=== PATIENT | male | born 1950 | race Caucasian/White ===

== ENCOUNTER 2020-02-24 23:30 | Emergency (ER) | payer SELFPAY ==
[2020-02-24 23:32] VITALS: BP 128/55; PULSE 88; RESP 20; TEMP 36.9; O2SAT 96; BMI 26.6
--- NOTE | 2020-02-25 01:31 | ED_ITS ---
HPI - Asthma General Chief Complaint: Asthma Stated Complaint: Asthma Time Seen by Provider: 02/25/20 01:18 Source: patient Mode of arrival: ambulatory Limitations: no limitations History of Present Illness HPI Narrative: Patient comes emergency room complaining of an asthma exacerbation. Patient states he has been using her inhaler more than usual. Patient states that he used his pump prior to arrival with some relief. Patient states he has not used any steroids for several months. Denies cough, no sputum production, no fever, no shortness of breath at this time MD complaint: asthma attack Related Data Previous Rx's Medication Instructions Recorded bicalutamide 50 mg tablet 50 mg PO DAILY 90 Days #90 tab 12/28/19 prednisone 50 mg PO DAILY #4 tab 02/25/20 Allergies Allergy/AdvReac Type Severity Reaction Status Date / Time ciprofloxacin [From CIPRO] Allergy Unknown RASH Verified 02/25/20 01:49 Sulfa (Sulfonamide Allergy Unknown rash Verified 02/25/20 01:49 Antibiotics) sulfamethoxazole Allergy Unknown RASH Verified 02/25/20 01:49 [From BACTRIM] trimethoprim [From BACTRIM] Allergy Unknown RASH Verified 02/25/20 01:49 Review of Systems Review of Systems: Constitutional : No Weight loss, No Fever, No Chills, No Night Sweats, No Fatigue, No Malaise ENT/Mouth : No Hearing loss, No Ear Pain, No Nasal Congestion, No Sinus Pain, No Hoarseness, No sore throat, No Rhinorrhea, No Swallowing Difficulty Eyes: No Eye Pain, No Swelling, No Redness, No Foreign Body, No Discharge, No Vision Changes Cardiovascular : No Chest Pain, No SOB, No Dyspnea on Exertion, No Orthopnea, No Edema, No Palpitations Respiratory : No Cough, No Sputum, mild to moderate Wheezing, No Smoke Exposure, No Dyspnea Gastrointestinal : No Nausea, No Vomiting, No Diarrhea, No Constipation, No a bdominal Pain, No Hematochezia, No Melena Genitourinary : no irregular bleeding, No Dysuria, No Urinary Frequency, No Hematuria, No Urinary Incontinence, No Urgency, No Flank Pain, No Urinary Flow Changes, No Hesitancy Musculoskeletal : No joint pain, No Myalgias, No Joint Swelling Skin : No Skin Lesions, No rash Neuro : No Weakness, No Numbness, No Paresthesias, No Loss of Consciousness, No Dizziness, No Headache Psych : No Anxiety/Panic, No Depression, No SI/HI/AH/VH, No Social Issues, Heme/Lymph: No Bruising, No Bleeding,No Lymphadenopathy Endocrine : No Polyuria, No Polydipsia, No Temperature Intolerance [facility] Past Medical History Medical History Asthma COPD (chronic obstructive pulmonary disease) Social History Social History Smoking Status: Former smoker Use of substances other than those prescribed or required for medical reasons: No Advance Directives: No Advance Directives Information Provided: No Physical Exam Vital Signs: Vital Signs: Last Vital Signs Temp 98.4 F 02/24/20 23:32 Pulse 91 02/25/20 01:57 Resp 20 02/24/20 23:32 BP 128/55 L 02/24/20 23:32 Pulse Ox 96 02/24/20 23:32 Body Mass Index 26.6 Appearance: Alert. Oriented X3. No acute distress. Eyes: Pupils equal, round and reactive to light. ENT: Pharynx normal. Neck: Normal inspection. Neck supple. No lymph nodes noted. No crepitus CVS: Normal heart rate and rhythm. Pulses normal. Normal S1 and S2 Respiratory: No respiratory distress. Good air movement bilaterally, very mild occasional wheezing bilaterally Abdomen: Soft and nontender. No rigidity. No distention. good BS x4 Skin: Skin warm and dry. Normal skin color. Normal skin turgor. Extremities: No lower extremity edema. No lower extremity edema. No Lacerations. No Rash Neuro: Oriented X 3. No motor deficit. No sensory deficit. Moving all extermities. No slurred speech. Course Course Course Narrative: Patient is not wheezing, speaking full sentences. Patient ready for discharge. Patient states he has enough albuterol pumps and for his nebulizer. Discharge Plan Discharge Clinical Impression: Asthma Qualifiers: Asthma severity: unspecified severity Asthma persistence: unspecified Asthma complication type: unspecified Qualified Code(s): J45.909 - Unspecified asthma, uncomplicated Patient Disposition: Home, Self-Care Instructions: Asthma (ED) Additional Instructions: Please follow-up with your primary care physician tomorrow. If you have any worsening or new symptoms, please return to the emergency room or call 911 Prescriptions: New prednisone 50 mg tablet 50 mg PO DAILY Qty: 4 RF: 0 No Action bicalutamide 50 mg tablet 50 mg PO DAILY 90 Days Qty: 90 RF: 2
[2020-02-25] MEDS: predniSONE 20 MG TABLET 60 MG PO (01:51)
[2020-02-25] MEDS: Albuterol Sulfate (0.083%) 2.5 MG/3 ML VIAL.NEB INHALE (01:56)
[2020-02-25 01:57] VITALS: PULSE 91; O2SAT 95
== END 2020-02-25 03:16 | disposition home or self-care (01) ==
PROVIDERS: Emergency Provider Emergency Medicine; PCP Internal Medicine
DX: J45.909 Unspecified asthma, uncomplicated (principal); Z87.891 Personal history of nicotine dependence; Z79.899 Other long term (current) drug therapy
CPT/HCPCS: 94640; 99284

== ENCOUNTER → 2020-03-13 10:34 | Outpatient (BNVA) | payer OTHER, SELFPAY | PROVIDERS: PCP Internal Medicine; Visit Provider Internal Medicine Pulmonary Disease | DX: Z76.89 Persons encountering health services in other specified circumstances (principal) ==

== ENCOUNTER 2020-03-21 10:08 | Outpatient (REF) | payer OTHER, SELFPAY ==
--- NOTE | 2020-03-21 | US_ITS ---
EXAMINATION: US RETROPERITONEAL LIMITED (RENAL ONLY) CLINICAL INFORMATION: CA of right renal pelvis. COMPARISON: CT abdomen and pelvis 10/20/2019. Renal ultrasound 09/25/2019. TECHNIQUE: Real-time imaging of the kidneys. FINDINGS: RIGHT KIDNEY: 11.1 x 5.6 x 4.9 cm (SAG x AP x TRV). 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 The kidney is normal in size, contour, and echogenicity. Renal cortical thickness is normal. No renal calculi or hydronephrosis. There are 3 cysts seen. Upper pole cyst measures 0.8 x 0.8 x 0.8 cm, mid pole cyst measures 0.8 x 0.6 x 0.8 cm and a lower pole cyst measures 1.1 x 0.4 x 1.4 cm. There is a hypoechoic heterogeneous lesion in the upper pole with no vascular flow measuring 2.0 x 2.1 x 2.3 cm. It is likely scar following cryoablation. Best visualized on axial image 28/03. LEFT KIDNEY: 3.9 x 5.0 cm (SAG x AP x TRV). The upper pole of the left kidney is not well-visualized due to crossed fused ectopia, hence not sure of the length of the left kidney. The kidney is normal in size, contour, and echogenicity. Renal cortical thickness is normal. No calculi or focal parenchymal lesions. No hydronephrosis. No focal lesion seen. 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 There are 3 anechoic cysts in right kidney and a scar in the upper pole right kidney likely from previous cryoablation.
== END 2020-03-21 10:09 | disposition home or self-care (01) ==
LOC: HO.US 10:08
PROVIDERS: Visit Provider Urology
DX: C65.1 Malignant neoplasm of right renal pelvis (principal)
CPT/HCPCS: 76775

== ENCOUNTER 2020-06-19 10:18 | Outpatient (REF) | payer OTHER, SELFPAY ==
[2020-06-19 11:44] LABS: Prostate Specific Antigen < 0.05 ng/mL (<0.05-4.0)
== END 2020-06-19 10:19 | disposition home or self-care (01) ==
LOC: HO.LAB 10:18
PROVIDERS: PCP Internal Medicine; Visit Provider Urology
DX: Z12.5 Encounter for screening for malignant neoplasm of prostate (principal); C61 Malignant neoplasm of prostate
CPT/HCPCS: 36415; 84153

== ENCOUNTER → 2020-06-25 09:32 | Outpatient (BNVA) | payer OTHER, SELFPAY | PROVIDERS: Visit Provider Urology ==

== ENCOUNTER 2020-09-23 08:36 | Outpatient (REF) | payer OTHER, SELFPAY ==
[2020-09-23 09:36] LABS: Anion Gap 19 (12-20); Blood Urea Nitrogen 20 mg/dL (9-16); Calcium 9.7 mg/dL (8.4-10.2); Carbon Dioxide 20 mmol/L (22-29); Chloride 110 mmol/L (96-108); Cholesterol 114 mg/dL; Estimated Glomerular Filt Rate 53; Glucose Random 148 mg/dL (60-115); HDL Cholesterol 51 mg/dL; LDL Cholesterol Calculated 38 mg/dl; Potassium 5.7 mmol/L (3.3-5.1); Sodium 143 mmol/L (135-145); Triglycerides 129 mg/dL
== END 2020-09-23 08:37 | disposition home or self-care (01) ==
LOC: HO.LAB 08:36
PROVIDERS: PCP Internal Medicine; Visit Provider Internal Medicine
DX: E11.9 Type 2 diabetes mellitus without complications (principal); I10 Essential (primary) hypertension; J44.9 Chronic obstructive pulmonary disease, unspecified
CPT/HCPCS: 36415; 80048; 80061

== ENCOUNTER 2020-09-30 08:39 | Outpatient (REF) | payer OTHER, SELFPAY ==
[2020-09-30 10:55] LABS: Anion Gap 17 (12-20); Blood Urea Nitrogen 20 mg/dL (9-16); Calcium 9.2 mg/dL (8.4-10.2); Carbon Dioxide 18 mmol/L (22-29); Chloride 110 mmol/L (96-108); Estimated Glomerular Filt Rate 54; Glucose Random 135 mg/dL (60-115); Potassium 5.7 mmol/L (3.3-5.1); Sodium 139 mmol/L (135-145)
[2020-09-30 16:27] LABS: Prostate Specific Antigen < 0.05 ng/mL (<0.05-4.0)
== END 2020-09-30 08:40 | disposition home or self-care (01) ==
LOC: HO.LAB 08:39
PROVIDERS: Urology; PCP Internal Medicine; Visit Provider Internal Medicine
DX: Z12.5 Encounter for screening for malignant neoplasm of prostate (principal); E87.5 Hyperkalemia; C61 Malignant neoplasm of prostate
CPT/HCPCS: 36415; 80048; 84153

== ENCOUNTER 2020-10-07 09:42 | Outpatient (REF) | payer OTHER, SELFPAY ==
[2020-10-07 10:32] LABS: Anion Gap 13 (12-20); Blood Urea Nitrogen 16 mg/dL (9-16); Calcium 9.2 mg/dL (8.4-10.2); Carbon Dioxide 25 mmol/L (22-29); Chloride 109 mmol/L (96-108); Estimated Glomerular Filt Rate 56; Glucose Random 115 mg/dL (60-115); Potassium 5.4 mmol/L (3.3-5.1); Sodium 142 mmol/L (135-145)
== END 2020-10-07 09:43 | disposition home or self-care (01) ==
LOC: HO.LAB 09:42
PROVIDERS: PCP Internal Medicine; Visit Provider Internal Medicine
DX: E11.9 Type 2 diabetes mellitus without complications (principal)
CPT/HCPCS: 36415; 80048

== ENCOUNTER 2020-10-14 09:21 | Outpatient (REF) | payer OTHER, SELFPAY ==
[2020-10-14 13:44] LABS: Anion Gap 18 (12-20); Blood Urea Nitrogen 20 mg/dL (9-16); Calcium 9.5 mg/dL (8.4-10.2); Carbon Dioxide 23 mmol/L (22-29); Chloride 107 mmol/L (96-108); Estimated Glomerular Filt Rate 51; Glucose Random 121 mg/dL (60-115); Potassium 5.5 mmol/L (3.3-5.1); Sodium 142 mmol/L (135-145)
== END 2020-10-14 09:22 | disposition home or self-care (01) ==
LOC: HO.LAB 09:21
PROVIDERS: Absent Provider Internal Medicine; PCP Internal Medicine; Visit Provider Family Medicine
DX: E87.5 Hyperkalemia (principal)
CPT/HCPCS: 36415; 80048

== ENCOUNTER 2020-11-05 09:03 | Outpatient (REF) | payer OTHER, SELFPAY ==
[2020-11-05 10:06] LABS: Anion Gap 14 (12-20); Blood Urea Nitrogen 20 mg/dL (9-16); Calcium 9.4 mg/dL (8.4-10.2); Carbon Dioxide 24 mmol/L (22-29); Chloride 109 mmol/L (96-108); Estimated Glomerular Filt Rate > 60; Glucose Random 122 mg/dL (60-115); Sodium 142 mmol/L (135-145)
[2020-11-05 10:25] LABS: Prostate Specific Antigen < 0.05 ng/mL (<0.05-4.0)
== END 2020-11-05 09:04 | disposition home or self-care (01) ==
LOC: HO.LAB 09:03
PROVIDERS: Urology; PCP Internal Medicine; Visit Provider Internal Medicine
DX: N40.1 Benign prostatic hyperplasia with lower urinary tract symptoms (principal); N13.8 Other obstructive and reflux uropathy; C61 Malignant neoplasm of prostate; E87.5 Hyperkalemia
CPT/HCPCS: 36415; 80048; 84153

== ENCOUNTER 2020-11-26 08:19 | Outpatient (REF) | payer OTHER, SELFPAY ==
--- NOTE | ~2020-11-26 | CT_ITS ---
EXAMINATION: CT CHEST WITHOUT CONTRAST CLINICAL INFORMATION: Abnormal lung findings. COMPARISON: CT abdomen 10/20/2019, chest x-ray 10/08/19 TECHNIQUE: Multidetector volumetric CT imaging of the chest was done. Axial MIP volume rendering provided. Sagittal and coronal reformatted images were obtained. This CT examination was performed using dose optimization techniques as appropriate, variously including the following: *Automated exposure control *Adjustment of mA and/or kV according to patient size (this includes techniques or standardized protocols for targeted exams where dose is matched to indication/reason for exam; i.e. extremities or head) *Use of iterative reconstruction technique DLP: 147 mGy-cm FINDINGS: GRADER TENDER: Unremarkable. LUNGS: There is a 3 mm groundglass attenuation nodule image 79/4. There is prominent intralobular peripheral interstitial thickening in both lower lobes especially right lung. There is centrilobular emphysematous changes. No consolidation seen. Compressive atelectasis right lateral basal segment lower lobe. MEDIASTINUM: The left thyroid lobe is enlarged with a retrosternal extension likely goiter. Central trachea and the bronchi widely patent. Atherosclerotic calcification of thoracic arch is noted. There is no abnormal size mediastinal or hilar lymph nodes seen. There is no pericardial effusion. PLEURA: There is no pleural effusion. No pleural mass or thickening. AXILLA: No lymphadenopathy. UPPER ABDOMEN: Visualized liver, spleen, pancreas and bilateral adrenal glands are unremarkable. OSSEOUS STRUCTURES: No lytic or sclerotic process seen. CT/CT chest wo con IMPRESSION: 1. Emphysema with no acute process seen. Minimal atelectasis scarring in both lung bases prominent in the right side. No lung nodules, mass or abnormal lymphadenopathy. 2. Goiter with left substernal extension.
== END 2020-11-26 08:20 | disposition home or self-care (01) ==
LOC: HO.CT 08:19
PROVIDERS: Visit Provider Internal Medicine Pulmonary Disease
DX: R91.8 Other nonspecific abnormal finding of lung field (principal)
CPT/HCPCS: 71250

== ENCOUNTER → 2020-12-13 08:32 | Outpatient (BNVA) | payer OTHER, SELFPAY | PROVIDERS: PCP Internal Medicine; Visit Provider Urology ==

== ENCOUNTER → 2020-12-14 09:07 | Outpatient (REF) | payer OTHER, SELFPAY ==
--- NOTE | 2020-12-14 09:36 | CA_ITS ---
Transthoracic Echocardiogram Patient (Last, First, Middle): Margarito Henderson A Gender: Male Date of : 1950 Age: 70 Procedure Date: 12/14/2020 Procedure Type: Transthoracic Echocardiogram Location: OP Height: 165.1 cm Weight: 70.31 kg BSA: 1.78 m2 Heart Rate: bpm BP: 134 / 60 mmHg Bung Dropper: Referring MD: José Servin MD Senior Analyst Market Intelligence: Oj Hardin MD Symptoms: R06.00 - Dyspnea, unspecified Study Quality: Good ECG Rhythm: Sinus Conclusions: - 1. Normal LV systolic function with mild LVH with pseudonormal filling pattern with elevated left ventricular end-diastolic pressure 2. Mildly dilated left atrium 3. Mild mitral regurgitation 4. Mildly elevated right ventricular systolic pressure 5. No pericardial effusion Findings Left Ventricle Normal left ventricular size and systolic function. There is mildly increased left ventricular wall thickness. The visually estimated ejection fraction is between 60-65%. Spectral Doppler is indicative of a pseudonormal filling pattern. Elevated left ventricular end diastolic pressure. E/E prime ratio is between 8 and 15 consistent with indeterminate filling pressures. Right Ventricle Normal right ventricular cavity size and systolic function. Atria The left atrium is mildly dilated. Interatrial shunt cannot be excluded. The right atrium is normal in size. Aortic Valve The aortic valve structure and function is likely normal. There is no aortic valve stenosis. There is no aortic valve regurgitation. Mitral Valve There is mild anterior and posterior mitral leaflet thickening. There is mild mitral valve regurgitation. There is no mitral valve stenosis. Pulmonic Valve The pulmonic valve was not well visualized. Tricuspid Valve There is mild tricuspid valve regurgitation. The right ventricular systolic pressure is 41 mmHg. Mild pulmonary hypertension is present. Great Vessels All visible segments of the aorta are normal in size. The pulmonary artery was not well visualized. Venous The inferior vena cava is normal in size and collapses greater than 50% with inspiration. Pericardium/Pleural There is no evidence of pericardial effusion. Prior Study Comparison No prior study available for comparison. Measurements 2D Linear Measurements IVSd: 1.23 0.6-0.9/0.6-1.0 cm LVIDd: 4.16 3.9-5.3/4.2-5.9 cm LVIDd Index: 2.34 2.4-3.2/2.2-3.1 cm/m2 LVIDs: 2.65 2.0-3.6 cm LVPWd: 1.23 0.7-1.1 cm Ao Root: 2.80 2.1-3.5 cm LA Diam: 3.70 2.7-3.8/3.0-4.0 cm LAIDs Index: 2.08 1.5-2.3 cm/m2 LV Mass: 226.85 67-162/88-224 g LV Mass Index: 127.44 43-95/49-115 g/m2 LVOT Diam: 2.00 3.0+(-)1.3 cm Mitral Valve MV Pk E: 1.27 MV PK A: 0.56 MV Decel Time: 128.00 E/A: 2.30 E'Lateral: 8.92 E'Medial: 7.94 E/E' Med: 16.00 E/E' Lat: 14.20 PHT: 37.00 MVA PHT: 5.95 Decel Cecil: 9.97 Aortic Valve AoV Pk Ramsey: 1.41 AoV Mn Ramsey: 0.86 AoV VTI: 0.33 AoV Pk Grad: 8.00 Aov Mn Grad: 4.00 RAMON Cont.VTI: 1.92 LVOT LVOT Pk Ramsey: 0.89 LVOT Mn Ramsey: 0.58 LVOT VTI: 0.20 LVOT Pk Grad: 3.00 LVOT Mn Grad: 2.00 LVOT Diam: 2.00 LVOT Area: 3.14 Diastolic Function MV Pk E: 1.27 MV Pk A: 0.56 E/A: 2.30 E'Medial: 7.94 E/E' Med: 16.00 E' Laterial: 8.92 E/E' Lat: 14.20 Tricuspid Valve TR Pk Ramsey: 3.10 TR Pk Grad: 38.00 RA Press: 3.00 RVSP: 41.00 Great Vessels Aorta Ao Root-2D: 2.80 2.0-3.7 cm Ao Asc: 2.90 2.1-3.4 cm Pulmonary Valve PV Pk Ramsey: 1.14 Peak PV Grad: 5.00 Updated in Other Vendor System with Status of Final Oj Hardin MD electronically signed on 12/15/2020 2:29:03 PM with status of Final
== END ==
LOC: HO.CARD 09:07
PROVIDERS: PCP Internal Medicine; Visit Provider Internal Medicine Pulmonary Disease
DX: R06.00 Dyspnea, unspecified (principal)
CPT/HCPCS: 93306

== ENCOUNTER → 2021-01-09 09:23 | Outpatient (BNVA) | payer OTHER, SELFPAY | PROVIDERS: PCP Internal Medicine; Visit Provider Internal Medicine Pulmonary Disease ==

== ENCOUNTER 2021-05-05 09:29 | Outpatient (REF) | payer OTHER, SELFPAY ==
[2021-05-05 10:22] LABS: Estimated Average Glucose 140 mg/dL; Hemoglobin A1c % 6.5 %
[2021-05-05 11:00] LABS: TSH reflex Free T4 0.41 uIU/mL (0.32-4.0)
[2021-05-05 12:05] LABS: Microalbum/Creatinine Ratio Ur 115.6 ug/mg cr
== END 2021-05-05 09:30 | disposition home or self-care (01) ==
LOC: HO.LAB 09:29
PROVIDERS: Absent Provider Internal Medicine; PCP Internal Medicine; Visit Provider Urology
DX: E04.9 Nontoxic goiter, unspecified (principal)
CPT/HCPCS: 36415; 82043; 83036; 84443

== ENCOUNTER 2021-06-04 07:53 | Outpatient (REF) | payer OTHER, SELFPAY ==
--- NOTE | ~2021-06-04 | US_ITS ---
EXAMINATION: US THYROID CLINICAL INFORMATION: Nontoxic goiter. COMPARISON: CT chest 11/26/2020. TECHNIQUE: Linear transducer grayscale and color Doppler examination with attention to the region of the thyroid. FINDINGS: SIZE: Measurements of the thyroid lobes and nodules are given in sagittal, anteroposterior and transverse dimensions respectively. Right Thyroid Lobe: 6.1 x 2.6 x 2.5 cm, volume 20.2 mL. Parenchyma: The gland echotexture is heterogeneous. Thyroid vascularity is normal. Left Thyroid Lobe: 7.2 x 3.7 x 3.3 cm, volume 45.1 mL. Parenchyma: The gland echotexture is heterogeneous. Thyroid vascularity is normal. Isthmus: 1.5 cm in maximum AP dimension. Estimated total number of nodules greater than or equal to 1 cm: 5. Pupil Personnel Services Director nodules are described as follows: 1. Location: Right upper pole. Size: 3.7 x 1.6 x 2.3 cm, volume 7.1 mL. Nodule characteristics: Composition: Solid/almost completely solid (2). Echogenicity: Isoechoic (1). Shape: Not taller than wide (0). Margins: Smooth (0). Echogenic Foci: Punctate echogenic foci (3). ACR TI-RADS total points: 6 ACR TI-RADS category: 4 2. Location: Right mid pole. Size: 0.9 x 0.9 x 1.1 cm, volume 0.50 mL. Nodule characteristics: Composition: Spongiform (0). ACR TI-RADS total points: 0 ACR TI-RADS category: 1 3. Location: Right lower pole. Size: 1.2 x 1.1 x 1.1 cm, volume 0.83 mL. Nodule characteristics: Composition: Mixed cystic and solid (1). Echogenicity: Isoechoic (1). Shape: Not taller than wide (0). Margins: Smooth (0). Echogenic Foci: None (0). ACR TI-RADS total points: 2 ACR TI-RADS category: 2 4. Location: Isthmus. Size: 3.5 x 1.3 x 3.1 cm, volume 7.2 mL. Nodule characteristics: Composition: Solid/almost completely solid (2). Echogenicity: Isoechoic (1). Shape: Not taller than wide (0). Margins: Smooth (0). Echogenic Foci: Punctate echogenic foci (3). ACR TI-RADS total points: 6 ACR TI-RADS category: 4 5. Location: Left lower pole. Size: 2.4 x 1.6 x 1.9 cm, volume 4.0 mL. Nodule characteristics: Composition: Mixed cystic and solid (1). Echogenicity: Isoechoic (1). Shape: Not taller than wide (0). Margins: Smooth (0). Echogenic Foci: None (0). ACR TI-RADS total points: 2 ACR TI-RADS category: 2 NODES: No lymphadenopathy is seen in the tissue surrounding the thyroid gland. US/US thyroid IMPRESSION: 1. Nodule in the superior portion the right thyroid lobe measures up to 3.7 cm with a TI-RADS Category 4. Nodules amenable to biopsy if not already performed. 2. Nodule in the midportion of the right thyroid lobe measures up to 1.1 cm with a TI-RADS category of 1. Nodule does not require follow-up. 3. Nodule in the lower pole of the right thyroid lobe measures up to 1.2 cm with a TI-RADS Category 2. Nodule does not require follow-up. 4. Nodule in the isthmus measures up to 3.5 cm with a TI-RADS Category 4. Nodule is amenable to biopsy if not already performed. 5. Nodule in the lower pole of the left thyroid lobe measures up to 2.4 cm with a TI-RADS Category 2. Nodule does not require follow-up. 6. Bilateral thyroid lobes are enlarged and demonstrate heterogeneous echotexture with normal vascularity. 7. No lymphadenopathy noted. ACR TI-RADS RECOMMENDATION REFERENCE: * TR1 (0 point) and TR 2 (2 points): No FNA or follow up * TR4 (4-6 points): FNA if more than or equal to 1.5 cm in maximum dimension, followup ultrasound in 1, 2, 3 and 5 years if 1 to 1.4 cm in maximum dimension. * TR4 nodules that are below the size threshold for follow up receive no follow up.
--- NOTE | ~2021-06-04 | US_ITS ---
EXAMINATION: US RETROPERITONEAL LIMITED (RENAL ONLY) CLINICAL INFORMATION: Calculus of kidney. COMPARISON: Renal ultrasound 03/21/2020 and 09/25/2019. CT abdomen and pelvis 10/20/2019. TECHNIQUE: Real-time imaging of the kidneys. FINDINGS: RIGHT KIDNEY: 11.2 x 5.0 x 5.2 cm (SAG x AP x TRV). The kidney is normal in size, contour, and echogenicity. Renal cortical thickness is normal. No renal calculi or hydronephrosis. Multiple cystic foci are noted in the right kidney the largest appearing in the interpolar region measuring up to 1.1 cm, simple appearing, not requiring follow-up. In the upper pole of the right kidney is a 2.4 x 1.6 x 1.8 cm masslike structure status post ablation in this region. 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 8.6 x 4.8 x 4.9 cm (SAG x AP x TRV). The kidney is normal in size, contour, and echogenicity. Renal cortical thickness is normal. No calculi or focal parenchymal lesions. No hydronephrosis. US/US renal BI IMPRESSION: 1. Multiple cystic foci are noted in the right kidney the largest appearing in the interpolar region measuring up to 1.1 cm, simple appearing, not requiring follow-up. 2. In the upper pole of the right kidney is a 2.4 x 1.6 x 1.8 cm masslike structure status post ablation in this region. 3. 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
== END 2021-06-04 07:54 | disposition home or self-care (01) ==
LOC: HO.US 07:53
PROVIDERS: Absent Provider Internal Medicine; PCP Internal Medicine; Visit Provider Urology
DX: C65.1 Malignant neoplasm of right renal pelvis (principal); N20.0 Calculus of kidney; E04.9 Nontoxic goiter, unspecified
CPT/HCPCS: 76536; 76775

== ENCOUNTER → 2021-06-17 08:13 | Outpatient (BNVA) | payer OTHER, SELFPAY | PROVIDERS: PCP Internal Medicine; Visit Provider Urology | DX: Z13.89 Encounter for screening for other disorder (principal) ==

== ENCOUNTER → 2021-06-27 08:04 | Outpatient (BNVA) | payer OTHER, SELFPAY | PROVIDERS: PCP Internal Medicine; Visit Provider Internal Medicine Endocrinology, Diabetes & Metabolism | DX: Z13.89 Encounter for screening for other disorder (principal) ==

== ENCOUNTER 2021-07-09 08:42 | Outpatient (REF) | payer OTHER, SELFPAY ==
--- NOTE | ~2021-07-09 | US_ITS ---
EXAMINATION: ULTRASOUND-GUIDED FINE NEEDLE THYROID BIOPSY CLINICAL INFORMATION: There are 2 abnormal thyroid nodules in the right lobe and the right isthmus. COMPARISON: Ultrasound thyroid gland 06/04/2021. TECHNIQUE: Following explaining ultrasound-guided fine-needle aspiration biopsy of right lobe and right isthmus nodule procedure, benefits and risks, a written consent was obtained. Patient was placed supine with head extended on ultrasound stretcher. Preliminary ultrasound imaging was performed and an optimal site was selected and marked along the right anterior neck and the right isthmus nodules. The entire right neck was cleaned and draped in usual sterile manner with 2% chlorhexidine solution. 1% lidocaine was injected at both the marked sites. Initially under ultrasound guidance fine-needle aspiration of the right nodule was performed followed by 3 pass fine-needle biopsy aspiration of right isthmus nodule. Postprocedure complete hemostasis was achieved. Simple Band-Aid applied at puncture site. FINDINGS: On preliminary ultrasound imaging there are 2 heterogeneous nodules in the right upper pole and right isthmus. 3 pass fine-needle biopsy aspiration of right upper lobe nodule was performed and a 4 pass biopsy aspiration of isthmus nodules was performed. Definite results are pending. US/US guided fine needle asp IMPRESSION: Successful ultrasound-guided fine-needle biopsy aspiration of right upper lobe nodule and right isthmus nodule.
--- NOTE | ~2021-07-09 | US_ITS ---
EXAMINATION: ULTRASOUND-GUIDED FINE-NEEDLE BIOPSY THYROID NODULE CLINICAL INFORMATION: 2 abnormal thyroid nodules in the right lobe and right isthmus. COMPARISON: Ultrasound thyroid 06/04/2021. US/US guided fine needle asp add FINDINGS/IMPRESSION: Ultrasound-guided fine-needle needle biopsy aspiration of both nodules was dictated on accession number [id number] [facility] [place].
[2021-07-09] MEDS: Lidocaine HCl 1 % MPF 5 ML VIAL 4 ML SUBCUT (10:07)
== END 2021-07-09 08:43 | disposition home or self-care (01) ==
LOC: HO.US 08:42
PROVIDERS: Visit Provider Internal Medicine Endocrinology, Diabetes & Metabolism
DX: E04.2 Nontoxic multinodular goiter (principal)
CPT/HCPCS: 10005; 10006; 88172; 88173; 88177

== ENCOUNTER → 2021-07-18 10:28 | Outpatient (BNVA) | payer OTHER, SELFPAY | PROVIDERS: PCP Internal Medicine; Visit Provider Internal Medicine Endocrinology, Diabetes & Metabolism | DX: E04.2 Nontoxic multinodular goiter (principal) ==

== ENCOUNTER 2021-11-28 15:31 | Outpatient (REF) | payer OTHER, SELFPAY ==
[2021-11-28 17:34] LABS: Blood Urea Nitrogen 25 mg/dL (9-16); Estimated Glomerular Filt Rate 52
[2021-11-28 18:04] LABS: Prostate Specific Antigen < 0.05 ng/mL (<0.05-4.0)
== END 2021-11-28 15:32 | disposition home or self-care (01) ==
LOC: HO.LAB 15:31
PROVIDERS: PCP Internal Medicine; Visit Provider Urology
DX: Z12.5 Encounter for screening for malignant neoplasm of prostate (principal); N13.8 Other obstructive and reflux uropathy; N40.1 Benign prostatic hyperplasia with lower urinary tract symptoms; R39.15 Urgency of urination
CPT/HCPCS: 36415; 82565; 84153; 84520

== ENCOUNTER 2021-12-01 10:33 | Outpatient (REF) | payer OTHER, SELFPAY ==
--- NOTE | ~2021-12-01 | CT_ITS ---
EXAMINATION: CT ABDOMEN WITHOUT AND WITH CONTRAST CLINICAL INFORMATION: Malignant neoplasm of kidney. COMPARISON: None TECHNIQUE: Contiguous axial thin section helical images of the abdomen were performed before and after the administration of oral contrast and 85 mL of Omnipaque 350 intravenous contrast. The data set was reformatted in the coronal and sagittal planes and reviewed on an independent workstation. This CT examination was performed using dose optimization techniques as appropriate, variously including the following: *Automated exposure control. *Adjustment of mA and/or kV according to patient size (this includes techniques or standardized protocols for targeted exams where dose is matched to indication/reason for exam; i.e. extremities or head). *Use of iterative reconstruction technique. DLP: 660 mGy-cm FINDINGS: LUNG BASES: Minimal atelectatic changes seen at the lung bases. Heart size is normal. LIVER, GALLBLADDER, AND BILIARY TREE: The liver is homogeneous in density, normal size and contour. No focal lesion or intrahepatic ductal dilatation seen. The gallbladder is unremarkable. PANCREAS: The pancreas is unremarkable. SPLEEN: The spleen is unremarkable. ADRENAL GLANDS AND KIDNEYS: Bilateral adrenal glands are symmetric and normal. The left kidney is not visualized. There is ectopic right kidney fused to lower pole of left kidney. The lower presumed left kidney measures 8.2 cm. The right kidney measures 10.7 cm. No radiopaque renal calculi seen in either kidney. There is a non-enhancing 6 mm and 1 cm cyst midpole left kidney and a 1.1 cm cyst midpole right kidney. Mild bilateral perinephric stranding is seen in both kidneys. There is diffuse perinephric stranding. BOWEL LOOPS: There is scattered diverticuli, stool and gas seen in the colon without distention. The small bowel loops are normal caliber. LYMPH NODES: Normal. VASCULAR: The abdominal aorta is of normal caliber. No aneurysmal dilatation seen. BONES: Degenerative disc changes with vacuum disc phenomena L5-S1 disc level. There is mild spondylosis. The rest of the visualized bones are grossly unremarkable. CT/CT abdomen wo/w IV con IMPRESSION: 1. 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 However, there are bilateral renal cysts and perinephric stranding. No radiopaque calculi. No hydroureteronephrosis seen. 2. Colonic diverticulosis without diverticulitis. Fleischner guidelines were followed.
[2021-12-01] MEDS: iohexoL 350 MG/ML 100 ML INFUS..BTL IV (11:16)
== END 2021-12-01 10:34 | disposition home or self-care (01) ==
LOC: HO.CT 10:33
PROVIDERS: Visit Provider Urology
DX: C64.9 Malignant neoplasm of unspecified kidney, except renal pelvis (principal)
CPT/HCPCS: 74170; Q9967

== ENCOUNTER 2021-12-18 10:04 | Outpatient (REF) | payer OTHER, SELFPAY ==
--- NOTE | 2021-12-18 10:47 | PM.OP ---
Brief Operative Note Date of Service: 12/18/21 Pre-op diagnosis: Multinodular Thyroid Procedure: This is doctor Estefania Puga. This is an ultrasound-guided fine-needle aspiration report. Date of Examination: 12/18/2021 Indication: Multinodular Thyroid Porcedure: Procedure was explained to the patient. Alternatives, the risk and benefits were discussed. Written consent was obtained. A time-out was also obtained. After sterile preparation, fine-needle aspiration of a 3.5 cm isthmus thyroid nodule was performed using direct ultrasound guidance to confirm accurate needle placement. Four aspirations were made using 25 gauge needles. Samples were submitted for cytology. 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 The patient tolerated the procedure well. Aftercare instructions were provided. Impression: Uncomplicated fine needle aspiration biopsy of a 3.5 cm isthmus thyroid nodule thyroid nodule under ultrasound guidance. Surgeon: Estefania Puga, DO Was an Flying Ii Instructor used for this Procedure?: No Estimated blood loss (mL): 0
[2021-12-18] MEDS: Lidocaine HCl 1 % MPF 5 ML VIAL SUBCUT (11:23)
== END 2021-12-18 10:05 | disposition home or self-care (01) ==
LOC: HO.US 10:04
PROVIDERS: Visit Provider Internal Medicine Endocrinology, Diabetes & Metabolism
DX: E04.2 Nontoxic multinodular goiter (principal)
CPT/HCPCS: 10005; 88172; 88173

== ENCOUNTER → 2021-12-23 11:22 | Outpatient (BNVA) | payer OTHER, SELFPAY | PROVIDERS: PCP Internal Medicine; Visit Provider Urology | DX: C61 Malignant neoplasm of prostate (principal); C65.1 Malignant neoplasm of right renal pelvis; E11.69 Type 2 diabetes mellitus with other specified complication; N52.1 Erectile dysfunction due to diseases classified elsewhere | CPT/HCPCS: 51798 ==

== ENCOUNTER 2022-04-13 15:40 | Inpatient (IN) | payer OTHER, SELFPAY ==
[2022-04-13] VITALS (8 sets, daily range): BP systolic 134–160; BP diastolic 57–64; PULSE 102–121; RESP 22–34; TEMP 36.8–37.1; O2SAT 88–94; BMI 23.6
--- NOTE | ~2022-04-13 | CT_ITS ---
EXAMINATION: CT ANGIOGRAM OF THE CHEST WITH AND WITHOUT CONTRAST (CT PULMONARY ANGIOGRAM FOR PE) CLINICAL INFORMATION: Reason for Exam Positive D-dimer, shortness of breath, hypoxia COMPARISON: None TECHNIQUE: Prior to contrast administration, noncontrast localization images were obtained. Subsequently, multidetector volumetric imaging was performed from the thoracic inlet to below the diaphragms following the administration of 65 mL Omnipaque 350 intravenous contrast. No contrast reaction reported Sagittal, coronal, and MIP oblique sagittal reformatted images were obtained on the CT workstation, uploaded to PACS, and reviewed. This CT examination was performed using dose optimization techniques as appropriate, variously including the following: *Automated exposure control *Adjustment of mA and/or kV according to patient size (this includes techniques or standardized protocols for targeted exams where dose is matched to indication/reason for exam; i.e. extremities or head) *Use of iterative reconstruction technique Total exam dose-length product 261 mGy-cm FINDINGS: QUALITY OF STUDY/CONTRAST BOLUS: Satisfactory. PULMONARY ARTERIES: No central or segmental pulmonary emboli. THORACIC AORTA: No aneurysm or dissection. LUNG: There is a new 1.0 x 1.3 cm right lower lobe groundglass nodule seen (5:40 and 9:77). No other areas of focal consolidation, nodules or masses. PLEURA: No pleural effusion or pneumothorax. MEDIASTINUM: The thyroid is enlarged with possible large 4.7 x 3.5 x 3.6 cm mass involving the left lobe of the thyroid extending into the isthmus and downwards. Normal heart size. Marked atherosclerotic changes seen in the aorta with extensive calcified plaque without aneurysm. Atherosclerotic changes are seen in the great vessels as well. No pericardial effusion. No hilar or mediastinal lymphadenopathy. No evidence of septal bowing or right heart strain. CORONARY ARTERY CALCIFICATION: Moderate coronary calcification is present. CHEST WALL/AXILLA: No axillary or internal mammary lymphadenopathy. OSSEOUS STRUCTURES: No acute or suspicious osseous abnormality. UPPER ABDOMEN: The left kidney appears to have been moved. The right kidney is abnormal but only partially visualized. No reflux of contrast into the hepatic veins to suggest elevated right heart pressures. CT/CT angio chest PE protocol IMPRESSION: 1. No evidence of pulmonary emboli. 2. 1.3 cm right lower lobe groundglass nodule. CT at 6-12 months to confirm persistence, then CT every 2 years until 5 years if it persists. 3. Enlarged thyroid with possible large left-sided mass. VTE: negative. 2017 Fleischner Society Recommendations for Lung Nodule(s): Follow-Up based on size (average of long- and short-axis diameters). Use most suspicious nodule for followup. Single GG lung nodule >= 6 mm: Recommend a non-contrast Chest CT at 6-12 months to confirm persistence, then additional non-contrast Chest CTs every 2 years until 5 years. These guidelines do not apply to patients younger than 35 years, immunocompromised patients, and patients with cancer. F/u in patients with significant comorbidities as clinically warranted. For lung cancer screening, adhere to Lung-RADS guidelines. Reference: Radiology. 2017 Jose; 284(1):228-243
--- NOTE | ~2022-04-13 | XR_ITS ---
EXAMINATION: XR CHEST CLINICAL INFORMATION: Shortness of breath COMPARISON: Previous chest x-ray most recent September 2019 TECHNIQUE: Frontal view of the chest was obtained. FINDINGS: The cardiac and mediastinal contours are stable. The lungs are clear. There is no pleural effusion or pneumothorax. No acute bone abnormality. XR/XR chest 1V IMPRESSION: No evidence for acute disease in the chest.
--- NOTE | ~2022-04-13 | US_ITS ---
EXAMINATION: US THYROID CLINICAL INFORMATION: Thyroid cancer. COMPARISON: 06/04/2021. 07/09/2021. TECHNIQUE: Linear transducer grayscale and color Doppler examination with attention to the region of the thyroid. FINDINGS: SIZE: Measurements of the thyroid lobes and nodules are given in sagittal, anteroposterior and transverse dimensions respectively. Right Thyroid Lobe: 5.6 x 2.6 x 2.6 cm, volume 19 mL. Previously 6.1 x 2.6 x 2.5 cm. Parenchyma: The gland echotexture is heterogeneous. Thyroid vascularity is normal. Left Thyroid Lobe: 6.1 x 3.6 x 3.4 cm, volume 39 mL. Previously 7.2 x 3.7 x 3.3 cm. Parenchyma: The gland echotexture is heterogeneous. Thyroid vascularity is normal. Isthmus: 1.5 cm in maximum AP dimension. Previously 1.5 cm. Estimated total number of nodules greater than or equal to 1 cm: 5. Unfortunately comparison to prior is significantly limited due to the heterogeneity of the thyroid gland. [employer] Supervisor nodules are described as follows: 1. Location: Isthmus. Size: 2.3 x 1.7 x 2.3 cm, volume 4.7 mL. Previously 3.5 x 1.3 x 3.1 cm. Nodule characteristics: Composition: Mixed cystic and solid (1). Echogenicity: Hypoechoic (2). Shape: Not taller than wide (0). Margins: Smooth (0). Echogenic Foci: None (0). ACR TI-RADS total points: 3 ACR TI-RADS category: 3 2. Location: Right midpole. Size: 1.7 x 1.5 x 1.7 cm, volume 2.3 mL. Nodule characteristics: Composition: Solid/almost completely solid (2). Echogenicity: Isoechoic (1). Shape: Not taller than wide (0). Margins: Ill-defined (0). Echogenic Foci: None (0). ACR TI-RADS total points: 3 ACR TI-RADS category: 3 3. Location: Right mid. Size: 1.4 x 1 x 1 cm, volume 0.7 mL. Nodule characteristics: Composition: Solid/almost completely solid (2). Echogenicity: Isoechoic (1). Shape: Not taller than wide (0). Margins: Smooth (0). Echogenic Foci: None (0). ACR TI-RADS total points: 3 ACR TI-RADS category: 3 4. Location: Right lower. Size: 1.7 x 1.4 x 1.3 cm, volume 1.6 mL. Nodule characteristics: Composition: Spongiform (0). Echogenicity: Hypoechoic (2). Shape: Not taller than wide (0). Margins: Ill-defined (0). Echogenic Foci: None (0). ACR TI-RADS total points: 2 ACR TI-RADS category: 1 5. Location: Left lower. Size: 1.4 x 1.6 x 1.8 cm, volume 2.1 mL. Nodule characteristics: Composition: Solid/almost completely solid (2). Echogenicity: Isoechoic (1). Shape: Not taller than wide (0). Margins: Ill-defined (0). Echogenic Foci: None (0). ACR TI-RADS total points: 3 ACR TI-RADS category: 3 NODES: No lymphadenopathy is seen in the tissue surrounding the thyroid gland. US/US thyroid IMPRESSION: Enlarged thyroid gland with multinodular heterogeneous appearance. This heterogeneity limits comparison to previous imaging. The previous isthmus nodule has been sampled. This is decreased in prominence from prior. A right lobe nodule has also been sampled, though it is difficult to determine which on this study. Regardless, none of the current nodules meet criteria for fine-needle aspiration. Most of the described nodules are appropriate for additional follow-up in 2 years. ACR TI-RADS RECOMMENDATION REFERENCE: Ultrasound-guided fine-needle aspiration, followup ultrasound, no further follow up. * TR1 (0 point) and TR2 (2 points): No FNA or follow up. * TR3 (3 points): FNA if more than or equal to 2.5 cm in maximum dimension, followup ultrasound in 1, 3 and 5 years if 1.5 to 2.4 cm in maximum dimension. * TR4 (4-6 points): FNA if more than or equal to 1.5 cm in maximum dimension, followup ultrasound in 1, 2, 3 and 5 years if 1 to 1.4 cm in maximum dimension. * TR5 (more than or equal to 7 points): FNA if more than or equal to 1 cm in maximum dimension, followup ultrasound every year for 5 years if 0.5 to 0.9 cm in maximum dimension. * TR3, TR4 or TR5 nodules that are below the size threshold for followup receive no follow up.
--- NOTE | 2022-04-13 15:53 | ECG_ITS ---
Test Reason : SOB Blood Pressure : / mmHG Vent. Rate : 123 BPM Atrial Rate : 123 BPM P-R Int : 112 ms QRS Dur : 082 ms QT Int : 316 ms P-R-T Axes : 083 -13 120 degrees QTc Int : 452 ms Sinus tachycardia Nonspecific T wave abnormality Abnormal ECG When compared with ECG of 08-OCT-2019 16:06, Non-specific change in ST segment in Lateral leads T wave inversion now evident in Lateral leads Referred By: Ricardo Butterfield Electronically Signed By:Frank Crane
--- NOTE | 2022-04-13 16:07 | ED_ITS ---
HPI - SOB/Dyspnea General Chief Complaint: Dyspnea Stated Complaint: INCR SOB 88% 4LPM,PROD COUGH PER EMS Time Seen by Provider: 04/13/22 15:53 Source: patient and EMS Mode of arrival: ambulatory Limitations: no limitations History of Present Illness HPI Narrative: 72-year-old male with history of prostate cancer, COPD, WILLIAMSON, and pulmonary nodules presents with shortness of breath and feeling sick for 1 week. Patient has a history of asthma, has never been intubated. Pt was brought in via EMS saturating in the 80's was placed on 4 L nasal canula. Patient does not wear oxygen at home. He is afraid he had a cold for about a week however was not getting better. No history of PE or DVT, not on blood thinners. Denies chest pain, fevers, chills, nausea, vomiting, abdominal pain, headache, vision changes, dizziness. Related Data Home Medications Medication Instructions Recorded Confirmed albuterol sulfate 90 mcg/actuation 2 puff PO Q4-6H PRN 03/13/20 12/23/21 aerosol inhaler enalapril maleate 20 mg tablet 20 mg PO BID 03/13/20 12/23/21 glyburide 1.25 mg tablet 1.25 mg PO QAM 03/13/20 12/23/21 ipratropium 0.5 mg-albuterol 3 mg ml inhalation TID PRN 03/13/20 12/23/21 (2.5 mg base)/3 mL nebulization soln metformin 500 mg tablet 1,000 mg PO 03/13/20 12/23/21 simvastatin 80 mg tablet 80 mg PO DAILY 03/13/20 12/23/21 metoprolol succinate 100 mg 100 mg PO DAILY 06/25/20 12/23/21 tablet,extended release 24 hr metoprolol succinate 50 mg 50 mg PO DAILY 06/25/20 12/23/21 tablet,extended release 24 hr nifedipine 90 mg tablet,extended 90 mg PO DAILY 06/25/20 12/23/21 release oxycodone-acetaminophen 5 mg-325 1 tab PO TID PRN 12/13/20 12/23/21 mg tablet diphenhydramine HCl 25 mg capsule 25 mg PO ONCE PRN insomnia 06/17/21 12/23/21 (Banophen) aspirin 81 mg tablet,delayed 81 mg PO DAILY 12/18/21 12/23/21 release Previous Rx's Medication Instructions Recorded fluticasone fur. 200 mcg-umeclid 1 inh inhalation DAILY 30 days #1 01/09/21 62.5 mcg-vilant 25 mcg ea inhalat.powder (Trelegy Ellipta) tamsulosin 0.4 mg capsule 0.4 mg PO BEDTIME 30 days #30 caps 08/25/21 tadalafil 5 mg tablet 5 mg PO DAILY sexual activity 90 12/23/21 days #90 tabs Allergies Allergy/AdvReac Type Severity Reaction Status Date / Time ciprofloxacin [From CIPRO] Allergy Unknown RASH Verified 01/01/22 11:10 Sulfa (Sulfonamide Allergy Unknown rash Verified 01/01/22 11:10 Antibiotics) sulfamethoxazole Allergy Unknown RASH Verified 01/01/22 11:10 [From BACTRIM] trimethoprim [From BACTRIM] Allergy Unknown RASH Verified 01/01/22 11:10 Review of Systems Review of Systems: Constitutional : No Weight loss, No Fever, No Chills, No Fatigue, No Malaise ENT/Mouth : No sore throat, No Rhinorrhea Eyes: No Eye Pain, No Swelling, No Redness Cardiovascular : No Chest Pain, + SOB, + Dyspnea on Exertion, No Orthopnea, No Edema, No Palpitations Respiratory : No Cough, No Sputum, + Wheezing Gastrointestinal : No Nausea, No Vomiting, No Diarrhea, No Constipation, No abdominal Pain, No Hematochezia, No Melena Genitourinary : No Dysuria, No Urinary Frequency, No Hematuria, Musculoskeletal : No joint pain, No Myalgias, No Joint Swelling Skin : No Skin Lesions, No rash Neuro : No Weakness, No Numbness, No Dizziness, No Headache Psych : No Anxiety/Panic, No Depression All other systems reviewed and are negative Yes all other systems are reviewed and are negative [facility] Past Medical History Attestation statement: The following information was validated with the patient. Source: old records reviewed and nursing notes reviewed Medical History Asthma Cancer of right renal pelvis COPD (chronic obstructive pulmonary disease) Crossed renal ectopia Diabetes mellitus Elevated PSA Erectile dysfunction High cholesterol HTN (hypertension) Multinodular goiter (nontoxic) Prostate cancer Right renal mass Surgical History History of prostate biopsy Hx of biopsy Family History Family History Father No problems noted. Mother No problems noted. Social History Social History Household Members: None Alcohol intake: never Patient Tobacco Use Status: Former Tobacco user Quit Date: 3-4 years ago Smoked in Last 30 Days: No Advance Directives: No Advance Directives Information Provided: No Physical Exam Vital Signs: Vital Signs: Last Vital Signs Temp 98.3 F 04/13/22 19:04 Pulse 108 H 04/13/22 19:11 Resp 24 H 04/13/22 19:11 BP 141/57 H 04/13/22 19:04 Pulse Ox 92 04/13/22 19:04 O2 Del Method 04/13/22 19:04 O2 Flow Rate 1 04/13/22 19:04 Oxygen Flow Rate 4 04/13/22 15:54 BMI result Body Mass Index 23.6 Patient is noted to be hypoxic without oxygen. And noted to be tachycardic Ap pearance: Alert.? Oriented X3.? Moderate acute distress.? Head: Normocephalic, atraumatic, no step-offs or deformities Eyes: Pupils equal, round and reactive to light.? Neck: Normal inspection.? Neck supple.? CVS: Normal heart rate and rhythm.? Pulses normal.? Respiratory: Moderate respiratory distress.? Breath sounds diminished bilaterally with inspiratory and expiratory wheezing.? Intercostal muscles for breathing and tracheal tugging. Abdomen: Soft and nontender.? Skin: Skin warm and dry.? Normal skin color.? Normal skin turgor.? Extremities: No lower extremity edema.? No calf ttp. 5/5 strength to bilateral upper and lower extremities Neuro: Oriented X 3.? No motor deficit.? No sensory deficit. CN 2-12 intact Course Reevaluation(s) Reevaluation #1: Patient's CBC revealing leukocytosis strikingly elevated 22.4 however I suspect this is from acute phase reactant/asthma I do not suspect this is from infection. Patient with a normocytic Anemia around his baseline. Patient's chemistry with slight SOY likely secondary to poor p.o. intake/dehydration will hydrate with IV fluids. Lactic is elevated at 2.3 however patient has received multiple nebulizing treatments, again unlikely that this is sepsis. Will hydrate. D-dimer positive CTA ordered and pending. Patient is significantly improving after DuoNeb and albuterol treatment, still intercostal muscles for breathing however much improved than initially. Time: 16:49 Reevaluation #2: X-ray of chest with no evidence of acute disease in the chest. CTA pending. Patient remains doing well, saturating 92% however still having labored breathing. Time: 18:43 Reevaluation #3: CTA without evidence of PE. 1.3 cm lower lobe ground-glass nodule. Enlarged thyroid with left-sided mass possibly. VTE without PE. Educated patient on thyroid findings. Will have him follow-up with his PCP for outpatient ultrasound. Patient to be admitted to the hospitalist team. Saturating well on 2 L. Time: 20:40 Medications Administered Discontinued Medications Generic Name Dose Route Start Last Admin Trade Name Freq PRN Reason Stop Dose Admin Albuterol Sulfate 5 mg 04/13/22 16:16 04/13/22 16:25 Albuterol Sulfate 2.5 Mg/0.5 Ml Vial.Neb INHALE 04/13/22 16:17 5 mg ONCE ONE Administration Albuterol Sulfate 10 mg 04/13/22 18:43 04/13/22 19:10 Albuterol Sulfate (0.083%) 2.5 Mg/3 Ml Vial.Neb INHALE 04/13/22 18:44 10 mg ONCE ONE Administration Albuterol/Ipratropium 3 ml 04/13/22 16:03 04/13/22 16:12 Albuterol/Iprat 2.5/0.5mg 3 Ml Ampul.Neb INHALE 04/13/22 16:04 3 ml ONCE ONE Administration Magnesium Sulfate 2 gm in 50 mls @ 25 mls/hr 04/13/22 16:06 04/13/22 18:36 Magnesium Sulfate/H2o IV 04/13/22 18:05 Infused ONCE ONE Infusion Sodium Chloride 1,000 mls @ 999 mls/hr 04/13/22 17:00 04/13/22 18:46 Ns IV 04/13/22 18:00 999 mls/hr .Q1H1M CHARITO Administration Iohexol 100 ml 04/13/22 17:57 04/13/22 18:03 Iohexol 350 Mg/Ml 100 Ml Infus..Btl IV 04/13/22 17:58 65 ml ONCE ONE Administration Methylprednisolone Sodium Succinate 125 mg 04/13/22 16:06 04/13/22 16:36 Methylprednisolone Sod Succ 125 Mg/2 Ml Vial IVPUSH 04/13/22 16:07 125 mg ONCE ONE Administration Medical Decision Making Medical Decision Making [facility] Narrative: 1600 72-year-old male presents with difficulty breathing for the past week reports recent URI. No history of DVT or PE. Hypoxic for EMS placed on 4 L arrived sa turating 93%, was found to be 80% by EMS. Physical exam moderate respiratory distress with inspiratory and expiratory wheezing, tracheal tugging, intercostal muscles used for breathing. Patient appears uncomfortable. Placed on telemetry monitor and tachycardic with normal rhythm. History and physical exam concerning for acute asthma exacerbation however cannot be ruled out by PERC criteria will obtain D-dimer to rule out PE. Will also rule out viral etiologies that could have precipitated event. Unlikely ACS. History and physical exam not consistent with pneumothorax. Or traumatic injury of the chest. Plan at this time lab, imaging will order magnesium, Solu-Medrol, DuoNeb and then albuterol treatment. Respiratory called to the bedside Lab Data 04/13/22 16:14 04/13/22 16:14 Labs: Lab Results 04/13/22 04/13/22 04/13/22 Range/Units 16:14 16:14 16:14 WBC 22.4 H (4.8-10.8) X10*3/uL RBC 4.06 L (4.60-5.80) X10*6/uL Hgb 11.8 L (14.0-18.0) g/dl Hct 35.4 L (42.0-52.0) % MCV 87.2 (80.0-98.0) fL MCH 29.1 (27.0-33.0) pg MCHC 33.3 (31.0-36.0) g/dl RDW 15.1 (11.0-16.0) % Plt Count 532 H (160-400) X10*3/uL MPV 10.1 (9.4-12.4) fL Immature Gran % (Auto) 1.3 H (0.0-0.4) % Neut % (Auto) 91.4 H (45-73) % Lymph % (Auto) 4.8 L (20-40) % [place] % (Auto) 2.3 (2-11) % Eos % (Auto) 0.0 (0-4) % Baso % (Auto) 0.2 (0-2) % Lymph # (Auto) 1.1 L (1.2-4.9) X10*3/uL [place] # (Auto) 0.5 (0.1-1.2) X10*3/uL Eos # (Auto) 0.0 (0.0-0.4) X10*3/uL Baso # (Auto) 0.1 (0.0-0.2) X10*3/uL Abs Immat Gran (auto) 0.30 H (0.00-0.03) X10*3/uL Absolute Neuts (auto) 20.4 H (2.0-8.3) x10*3/uL Absolute Nucleated RBC 0.000 (0.0-0.012) X10*3/uL Nucleated RBC % (auto) 0.0 (0.0-0.2) /100WBC Smear Tech's Comments VERIFIED D-Dimer High Sensitivty NG/ML VBG pH (7.32-7.43) VBG pCO2 mmHg VBG pO2 mmHg VBG HCO3 (22-26) mmol/L VBG O2 Saturation % VBG Base Excess mmol/L Sodium 139 (135-145) mmol/L Potassium 4.4 (3.3-5.1) mmol/L Chloride 105 (96-108) mmol/L Carbon Dioxide 19 L (22-29) mmol/L Anion Gap 19 (12-20) BUN 33 H (9-16) mg/dL Creatinine 1.44 H (0.5-1.4) mg/dL Estim Creat Clear Calc 42.7 Estimated GFR 48 POC Glucose (60-115) mg/dL Random Glucose 236 H (60-115) mg/dL Lactic Acid 2.3 H* (0.5-2.0) mmol/L Lactic Acid F/U @ 2Hr (0.5-2.0) mmol/L Calcium 9.5 (8.4-10.2) mg/dL Magnesium 1.6 (1.6-2.6) mg/dL Total Bilirubin 0.6 (0.0-1.0) mg/dL AST 22 (5-37) U/L ALT 46 H (0-40) U/L Alkaline Phosphatase 84 (39-117) U/L Troponin I High Sens (<3.5-35.0) ng/L B-Natriuretic Peptide (<100) pg/mL Total Protein 7.4 (6.5-8.0) g/dL Albumin 4.5 (3.5-5.0) g/dL COVID-19 (MAGDALENO) (Negative) COVID-19 Clin Com Influenza Type A (KOLTON) (Negative) Influenza Type B (KOLTON) (Negative) Influenza A & B Note 04/13/22 04/13/22 04/13/22 Range/Units 16:14 16:14 16:14 WBC (4.8-10.8) X10*3/uL RBC (4.60-5.80) X10*6/uL Hgb (14.0-18.0) g/dl Hct (42.0-52.0) % MCV (80.0-98.0) fL MCH (27.0-33.0) pg MCHC (31.0-36.0) g/dl RDW (11.0-16.0) % Plt Count (160-400) X10*3/uL MPV (9.4-12.4) fL Immature Gran % (Auto) (0.0-0.4) % Neut % (Auto) (45-73) % Lymph % (Auto) (20-40) % [place] % (Auto) (2-11) % Eos % (Auto) (0-4) % Baso % (Auto) (0-2) % Lymph # (Auto) (1.2-4.9) X10*3/uL [place] # (Auto) (0.1-1.2) X10*3/uL Eos # (Auto) (0.0-0.4) X10*3/uL Baso # (Auto) (0.0-0.2) X10*3/uL Abs Immat Gran (auto) (0.00-0.03) X10*3/uL Absolute Neuts (auto) (2.0-8.3) x10*3/uL Absolute Nucleated RBC (0.0-0.012) X10*3/uL Nucleated RBC % (auto) (0.0-0.2) /100WBC Smear Tech's Comments D-Dimer High Sensitivty 288 NG/ML VBG pH (7.32-7.43) VBG pCO2 mmHg VBG pO2 mmHg VBG HCO3 (22-26) mmol/L VBG O2 Saturation % VBG Base Excess mmol/L Sodium (135-145) mmol/L Potassium (3.3-5.1) mmol/L Chloride (96-108) mmol/L Carbon Dioxide (22-29) mmol/L Anion Gap (12-20) BUN (9-16) mg/dL Creatinine (0.5-1.4) mg/dL Estim Creat Clear Calc Estimated GFR POC Glucose (60-115) mg/dL Random Glucose (60-115) mg/dL Lactic Acid (0.5-2.0) mmol/L Lactic Acid F/U @ 2Hr (0.5-2.0) mmol/L Calcium (8.4-10.2) mg/dL Magnesium (1.6-2.6) mg/dL Total Bilirubin (0.0-1.0) mg/dL AST (5-37) U/L ALT (0-40) U/L Alkaline Phosphatase (39-117) U/L Troponin I High Sens (<3.5-35.0) ng/L B-Natriuretic Peptide 111 H (<100) pg/mL Total Protein (6.5-8.0) g/dL Albumin (3.5-5.0) g/dL COVID-19 (MAGDALENO) (Negative) COVID-19 Clin Com Influenza Type A (KOLTON) Negative (Negative) Influenza Type B (KOLTON) Negative (Negative) Influenza A & B Note See Note 04/13/22 04/13/22 04/13/22 Range/Units 16:21 16:34 16:42 WBC (4.8-10.8) X10*3/uL RBC (4.60-5.80) X10*6/uL Hgb (14.0-18.0) g/dl Hct (42.0-52.0) % MCV (80.0-98.0) fL MCH (27.0-33.0) pg MCHC (31.0-36.0) g/dl RDW (11.0-16.0) % Plt Count (160-400) X10*3/uL MPV (9.4-12.4) fL Immature Gran % (Auto) (0.0-0.4) % Neut % (Auto) (45-73) % Lymph % (Auto) (20-40) % [place] % (Auto) (2-11) % Eos % (Auto) (0-4) % Baso % (Auto) (0-2) % Lymph # (Auto) (1.2-4.9) X10*3/uL [place] # (Auto) (0.1-1.2) X10*3/uL Eos # (Auto) (0.0-0.4) X10*3/uL Baso # (Auto) (0.0-0.2) X10*3/uL Abs Immat Gran (auto) (0.00-0.03) X10*3/uL Absolute Neuts (auto) (2.0-8.3) x10*3/uL Absolute Nucleated RBC (0.0-0.012) X10*3/uL Nucleated RBC % (auto) (0.0-0.2) /100WBC Smear Tech's Comments D-Dimer High Sensitivty NG/ML VBG pH 7.36 (7.32-7.43) VBG pCO2 36 mmHg VBG pO2 69 mmHg VBG HCO3 21 L (22-26) mmol/L VBG O2 Saturation 91.0 % VBG Base Excess -3.3 mmol/L Sodium (135-145) mmol/L Potassium (3.3-5.1) mmol/L Chloride (96-108) mmol/L Carbon Dioxide (22-29) mmol/L Anion Gap (12-20) BUN (9-16) mg/dL Creatinine (0.5-1.4) mg/dL Estim Creat Clear Calc Estimated GFR POC Glucose (60-115) mg/dL Random Glucose (60-115) mg/dL Lactic Acid (0.5-2.0) mmol/L Lactic Acid F/U @ 2Hr (0.5-2.0) mmol/L Calcium (8.4-10.2) mg/dL Magnesium (1.6-2.6) mg/dL Total Bilirubin (0.0-1.0) mg/dL AST (5-37) U/L ALT (0-40) U/L Alkaline Phosphatase (39-117) U/L Troponin I High Sens 8.7 (<3.5-35.0) ng/L B-Natriuretic Peptide (<100) pg/mL Total Protein (6.5-8.0) g/dL Albumin (3.5-5.0) g/dL COVID-19 (MAGDALENO) Negative (Negative) COVID-19 Clin Com See Note Influenza Type A (KOLTON) (Negative) Influenza Type B (KOLTON) (Negative) Influenza A & B Note 04/13/22 04/13/22 Range/Units 19:09 20:23 WBC (4.8-10.8) X10*3/uL RBC (4.60-5.80) X10*6/uL Hgb (14.0-18.0) g/dl Hct (42.0-52.0) % MCV (80.0-98.0) fL MCH (27.0-33.0) pg MCHC (31.0-36.0) g/dl RDW (11.0-16.0) % Plt Count (160-400) X10*3/uL MPV (9.4-12.4) fL Immature Gran % (Auto) (0.0-0.4) % Neut % (Auto) (45-73) % Lymph % (Auto) (20-40) % [place] % (Auto) (2-11) % Eos % (Auto) (0-4) % Baso % (Auto) (0-2) % Lymph # (Auto) (1.2-4.9) X10*3/uL [place] # (Auto) (0.1-1.2) X10*3/uL Eos # (Auto) (0.0-0.4) X10*3/uL Baso # (Auto) (0.0-0.2) X10*3/uL Abs Immat Gran (auto) (0.00-0.03) X10*3/uL Absolute Neuts (auto) (2.0-8.3) x10*3/uL Absolute Nucleated RBC (0.0-0.012) X10*3/uL Nucleated RBC % (auto) (0.0-0.2) /100WBC Smear Tech's Comments D-Dimer High Sensitivty NG/ML VBG pH (7.32-7.43) VBG pCO2 mmHg VBG pO2 mmHg VBG HCO3 (22-26) mmol/L VBG O2 Saturation % VBG Base Excess mmol/L Sodium (135-145) mmol/L Potassium (3.3-5.1) mmol/L Chloride (96-108) mmol/L Carbon Dioxide (22-29) mmol/L Anion Gap (12-20) BUN (9-16) mg/dL Creatinine (0.5-1.4) mg/dL Estim Creat Clear Calc Estimated GFR POC Glucose 317 H (60-115) mg/dL Random Glucose (60-115) mg/dL Lactic Acid (0.5-2.0) mmol/L Lactic Acid F/U @ 2Hr 3.0 H* (0.5-2.0) mmol/L Calcium (8.4-10.2) mg/dL Magnesium (1.6-2.6) mg/dL Total Bilirubin (0.0-1.0) mg/dL AST (5-37) U/L ALT (0-40) U/L Alkaline Phosphatase (39-117) U/L Troponin I High Sens (<3.5-35.0) ng/L B-Natriuretic Peptide (<100) pg/mL Total Protein (6.5-8.0) g/dL Albumin (3.5-5.0) g/dL COVID-19 (MAGDALENO) (Negative) COVID-19 Clin Com Influenza Type A (KOLTON) (Negative) Influenza Type B (KOLTON) (Negative) Influenza A & B Note Critical Care Time Critical Care Time Critical Care Time: No Discharge Plan Discharge Clinical Impression: Thyroid mass, Asthma Patient Disposition: Admitted As Inpatient Prescriptions: No Action tamsulosin 0.4 mg capsule 0.4 mg PO BEDTIME 30 Days Qty: 30 12RF glyburide 1.25 mg tablet 1.25 mg PO QAM simvastatin 80 mg tablet 80 mg PO DAILY albuterol sulfate 90 mcg/actuation HFA aerosol inhaler 2 puff PO Q4-6H PRN enalapril maleate 20 mg tablet 20 mg PO BID ipratropium-albuterol 0.5 mg-3 mg(2.5 mg base)/3 mL solution for nebulization inhalation TID PRN metformin 500 mg tablet 1,000 mg PO nifedipine 90 mg tablet extended release 90 mg PO DAILY metoprolol succinate 100 mg tablet extended release 24 hr 100 mg PO DAILY metoprolol succinate 50 mg tablet extended release 24 hr 50 mg PO DAILY oxycodone-acetaminophen 5-325 mg tablet 1 tab PO TID PRN diphenhydramine HCl [Banophen] 25 mg capsule 25 mg PO ONCE PRN (Reason: insomnia) Trelegy Ellipta 200-62.5-25 mcg blister with device 1 inh inhalation DAILY 30 Days Qty: 1 6RF aspirin 81 mg tablet,delayed release (DR/EC) 81 mg PO DAILY tadalafil 5 mg tablet 5 mg PO DAILY 90 Days Qty: 90 1RF
[2022-04-13] MEDS: Albuterol/Iprat 2.5/0.5MG 3 ML AMPUL.NEB INHALE (16:12)
[2022-04-13 16:22] LABS: Basophils Absolute Auto 0.1 X10*3/uL (0.0-0.2); Basophils Percent Auto 0.2 % (0-2); Hematocrit 35.4 % (42.0-52.0); Hemoglobin 11.8 g/dl (14.0-18.0); Imm Gran Pct Auto 1.3 % (0.0-0.4); Lymphocytes Absolute Auto 1.1 X10*3/uL (1.2-4.9); Lymphocytes Percent Auto 4.8 % (20-40); MANUAL DIFF FLAG SCAN; Mean Corpuscular HGB Conc 33.3 g/dl (31.0-36.0); Mean Corpuscular Hemoglobin 29.1 pg (27.0-33.0); Mean Corpuscular Volume 87.2 fL (80.0-98.0); Mean Platelet Volume 10.1 fL (9.4-12.4); Monocytes Absolute Auto 0.5 X10*3/uL (0.1-1.2); Monocytes Percent Auto 2.3 % (2-11); Neutrophils Absolute Auto 20.4 x10*3/uL (2.0-8.3); Neutrophils Percent Auto 91.4 % (45-73); Platelet Count 532 X10*3/uL (160-400); Red Blood Count 4.06 X10*6/uL (4.60-5.80); Red Cell Distribution Width 15.1 % (11.0-16.0); SCAN SMEAR FLAG 1; White Blood Count 22.4 X10*3/uL (4.8-10.8)
[2022-04-13] MEDS: Albuterol Sulfate 2.5 MG/0.5 ML VIAL.NEB 5 MG INHALE (16:25)
[2022-04-13 16:30] LABS: D Dimer High Sensitivity 288 NG/ML
[2022-04-13] MEDS: methylPREDNISolone Sod Succ 125 MG/2 ML VIAL IVPUSH (16:36)
[2022-04-13] MEDS: Magnesium Sulfate/H2O 2 GM/50 ML PIGGYBACK IV (16:36)
[2022-04-13 16:39] LABS: IDNOW Serial# 16C4AD1C; Influenza A Negative (Negative); Influenza B2 Negative (Negative)
[2022-04-13 16:39] LABS: COVID-19 Test Negative (Negative); IDNOW Serial# 55D5AD1C
[2022-04-13 16:41] LABS: SLIDE REVIEW VERIFIED
[2022-04-13 16:42] LABS: Alanine Aminotransferase 46 U/L (0-40); Albumin Level 4.5 g/dL (3.5-5.0); Alkaline Phosphatase 84 U/L (39-117); Anion Gap 19 (12-20); Aspartate Amino Transferase 22 U/L (5-37); B Type Natriuretic Peptide 111 pg/mL (<100); Bilirubin Total 0.6 mg/dL (0.0-1.0); Blood Urea Nitrogen 33 mg/dL (9-16); Calcium 9.5 mg/dL (8.4-10.2); Carbon Dioxide 19 mmol/L (22-29); Chloride 105 mmol/L (96-108); Creatinine Clr Calc Pharmacy 42.7; Estimated Glomerular Filt Rate 48; Glucose Random 236 mg/dL (60-115); Magnesium 1.6 mg/dL (1.6-2.6); Potassium 4.4 mmol/L (3.3-5.1); Sodium 139 mmol/L (135-145); Total Protein 7.4 g/dL (6.5-8.0)
[2022-04-13 16:48] LABS: VBG Base Excess -3.3 mmol/L; VBG HCO3 21 mmol/L (22-26); VBG pCO2 36 mmHg; VBG pH 7.36 (7.32-7.43); VBG pO2 69 mmHg
[2022-04-13 16:50] LABS: Lactic Acid 2.3 mmol/L (0.5-2.0)
[2022-04-13 17:08] LABS: Venous Blood Gas Refer to POC result
[2022-04-13] MEDS: iohexoL 350 MG/ML 100 ML INFUS..BTL IV (18:03)
[2022-04-13 18:19] LABS: Reflex Lactate? Lactic Acid Added
[2022-04-13] MEDS: 0.9 % Sodium Chloride 1,000 ML 999 ML IV (18:46)
[2022-04-13] MEDS: Albuterol Sulfate (0.083%) 2.5 MG/3 ML VIAL.NEB 10 MG INHALE (19:10)
[2022-04-13 19:37] LABS: Troponin-I High Sensitivity 8.7 ng/L (<3.5-35.0)
--- NOTE | 2022-04-13 20:04 | PM.IMHP ---
History of Present Illness Date of Service: 04/13/22 Chief Complaint: Dyspnea This is a 72-year-old male with pertinent history asthma, hlr-vrirthx-oceqhbwap diabetes mellitus, essential hypertension, mixed hyperlipidemia, urinary incontinence, prostate cancer who presents to the emergency department for evaluation of dyspnea. Patient states he has been feeling sick over the last 1 week. Has been having symptoms of runny nose, watering of eyes and productive cough. Patient soon started having dyspnea, worse with exertion and associated wheezing. He does not use oxygen at home. Patient denies fever, chills, chest discomfort, palpitations, abdominal pain, changes in urinary or bowel habits. No history of intubation due to asthma. In the emergency department, patient was found to be hypoxemic and put on supplemental oxygen. Review of Systems Constitutional: Constitutional: Reports lethargy and Reports malaise Cardiovascular: Cardiovascular: Reports dyspnea on exertion Respiratory: Respiratory: Reports cough, Reports dyspnea on exertion and Reports wheezing Gastrointestinal: Gastrointestinal: Reports no additional gastrointestinal complaints Genitourinary: Genitourinary: Reports no additional male genitourinary complaints Allergic/Immunologic: Allergic/Immunologic: Reports wheezing [facility] Medical History Asthma Cancer of right renal pelvis COPD (chronic obstructive pulmonary disease) Crossed renal ectopia Diabetes mellitus Elevated PSA Erectile dysfunction High cholesterol HTN (hypertension) Multinodular goiter (nontoxic) Prostate cancer Right renal mass Family History Father No problems noted. Mother No problems noted. Surgical History History of prostate biopsy Hx of biopsy Social History Household Members: None Alcohol intake: never Patient Tobacco Use Status: Former Tobacco user Quit Date: 3-4 years ago Smoked in Last 30 Days: No Advance Directives: No Advance Directives Information Provided: No Meds Allergies Allergy/AdvReac Type Severity Reaction Status Date / Time ciprofloxacin [From CIPRO] Allergy Unknown RASH Verified 01/01/22 11:10 Sulfa (Sulfonamide Allergy Unknown rash Verified 01/01/22 11:10 Antibiotics) sulfamethoxazole Allergy Unknown RASH Verified 01/01/22 11:10 [From BACTRIM] trimethoprim [From BACTRIM] Allergy Unknown RASH Verified 01/01/22 11:10 Active Medications: Current Medications Pharmacy Consult (Consult Rx Perform Med Rec) 1 each MISCELLANE ONCE PRN PRN Reason: Consult order Pharmacy Consult (Consult Rx Perform Med Rec) 1 each MISCELLANE ONCE PRN PRN Reason: Consult order Home Medications Medication Instructions Recorded Confirmed Last Taken Type albuterol sulfate 90 mcg/actuation 2 puff PO Q4-6H PRN 03/13/20 12/23/21 Unknown History aerosol inhaler enalapril maleate 20 mg tablet 20 mg PO BID 03/13/20 12/23/21 Unknown History glyburide 1.25 mg tablet 1.25 mg PO QAM 03/13/20 12/23/21 Unknown History ipratropium 0.5 mg-albuterol 3 mg ml inhalation TID PRN 03/13/20 12/23/21 Unknown History (2.5 mg base)/3 mL nebulization soln metformin 500 mg tablet 1,000 mg PO 03/13/20 12/23/21 Unknown History simvastatin 80 mg tablet 80 mg PO DAILY 03/13/20 12/23/21 Unknown History metoprolol succinate 100 mg 100 mg PO DAILY 06/25/20 12/23/21 Unknown History tablet,extended release 24 hr metoprolol succinate 50 mg 50 mg PO DAILY 06/25/20 12/23/21 Unknown History tablet,extended release 24 hr nifedipine 90 mg tablet,extended 90 mg PO DAILY 06/25/20 12/23/21 Unknown History release oxycodone-acetaminophen 5 mg-325 1 tab PO TID PRN 12/13/20 12/23/21 Unknown History mg tablet diphenhydramine HCl 25 mg capsule 25 mg PO ONCE PRN insomnia 06/17/21 12/23/21 Unknown History (Banophen) aspirin 81 mg tablet,delayed 81 mg PO DAILY 12/18/21 12/23/21 Unknown History release Physical Exam Vital Signs and Narrative: Vital Signs: Last Vital Signs Temp 98.3 F 04/13/22 19:04 Pulse 108 H 04/13/22 19:11 Resp 24 H 04/13/22 19:11 BP 141/57 H 04/13/22 19:04 Pulse Ox 92 04/13/22 19:04 O2 Del Method 04/13/22 19:04 O2 Flow Rate 1 04/13/22 19:04 Oxygen Flow Rate 4 04/13/22 15:54 BMI result Body Mass Index 23.6 Middle-aged male lying in bed in mild distress on supplemental oxygen Neck supple, no JVD Tachycardic with regular rhythm, S1-S2 heard bilateral wheezing appreciated Abdomen soft nontender, no guarding, no rigidity Patient is awake, alert and oriented to self, place, time and person ; no focal motor deficit Psych: Normal mood No pedal edema Results Labs 04/13/22 16:14 04/13/22 16:14 Labs: Laboratory Results - last 24 hr 04/13/22 04/13/22 04/13/22 16:14 16:14 16:14 MCV 87.2 MCH 29.1 MCHC 33.3 RDW 15.1 Plt Count 532 H MPV 10.1 Immature Gran % (Auto) 1.3 H Neut % (Auto) 91.4 H Lymph % (Auto) 4.8 L [place] % (Auto) 2.3 Eos % (Auto) 0.0 Baso % (Auto) 0.2 Lymph # (Auto) 1.1 L [place] # (Auto) 0.5 Eos # (Auto) 0.0 Baso # (Auto) 0.1 Abs Immat Gran (auto) 0.30 H Absolute Neuts (auto) 20.4 H Absolute Nucleated RBC 0.000 Nucleated RBC % (auto) 0.0 Smear Tech's Comments VERIFIED D-Dimer High Sensitivty VBG pH VBG pCO2 VBG pO2 VBG HCO3 VBG O2 Saturation VBG Base Excess Anion Gap 19 Estim Creat Clear Calc 42.7 Estimated GFR 48 Random Glucose 236 H Lactic Acid 2.3 H* Lactic Acid F/U @ 2Hr Calcium 9.5 Magnesium 1.6 Total Bilirubin 0.6 AST 22 ALT 46 H Alkaline Phosphatase 84 Troponin I High Sens B-Natriuretic Peptide Total Protein 7.4 Albumin 4.5 COVID-19 (MAGDALENO) COVID-19 Clin Com Influenza Type A ([facility]) Influenza Type B ([facility]TON) Influenza A & B Note 04/13/22 04/13/22 04/13/22 16:14 16:14 16:14 MCV MCH MCHC RDW Plt Count MPV Immature Gran % (Auto) Neut % (Auto) Lymph % (Auto) [place] % (Auto) Eos % (Auto) Baso % (Auto) Lymph # (Auto) [place] # (Auto) Eos # (Auto) Baso # (Auto) Abs Immat Gran (auto) Absolute Neuts (auto) Absolute Nucleated RBC Nucleated RBC % (auto) Smear Tech's Comments D-Dimer High Sensitivty 288 VBG pH VBG pCO2 VBG pO2 VBG HCO3 VBG O2 Saturation VBG Base Excess Anion Gap Estim Creat Clear Calc Estimated GFR Random Glucose Lactic Acid Lactic Acid F/U @ 2Hr Calcium Magnesium Total Bilirubin AST ALT Alkaline Phosphatase Troponin I High Sens B-Natriuretic Peptide 111 H Total Protein Albumin COVID-19 (MAGDALENO) [employer] Com Influenza Type A ([facility]) Negative Influenza Type B ([facility]) Negative Influenza A & B Note See Note 04/13/22 04/13/22 04/13/22 16:21 16:34 16:42 MCV MCH MCHC RDW Plt Count MPV Immature Gran % (Auto) Neut % (Auto) Lymph % (Auto) [place] % (Auto) Eos % (Auto) Baso % (Auto) Lymph # (Auto) [place] # (Auto) Eos # (Auto) Baso # (Auto) Abs Immat Gran (auto) Absolute Neuts (auto) Absolute Nucleated RBC Nucleated RBC % (auto) Smear Tech's Comments D-Dimer High Sensitivty VBG pH 7.36 VBG pCO2 36 VBG pO2 69 VBG HCO3 21 L VBG O2 Saturation 91.0 VBG Base Excess -3.3 Anion Gap Estim Creat Clear Calc Estimated GFR Random Glucose Lactic Acid Lactic Acid F/U @ 2Hr Calcium Magnesium Total Bilirubin AST ALT Alkaline Phosphatase Troponin I High Sens 8.7 B-Natriuretic Peptide Total Protein Albumin COVID-19 (MAGDALENO) Negative COVID-[employer] Com See Note Influenza Type A ([facility]) Influenza Type B ([facility]) Influenza A & B Note 04/13/22 19:09 MCV MCH MCHC RDW Plt Count MPV Immature Gran % (Auto) Neut % (Auto) Lymph % (Auto) [place] % (Auto) Eos % (Auto) Baso % (Auto) Lymph # (Auto) [place] # (Auto) Eos # (Auto) Baso # (Auto) Abs Immat Gran (auto) Absolute Neuts (auto) Absolute Nucleated RBC Nucleated RBC % (auto) Smear Tech's Comments D-Dimer High Sensitivty VBG pH VBG pCO2 VBG pO2 VBG HCO3 VBG O2 Saturation VBG Base Excess Anion Gap Estim Creat Clear Calc Estimated GFR Random Glucose Lactic Acid Lactic Acid F/U @ 2Hr 3.0 H* Calcium Magnesium Total Bilirubin AST ALT Alkaline Phosphatase Troponin I High Sens B-Natriuretic Peptide Total Protein Albumin COVID-19 (MAGDALENO) COVID-19 Clin Com Influenza Type A ([facility]) Influenza Type B ([facility]) Influenza A & B Note Imaging Radiologist's Impressions: Impressions Chest X-Ray 04/13/22 16:24 IMPRESSION: No evidence for acute disease in the chest. Assessment and Plan (1) Hypoxia: Status: Acute Plan This is a 72-year-old male with pertinent history asthma, zun-hftfadh-riezogirx diabetes mellitus, essential hypertension, mixed hyperlipidemia, urinary incontinence who presents to the emergency department for evaluation of dyspnea. #. Acute hypoxemic respiratory failure secondary to: #. Acute exacerbation of asthma in the setting of viral URI: -Continue home inhaler and initiating scheduled and p.r.n. DuoNebs. Continue systemic steroids. -Monitor oxygen saturation and wean as tolerated. Maintain oxygen saturation greater than 88-90%. #. Byy-ofqcjci-ggnknvkmh diabetes mellitus with hyperglycemia: Initiating Accu-Cheks with sliding scale insulin before meals and at bedtime. #. Acute lactic acidosis: due to albuterol and metformin use. Not severe sepsis #. Elevated creatinine: likely progression of CKD and at baseline. Monitor and avoid nephrotoxins #. Reactive leukocytosis: likely due to viral infection. No focal consolidation or concern for bacterial superinfection. UA pending #. Imaging with possible thyroid mass: Obtaining thyroid ultrasound and TSH #. Essential hypertension: Continue home antihypertensives #. Mixed HLD: on statin #. Urinary incontinence: On flomax Med rec pending DVT prophylaxis: Lovenox 40 mg daily Full code Cardiac diet Admit as inpatient and will require two night minimum hospital stay for supplemental oxygen. Time Spent With Patient Time: Total time managing care of this patient today ____ minutes. Quality Stroke Does the patient have a stroke diagnosis?: No VTE Prior VTE?: No VTE Risk Level:: Medical - moderate - high VTE Device Contraindication: Treatment Not Indicated VTE Drug Contraindication: N/A - Med Ordered
--- NOTE | 2022-04-13 20:21 | PC.NURSE ---
Provider aware lactic acid is 3.
--- NOTE | 2022-04-13 20:22 | PC.NURSE ---
Pt BALJIT x4 denies pain
[2022-04-13 20:31] LABS: Glucose, Whole Blood 317 mg/dL (60-115)
[2022-04-13] MEDS: Insulin Lispro 100 UNIT/ML 3 ML VIAL SUBCUT (20:56)
[2022-04-13] MEDS: Enoxaparin Sodium 40 MG/0.4 ML SYRINGE SUBCUT (20:57)
--- NOTE | 2022-04-13 21:10 | PC.NURSE ---
Called pharmacy regarding order humalin R bottle empty.
[2022-04-13 21:13] LABS: Reflex Lactate? 2 Y
[2022-04-13] MEDS: Insulin Regular, Human 100 UNIT/ML 3 ML VIAL IVPUSH (21:36)
[2022-04-13 21:48] LABS: ~Lactic Acid-LAB USE ONLY 3.4 mmol/L (0.5-2.0)
--- NOTE | 2022-04-13 22:10 | PHA.MEDREC ---
Pharmacy Consult ? Medication Reconciliation Pharmacy has completed the medication reconciliation.
[2022-04-13 22:16] LABS: Thyroid Stimulating Hormone 0.03 uIU/mL (0.32-4.0)
[2022-04-14] VITALS (15 sets, daily range): BP systolic 107–151; BP diastolic 50–67; PULSE 87–98; RESP 14–24; TEMP 36.4–36.8; O2SAT 90–98
[2022-04-14 01:21] LABS: Appearance Urine Clear; Color Urine Yellow; Glucose Urine UA 500 mg/dL (Negative); Leukocyte Esterase Urine Negative (Negative); Nitrite Urine Negative (Negative); PH 5.5 (5.0-9.0); Specific Gravity - Urine >= 1.030 (1.005-1.025); UMIC TRIGGER UACC YES; Urine Blood Negative (Negative); Urine Ketones Trace mg/dL (Negative); Urine Protein 30 (1+) mg/dL (Neg-Trace)
[2022-04-14 01:25] LABS: Bacteria Urine None Seen (None Seen); RBC Urine 0-2 /HPF (0-2); Squamous Epithelial Cell Urine 0-2 /HPF (0-2); WBC Urine 0-5 /HPF (0-5)
[2022-04-14] MEDS: Albuterol/Iprat 2.5/0.5MG 3 ML AMPUL.NEB INHALE ×5 (04:07→20:00)
--- NOTE | 2022-04-14 05:47 | PC.NURSE ---
PT SMILEY x 4 . Pt weaned off supplemental oxygen to room air. Pt oxygen ranging 91-94% room air.
--- NOTE | 2022-04-14 06:18 | PC.NURSE ---
Dr. Howe aware tsh level 0.03.
--- NOTE | 2022-04-14 06:32 | PC.NURSE ---
pt ambulated to bathroom steady gait under supervision of nurse. Pt noted to be sob when he return to bed. bilateral upper lobes noted wheezing. Pt requested a breathing treatment. respiratory therapy made aware.
[2022-04-14 06:49] LABS: MANUAL DIFF FLAG NO
[2022-04-14 06:55] LABS: Basophils Percent Auto 0.2 % (0-2); Hematocrit 35.4 % (42.0-52.0); Hemoglobin 11.3 g/dl (14.0-18.0); Imm Gran Abs Auto 0.26 X10*3/uL (0.00-0.03); Imm Gran Pct Auto 1.4 % (0.0-0.4); Lymphocytes Absolute Auto 0.9 X10*3/uL (1.2-4.9); Mean Corpuscular HGB Conc 31.9 g/dl (31.0-36.0); Mean Corpuscular Hemoglobin 28.8 pg (27.0-33.0); Mean Corpuscular Volume 90.1 fL (80.0-98.0); Mean Platelet Volume 11.2 fL (9.4-12.4); Monocytes Absolute Auto 0.7 X10*3/uL (0.1-1.2); Monocytes Percent Auto 3.6 % (2-11); Neutrophils Absolute Auto 16.9 x10*3/uL (2.0-8.3); Neutrophils Percent Auto 89.8 % (45-73); Platelet Count 388 X10*3/uL (160-400); Red Blood Count 3.93 X10*6/uL (4.60-5.80); Red Cell Distribution Width 15.3 % (11.0-16.0); White Blood Count 18.8 X10*3/uL (4.8-10.8)
[2022-04-14 07:10] LABS: Anion Gap 19 (12-20); Blood Urea Nitrogen 33 mg/dL (9-16); Calcium 9.3 mg/dL (8.4-10.2); Carbon Dioxide 18 mmol/L (22-29); Chloride 109 mmol/L (96-108); Creatinine Clr Calc Pharmacy 46.9; Estimated Glomerular Filt Rate 54; Glucose Random 232 mg/dL (60-115); Potassium 5.3 mmol/L (3.3-5.1); Sodium 141 mmol/L (135-145)
[2022-04-14 07:31] LABS: Glucose, Whole Blood 195 mg/dL (60-115)
[2022-04-14] MEDS: methylPREDNISolone Sod Succ 40 MG/ML VIAL IVPUSH ×2 (08:14→22:49)
[2022-04-14] MEDS: 0.9 % Sodium Chloride Flush 3 ML SYRINGE IVFLUSH ×2 (08:14→18:49)
[2022-04-14] MEDS: Insulin Lispro 100 UNIT/ML 3 ML VIAL SUBCUT ×2 (08:15→18:48)
--- NOTE | 2022-04-14 09:21 | MHC.CM.PN ---
PT REPORTS HE LIVES ALONE AND IS INDEPENDENT WITH CARE PT DENIES USE OF DME OR HOME SERVICES HE REPORTS HE IS COVID [place] HE WILL COMPLETE A HCP TODAY NAMING HIS DAUGHTERS HIS AGENT PCP: OBDULIA DE LA PA[facility] PT REPORTS HE DOES NOT HAVE MEDICARE DCP: HOME NO SERVICES PT SAYS ONE OF HIS FRIENDS MAY PROVIDE TRANSPORT, HE IS AWARE HE CAN UTILIZE [facility] WELL
[2022-04-14] MEDS: Aspirin Enteric Coated 81 MG TABLET.DR PO (10:40)
[2022-04-14] MEDS: Metoprolol Succinate ER 50 MG TAB.ER.24H PO (10:41)
[2022-04-14] MEDS: Metoprolol Succinate ER 100 MG TAB.ER.24H PO (10:41)
[2022-04-14] MEDS: Enalapril Maleate 10 MG TABLET 20 MG PO ×2 (11:09→22:51)
[2022-04-14] MEDS: Acetaminophen 325 MG TABLET 650 MG PO ×2 (11:09→17:14)
[2022-04-14] MEDS: NIFEdipine ER 90 MG TAB.ER.24 PO ×3 (11:09→11:11)
--- NOTE | 2022-04-14 13:25 | HO.PM.IMPN ---
Subjective Subjective Date of Service: 04/14/22 Interval History: f/u copd exacerbation interval history: feels better, but not quite there Physical Exam Vital Signs: Vital Signs: Last Vital Signs Temp 97.5 F 04/14/22 07:33 Pulse 89 04/14/22 11:22 Resp 14 04/14/22 11:22 BP 142/67 H 04/14/22 10:39 Pulse Ox 90 L 04/14/22 10:39 O2 Del Method 04/14/22 10:39 O2 Flow Rate 1 04/13/22 19:04 Oxygen Flow Rate 4 04/13/22 15:54 BMI result Body Mass Index 23.6 Const: Other: General: AO X 3, no acute distress Resp: some wheeze, no accessory muscle use CVS: S1,S2,RRR GI: +BS, NT, no distention Skin: No rash Neuro: motor grossly intact Psych: appropriate affect Objective Data Active Medications Acetaminophen (Acetaminophen 325 Mg Tablet) 650 mg PO Q6H PRN PRN Reason: Pain, Mild (Pain Scale 1-3) Last Admin: 04/14/22 11:09 Dose: 650 mg Documented By: DARELL Acetaminophen (Acetaminophen 325 Mg Tablet) 325 mg PO Q8H PRN PRN Reason: pain Albuterol/Ipratropium (Albuterol/Iprat 2.5/0.5mg 3 Ml Ampul.Neb) 3 ml INHALE RQ4H WHILE AWAKE [facility] Last Admin: 04/14/22 11:22 Dose: 3 ml Documented By: MACARIO Albuterol/Ipratropium (Albuterol/Iprat 2.5/0.5mg 3 Ml Ampul.Neb) 3 ml INHALE Q4H PRN PRN Reason: Wheezing Last Admin: 04/14/22 04:07 Dose: 3 ml Documented By: STEVO Aspirin (Aspirin Enteric Coated 81 Mg Tablet.Dr) 81 mg PO DAILY [facility] Last Admin: 04/14/22 10:40 Dose: 81 mg Documented By: DARELL Atorvastatin Calcium (Atorvastatin Calcium 40 Mg Tablet) 40 mg PO DAILY [facility] Dextrose (Dextrose 50 % 25 Gm/50 Ml Syringe) 25 gm IVPUSH Q15M PRN; Protocol PRN Reason: per Hypoglycemia Standing Ord. Diphenhydramine HCl (Diphenhydramine Hcl 25 Mg Capsule) 25 mg PO BEDTIME PRN PRN Reason: insomnia Enalapril Maleate (Enalapril Maleate 10 Mg Tablet) 20 mg PO BID [facility]; Protocol Last Admin: 04/14/22 11:09 Dose: 20 mg Documented By: DARELL Enoxaparin Sodium (Enoxaparin Sodium 40 Mg/0.4 Ml Syringe) 40 mg SUBCUT Q24H [facility] Last Admin: 04/13/22 20:57 Dose: 40 mg Documented By: RALEIGH Glucose (Glucose Gel 15 Gm Gel..Gram.) 15 gm PO Q15M PRN; Protocol PRN Reason: per Hypoglycemia Standing Ord. Glyburide (Glyburide 1.25 Mg Tablet) 1.25 mg PO DAILY@0730 [facility] Insulin Human Lispro (Insulin Lispro 100 Unit/Ml 3 Ml Vial) 0 unit SUBCUT QIDACHS [facility]; Protocol Last Admin: 04/14/22 08:15 Dose: 2 unit Documented By: DARELL Melatonin (Melatonin 3 Mg Tablet) 6 mg PO BEDTIME PRN PRN Reason: Insomnia Metformin HCl (Metformin Hcl 1,000 Mg Tablet) 1,000 mg PO BIDWM [facility] Methylprednisolone Sodium Succinate (Methylprednisolone Sod Succ 40 Mg/Ml Vial) 40 mg IVPUSH Q12H [facility] Last Admin: 04/14/22 08:14 Dose: 40 mg Documented By: DARELL Metoprolol Succinate (Metoprolol Succinate Er 50 Mg Tab.Er.24h) 50 mg PO DAILY [facility]; Protocol Last Admin: 04/14/22 10:41 Dose: 50 mg Documented By: DARELL Metoprolol Succinate (Metoprolol Succinate Er 100 Mg Tab.Er.24h) 100 mg PO DAILY [facility]; Protocol Last Admin: 04/14/22 10:41 Dose: 100 mg Documented By: DARELL Nifedipine (Nifedipine Er 90 Mg Tab.Er.24) 90 mg PO DAILY [facility] Ondansetron HCl (Ondansetron Hcl 4 Mg/2 Ml Vial) 4 mg IVPUSH Q8H PRN PRN Reason: Nausea and Vomiting Oxycodone HCl (Oxycodone Hcl Immed Release 5 Mg Tablet) 5 mg PO Q8H PRN PRN Reason: pain Pharmacy Consult (Consult Rx Perform Med Rec) 1 each MISCELLANE ONCE PRN PRN Reason: Consult order Sodium Chloride (0.9 % Sodium Chloride Flush 3 Ml Syringe) 3 ml IVFLUSH QSHIFT [facility] Last Admin: 04/14/22 08:14 Dose: 3 ml Documented By: DARELL Tamsulosin HCl (Tamsulosin Hcl 0.4 Mg Capsule) 0.4 mg PO BEDTIME [facility] Labs 04/14/22 06:35 04/14/22 06:35 Labs: Laboratory Results - last 24 hr 04/13/22 04/13/22 04/13/22 16:14 16:14 16:14 MCV 87.2 MCH 29.1 MCHC 33.3 RDW 15.1 Plt Count 532 H MPV 10.1 Immature Gran % (Auto) 1.3 H Neut % (Auto) 91.4 H Lymph % (Auto) 4.8 L Graham % (Auto) 2.3 Eos % (Auto) 0.0 Baso % (Auto) 0.2 Lymph # (Auto) 1.1 L Graham # (Auto) 0.5 Eos # (Auto) 0.0 Baso # (Auto) 0.1 Abs Immat Gran (auto) 0.30 H Absolute Neuts (auto) 20.4 H Absolute Nucleated RBC 0.000 Nucleated RBC % (auto) 0.0 Smear Tech's Comments VERIFIED D-Dimer High Sensitivty VBG pH VBG pCO2 VBG pO2 VBG HCO3 VBG O2 Saturation VBG Base Excess Anion Gap 19 Estim Creat Clear Calc 42.7 Estimated GFR 48 POC Glucose Random Glucose 236 H Lactic Acid 2.3 H* Lactic Acid F/U @ 2Hr Lactic Acid F/U @ 4Hr Calcium 9.5 Magnesium 1.6 Total Bilirubin 0.6 AST 22 ALT 46 H Alkaline Phosphatase 84 Troponin I High Sens B-Natriuretic Peptide Total Protein 7.4 Albumin 4.5 TSH Urine Color Urine Appearance Urine pH Ur Specific [place] Urine Protein Urine Glucose (UA) Urine Ketones Urine Blood Urine Nitrite Ur Leukocyte Esterase Urine RBC Urine WBC Ur Squamous Epith Cells Urine Bacteria Hyaline Casts COVID-19 ([facility]) COVID-19 Clin Com Influenza Type A ([facility]) Influenza Type B ([facility]) Influenza A & B Note 04/13/22 04/13/22 04/13/22 16:14 16:14 16:14 MCV MCH MCHC RDW Plt Count MPV Immature Gran % (Auto) Neut % (Auto) Lymph % (Auto) Graham % (Auto) Eos % (Auto) Baso % (Auto) Lymph # (Auto) Graham # (Auto) Eos # (Auto) Baso # (Auto) Abs Immat Gran (auto) Absolute Neuts (auto) Absolute Nucleated RBC Nucleated RBC % (auto) Smear Tech's Comments D-Dimer High Sensitivty 288 VBG pH VBG pCO2 VBG pO2 VBG HCO3 VBG O2 Saturation VBG Base Excess Anion Gap Estim Creat Clear Calc Estimated GFR POC Glucose Random Glucose Lactic Acid Lactic Acid F/U @ 2Hr Lactic Acid F/U @ 4Hr Calcium Magnesium Total Bilirubin AST ALT Alkaline Phosphatase Troponin I High Sens B-Natriuretic Peptide 111 H Total Protein Albumin TSH Urine Color Urine Appearance Urine pH Ur Specific [place] Urine Protein Urine Glucose (UA) Urine Ketones Urine Blood Urine Nitrite Ur Leukocyte Esterase Urine RBC Urine WBC Ur Squamous Epith Cells Urine Bacteria Hyaline Casts COVID-19 ([facility]) COVID-relocality Influenza Type A ([facility]) Negative Influenza Type B ([facility]) Negative Influenza A & B Note See Note 04/13/22 04/13/22 04/13/22 16:21 16:34 16:42 MCV MCH MCHC RDW Plt Count MPV Immature Gran % (Auto) Neut % (Auto) Lymph % (Auto) [place] % (Auto) Eos % (Auto) Baso % (Auto) Lymph # (Auto) [place] # (Auto) Eos # (Auto) Baso # (Auto) Abs Immat Gran (auto) Absolute Neuts (auto) Absolute Nucleated RBC Nucleated RBC % (auto) Smear Tech's Comments D-Dimer High Sensitivty VBG pH 7.36 VBG pCO2 36 VBG pO2 69 VBG HCO3 21 L VBG O2 Saturation 91.0 VBG Base Excess -3.3 Anion Gap Estim Creat Clear Calc Estimated GFR POC Glucose Random Glucose Lactic Acid Lactic Acid F/U @ 2Hr Lactic Acid F/U @ 4Hr Calcium Magnesium Total Bilirubin AST ALT Alkaline Phosphatase Troponin I High Sens 8.7 B-Natriuretic Peptide Total Protein Albumin TSH Urine Color Urine Appearance Urine pH Ur Specific [place] Urine Protein Urine Glucose (UA) Urine Ketones Urine Blood Urine Nitrite Ur Leukocyte Esterase Urine RBC Urine WBC Ur Squamous Epith Cells Urine Bacteria Hyaline Casts COVID-19 ([facility]) Negative COVID-19 [employer] Com See Note Influenza Type A ([facility]) Influenza Type B ([facility]) Influenza A & B Note 0204/13/22 04/13/22 19:09 20:23 21:27 MCV MCH MCHC RDW Plt Count MPV Immature Gran % (Auto) Neut % (Auto) Lymph % (Auto) [place] % (Auto) Eos % (Auto) Baso % (Auto) Lymph # (Auto) [place] # (Auto) Eos # (Auto) Baso # (Auto) Abs Immat Gran (auto) Absolute Neuts (auto) Absolute Nucleated RBC Nucleated RBC % (auto) Smear Tech's Comments D-Dimer High Sensitivty VBG pH VBG pCO2 VBG pO2 VBG HCO3 VBG O2 Saturation VBG Base Excess Anion Gap Estim Creat Clear Calc Estimated GFR POC Glucose 317 H Random Glucose Lactic Acid Lactic Acid F/U @ 2Hr 3.0 H* Lactic Acid F/U @ 4Hr Calcium Magnesium Total Bilirubin AST ALT Alkaline Phosphatase Troponin I High Sens B-Natriuretic Peptide Total Protein Albumin TSH 0.03 L Urine Color Urine Appearance Urine pH Ur Specific [place] Urine Protein Urine Glucose (UA) Urine Ketones Urine Blood Urine Nitrite Ur Leukocyte Esterase Urine RBC Urine WBC Ur Squamous Epith Cells Urine Bacteria Hyaline Casts COVID-19 ([facility]) COVID-19 Clin Com Influenza Type A ([facility]) Influenza Type B ([facility]) Influenza A & B Note 04/13/22 04/14/22 04/14/22 21:27 01:14 06:35 MCV 90.1 MCH 28.8 MCHC 31.9 RDW 15.3 Plt Count 388 D MPV 11.2 Immature Gran % (Auto) 1.4 H Neut % (Auto) 89.8 H Lymph % (Auto) 5.0 L [place] % (Auto) 3.6 Eos % (Auto) 0.0 Baso % (Auto) 0.2 Lymph # (Auto) 0.9 L [place] # (Auto) 0.7 Eos # (Auto) 0.0 Baso # (Auto) 0.0 Abs Immat Gran (auto) 0.26 H Absolute Neuts (auto) 16.9 H Absolute Nucleated RBC 0.000 Nucleated RBC % (auto) 0.0 Smear Tech's Comments D-Dimer High Sensitivty VBG pH VBG pCO2 VBG pO2 VBG HCO3 VBG O2 Saturation VBG Base Excess Anion Gap Estim Creat Clear Calc Estimated GFR POC Glucose Random Glucose Lactic Acid Lactic Acid F/U @ 2Hr Lactic Acid F/U @ 4Hr 3.4 H* Calcium Magnesium Total Bilirubin AST ALT Alkaline Phosphatase Troponin I High Sens B-Natriuretic Peptide Total Protein Albumin TSH Urine Color Yellow Urine Appearance Clear Urine pH 5.5 Ur Specific [place] >= 1.030 H Urine Protein 30 (1+) H Urine Glucose (UA) 500 H Urine Ketones Trace Urine Blood Negative Urine Nitrite Negative Ur Leukocyte Esterase Negative Urine RBC 0-2 Urine WBC 0-5 Ur Squamous Epith Cells 0-2 Urine Bacteria None Seen Hyaline Casts 3-5 COVID-19 ([facility]) COVID-19 Clin Com Influenza Type A ([facility]) Influenza Type B ([facility]) Influenza A & B Note 04/14/22 04/14/22 06:35 07:21 MCV MCH MCHC RDW Plt Count MPV Immature Gran % (Auto) Neut % (Auto) Lymph % (Auto) [place] % (Auto) Eos % (Auto) Baso % (Auto) Lymph # (Auto) [place] # (Auto) Eos # (Auto) Baso # (Auto) Abs Immat Gran (auto) Absolute Neuts (auto) Absolute Nucleated RBC Nucleated RBC % (auto) Smear Tech's Comments D-Dimer High Sensitivty VBG pH VBG pCO2 VBG pO2 VBG HCO3 VBG O2 Saturation VBG Base Excess Anion Gap 19 Estim Creat Clear Calc 46.9 Estimated GFR 54 POC Glucose 195 H Random Glucose 232 H Lactic Acid Lactic Acid F/U @ 2Hr Lactic Acid F/U @ 4Hr Calcium 9.3 Magnesium Total Bilirubin AST ALT Alkaline Phosphatase Troponin I High Sens B-Natriuretic Peptide Total Protein Albumin TSH Urine Color Urine Appearance Urine pH Ur Specific [place] Urine Protein Urine Glucose (UA) Urine Ketones Urine Blood Urine Nitrite Ur Leukocyte Esterase Urine RBC Urine WBC Ur Squamous Epith Cells Urine Bacteria Hyaline Casts COVID-19 ([facility]) COVID-19 Clin Com Influenza Type A ([facility]) Influenza Type B ([facility]) Influenza A & B Note Assessment and Plan (1) Hypoxia: Status: Acute (2) Multinodular goiter (nontoxic): Status: Acute Plan 72-year-old male with pertinent history asthma, vev-zpigtno-akzhxhgyz diabetes mellitus, essential hypertension, mixed hyperlipidemia, urinary incontinence who presents to the emergency department for evaluation of dyspnea. #. Acute hypoxemic respiratory failure secondary to: #. Acute exacerbation of asthma in the setting of viral URI: -Continue home inhaler and initiating scheduled and p.r.n. DuoNebs. Continue systemic steroids. -Monitor oxygen saturation and wean as tolerated. Maintain oxygen saturation greater than 88-90%. -dd Doxycyline for possible bronchitis #. Drs-uswelot-gvbctytqn diabetes mellitus with hyperglycemia: Initiating Accu-Cheks with sliding scale insulin before meals and at bedtime. #. Acute lactic acidosis: due to albuterol and metformin use. Not severe sepsis #. Elevated creatinine: likely progression of CKD and at baseline. Monitor and avoid nephrotoxins #. Reactive leukocytosis: likely due to viral infection. No focal consolidation or concern for bacterial superinfection. UA pending #. Imaging with possible thyroid mass: Obtaining thyroid ultrasound and TSH #. Essential hypertension: Continue home antihypertensives #. Mixed HLD: on statin #. Urinary incontinence: On flomax Med rec pending DVT prophylaxis: Lovenox 40 mg daily Full code Cardiac diet Admit as inpatient and will require two night minimum hospital stay for supplemental oxygen. Time Spent With Patient Time: Total time managing care of this patient today ____ minutes. Quality Stroke Does the patient have a stroke diagnosis?: No VTE Prior VTE?: No VTE Risk Level:: Medical - moderate - high VTE Device Contraindication: Treatment Not Indicated VTE Drug Contraindication: N/A - Med Ordered
[2022-04-14 13:48] LABS: Glucose, Whole Blood 150 mg/dL (60-115)
[2022-04-14 15:10] LABS: Glucose, Whole Blood 267 mg/dL (60-115)
[2022-04-14] MEDS: metFORMIN HCl 1,000 MG TABLET 1000 MG PO (17:14)
[2022-04-14 18:31] LABS: Glucose, Whole Blood 214 mg/dL (60-115)
[2022-04-14 20:24] LABS: Glucose, Whole Blood 164 mg/dL (60-115)
[2022-04-14] MEDS: Enoxaparin Sodium 40 MG/0.4 ML SYRINGE SUBCUT (22:47)
[2022-04-14] MEDS: Tamsulosin HCL 0.4 MG CAPSULE PO (22:51)
[2022-04-15] MEDS: 0.9 % Sodium Chloride Flush 3 ML SYRINGE IVFLUSH ×2 (00:26→09:01)
[2022-04-15 01:33] VITALS: BMI 22.5
[2022-04-15] MEDS: Albuterol/Iprat 2.5/0.5MG 3 ML AMPUL.NEB INHALE ×3 (02:49→11:40)
[2022-04-15 02:51] VITALS: PULSE 95; RESP 24; O2SAT 91
[2022-04-15 03:42] VITALS: BP 146/64; PULSE 94; RESP 20; TEMP 36.6; O2SAT 93
[2022-04-15 07:28] VITALS: BP 144/66; PULSE 90; RESP 18; TEMP 36.9; O2SAT 94
[2022-04-15 07:34] LABS: Glucose, Whole Blood 192 mg/dL (60-115)
[2022-04-15 07:44] VITALS: PULSE 86; RESP 18; O2SAT 91
[2022-04-15 08:35] LABS: Hemoglobin 11.4 g/dl (14.0-18.0); Mean Corpuscular HGB Conc 32.6 g/dl (31.0-36.0); Mean Corpuscular Hemoglobin 28.7 pg (27.0-33.0); Mean Corpuscular Volume 88.2 fL (80.0-98.0); Mean Platelet Volume 10.8 fL (9.4-12.4); Platelet Count 479 X10*3/uL (160-400); Red Blood Count 3.97 X10*6/uL (4.60-5.80); Red Cell Distribution Width 15.2 % (11.0-16.0); White Blood Count 18.4 X10*3/uL (4.8-10.8)
[2022-04-15] MEDS: Insulin Lispro 100 UNIT/ML 3 ML VIAL SUBCUT (08:59)
[2022-04-15] MEDS: predniSONE 20 MG TABLET 40 MG PO (08:59)
[2022-04-15] MEDS: Aspirin Enteric Coated 81 MG TABLET.DR PO (08:59)
[2022-04-15] MEDS: Metoprolol Succinate ER 50 MG TAB.ER.24H PO (09:00)
[2022-04-15] MEDS: NIFEdipine ER 90 MG TAB.ER.24 PO (09:00)
[2022-04-15] MEDS: Enalapril Maleate 10 MG TABLET 20 MG PO (09:00)
[2022-04-15] MEDS: Atorvastatin Calcium 40 MG TABLET PO (09:00)
[2022-04-15] MEDS: Metoprolol Succinate ER 100 MG TAB.ER.24H PO (09:00)
[2022-04-15] MEDS: oxyCODONE HCl Immed Release 5 MG TABLET PO (09:17)
--- NOTE | 2022-04-15 10:32 | MHC.CM.PN ---
HOME - SELF CARE RN AWARE OF PLAN
[2022-04-15 11:47] LABS: Glucose, Whole Blood 224 mg/dL (60-115)
--- NOTE | 2022-04-23 08:19 | PM.DS ---
DS: Providers Provider Date of Service: 04/15/22 Date of admission: 04/13/22 20:38 Primary care physician: Ayaz Stinson MD DS: Diagnosis Discharge Diagnosis (1) Hypoxia: Status: Resolved (2) Multinodular goiter (nontoxic): Status: Inactive DS: Summary Hospital Course Hospital Course: Admission HPI Chief Complaint: Dyspnea This is a 72-year-old male with pertinent history asthma, idq-rsbdlqo-ydwqxjrfl diabetes mellitus, essential hypertension, mixed hyperlipidemia, urinary incontinence, prostate cancer who presents to the emergency department for evaluation of dyspnea. Patient states he has been feeling sick over the last 1 week.? Has been having symptoms of runny nose, watering of eyes and productive cough.? Patient soon started having dyspnea, worse with exertion and associated wheezing.? He does not use oxygen at home. Patient denies fever, chills, chest discomfort, palpitations, abdominal pain, changes in urinary or bowel habits.? No history of intubation due to asthma. In the emergency department, patient was found to be hypoxemic and put on supplemental oxygen. Hospital course: Patient was admitted and treated for acute hypoxic respiratory failure related to likely viral bronchitis, covid negative, influenza negative. This was compounded by acute exacerbation of asthma (moderate persistent). He was treated with bronchodialators, IV steroid and initially was oxygen but was rapidly taken off. He was given Doxycline for possible superimposed bacterial bronchitis. By the second day of hospitalization he felt better and comofrtable to tgo home. He discharged with Oral Prednisone for total of 5 days, and to complete course of doxycyline. #.? Afo-sbjwhbe-afdfgogom diabetes mellitus with hyperglycemia, resume home meds #.? Acute lactic acidosis: due to albuterol and metformin use. #.? Elevated creatinine: likely progression of CKD and at baseline. #.? Reactive leukocytosis: likely due to viral infection. No focal consolidation or concern for bacterial superinfection. #.? Imaging with possible thyroid mass: Obtaining thyroid ultrasound and TSH was o.03 will need FT4 Ultrasound is reported as follow: Enlarged thyroid gland with multinodular heterogeneous appearance. This heterogeneity limits comparison to previous imaging. The previous isthmus nodule has been sampled. This is decreased in prominence from prior. A right lobe nodule has also been sampled, though it is difficult to determine which on this study. Regardless, none of the current nodules meet criteria for fine-needle aspiration. Most of the described nodules are appropriate for additional follow-up in 2 years. ? This should be followed up on outpatient basis. #.? Essential hypertension: Continue home antihypertensives #.? Mixed HLD: on statin #.? Urinary incontinence: On flomax Time Spent with Patient Time attestation: Total time managing care of this patient today ____ minutes. Discharge coordination time: Greater than 30 minutes Quality: Safe Use of Opioids Does Pt have an Active Cancer Diagnosis on the Problem List?: No Quality: Stroke Does the patient have a stroke diagnosis?: No Physical Exam Vital Signs: Vital Signs: Last Vital Signs Temp 98.4 F 04/15/22 07:28 Pulse 86 04/15/22 07:44 Resp 18 04/15/22 07:44 BP 144/66 H 04/15/22 07:28 Pulse Ox 94 04/15/22 07:28 O2 Del Method 04/15/22 07:28 O2 Flow Rate 1 04/13/22 19:04 Oxygen Flow Rate 4 04/13/22 15:54 BMI result Body Mass Index 22.5 Discharge Plan Discharge Anticipated Discharge Date/Time: 04/15/22 10:10 Patient Disposition: Home, Self-Care Discharge Diagnosis: Acute hypoxic respiratory failure, COPD exacerbation pneumonia. Referrals: Ayaz Stinson MD [Primary Care Provider] - 1 Week Discharge Medications: New prednisone 20 mg tablet 40 mg PO DAILY Qty: 8 0RF doxycycline monohydrate 100 mg capsule 100 mg PO BID Qty: 10 0RF Continued tamsulosin 0.4 mg capsule 0.4 mg PO BEDTIME 30 Days Qty: 30 12RF oxycodone-acetaminophen 5-325 mg tablet 1 tab PO Q8H PRN (Reason: Pain, Severe) tadalafil 5 mg tablet 5 mg PO DAILY PRN (Reason: Sexual Activity) glyburide 1.25 mg tablet 1.25 mg PO DAILY@0730 simvastatin 80 mg tablet 80 mg PO DAILY albuterol sulfate 90 mcg/actuation HFA aerosol inhaler 2 puff PO Q4-6H PRN (Reason: Shortness Of Breath Or Wheezing) enalapril maleate 20 mg tablet 20 mg PO BID ipratropium-albuterol 0.5 mg-3 mg(2.5 mg base)/3 mL solution for nebulization 3 ml inhalation TID PRN (Reason: Shortness Of Breath) metformin 500 mg tablet 1,000 mg PO BIDWM nifedipine 90 mg tablet extended release 90 mg PO DAILY metoprolol succinate 100 mg tablet extended release 24 hr 100 mg PO DAILY metoprolol succinate 50 mg tablet extended release 24 hr 50 mg PO DAILY diphenhydramine HCl [Banophen] 25 mg capsule 25 mg PO BEDTIME PRN (Reason: insomnia) Trelegy Ellipta 200-62.5-25 mcg blister with device 1 inh inhalation DAILY 30 Days Qty: 1 6RF aspirin 81 mg tablet,delayed release (DR/EC) 81 mg PO DAILY Discharge Orders: Discharge Order (Routine); Ordered 04/15/22 Ordered By: Bharat Gonsalez Diet: Advance to usual diet Activity on Discharge: As tolerated Stand Alone Forms: Patient Portal Discharge page Care Plan Goals: Full recovery from COPD Health Concerns: COPD Plan of Treatment: Take Prednisone and Doxycyline for bronchitis, continue using inhalers Follow-up with your doctor in a week Assessment: as above Discharge Date/Time: 04/15/22 12:07
== END 2022-04-15 12:07 | disposition home or self-care (01) | DRG 113 ==
LOC: HO.ED 20:41 → HO.EDOVER 20:54 → HO.S3 04-14 20:26
PROVIDERS: Physician Assistant; Admitting Provider Student in an Organized Health Care Education/Training Program; Emergency Provider Internal Medicine; PCP Internal Medicine; Visit Provider Internal Medicine
DX: J06.9 Acute upper respiratory infection, unspecified (principal); J96.01 Acute respiratory failure with hypoxia; E87.21 Acute metabolic acidosis; J45.901 Unspecified asthma with (acute) exacerbation; E11.22 Type 2 diabetes mellitus with diabetic chronic kidney disease; E11.65 Type 2 diabetes mellitus with hyperglycemia; E78.2 Mixed hyperlipidemia; I12.9 Hypertensive chronic kidney disease with stage 1 through stage 4 chronic kidney disease, or unspecified chronic kidney disease; J44.9 Chronic obstructive pulmonary disease, unspecified; N18.9 Chronic kidney disease, unspecified; E04.9 Nontoxic goiter, unspecified; R32 Unspecified urinary incontinence; Z20.822 Contact with and (suspected) exposure to COVID-19; Z79.82 Long term (current) use of aspirin; Z87.891 Personal history of nicotine dependence; Z88.1 Allergy status to other antibiotic agents; Z88.2 Allergy status to sulfonamides; Z79.84 Long term (current) use of oral hypoglycemic drugs; Z79.899 Other long term (current) drug therapy
CPT/HCPCS: 36415; 71045; 71275; 76536; 80048; 80053; 81001; 82803; 82947; 83605; 83735; 83880; 84443; 84484; 85025; 85027; 85379; 87040; 87502; 87635; 93005; 94640; 99221; 99285; J1650; J2920; J2930; J3475; Q9967

== ENCOUNTER 2022-06-18 08:09 | Outpatient (REF) | payer OTHER, SELFPAY ==
[2022-06-18 08:46] LABS: Estimated Average Glucose 123 mg/dL; Hemoglobin A1c % 5.9 %
[2022-06-18 09:09] LABS: Prostate Specific Antigen < 0.10 ng/mL (<0.05-4.0)
== END 2022-06-18 08:10 | disposition home or self-care (01) ==
LOC: HO.LAB 08:09
PROVIDERS: PCP Internal Medicine; Visit Provider Urology
DX: C61 Malignant neoplasm of prostate (principal); E11.69 Type 2 diabetes mellitus with other specified complication; N52.1 Erectile dysfunction due to diseases classified elsewhere; Z12.5 Encounter for screening for malignant neoplasm of prostate
CPT/HCPCS: 36415; 83036; 84153

== ENCOUNTER → 2022-06-24 08:59 | Outpatient (BNVA) | payer OTHER, SELFPAY | PROVIDERS: PCP Internal Medicine; Visit Provider Urology | DX: Z13.89 Encounter for screening for other disorder (principal) ==

== ENCOUNTER 2022-08-06 17:32 | Inpatient (IN) | payer OTHER, SELFPAY ==
--- NOTE | ~2022-08-06 | MR_ITS ---
EXAMINATION: MR BRAIN WITHOUT CONTRAST CLINICAL INFORMATION: Persistent encephalopathy following cardiac arrest. COMPARISON: CT head from 09/20/2018. TECHNIQUE: MRI of the brain was obtained using routine sequences without contrast. FINDINGS: There are regions of restricted diffusion involving the perirolandic cortices, left greater than right occipitoparietal cortices, and caudate/lentiform nuclei. Associated T2 FLAIR hyperintensity in a similar distribution. No evidence of hemorrhagic transformation. No additional restricted diffusion. No evidence of acute or chronic hemorrhagic products on heme-sensitive imaging. Scattered periventricular and deep white matter T2 FLAIR hyperintensities consistent with mild underlying microangiopathy. Proportional prominence of the ventricles and sulcal spaces without evidence of obstructive hydrocephalus. No abnormal mass effect. No midline shift. Normal appearance of the pituitary gland. Normal positioning of the cerebellar tonsils. Normal arterial and venous vascular flow voids are present. The patient is intubated with orogastric tube in place. Normal, homogeneous marrow signal. Moderate mucosal thickening of the paranasal sinuses. Prominent bilateral mastoid effusions. Bilateral lens extractions. MR/MR head/brain wo con IMPRESSION: 1. Bihemispheric cortical and bilateral deep nuclei restricted diffusion suggestive of sequela of anoxic brain injury in the appropriate clinical setting. No evidence of hemorrhagic transformation. 2. Mild underlying microangiopathy and generalized cerebral volume loss.
--- NOTE | ~2022-08-06 | XR_ITS ---
EXAMINATION: XR CHEST CLINICAL INFORMATION: Hypoxia COMPARISON: Chest 08/08/2022 TECHNIQUE: Frontal view of the chest was obtained. FINDINGS: The lungs are somewhat expanded with patchy opacity in right lower lobe. The upper lungs are clear. Suspect minimal bibasilar effusions and underlying atelectasis. Position of endotracheal tube, right jugular central venous catheter and enteric tube tip in the stomach are stable and unchanged. The heart size and pulmonary vascularity is normal. No gross bony abnormality. XR/XR chest 1V IMPRESSION: 1. Patchy opacity right lower lobe question infiltrate. 2. Suspect minimal bibasilar effusions with atelectasis. 3. Support lines and catheters are stable.
--- NOTE | ~2022-08-06 | XR_ITS ---
EXAMINATION: XR CHEST CLINICAL INFORMATION: Pain COMPARISON: Chest CT on 04/13/2022 TECHNIQUE: 2 views of the chest were obtained. FINDINGS: The cardiac mediastinal silhouette is normal. There is right lower lobe consolidation consistent with pneumonia. No additional areas of consolidation. No pleural effusions. Degenerative disease of the bilateral shoulders. XR/XR chest 2V IMPRESSION: Right lower lobe pneumonia. Recommend short interval follow-up.
--- NOTE | ~2022-08-06 | XR_ITS ---
EXAMINATION: XR CHEST CLINICAL INFORMATION: Tachypnea COMPARISON: 08/07/2022 TECHNIQUE: Frontal view of the chest was obtained. FINDINGS: Cardiac leads overlie the chest. The lungs are well expanded. Persistent hazy opacity of the right mid to lower lung with associated pleural effusion. The left lung is clear. No pneumothorax. The cardiomediastinal silhouette is unchanged, with a calcified aorta. XR/XR chest 1V IMPRESSION: Persistent right mid to lower lung opacity with associated pleural effusion. This is similar to prior.
--- NOTE | ~2022-08-06 | XR_ITS ---
EXAMINATION: XR CHEST CLINICAL INFORMATION: Reason for Exam hypoxia COMPARISON: Chest radiograph 08/14/2022 TECHNIQUE: One view of the chest FINDINGS: Lines and tubes: Enteric tube courses below the level of the diaphragm, tip not imaged. EKG leads overlie the patient. Endotracheal tube tip terminates approximately 2.5 cm above the beverley. Low lung volumes. Similar right basilar consolidation and probable small layering pleural effusion suspicious for aspiration or infection. Few new streaky left basilar airspace opacities possibly atelectasis in the setting of low lung volumes with superimposed infection or aspiration difficult to exclude. No pneumothorax. Unchanged cardiomediastinal silhouette. XR/XR chest 1V IMPRESSION: 1. Endotracheal tube tip terminates approximately 2.5 cm above the beverley. 2. Similar right basilar consolidation and probable small layering pleural effusion suspicious for aspiration or infection. 3. Few new streaky left basilar airspace opacities possibly atelectasis in the setting of low lung volumes with superimposed infection or aspiration difficult to exclude.
--- NOTE | ~2022-08-06 | XR_ITS ---
EXAMINATION: XR CHEST CLINICAL INFORMATION: Shortness of breath COMPARISON: Previous chest x-ray 08/06/2022 TECHNIQUE: Frontal view of the chest was obtained. FINDINGS: The cardiac and mediastinal contours are stable. Large right lower lobe pneumonia slightly increased from yesterday's exam. New small right pleural effusion. The left lung is clear. No left pleural effusion. No pneumothorax. Bony structures are unremarkable. XR/XR chest 1V IMPRESSION: Large right base pneumonia. New small right pleural effusion.
--- NOTE | ~2022-08-06 | XR_ITS ---
EXAMINATION: XR CHEST CLINICAL INFORMATION: Hypoxia COMPARISON: 08/08/2022 TECHNIQUE: Frontal view of the chest was obtained. FINDINGS: Endotracheal tube terminates 1 cm above the beverley. Right internal jugular central venous catheter terminates at the superior cavoatrial junction. Enteric tube terminates in the stomach. Slightly improved aeration of the right lower lung with persistent patchy opacity. Small bilateral pleural effusions and accompanying atelectasis. No pneumothorax. Normal cardiac mediastinal silhouette. Aorta is atherosclerotic. No acute osseous abnormalities. XR/XR chest 1V IMPRESSION: * Endotracheal tube terminates 1 cm above the beverley. * Slightly improved aeration of the right lower lung. * Small bilateral pleural effusions and accompanying atelectasis.
--- NOTE | ~2022-08-06 | CT_ITS ---
EXAMINATION: CT CHEST WITHOUT CONTRAST CT ABDOMEN AND PELVIS WITH CONTRAST CLINICAL INFORMATION: Status post cardiac arrest. COMPARISON: None. TECHNIQUE: Multidetector volumetric imaging was performed through the chest without IV contrast. This was followed by multidetector volumetric imaging of the abdomen and pelvis following the administration of 85 mL of Omnipaque 350 intravenous contrast. Sagittal and coronal reformatted images were obtained on the technologist's workstation. Axial MIP volume rendering provided. This CT examination was performed using dose optimization techniques as appropriate, variously including the following: *Automated exposure control *Adjustment of mA and/or kV according to patient size (this includes techniques or standardized protocols for targeted exams where dose is matched to indication/reason for exam; i.e. extremities or head) *Use of iterative reconstruction technique DLP: 1119 mGy-cm. FINDINGS: CHEST: Lungs: The endotracheal tube terminates 2 cm above the beverley. There is a dense right lower lobe consolidation with air bronchograms. Minimal groundglass opacity in the left upper lobe. No pneumothorax. No pleural effusion. Mediastinum: The heart is of normal size. There is no pericardial effusion. Central vascular structures are unremarkable. No hilar or mediastinal lymphadenopathy. Enlarged and heterogeneous thyroid gland. Coronary Artery Calcification: Present. Chest Wall/Axilla: No lymphadenopathy. No chest wall mass. ABDOMEN/PELVIS: Liver, Gallbladder, Biliary Tree: The liver is normal in size, shape, and attenuation. Trace perihepatic ascites. No focal hepatic lesion or biliary ductal dilatation is present. The gallbladder is unremarkable with no evidence of radiopaque gallstones, gallbladder wall thickening, or pericholecystic inflammatory changes. Pancreas: Mild atrophy with no focal abnormality. Spleen: Unremarkable. Adrenal Glands: Unremarkable. 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 Multiple simple cysts for which no specific follow-up is recommended. No hydronephrosis or nephrolithiasis. Bladder: Decompressed with a Diggs catheter in place. Gastrointestinal Tract: The stomach is unremarkable. Normal caliber of the small bowel. There is no obstruction. Small bowel extends into a prominent right inguinal hernia. No inflammation. Colonic diverticulosis without diverticulitis. The appendix is not seen. There is no pericecal inflammation to suggest acute appendicitis. Abdominal Wall: Fat-containing umbilical hernia. Right inguinal hernia containing small bowel. Lymphovascular Structures: Lymph nodes: Normal. Vascular: Normal caliber aorta with moderate to severe atherosclerotic calcification. Pelvic Viscera: Radiopaque seeds in the prostate. OSSEOUS STRUCTURES: No suspicious sclerotic or lytic bone lesions are identified. Degenerative changes of the spine. Disc space narrowing at L5-S1 with endplate osteophytes. CT/CT abdomen pelvis w IV con IMPRESSION: 1. Dense right lower lobe consolidation with air bronchograms. This could be associated with aspiration. 2. Endotracheal tube terminates 2 cm above the beverley. 3. No acute finding in the abdomen or pelvis. Trace ascites. 4. Right-sided renal cross fused ectopia.
--- NOTE | ~2022-08-06 | XR_ITS ---
EXAMINATION: XR CHEST CLINICAL INFORMATION: Follow-up pneumonia COMPARISON: 08/11/2021 TECHNIQUE: Frontal view of the chest was obtained. FINDINGS: The position of supporting tubes and lines is stable. There is a right lower lobe airspace disease consistent with pneumonia. Increased interstitial markings the left XR/XR chest 1V IMPRESSION: Persistent right lower lobe pneumonia
--- NOTE | ~2022-08-06 | XR_ITS ---
EXAMINATION: XR CHEST CLINICAL INFORMATION: Triple-lumen catheter placement COMPARISON: 08/07/2022 TECHNIQUE: Frontal view of the chest was obtained. FINDINGS: Endotracheal tube terminates approximately 2 cm above the beverley. Enteric tube extends into the stomach. Right internal jugular central venous catheter terminates near the cavoatrial junction. Cardiac leads overlie the chest. The lungs are well expanded. There is a right lower lung consolidation. No significant pleural effusion seen at this time. No pneumothorax. The cardiomediastinal silhouette is unchanged, with a calcified aorta. XR/XR chest 1V IMPRESSION: 1. Endotracheal tube terminating 2 cm above the beverley. Right internal jugular central venous catheter terminates near the cavoatrial junction. No pneumothorax. 2. Right lower lung consolidation.
[2022-08-06 17:50] VITALS: BP 107/54; PULSE 112; RESP 18; TEMP 36.6; O2SAT 89; BMI 25.0
--- NOTE | 2022-08-06 17:53 | ECG_ITS ---
Test Reason : pain Blood Pressure : / mmHG Vent. Rate : 111 BPM Atrial Rate : 111 BPM P-R Int : 126 ms QRS Dur : 090 ms QT Int : 312 ms P-R-T Axes : 000 -28 109 degrees QTc Int : 424 ms Sinus tachycardia Abnormal QRS-T angle, consider primary T wave abnormality Abnormal ECG When compared with ECG of 13-APR-2022 16:39, No significant change was found Referred By: Ciro Reis Electronically Signed By:Frank Crane
--- NOTE | 2022-08-06 17:54 | ED_ITS ---
HPI - General Adult General Chief complaint: Dyspnea Stated complaint: Asthma/diff breathing Time Seen by Provider: 08/06/22 18:20 Source: patient Mode of arrival: ambulatory Limitations: no limitations History of Present Illness HPI narrative: 72 year old with asthma presents to the ED with worsening shortness of breath and cough No fever chills nausea vomiting or diarrhea. Worse with exertion. found to be hypoxic in triage. Not on oxygen at home. Patient was seen here back in April and placed on prednisone he is unsure the last time he was on prednisone other than that time. Patient has never been intubated he has been admitted in the past. Onset (ago): day(s) Related Data Home Medications Medication Instructions Recorded Confirmed albuterol sulfate 90 mcg/actuation 2 puff PO Q4-6H PRN Shortness Of 03/13/20 06/24/22 aerosol inhaler Breath Or Wheezing enalapril maleate 20 mg tablet 20 mg PO BID 03/13/20 06/24/22 glyburide 1.25 mg tablet 1.25 mg PO DAILY@0730 03/13/20 06/24/22 ipratropium 0.5 mg-albuterol 3 mg 3 ml inhalation TID PRN Shortness 03/13/20 06/24/22 (2.5 mg base)/3 mL nebulization Of Breath soln metformin 500 mg tablet 1,000 mg PO BIDWM 03/13/20 06/24/22 simvastatin 80 mg tablet 80 mg PO DAILY 03/13/20 06/24/22 metoprolol succinate 100 mg 100 mg PO DAILY 06/25/20 06/24/22 tablet,extended release 24 hr metoprolol succinate 50 mg 50 mg PO DAILY 06/25/20 06/24/22 tablet,extended release 24 hr nifedipine 90 mg tablet,extended 90 mg PO DAILY 06/25/20 06/24/22 release diphenhydramine HCl 25 mg capsule 25 mg PO BEDTIME PRN insomnia 06/17/21 (Banophen) aspirin 81 mg tablet,delayed 81 mg PO DAILY 12/18/21 06/24/22 release oxycodone-acetaminophen 5 mg-325 1 tab PO Q8H PRN Pain, Severe 04/13/22 06/24/22 mg tablet tadalafil 5 mg tablet 5 mg PO DAILY PRN Sexual Activity 04/13/22 06/24/22 Previous Rx's Medication Instructions Recorded fluticasone fur. 200 mcg-umeclid 1 inh inhalation DAILY 30 days #1 01/09/21 62.5 mcg-vilant 25 mcg ea inhalat.powder (Trelegy Ellipta) tamsulosin 0.4 mg capsule 0.4 mg PO BEDTIME 30 days #30 caps 08/25/21 doxycycline monohydrate 100 mg 100 mg PO BID #10 caps 04/15/22 capsule prednisone 20 mg tablet 40 mg PO DAILY #8 tabs 04/15/22 Allergies Allergy/AdvReac Type Severity Reaction Status Date / Time ciprofloxacin [From CIPRO] Allergy Unknown RASH Verified 08/06/22 17:50 Sulfa (Sulfonamide Allergy Unknown rash Verified 08/06/22 17:50 Antibiotics) sulfamethoxazole Allergy Unknown RASH Verified 08/06/22 17:50 [From BACTRIM] trimethoprim [From BACTRIM] Allergy Unknown RASH Verified 08/06/22 17:50 Review of Systems Review of Systems: Review of systems: General: Patient denies any fever chills recent illness or falls Musculoskeletal: Denies back pain or body aches or other injuries HEENT: denies headache, runny nose, ear pain Respiratory: shortness of breath, cough Cardiovascular: no chest pain or palpitations : denies dysuria, frequency Abdomen: no nausea vomiting denies abdominal pain Extremities: no swelling, no pain Skin: no diaphoresis Yes all other systems are reviewed and are negative PMFSH Past Medical History Medical History Asthma Cancer of right renal pelvis COPD (chronic obstructive pulmonary disease) Crossed renal ectopia Diabetes mellitus Elevated PSA Erectile dysfunction High cholesterol HTN (hypertension) Multinodular goiter (nontoxic) Prostate cancer Right renal mass Surgical History History of prostate biopsy Hx of biopsy Family History Family History Father No problems noted. Mother No problems noted. Social History Social History Household Members: None Housing: Apartment Do you presently have visiting nurse or other home services: No Alcohol intake: former Patient Tobacco Use Status: Former Tobacco user Quit Date: 3-4 years ago Smoked in Last 30 Days: No e-Cigarette/Vaping Use: Never Used Second Hand Smoke Exposure: No Use of substances other than those prescribed or required for medical reasons: No Advance Directives: Yes Advance Directives on File: Yes Advance Directives Date on File: 04/14/22 service: No Current occupational status: retired Physical Exam ED Vital Signs: Vital Signs - 24 hr 08/06/22 17:50 08/06/22 18:36 08/06/22 18:51 Temperature 97.9 F 98.8 F Pulse Rate 112 H 71 111 H Respiratory Rate 18 18 16 Blood Pressure 107/54 L 120/55 L Pulse Oximetry 89 L 95 Oxygen Delivery Method Room Air Nasal Cannula Oxygen Flow Rate 3 BMI result Body Mass Index 25.0 General: Well-appearing well-nourished in no signs of distress HEENT: Normocephalic atraumatic Neck: No signs of JVD, no masses no tenderness or lymphadenopathy Cardiovascular: Regular rate and rhythm Respiratory: Rhonchi with wheezing bilaterally Abdomen: Soft nontender no masses Extremities: Normal pedal pulses no signs of edema Skin: Dry warm no rashes Back: No tenderness full ROM Course Course Course Narrative: 72-year-old male past medical history significant for COPD not on oxygen presents for evaluation of shortness of breath for the last 2 days. Symptoms are worse with exertion and walking. On exam he has wheezing throughout and crackles in the bases. Will get chest x-ray, labs. He is hypoxic to 89% room air, tachycardic to about 110 I would blood cultures and lactic acid as well. The patient is afebrile Reevaluation(s) Reevaluation #1: 1900 x-ray shows significant right-sided infiltrate I will start the patient on vancomycin and Zosyn I explained this to the patient as was the nurse patient is ready any septic workup. Medications Administered Generic Name Dose Route Start Last Admin Trade Name Freq PRN Reason Stop Dose Admin Magnesium Sulfate 2 gm in 50 mls @ 25 mls/hr 08/06/22 18:27 08/06/22 19:46 Magnesium Sulfate/H2o IV 08/06/22 20:26 25 mls/hr ONCE ONE Administration Vancomycin HCl 1,500 mg/ 500 mls @ 333.333 mls/hr 08/06/22 19:01 08/06/22 19:46 Sodium Chloride IV 08/06/22 20:30 333.33 mls/hr ONCE ONE Administration Discontinued Medications Generic Name Dose Route Start Last Admin Trade Name López PRN Reason Stop Dose Admin Albuterol Sulfate 7.5 mg 08/06/22 18:27 08/06/22 18:50 Albuterol Sulfate (0.083%) 2.5 Mg/3 Ml Vial.Neb INHALE 08/06/22 18:28 7.5 mg ONCE ONE Administration Sodium Chloride 1,000 mls @ 999 mls/hr 08/06/22 18:30 08/06/22 19:14 Ns IV 08/06/22 19:30 999 mls/hr .Q1H1M CHARITO Administration Piperacillin Sod/Tazobactam 100 mls @ 200 mls/hr 08/06/22 19:01 08/06/22 19:46 Sod 4.5 gm/ Sodium Chloride IV 08/06/22 19:30 Infused ONCE ONE Infusion Ipratropium [place] 0.5 mg 08/06/22 18:27 08/06/22 18:50 Ipratropium [place] 0.5 Mg/2.5 Ml Solution INHALE 08/06/22 18:28 0.5 mg ONCE ONE Administration Methylprednisolone Sodium Succinate 125 mg 08/06/22 18:27 08/06/22 19:15 Methylprednisolone Sod Succ 125 Mg/2 Ml Vial IVPUSH 08/06/22 18:28 125 mg ONCE ONE Administration Medical Decision Making Medical Decision Making [facility] Narrative: Patient given oxygen for COPD I will give the patient's breathing treatments start the patient on Solu-Medrol a give fluids and check labs. Differential Diagnosis Differential Diagnoses: The differential diagnosis associated with the presentation includes COPD asthma pneumonia respiratory failure Admission/Observation Consideration of admission/observation: Escalation of care including ad mission/observation considered I will admit for IV antibiotic oxygen and lactic acidosis clearance Consult Healthcare Provider Management of the patient was discussed with: Hospitalist Dr. Howe reviewed the case and will admit the patient. Lab Data [facility] Lab Attestation statement: I reviewed the patient's lab results. Lactic acidosis is very elevated I will give a few liters of fluid. He has no other signs of sepsis I do think the lactic is a combination of COPD and pneumonia with the hypoxia causing such a high elevation. 08/06/22 19:00 08/06/22 19:00 Labs: Lab Results 08/06/22 08/06/22 08/06/22 Range/Units 18:30 19:00 19:00 Lactic Acid 4.8 H* (0.5-2.0) mmol/L B-Natriuretic Peptide 266 H (<100) pg/mL COVID-19 (MAGDALENO) Negative (Negative) COVID-19 Clin Com See Note Independent Interpretation I performed an independent interpretation of an: EKG and Plain X-Ray Independent Historian Clinical information obtained from an independent historian. History obtained from or confirmed by: Other External Record Review External record reviewed: Inpatient record Critical Care Time Critical Care Time Critical Care Time: Yes Total Critical Care Time: 50 Attestation: Patient found to be hypoxic requiring oxygen in triage was brought back to room did see the patient immediately patient was initially thought to have a COPD exacerbation found to have right lower lobe infiltrate was started on an tibiotics immediately patient was reassessed and educated patient did have a lactic acidosis of 4.8 and given several L of fluid. Vitals otherwise stable no signs of sepsis Discharge Plan Discharge Clinical Impression: Acute exacerbation of chronic obstructive airways disease, Pneumonia Patient Disposition: Admitted As Inpatient Prescriptions: No Action tamsulosin 0.4 mg capsule 0.4 mg PO BEDTIME 30 Days Qty: 30 12RF oxycodone-acetaminophen 5-325 mg tablet 1 tab PO Q8H PRN (Reason: Pain, Severe) tadalafil 5 mg tablet 5 mg PO DAILY PRN (Reason: Sexual Activity) prednisone 20 mg tablet 40 mg PO DAILY Qty: 8 0RF doxycycline monohydrate 100 mg capsule 100 mg PO BID Qty: 10 0RF glyburide 1.25 mg tablet 1.25 mg PO DAILY@0730 simvastatin 80 mg tablet 80 mg PO DAILY albuterol sulfate 90 mcg/actuation HFA aerosol inhaler 2 puff PO Q4-6H PRN (Reason: Shortness Of Breath Or Wheezing) enalapril maleate 20 mg tablet 20 mg PO BID ipratropium-albuterol 0.5 mg-3 mg(2.5 mg base)/3 mL solution for nebulization 3 ml inhalation TID PRN (Reason: Shortness Of Breath) metformin 500 mg tablet 1,000 mg PO BIDWM nifedipine 90 mg tablet extended release 90 mg PO DAILY metoprolol succinate 100 mg tablet extended release 24 hr 100 mg PO DAILY metoprolol succinate 50 mg tablet extended release 24 hr 50 mg PO DAILY diphenhydramine HCl [Banophen] 25 mg capsule 25 mg PO BEDTIME PRN (Reason: insomnia) Trelegy Ellipta 200-62.5-25 mcg blister with device 1 inh inhalation DAILY 30 Days Qty: 1 6RF aspirin 81 mg tablet,delayed release (DR/EC) 81 mg PO DAILY
[2022-08-06 18:36] VITALS: BP 120/55; PULSE 71; RESP 18; TEMP 37.1; O2SAT 95
--- NOTE | 2022-08-06 18:38 | PC.NURSE ---
Alert and oriented. States a few days ago he started to have difficulty breathing. has been using inhalers and updrafts and it has not been helping. lungs clear but diminished at bases. denies chest pain, sob. No edema noted. NSR on monitor. VSS. Off to x-ray at this time.
[2022-08-06] MEDS: Ipratropium Bromide 0.5 MG/2.5 ML SOLUTION INHALE (18:50)
[2022-08-06] MEDS: Albuterol Sulfate (0.083%) 2.5 MG/3 ML VIAL.NEB 7.5 MG INHALE (18:50)
[2022-08-06 18:51] VITALS: PULSE 111; RESP 16; O2SAT 94
[2022-08-06] MEDS: 0.9 % Sodium Chloride 1,000 ML 999 ML IV ×2 (19:14→20:00)
[2022-08-06] MEDS: Piperacillin Sodium/Tazobactam 4.5 GM in 0.9 % Sodium Chloride 100 ML IV (19:15)
[2022-08-06] MEDS: methylPREDNISolone Sod Succ 125 MG/2 ML VIAL IVPUSH (19:15)
[2022-08-06 19:16] LABS: COVID-19 Test Negative (Negative); IDNOW Serial# 08D9AD1C
[2022-08-06 19:28] LABS: B Type Natriuretic Peptide 266 pg/mL (<100)
[2022-08-06 19:30] LABS: Lactic Acid 4.8 mmol/L (0.5-2.0)
[2022-08-06] MEDS: Magnesium Sulfate/H2O 2 GM/50 ML PIGGYBACK IV (19:46)
[2022-08-06] MEDS: vancomycin HCL 1,500 MG in 0.9 % Sodium Chloride 500 ML 333.33 MG IV (19:46)
[2022-08-06 19:58] LABS: Hematocrit 34.5 % (42.0-52.0); Mean Corpuscular HGB Conc 31.9 g/dl (31.0-36.0); Mean Corpuscular Hemoglobin 27.4 pg (27.0-33.0); Mean Platelet Volume 12.5 fL (9.4-12.4); Platelet Count 251 X10*3/uL (160-400); Red Blood Count 4.01 X10*6/uL (4.60-5.80); Red Cell Distribution Width 15.6 % (11.0-16.0); White Blood Count 17.2 X10*3/uL (4.8-10.8)
[2022-08-06 20:03] LABS: Neutrophils Percent Manual 74 % (45-73)
[2022-08-06 20:05] LABS: Band Neutrophils Percent 16 % (3-5); Lymphocytes Percent Manual 6 % (20-40); Metamyelocytes Absolute 0.3 X10*3/uL; Metamyelocytes Percent 2 %; Microcytosis 1+ (5-14) /OIF; Monocytes Absolute Manual 0.3 X10*3/uL (0.1-1.2); Monocytes Percent Manual 2 % (2-11); Neutrophils Absolute Manual 15.5 X10*3/uL (2.0-8.3); Platelet Estimate NORMAL (NORMAL); Platelet Morphology Comment NOTED; RBC Morphology NOTED
[2022-08-06 20:06] LABS: Acanthocytes 1+ (0-2) /OIF; Burr Cells 3+ (>5) /OIF; Dohle Bodies PRESENT; Large Platelet PRESENT; Toxic Vacuolation PRESENT; WBC Morphology Comment DYSMORPHIC
[2022-08-06 20:07] LABS: INTERNATIONAL NORM RATIO 1.4 (0.9-1.1); Prothrombin Time 16.5 SEC (10.0-13.1)
--- NOTE | 2022-08-06 20:08 | PM.IMHP ---
History of Present Illness Date of Service: 08/06/22 Chief Complaint: Dyspnea This is a 72-year-old male with pertinent history of asthma not on home oxygen, ruf-uxcazed-kblprcstu diabetes mellitus, essential hypertension, mixed hyperlipidemia, urinary incontinence, prostate cancer who presents to the emergency department for evaluation of dyspnea. Patient states it started on the day of presentation, worse with exertion. Also has been having cough with yellowish sputum production.?Endorses associated wheezing. He does not use oxygen at home. Patient denies fever, chills, chest discomfort, palpitations, abdominal pain, changes in urinary or bowel habits.? No history of intubation due to asthma. In the emergency department, patient was found to be hypoxemic and put on supplemental oxygen. Review of Systems Constitutional: Constitutional: Reports fatigue and Reports lethargy Cardiovascular: Cardiovascular: Reports dyspnea on exertion Respiratory: Respiratory: Reports cough, Reports dyspnea on exertion and Reports wheezing Gastrointestinal: Gastrointestinal: Reports no additional gastrointestinal complaints Genitourinary: Genitourinary: Reports no additional male genitourinary complaints Endocrine: Endocrine: Reports fatigue Allergic/Immunologic: Allergic/Immunologic: Reports wheezing [facility] Medical History Asthma Cancer of right renal pelvis COPD (chronic obstructive pulmonary disease) Crossed renal ectopia Diabetes mellitus Elevated PSA Erectile dysfunction High cholesterol HTN (hypertension) Multinodular goiter (nontoxic) Prostate cancer Right renal mass Family History Father No problems noted. Mother No problems noted. Surgical History History of prostate biopsy Hx of biopsy Social History Household Members: None Housing: Apartment Do you presently have visiting nurse or other home services: No Alcohol intake: former Patient Tobacco Use Status: Former Tobacco user Quit Date: 3-4 years ago Smoked in Last 30 Days: No e-Cigarette/Vaping Use: Never Used Second Hand Smoke Exposure: No Use of substances other than those prescribed or required for medical reasons: No Advance Directives: Yes Advance Directives on File: Yes Advance Directives Date on File: 04/14/22 service: No Current occupational status: retired Meds Allergies Allergy/AdvReac Type Severity Reaction Status Date / Time ciprofloxacin [From CIPRO] Allergy Unknown RASH Verified 08/06/22 17:50 Sulfa (Sulfonamide Allergy Unknown rash Verified 08/06/22 17:50 Antibiotics) sulfamethoxazole Allergy Unknown RASH Verified 08/06/22 17:50 [From BACTRIM] trimethoprim [From BACTRIM] Allergy Unknown RASH Verified 08/06/22 17:50 Active Medications: Current Medications Acetaminophen (Acetaminophen 325 Mg Tablet) 650 mg PO Q6H PRN PRN Reason: Pain, Mild (Pain Scale 1-3) Enoxaparin Sodium (Enoxaparin Sodium 40 Mg/0.4 Ml Syringe) 40 mg SUBCUT Q24H CHARITO Magnesium Sulfate (Magnesium Sulfate/H2o) 2 gm in 50 mls @ 25 mls/hr IV ONCE ONE Stop: 08/06/22 20:26 Last Admin: 08/06/22 19:46 Dose: 25 mls/hr Vancomycin HCl 1,500 mg/ (Sodium Chloride) 500 mls @ 333.333 mls/hr IV ONCE ONE Stop: 08/06/22 20:30 Last Admin: 08/06/22 19:46 Dose: 333.33 mls/hr Sodium Chloride (Ns) 1,000 mls @ 999 mls/hr IV .Q1H1M COUNT INCLUDES THE [facility] Stop: 08/06/22 21:00 Last Admin: 08/06/22 20:00 Dose: 999 mls/hr Melatonin (Melatonin 3 Mg Tablet) 6 mg PO BEDTIME PRN PRN Reason: Insomnia Ondansetron HCl (Ondansetron Hcl 4 Mg/2 Ml Vial) 4 mg IVPUSH Q8H PRN PRN Reason: Nausea and Vomiting Pharmacy Consult (Consult Rx Vancomycin Dosing) 1 each MISCELLANE DAILY PRN PRN Reason: Consult order Pharmacy Consult (Consult Rx Perform Med Rec) 1 each MISCELLANE ONCE PRN PRN Reason: Consult order Sodium Chloride (0.9 % Sodium Chloride Flush 3 Ml Syringe) 3 ml IVFLUSH QSHIFT COUNT INCLUDES THE [facility] Home Medications Medication Instructions Recorded Confirmed Last Taken Type albuterol sulfate 90 mcg/actuation 2 puff PO Q4-6H PRN Shortness Of 03/13/20 08/06/22 Unknown History aerosol inhaler Breath Or Wheezing enalapril maleate 20 mg tablet 20 mg PO BID 03/13/20 08/06/22 Unknown History glyburide 1.25 mg tablet 1.25 mg PO DAILY@0730 03/13/20 08/06/22 08/06/22 History ipratropium 0.5 mg-albuterol 3 mg 3 ml inhalation TID PRN Shortness 03/13/20 08/06/22 Unknown History (2.5 mg base)/3 mL nebulization Of Breath soln metformin 500 mg tablet 1,000 mg PO BIDWM 03/13/20 08/06/22 08/06/22 History simvastatin 80 mg tablet 80 mg PO DAILY 03/13/20 08/06/22 08/06/22 History metoprolol succinate 100 mg 100 mg PO DAILY 06/25/20 08/06/22 08/06/22 History tablet,extended release 24 hr metoprolol succinate 50 mg 50 mg PO BEDTIME 06/25/20 08/06/22 Unknown History tablet,extended release 24 hr nifedipine 90 mg tablet,extended 90 mg PO DAILY 06/25/20 08/06/22 08/06/22 History release diphenhydramine HCl 25 mg capsule 25 mg PO BEDTIME PRN insomnia 06/17/21 08/06/22 Unknown History (Banophen) aspirin 81 mg tablet,delayed 81 mg PO DAILY 12/18/21 08/06/22 08/06/22 History release oxycodone-acetaminophen 5 mg-325 1 tab PO Q8H PRN Pain, Severe 04/13/22 08/06/22 Unknown History mg tablet tadalafil 5 mg tablet 5 mg PO DAILY PRN Sexual Activity 04/13/22 08/06/22 Unknown History fluticasone fur. 200 mcg-umeclid 1 inh inhalation BID 08/06/22 08/06/22 Unknown History 62.5 mcg-vilant 25 mcg inhalat.powder (Trelegy Ellipta) Physical Exam Vital Signs and Narrative: Vital Signs: Last Vital Signs Temp 98.8 F 08/06/22 18:36 Pulse 111 H 08/06/22 18:51 Resp 16 08/06/22 18:51 BP 120/55 L 08/06/22 18:36 Pulse Ox 95 08/06/22 18:36 O2 Del Method Nasal Cannula 08/06/22 18:36 O2 Flow Rate 3 08/06/22 18:36 BMI result Body Mass Index 25.0 Elderly male lying in bed in mild distress on supplemental oxygen Neck supple, no JVD Tachycardic with regular rhythm, S1-S2 heard Bilateral wheezing + Abdomen soft nontender, no guarding, no rigidity Patient is awake, alert and oriented to self, place, time and person ; no focal motor deficit Psych: Normal mood No pedal edema Results Labs 08/06/22 19:00 08/06/22 19:00 Labs: Laboratory Results - last 24 hr 08/06/22 08/06/22 08/06/22 18:30 19:00 19:00 MCV 86.0 MCH 27.4 MCHC 31.9 RDW 15.6 Plt Count 251 D MPV 12.5 H Immature Gran % (Auto) Cancelled Neut % (Auto) Cancelled Lymph % (Auto) Cancelled [place] % (Auto) Cancelled Eos % (Auto) Cancelled Baso % (Auto) Cancelled Lymph # (Auto) Cancelled [place] # (Auto) Cancelled Eos # (Auto) Cancelled Baso # (Auto) Cancelled Abs Immat Gran (auto) Cancelled Absolute Neuts (auto) Cancelled Absolute Nucleated RBC 0.000 Nucleated RBC % (auto) 0.0 Neutrophils % (Manual) 74 H Band Neutrophils % 16 H Lymphocytes % (Manual) 6 L Monocytes % (Manual) 2 Metamyelocytes % 2 Abs Neuts (Manual) 15.5 H Lymphocytes # (Manual) 1.0 L Monocytes # (Manual) 0.3 Metamyelocytes # 0.3 Toxic Vacuolation PRESENT Dohle Bodies PRESENT WBC Morphology Comment DYSMORPHIC Platelet Estimate NORMAL Large Platelets PRESENT Plt Morphology Comment NOTED RBC Morphology NOTED Microcytosis 1+ (5-14) [place] Cells 3+ (>5) Acanthocytes (Spur) 1+ (0-2) Lactic Acid 4.8 H* B-Natriuretic Peptide COVID-19 (MAGDALENO) Negative COVID-19 Clin Com See Note 08/06/22 19:00 MCV MCH MCHC RDW Plt Count MPV Immature Gran % (Auto) Neut % (Auto) Lymph % (Auto) [place] % (Auto) Eos % (Auto) Baso % (Auto) Lymph # (Auto) [place] # (Auto) Eos # (Auto) Baso # (Auto) Abs Immat Gran (auto) Absolute Neuts (auto) Absolute Nucleated RBC Nucleated RBC % (auto) Neutrophils % (Manual) Band Neutrophils % Lymphocytes % (Manual) Monocytes % (Manual) Metamyelocytes % Abs Neuts (Manual) Lymphocytes # (Manual) Monocytes # (Manual) Metamyelocytes # Toxic Vacuolation Dohle Bodies WBC Morphology Comment Platelet Estimate Large Platelets Plt Morphology Comment RBC Morphology Microcytosis Jadon Cells Acanthocytes (Spur) Lactic Acid B-Natriuretic Peptide 266 H COVID-19 (MAGDALENO) COVID-19 Clin Com Imaging Radiologist's Impressions: Impressions Chest X-Ray 08/06/22 18:45 IMPRESSION: Right lower lobe pneumonia. Recommend short interval follow-up. Assessment and Plan (1) Pneumonia: Status: Acute Plan This is a 72-year-old male with pertinent history of asthma not on home oxygen, wjt-ydpkeio-hjzbtrthe diabetes mellitus, essential hypertension, mixed hyperlipidemia, urinary incontinence who presents to the emergency department for evaluation of dyspnea. #.? Acute hypoxemic respiratory failure and Sepsis secondary to: #.? Right lower lobe pneumonia leading to acute exacerbation of asthma -Continue home inhaler and initiating scheduled and p.r.n. DuoNebs.? Continue systemic steroids. -Monitor oxygen saturation and wean as tolerated.? Maintain oxygen saturation greater than 88-90%. -Patient resuscitated with IV crystalloids. Initiating empiric IV antibiotics. Sputum culture, strep antigen, MRSA nasal screen pending. Blood culture and lactic acid obtained #. Acute lactic acidosis due to sepsis. Trending down with fluid resuscitation #. Acute kideny injury, nonoliguric. Monitor creatinine and urine output with fluid resuscitation. Avoid nephrotoxins. #. Hyperkalemia due to SOY: Lokelma x1. Repeat #.? Nhg-wdesuvb-yqjhfiixs diabetes mellitus:? Initiating Accu-Cheks with sliding scale insulin before meals and at bedtime. #.? Essential hypertension: hold home antihypertensives in the setting of sepsis ; resume as apt #.? Mixed HLD: on statin #.? Urinary incontinence: On flomax DVT prophylaxis: Lovenox 30 mg daily Full code Cardiac diet Admit as inpatient and will require two night minimum hospital stay for supplemental oxygen and IV abx. Time Spent With Patient Time: Total time managing care of this patient today ____ minutes. Quality Stroke Does the patient have a stroke diagnosis?: No VTE Prior VTE?: No VTE Risk Level:: Medical - moderate - high VTE Device Contraindication: Treatment Not Indicated VTE Drug Contraindication: N/A - Med Ordered
[2022-08-06 20:10] LABS: Partial Thromboplastin Time 30.8 SEC (26.0-36.4)
[2022-08-06 21:00] LABS: Alanine Aminotransferase 28 U/L (0-40); Albumin Level 3.7 g/dL (3.5-5.0); Alkaline Phosphatase 55 U/L (39-117); Anion Gap 21 (12-20); Aspartate Amino Transferase 35 U/L (5-37); Bilirubin Total 0.9 mg/dL (0.0-1.0); Blood Urea Nitrogen 57 mg/dL (9-16); Carbon Dioxide 18 mmol/L (22-29); Chloride 105 mmol/L (96-108); Estimated Glomerular Filt Rate 31; Glucose Random 69 mg/dL (60-115); Lipase 5 U/L (8-78); Potassium 5.6 mmol/L (3.3-5.1); Sodium 138 mmol/L (135-145); Total Protein 6.2 g/dL (6.5-8.0)
[2022-08-06 21:03] LABS: Reflex Lactate? Lactic Acid Added
--- NOTE | 2022-08-06 21:04 | PHA.MEDREC ---
med rec complete, spoke to patient and compared with pharmacy history Pharmacy Consult ? Medication Reconciliation Pharmacy has completed the medication reconciliation.
[2022-08-06 21:42] VITALS: BMI 25.0
[2022-08-06 22:05] LABS: ~Lactic Acid-LAB USE ONLY 3.4 mmol/L (0.5-2.0)
[2022-08-06] MEDS: cefTRIAXone sodium 1 GM in 0.9 % Sodium Chloride 50 ML IV (22:07)
[2022-08-06] MEDS: Enoxaparin Sodium 30 MG/0.3 ML SYRINGE SUBCUT (22:07)
[2022-08-06] MEDS: 0.9 % Sodium Chloride Flush 3 ML SYRINGE IVFLUSH (22:07)
[2022-08-06] MEDS: Sodium Zirconium Cyclosilicate 10 GM POWD.PACK PO (22:12)
[2022-08-06] MEDS: Azithromycin 500 MG in 0.9 % Sodium Chloride 250 ML 125 MG IV (22:20)
[2022-08-06] MEDS: Acetaminophen 325 MG TABLET 650 MG PO (23:04)
[2022-08-06] MEDS: Benzonatate 100 MG CAPSULE 200 MG PO (23:05)
[2022-08-06] MEDS: oxyCODONE HCl Immed Release 5 MG TABLET 1 MG PO (23:05)
[2022-08-06 23:22] LABS: Reflex Lactate? 2 Y
[2022-08-06 23:47] VITALS: PULSE 112; RESP 20; O2SAT 90
[2022-08-06] MEDS: Albuterol/Iprat 2.5/0.5MG 3 ML AMPUL.NEB INHALE (23:47)
[2022-08-07] VITALS (14 sets, daily range): BP systolic 106–142; BP diastolic 59–86; PULSE 72–160; RESP 18–24; TEMP 36–36.3; O2SAT 82–98
--- NOTE | 2022-08-07 | ECG_ITS ---
Test Reason : CARDIAC ARREST Blood Pressure : / mmHG Vent. Rate : 134 BPM Atrial Rate : 000 BPM P-R Int : 000 ms QRS Dur : 102 ms QT Int : 308 ms P-R-T Axes : 000 -45 096 degrees QTc Int : 459 ms Atrial fibrillation with rapid ventricular response Low voltage QRS Left anterior fascicular block Septal infarct (cited on or before 07-AUG-2022) Abnormal ECG When compared with ECG of 07-AUG-2022 21:35, No significant change was found Referred By: Francisco Howe Electronically Signed By:Frank Crane
--- NOTE | 2022-08-07 | ECG_ITS ---
Test Reason : CP Blood Pressure : / mmHG Vent. Rate : 157 BPM Atrial Rate : 000 BPM P-R Int : 000 ms QRS Dur : 088 ms QT Int : 286 ms P-R-T Axes : 000 -29 091 degrees QTc Int : 462 ms Atrial fibrillation with rapid ventricular response Low voltage QRS Septal infarct , age undetermined Abnormal ECG When compared with ECG of 06-AUG-2022 18:04, Atrial fibrillation has replaced Sinus rhythm Septal infarct is now Present Referred By: José Servin Electronically Signed By:MARIA EUGENIA LIU MD
[2022-08-07 00:27] LABS: ~Lactic Acid-LAB USE ONLY 2.4 mmol/L (0.5-2.0)
[2022-08-07] MEDS: Albuterol/Iprat 2.5/0.5MG 3 ML AMPUL.NEB INHALE ×6 (02:09→19:43)
[2022-08-07] MEDS: oxyCODONE HCl Immed Release 5 MG TABLET PO (04:19)
[2022-08-07] MEDS: methylPREDNISolone Sod Succ 40 MG/ML VIAL IVPUSH ×3 (04:19→20:30)
[2022-08-07 06:03] LABS: Hematocrit 32.7 % (42.0-52.0); Hemoglobin 10.2 g/dl (14.0-18.0); Mean Corpuscular HGB Conc 31.2 g/dl (31.0-36.0); Mean Corpuscular Hemoglobin 27.3 pg (27.0-33.0); Mean Corpuscular Volume 87.7 fL (80.0-98.0); Mean Platelet Volume 12.4 fL (9.4-12.4); Platelet Count 261 X10*3/uL (160-400); Red Blood Count 3.73 X10*6/uL (4.60-5.80); Red Cell Distribution Width 15.6 % (11.0-16.0)
[2022-08-07 06:04] LABS: WBC ABN SCTR FOR CBC 1; White Blood Count 19.8 X10*3/uL (4.8-10.8)
[2022-08-07 06:16] LABS: Anion Gap 22 (12-20); Blood Urea Nitrogen 55 mg/dL (9-16); Calcium 7.7 mg/dL (8.4-10.2); Carbon Dioxide 12 mmol/L (22-29); Chloride 106 mmol/L (96-108); Estimated Glomerular Filt Rate 36; Glucose Random 108 mg/dL (60-115); Potassium 5.3 mmol/L (3.3-5.1); Sodium 135 mmol/L (135-145)
[2022-08-07] MEDS: 0.9 % Sodium Chloride Flush 3 ML SYRINGE IVFLUSH ×3 (07:35→20:28)
[2022-08-07] MEDS: 0.9 % Sodium Chloride 1,000 ML 80 ML IVCONT (07:35)
[2022-08-07 07:36] LABS: Band Neutrophils Percent 15 % (3-5); Lymphocytes Absolute Manual 0.8 X10*3/uL (1.2-4.9); Lymphocytes Percent Manual 4 % (20-40); Metamyelocytes Absolute 0.2 X10*3/uL; Metamyelocytes Percent 1 %; Monocytes Absolute Manual 0.8 X10*3/uL (0.1-1.2); Monocytes Percent Manual 4 % (2-11); Neutrophils Percent Manual 76 % (45-73)
[2022-08-07 07:38] LABS: Dohle Bodies PRESENT; Ovalocytes 1+ (5-14) /OIF; Toxic Vacuolation PRESENT
[2022-08-07 07:40] LABS: Burr Cells 3+ (>5) /OIF; Large Platelet PRESENT; Platelet Estimate NORMAL (NORMAL); Platelet Morphology Comment NOTED; RBC Morphology NOTED
[2022-08-07] MEDS: Sodium Bicarbonate 650 MG TABLET PO ×2 (07:56→20:33)
[2022-08-07] MEDS: Aspirin Enteric Coated 81 MG TABLET.DR PO (07:57)
[2022-08-07] MEDS: Atorvastatin Calcium 40 MG TABLET PO (07:57)
[2022-08-07 08:04] LABS: Glucose, Whole Blood 138 mg/dL (60-115)
--- NOTE | 2022-08-07 10:30 | MHC.CM.PN ---
P REPORTS HE LIVES ALONE AND IS INDEPENDENT WITH CARE HE HAS NO DME AND NO SERVICES HCP ON FILE PCP: OBDULIA DE LA PAZ DCP: HOME NO SERVICES VIA [facility]
[2022-08-07 11:09] LABS: Adenovirus PCR Not Detected (Not Detect.); Bordetella parapertussis PCR Not Detected (Not Detect.); Bordetella pertussis PCR Not Detected (Not Detect.); Chlamydia pneumoniae PCR Not Detected (Not Detect.); Coronavirus 229E PCR Not Detected (Not Detect.); Coronavirus HKU1 PCR Not Detected (Not Detect.); Coronavirus NL63 PCR Not Detected (Not Detect.); Coronavirus OC43 PCR Not Detected (Not Detect.); Human metapneumovirus PCR Not Detected (Not Detect.); Influenza A PCR Not Detected (Not Detect.); Influenza B PCR Not Detected (Not Detect.); Mycoplasma pneumoniae PCR Not Detected (Not Detect.); Parainfluenza 1 PCR Not Detected (Not Detect.); Parainfluenza 2 PCR Not Detected (Not Detect.); Parainfluenza 3 PCR Not Detected (Not Detect.); Parainfluenza 4 PCR Not Detected (Not Detect.); RSV PCR Not Detected (Not Detect.); Rhino/Enterovirus PCR Not Detected (Not Detect.); SARS-CoV-2 PCR Not Detected (Not Detect.)
[2022-08-07 11:30] LABS: Glucose, Whole Blood 182 mg/dL (60-115)
[2022-08-07] MEDS: Insulin Lispro 100 UNIT/ML 3 ML VIAL SUBCUT (11:40)
[2022-08-07] MEDS: guaiFENesin LA 600 MG TAB.ER.12H PO ×2 (11:49→20:32)
[2022-08-07 12:11] LABS: MRSA Nasal PCR NEGATIVE (Negative); SA Nasal PCR NEGATIVE (Negative)
--- NOTE | 2022-08-07 15:05 | P.PNIM_ITS ---
Subjective Subjective Date of Service: 08/07/22 Interval History: seen and examined this morning follow up for pneumonia having shortness of breath with ambulation, denies orthopea; cough, no fever Review of Systems Review of Systems: Yes all other systems are reviewed and are negative Constitutional Constitutional: Denies chills and Denies fever(s) ENT Ears, Nose, Mouth, and Throat: Denies dizziness Cardiovascular Cardiovascular: Denies chest pain, Denies palpitations and Reports dyspnea Respiratory Respiratory: Reports cough and Reports dyspnea Gastrointestinal Gastrointestinal: Denies abdominal pain, Denies nausea and Denies vomiting Neurologic Neurologic: Denies dizziness Endocrine Endocrine: Denies palpitations Physical Exam Vital Signs: Vital Signs: Last Vital Signs Temp 97.3 F 08/07/22 07:43 Pulse 72 08/07/22 14:56 Resp 18 08/07/22 14:56 BP 133/74 08/07/22 07:43 Pulse Ox 89 L 08/07/22 07:43 O2 Del Method Nasal Cannula 08/07/22 07:43 O2 Flow Rate 6 08/07/22 07:43 BMI result Body Mass Index 25.0 Const: General: cooperative, comfortable, alert and awake Orientation/consciousness: patient oriented x3 Resp: Other: expiratory rhonchi Effort & Inspection: able to speak in complete sentences, no respiratory distress and no use of accessory muscles Cardio: Rate: regular rate Heart sounds: S1 normal heart sound present and S2 normal heart sound present GI: Inspection: No distended Palpation (GI): Soft to palpation and nontender Neuro: General: patient oriented x3, moves all extremities and CN's II-XI intact bilaterally Extrem: General: Yes no pedal edema Psych: Mental Status: mental status grossly normal Objective Data Active Medications Acetaminophen (Acetaminophen 325 Mg Tablet) 650 mg PO Q6H PRN PRN Reason: Pain, Mild (Pain Scale 1-3) Last Admin: 08/06/22 23:04 Dose: 650 mg Documented By: BETSEYORALNikolai Albuterol/Ipratropium (Albuterol/Iprat 2.5/0.5mg 3 Ml Ampul.Neb) 3 ml INHALE RQ4H WHILE AWAKE CHARITO Last Admin: 08/07/22 14:55 Dose: 3 ml Documented By: LETICIA Albuterol/Ipratropium (Albuterol/Iprat 2.5/0.5mg 3 Ml Ampul.Neb) 3 ml INHALE Q4H PRN PRN Reason: Wheezing Last Admin: 08/07/22 05:59 Dose: 3 ml Documented By: SRIRAM Aspirin (Aspirin Enteric Coated 81 Mg Tablet.) 81 mg PO DAILY [facility] Last Admin: 08/07/22 07:57 Dose: 81 mg Documented By: ROLAN Atorvastatin Calcium (Atorvastatin Calcium 40 Mg Tablet) 40 mg PO DAILY [facility] [place] Last Admin: 08/07/22 07:57 Dose: 40 mg Documented By: ROLAN Benzonatate (Benzonatate 100 Mg Capsule) 200 mg PO TID PRN PRN Reason: Cough Last Admin: 08/06/22 23:05 Dose: 200 mg Documented By: JODIE Diphenhydramine HCl (Diphenhydramine Hcl 25 Mg Capsule) 25 mg PO BEDTIME PRN PRN Reason: insomnia Enoxaparin Sodium (Enoxaparin Sodium 30 Mg/0.3 Ml Syringe) 30 mg SUBCUT Q24H [facility] [place] Last Admin: 08/06/22 22:07 Dose: 30 mg Documented By: JODIE Glucose (Glucose Gel 15 Gm Gel..Gram.) 15 gm PO Q15M PRN; Protocol PRN Reason: per Hypoglycemia Standing Ord. Guaifenesin (Guaifenesin La 600 Mg Tab.Er.12h) 600 mg PO BID [facility] [place] Last Admin: 08/07/22 11:49 Dose: 600 mg Documented By: ROLAN Dextrose (D10) 250 mls @ 750 mls/hr IV Q15M PRN; Protocol PRN Reason: per Hypoglycemia Standing Ord. Ceftriaxone Sodium 1 gm/ (Sodium Chloride) 50 mls @ 100 mls/hr IV Q24H [facility] [place] Last Infusion: 08/06/22 23:10 Dose: 0 mls/hr Documented By: JODIE Azithromycin 500 mg/ Sodium (Chloride) 250 mls @ 125 mls/hr IV Q24H [facility] [place] Last Infusion: 08/07/22 00:36 Dose: 0 mls/hr Documented By: JODIE Insulin Human Lispro (Insulin Lispro 100 Unit/Ml 3 Ml Vial) 0 unit SUBCUT QIDACHS [facility]; Protocol Last Admin: 08/07/22 11:40 Dose: 2 unit Documented By: ROLAN Melatonin (Melatonin 3 Mg Tablet) 6 mg PO BEDTIME PRN PRN Reason: Insomnia Methylprednisolone Sodium Succinate (Methylprednisolone Sod Succ 40 Mg/Ml Vial) 40 mg IVPUSH Q8H [facility] [place] Last Admin: 08/07/22 11:49 Dose: 40 mg Documented By: ROLAN Non-Formulary Medication (Yfqtqrytzva-Yhivpiehk-Mjsmlgqc [Trelegy Ellipta]) 1 inhalation INHALE BID [facility] [place] Ondansetron HCl (Ondansetron Hcl 4 Mg/2 Ml Vial) 4 mg IVPUSH Q8H PRN PRN Reason: Nausea and Vomiting Oxycodone HCl (Oxycodone Hcl Immed Release 5 Mg Tablet) 5 mg PO Q8H PRN PRN Reason: Pain, Severe Last Admin: 08/07/22 04:19 Dose: 5 mg Documented By: REAL Pharmacy Consult (Consult Rx Vancomycin Dosing) 1 each MISCELLANE DAILY PRN PRN Reason: Consult order Pharmacy Consult (Consult Rx Perform Med Rec) 1 each MISCELLANE ONCE PRN PRN Reason: Consult order Sodium Bicarbonate (Sodium Bicarbonate 650 Mg Tablet) 650 mg PO BID [facility] [place] Last Admin: 08/07/22 07:56 Dose: 650 mg Documented By: ROLAN Sodium Chloride (0.9 % Sodium Chloride Flush 3 Ml Syringe) 3 ml IVFLUSH QSHIFT [facility] [place] Last Admin: 08/07/22 07:35 Dose: 3 ml Documented By: SHAY Tamsulosin HCl (Tamsulosin Hcl 0.4 Mg Capsule) 0.4 mg PO BEDTIME [facility] Labs 08/07/22 05:11 08/07/22 05:11 Labs: Laboratory Results - last 24 hr 08/06/22 08/06/22 08/06/22 18:30 19:00 19:00 MCV 86.0 MCH 27.4 MCHC 31.9 RDW 15.6 Plt Count 251 D MPV 12.5 H Immature Gran % (Auto) Cancelled Neut % (Auto) Cancelled Lymph % (Auto) Cancelled [place] % (Auto) Cancelled Eos % (Auto) Cancelled Baso % (Auto) Cancelled Lymph # (Auto) Cancelled [place] # (Auto) Cancelled Eos # (Auto) Cancelled Baso # (Auto) Cancelled Abs Immat Gran (auto) Cancelled Absolute Neuts (auto) Cancelled Absolute Nucleated RBC 0.000 Nucleated RBC % (auto) 0.0 Neutrophils % (Manual) 74 H Band Neutrophils % 16 H Lymphocytes % (Manual) 6 L Monocytes % (Manual) 2 Metamyelocytes % 2 Abs Neuts (Manual) 15.5 H Lymphocytes # (Manual) 1.0 L Monocytes # (Manual) 0.3 Metamyelocytes # 0.3 Toxic Vacuolation PRESENT Dohle Bodies PRESENT WBC Morphology Comment DYSMORPHIC Platelet Estimate NORMAL Large Platelets PRESENT Plt Morphology Comment NOTED RBC Morphology NOTED Microcytosis 1+ (5-14) Ovalocytes [place] Cells 3+ (>5) Acanthocytes (Spur) 1+ (0-2) PT INR APTT Anion Gap Estim Creat Clear Calc Estimated GFR POC Glucose Random Glucose Lactic Acid 4.8 H* Lactic Acid F/U @ 2Hr Lactic Acid F/U @ 4Hr Calcium Total Bilirubin AST ALT Alkaline Phosphatase B-Natriuretic Peptide Total Protein Albumin Lipase Nasal Screen MRSA (PCR) Nasal S. aureus Screen Nasal MRSA/S.aureus Interp Respiratory Panel Berry Adenovirus (Rapid PCR) B.pert (TEM-PCR) B.parapertussis DNA PCR C. pneumoniae DNA (PCR) Coronavirus OC43 (PCR) Coronavirus HKU1 (PCR) Coronavirus 229E (PCR) COVID-19 ([facility]) Negative COVID-19 Clin Com See Note Coronavirus NL63 (PCR) Human Metapneumovir PCR Influenza A (RT-PCR) Influenza B (RT-PCR) M. pneumoniae (PCR) Parainfluenza 1 (PCR) Parainfluenza 2 (PCR) Parainfluenza 3 (PCR) Parainfluenza 4 (PCR) RSV (PCR) Entero/Rhino (PCR) SARS-CoV-2 RNA (RT-PCR) 08/06/22 08/06/22 08/06/22 19:00 19:33 19:33 MCV MCH MCHC RDW Plt Count MPV Immature Gran % (Auto) Neut % (Auto) Lymph % (Auto) [place] % (Auto) Eos % (Auto) Baso % (Auto) Lymph # (Auto) [place] # (Auto) Eos # (Auto) Baso # (Auto) Abs Immat Gran (auto) Absolute Neuts (auto) Absolute Nucleated RBC Nucleated RBC % (auto) Neutrophils % (Manual) Band Neutrophils % Lymphocytes % (Manual) Monocytes % (Manual) Metamyelocytes % Abs Neuts (Manual) Lymphocytes # (Manual) Monocytes # (Manual) Metamyelocytes # Toxic Vacuolation Dohle Bodies WBC Morphology Comment Platelet Estimate Large Platelets Plt Morphology Comment RBC Morphology Microcytosis Ovalocytes [place] Cells Acanthocytes (Spur) PT 16.5 H INR 1.4 H APTT 30.8 Anion Gap 21 H Estim Creat Clear Calc 28.0 Estimated GFR 31 POC Glucose Random Glucose 69 Lactic Acid Lactic Acid F/U @ 2Hr Lactic Acid F/U @ 4Hr Calcium 8.0 L D Total Bilirubin 0.9 AST 35 ALT 28 Alkaline Phosphatase 55 B-Natriuretic Peptide 266 H Total Protein 6.2 L Albumin 3.7 Lipase 5 L Nasal Screen MRSA (PCR) Nasal S. aureus Screen Nasal MRSA/S.aureus Interp Respiratory Panel Berry Adenovirus (Rapid PCR) B.pert (TEM-PCR) B.parapertussis DNA PCR C. pneumoniae DNA (PCR) Coronavirus OC43 (PCR) Coronavirus HKU1 (PCR) Coronavirus 229E (PCR) COVID-19 ([facility]) COVID-19 Clin Com Coronavirus NL63 (PCR) Human Metapneumovir PCR Influenza A (RT-PCR) Influenza B (RT-PCR) M. pneumoniae (PCR) Parainfluenza 1 (PCR) Parainfluenza 2 (PCR) Parainfluenza 3 (PCR) Parainfluenza 4 (PCR) RSV (PCR) Entero/Rhino (PCR) SARS-CoV-2 RNA (RT-PCR) 08/06/22 08/06/22 08/07/22 21:12 23:31 00:26 MCV MCH MCHC RDW Plt Count MPV Immature Gran % (Auto) Neut % (Auto) Lymph % (Auto) [place] % (Auto) Eos % (Auto) Baso % (Auto) Lymph # (Auto) [place] # (Auto) Eos # (Auto) Baso # (Auto) Abs Immat Gran (auto) Absolute Neuts (auto) Absolute Nucleated RBC Nucleated RBC % (auto) Neutrophils % (Manual) Band Neutrophils % Lymphocytes % (Manual) Monocytes % (Manual) Metamyelocytes % Abs Neuts (Manual) Lymphocytes # (Manual) Monocytes # (Manual) Metamyelocytes # Toxic Vacuolation Dohle Bodies WBC Morphology Comment Platelet Estimate Large Platelets Plt Morphology Comment RBC Morphology Microcytosis Ovalocytes Jadon Cells Acanthocytes (Spur) PT INR APTT Anion Gap Estim Creat Clear Calc Estimated GFR POC Glucose Random Glucose Lactic Acid Lactic Acid F/U @ 2Hr 3.4 H* Lactic Acid F/U @ 4Hr 2.4 H* Calcium Total Bilirubin AST ALT Alkaline Phosphatase B-Natriuretic Peptide Total Protein Albumin Lipase Nasal Screen MRSA (PCR) NEGATIVE Nasal S. aureus Screen NEGATIVE Nasal MRSA/S.aureus Interp SEE NOTE Respiratory Panel Berry Adenovirus (Rapid PCR) B.pert (TEM-PCR) B.parapertussis DNA PCR C. pneumoniae DNA (PCR) Coronavirus OC43 (PCR) Coronavirus HKU1 (PCR) Coronavirus 229E (PCR) COVID-19 ([facility]) COVID-19 Clin Com Coronavirus NL63 (PCR) Human Metapneumovir PCR Influenza A (RT-PCR) Influenza B (RT-PCR) M. pneumoniae (PCR) Parainfluenza 1 (PCR) Parainfluenza 2 (PCR) Parainfluenza 3 (PCR) Parainfluenza 4 (PCR) RSV (PCR) Entero/Rhino (PCR) SARS-CoV-2 RNA (RT-PCR) 08/07/22 08/07/22 08/07/22 00:26 05:11 05:11 MCV 87.7 MCH 27.3 MCHC 31.2 RDW 15.6 Plt Count 261 MPV 12.4 Immature Gran % (Auto) Cancelled Neut % (Auto) Cancelled Lymph % (Auto) Cancelled [place] % (Auto) Cancelled Eos % (Auto) Cancelled Baso % (Auto) Cancelled Lymph # (Auto) Cancelled [place] # (Auto) Cancelled Eos # (Auto) Cancelled Baso # (Auto) Cancelled Abs Immat Gran (auto) Cancelled Absolute Neuts (auto) Cancelled Absolute Nucleated RBC 0.000 Nucleated RBC % (auto) 0.0 Neutrophils % (Manual) 76 H Band Neutrophils % 15 H Lymphocytes % (Manual) 4 L Monocytes % (Manual) 4 Metamyelocytes % 1 Abs Neuts (Manual) 18.0 H Lymphocytes # (Manual) 0.8 L Monocytes # (Manual) 0.8 Metamyelocytes # 0.2 Toxic Vacuolation PRESENT Dohle Bodies PRESENT WBC Morphology Comment Platelet Estimate NORMAL Large Platelets PRESENT Plt Morphology Comment NOTED RBC Morphology NOTED Microcytosis Ovalocytes 1+ (5-14) Jadon Cells 3+ (>5) Acanthocytes (Spur) PT INR APTT Anion Gap 22 H Estim Creat Clear Calc 32.0 Estimated GFR 36 POC Glucose Random Glucose 108 Lactic Acid Lactic Acid F/U @ 2Hr Lactic Acid F/U @ 4Hr Calcium 7.7 L Total Bilirubin AST ALT Alkaline Phosphatase B-Natriuretic Peptide Total Protein Albumin Lipase Nasal Screen MRSA (PCR) Nasal S. aureus Screen Nasal MRSA/S.aureus Interp Respiratory Panel Berry See Note Adenovirus (Rapid PCR) Not Detected B.pert (TEM-PCR) Not Detected B.parapertussis DNA PCR Not Detected C. pneumoniae DNA (PCR) Not Detected Coronavirus OC43 (PCR) Not Detected Coronavirus HKU1 (PCR) Not Detected Coronavirus 229E (PCR) Not Detected COVID-19 ([facility]) COVID-19 Clin Com Coronavirus NL63 (PCR) Not Detected Human Metapneumovir PCR Not Detected Influenza A (RT-PCR) Not Detected Influenza B (RT-PCR) Not Detected M. pneumoniae (PCR) Not Detected Parainfluenza 1 (PCR) Not Detected Parainfluenza 2 (PCR) Not Detected Parainfluenza 3 (PCR) Not Detected Parainfluenza 4 (PCR) Not Detected RSV (PCR) Not Detected Entero/Rhino (PCR) Not Detected SARS-CoV-2 RNA (RT-PCR) Not Detected 08/07/22 08/07/22 07:47 11:17 MCV MCH MCHC RDW Plt Count MPV Immature Gran % (Auto) Neut % (Auto) Lymph % (Auto) [place] % (Auto) Eos % (Auto) Baso % (Auto) Lymph # (Auto) [place] # (Auto) Eos # (Auto) Baso # (Auto) Abs Immat Gran (auto) Absolute Neuts (auto) Absolute Nucleated RBC Nucleated RBC % (auto) Neutrophils % (Manual) Band Neutrophils % Lymphocytes % (Manual) Monocytes % (Manual) Metamyelocytes % Abs Neuts (Manual) Lymphocytes # (Manual) Monocytes # (Manual) Metamyelocytes # Toxic Vacuolation Dohle Bodies WBC Morphology Comment Platelet Estimate Large Platelets Plt Morphology Comment RBC Morphology Microcytosis Ovalocytes [place] Cells Acanthocytes (Spur) PT INR APTT Anion Gap Estim Creat Clear Calc Estimated GFR POC Glucose 138 H 182 H Random Glucose Lactic Acid Lactic Acid F/U @ 2Hr Lactic Acid F/U @ 4Hr Calcium Total Bilirubin AST ALT Alkaline Phosphatase B-Natriuretic Peptide Total Protein Albumin Lipase Nasal Screen MRSA (PCR) Nasal S. aureus Screen Nasal MRSA/S.aureus Interp Respiratory Panel Berry Adenovirus (Rapid PCR) B.pert (TEM-PCR) B.parapertussis DNA PCR C. pneumoniae DNA (PCR) Coronavirus OC43 (PCR) Coronavirus HKU1 (PCR) Coronavirus 229E (PCR) COVID-19 ([facility]) COVID-19 Clin Com Coronavirus NL63 (PCR) Human Metapneumovir PCR Influenza A (RT-PCR) Influenza B (RT-PCR) M. pneumoniae (PCR) Parainfluenza 1 (PCR) Parainfluenza 2 (PCR) Parainfluenza 3 (PCR) Parainfluenza 4 (PCR) RSV (PCR) Entero/Rhino (PCR) SARS-CoV-2 RNA (RT-PCR) Assessment and Plan (1) Acute exacerbation of chronic obstructive airways disease: Status: Acute (2) Pneumonia: Status: Acute Plan This is a 72-year-old male with pertinent history of asthma not on home oxygen, ego-rflxxrv-[id number] diabetes mellitus, essential hypertension, mixed hyperlipidemia, urinary incontinence who presents to the emergency department for evaluation of dyspnea. Acute hypoxemic respiratory failure and Sepsis secondary to: Right lower lobe pneumonia leading to acute exacerbation of asthma met criteria with leukocytosis, tachycardia. Lactic acid elevated, improved with IV fluid Continue breathing treatments, will increase dose of systemic steroids. Monitor oxygen saturation and wean as tolerated continue IV ceftraixone/azithromycin,started 08/06 Sputum culture, strep antigen, RPP negative, MRSA nasal screen negative Blood cultures pending Acute kideny injury/metabolic acidosis s/p IVF, renal function improving enalapril on hold start po sodium bicarb, repeat BMP this afternoon follow BMP Hyperkalemia due to SOY s/p lokelma follow BMP Asy-lhtfust-[id number] diabetes mellitus:? continue SSI, POCs hold metformin, glyburide HTN home antihypertensives in the setting of sepsis ; resume as bp allows HLD: continue statin BPH flomax DVT prophylaxis: Lovenox 30 mg daily Full code Cardiac diet Admit as inpatient and will require two night minimum hospital stay for supplemental oxygen and IV abx. Time Spent With Patient Time: Total time managing care of this patient today ____ minutes. Quality Stroke Does the patient have a stroke diagnosis?: No VTE Prior VTE?: No VTE Risk Level:: Medical - moderate - high VTE Device Contraindication: Treatment Not Indicated VTE Drug Contraindication: N/A - Med Ordered
[2022-08-07 15:52] LABS: Glucose, Whole Blood 166 mg/dL (60-115)
[2022-08-07 20:13] LABS: Glucose, Whole Blood 168 mg/dL (60-115)
[2022-08-07] MEDS: Tamsulosin HCL 0.4 MG CAPSULE PO (20:33)
[2022-08-07 21:06] LABS: Anion Gap 26 (12-20); Blood Urea Nitrogen 72 mg/dL (9-16); Calcium 7.9 mg/dL (8.4-10.2); Carbon Dioxide 9 mmol/L (22-29); Chloride 104 mmol/L (96-108); Creatinine Clr Calc Pharmacy 28.5; Estimated Glomerular Filt Rate 31; Glucose Random 161 mg/dL (60-115); Potassium 4.9 mmol/L (3.3-5.1); Sodium 134 mmol/L (135-145)
[2022-08-07 21:38] LABS: Glucose, Whole Blood 167 mg/dL (60-115)
--- NOTE | 2022-08-07 21:42 | PM.EVENT ---
Event Note Date of Service: 08/07/22 Event Note: Rapid response was called on the patient. He was noted to be tachycardic blood pressure stable. Obtain EKG which revealed AFib with RVR. Seems like new onset as patient has no history of it. Will treat with IV diltiazem. Will place on property assessment monitor, obtain echo and consult Cardiology. Noted low bicarb, getting VBG. Patient without symptoms. Chads Vasc score 3 Time Spent With Patient Time: Total time managing care of this patient today ____ minutes.
[2022-08-07] MEDS: Sodium Bicarbonate 8.4% 50 MEQ/50 ML SYRINGE IVPUSH (21:44)
[2022-08-07] MEDS: dilTIAZem HCL 50 MG/10 ML VIAL 20 MG IVPUSH (21:58)
[2022-08-07 22:11] LABS: VBG Base Excess -15.2 mmol/L; VBG HCO3 9 mmol/L (22-26); VBG pCO2 20 mmHg; VBG pH 7.27 (7.32-7.43); VBG pO2 214 mmHg
[2022-08-07 22:12] LABS: Venous Blood Gas Refer to POC result
[2022-08-07] MEDS: dilTIAZem HCL 30 MG TABLET PO (22:14)
[2022-08-07] MEDS: cefTRIAXone sodium 1 GM in 0.9 % Sodium Chloride 50 ML IV (22:26)
[2022-08-07 22:32] LABS: B Type Natriuretic Peptide 915 pg/mL (<100)
[2022-08-07] MEDS: Furosemide 100 MG/10 ML VIAL 60 MG IVPUSH (23:16)
[2022-08-07] MEDS: dilTIAZem HCL 125 MG in 0.9 % Sodium Chloride 100 ML 10 MG IVCONT (23:19)
[2022-08-08] VITALS (45 sets, daily range): BP systolic 66–145; BP diastolic 31–91; PULSE 119–158; RESP 18–27; TEMP 32–37.3; O2SAT 92–98; BMI 24.7
--- NOTE | 2022-08-08 | ECG_ITS ---
Test Reason : Elevated trop Blood Pressure : / mmHG Vent. Rate : 145 BPM Atrial Rate : 000 BPM P-R Int : 000 ms QRS Dur : 088 ms QT Int : 292 ms P-R-T Axes : 000 -36 112 degrees QTc Int : 453 ms Atrial fibrillation with rapid ventricular response Left axis deviation Low voltage QRS Cannot rule out Anterior infarct (cited on or before 07-AUG-2022) Abnormal ECG When compared with ECG of 08-AUG-2022 01:36, Questionable change in initial forces of Anterior leads Nonspecific T wave abnormality, worse in Lateral leads Referred By: Trang Cruz Electronically Signed By:Frank Crane
[2022-08-08] MEDS: Enoxaparin Sodium 30 MG/0.3 ML SYRINGE SUBCUT (00:10)
[2022-08-08] MEDS: Azithromycin 500 MG in 0.9 % Sodium Chloride 250 ML 125 MG IV (00:43)
[2022-08-08 01:37] LABS: Glucose, Whole Blood 187 mg/dL (60-115)
--- NOTE | 2022-08-08 01:54 | PC.NURSE ---
Assumed care at 2300. Pt came from [facility] s/p [employer]. Pt is drowsy but able to answer questions appropriately. Afib on monitor with HR of 140s. Started on diltiazen drip at 10mg/hr then increased to 15mg/hr. HR slowly improving to 129-133. Lung sounds with crackles. Pt O2 sats at 93% on 6L. Pt given 60mg lasix IVP. No urine output since transfer. Bladder scanned for 375. notified. #22 IV access to left forearm. Pt Rhythm went flat. Author went to assess the pt. Pt has no pulse. CPR started. Code elvi called. Team arrived.
--- NOTE | 2022-08-08 01:55 | PM.EVENT ---
Event Note Date of Service: 08/08/22 Event Note: Code Elvi was called. As per the nurse, when she went into the room, there was no pulse and code elvi was called overhead. Patient was resuscitated as per ACLS protocol. He was given multiple rounds of epinephrine, bicarb, calcium and magnesium. He was intubated emergently by ER provider. ROSC obtained and patient will be transferred to intensive care unit. Called and informed the daughterAlfredo and answered questions. Time Spent With Patient Time: Total time managing care of this patient today ____ minutes.
[2022-08-08] MEDS: Sodium Bicarbonate 8.4% 50 MEQ/50 ML SYRINGE IVPUSH (02:00)
[2022-08-08 02:10] LABS: Basophils Absolute Auto 0.1 X10*3/uL (0.0-0.2); Basophils Percent Auto 0.6 % (0-2); Eosinophils Absolute Auto 0.2 X10*3/uL (0.0-0.4); Eosinophils Percent Auto 1.5 % (0-4); Hematocrit 28.1 % (42.0-52.0); Hemoglobin 8.9 g/dl (14.0-18.0); Imm Gran Abs Auto 0.19 X10*3/uL (0.00-0.03); Imm Gran Pct Auto 1.3 % (0.0-0.4); Lymphocytes Absolute Auto 0.7 X10*3/uL (1.2-4.9); Lymphocytes Percent Auto 4.9 % (20-40); MANUAL DIFF FLAG SCAN; Mean Corpuscular HGB Conc 31.7 g/dl (31.0-36.0); Mean Corpuscular Hemoglobin 27.6 pg (27.0-33.0); Mean Platelet Volume 12.1 fL (9.4-12.4); Monocytes Absolute Auto 0.3 X10*3/uL (0.1-1.2); Monocytes Percent Auto 1.8 % (2-11); NRBC Pct Auto 0.6 /100WBC (0.0-0.2); Neutrophils Absolute Auto 12.8 x10*3/uL (2.0-8.3); Neutrophils Percent Auto 89.9 % (45-73); Platelet Count 256 X10*3/uL (160-400); Red Blood Count 3.23 X10*6/uL (4.60-5.80); Red Cell Distribution Width 15.8 % (11.0-16.0); SCAN SMEAR FLAG 1; White Blood Count 14.3 X10*3/uL (4.8-10.8)
[2022-08-08 02:11] LABS: VBG Base Excess -9.6 mmol/L; VBG HCO3 17 mmol/L (22-26); VBG pCO2 40 mmHg; VBG pH 7.22 (7.32-7.43); VBG pO2 121 mmHg
[2022-08-08 02:15] LABS: Venous Blood Gas Refer to POC result
[2022-08-08] MEDS: Norepinephrine Bitartrate/D5W 8 MG/250 ML PLAST..BAG 6.59 MG IV (02:25)
[2022-08-08 02:30] LABS: B Type Natriuretic Peptide 446 pg/mL (<100); SLIDE REVIEW VERIFIED
[2022-08-08 02:34] LABS: Lactic Acid 4.3 mmol/L (0.5-2.0); Troponin-I High Sensitivity 134.1 ng/L (<3.5-35.0)
[2022-08-08] MEDS: EPINEPHrine 1 MG/10 ML SYRINGE IVPUSH (02:34)
[2022-08-08 02:35] LABS: Alanine Aminotransferase 312 U/L (0-40); Albumin Level 2.8 g/dL (3.5-5.0); Alkaline Phosphatase 77 U/L (39-117); Anion Gap 31 (12-20); Aspartate Amino Transferase 539 U/L (5-37); Bilirubin Total 0.4 mg/dL (0.0-1.0); Blood Urea Nitrogen 80 mg/dL (9-16); Carbon Dioxide 17 mmol/L (22-29); Chloride 101 mmol/L (96-108); Estimated Glomerular Filt Rate 26; Glucose Random 222 mg/dL (60-115); Magnesium 4.7 mg/dL (1.6-2.6); Phosphorus 11.6 mg/dL (2.7-4.5); Potassium 4.3 mmol/L (3.3-5.1); Sodium 145 mmol/L (135-145); Total Protein 4.9 g/dL (6.5-8.0)
--- NOTE | 2022-08-08 02:45 | P.CONCC_ITS ---
History of Present Illness Data of Consult Service Date: 08/08/22 Requesting physician: Reymundo Howe Primary Care Provider: Ayaz Stinson MD [facility] Reason for consult: CARDIAC ARREST This is a 72-year-old Male with past medical history of COPD, asthma, cpq-wxwivhe-ndfdslani diabetes mellitus, essential hypertension, hyperlipidemia, urinary incontinence, hx prostate and renal cancer who presents to the emergency department for evaluation of dyspnea on? ? admitted to Hospital Medicine for? acute respiratory failure secondary to right lower lobe pneumonia Treated with ceftriaxone /azithromycin Overnight patient was? a rapid response ? in Medical floor due to? due to tachycardia,? EKG showed new AFib RVR he was treated with IV Cardizem and lasix? and transferred to medical telemetry.? Patient also had a bicarb of 9? and venous pH of 7.27.? Treated with 1 amp of IV bicarb Later in the night patient was pulseless,? code blue was activated. ACLS protocol was followed.? ROSC? was achieved after approximately 20 minutes of CPR, 4? epinephrine, 2 bicarb pushes, calcium chloride and magnesium were given ? Post cardiac arrest laboratory data ?VBG:? 7.22/40/121/17 WBC 14.3, hemoglobin 8.9, serum bicarb 17, BUN 80, creatinine 2.47, lactic acid 4.3, phos 11.6, magnesium 4.7, AST 539, ALT 312,? troponin 134.1, BNP 446, albumin 2.8, Review of Systems Review of Systems: Yes unobtainable due to endotracheal tube PMFSH Past Medical History Medical History Asthma Cancer of right renal pelvis COPD (chronic obstructive pulmonary disease) Crossed renal ectopia Diabetes mellitus Elevated PSA Erectile dysfunction High cholesterol HTN (hypertension) Multinodular goiter (nontoxic) Prostate cancer Right renal mass Family History Family History Father No problems noted. Mother No problems noted. Surgical History Surgical History History of prostate biopsy Hx of biopsy Social History Social History Household Members: None Housing: Apartment Do you presently have visiting nurse or other home services: No Alcohol intake: former Patient Tobacco Use Status: Former Tobacco user Quit Date: 3-4 years ago e-Cigarette/Vaping Use: Never Used Second Hand Smoke Exposure: No Advance Directives Date on File: 04/14/22 service: No Current occupational status: retired Meds Allergies Allergy/AdvReac Type Severity Reaction Status Date / Time ciprofloxacin [From CIPRO] Allergy Unknown RASH Verified 08/06/22 17:50 Sulfa (Sulfonamide Allergy Unknown rash Verified 08/06/22 17:50 Antibiotics) sulfamethoxazole Allergy Unknown RASH Verified 08/06/22 17:50 [From BACTRIM] trimethoprim [From BACTRIM] Allergy Unknown RASH Verified 08/06/22 17:50 Active Medications: Current Medications Acetaminophen (Acetaminophen 325 Mg Tablet) 650 mg PO Q6H PRN PRN Reason: Pain, Mild (Pain Scale 1-3) Last Admin: 08/06/22 23:04 Dose: 650 mg Albuterol/Ipratropium (Albuterol/Iprat 2.5/0.5mg 3 Ml Ampul.Neb) 3 ml INHALE RQ4H WHILE AWAKE [facility] Last Admin: 08/07/22 19:43 Dose: 3 ml Albuterol/Ipratropium (Albuterol/Iprat 2.5/0.5mg 3 Ml Ampul.Neb) 3 ml INHALE Q4H PRN PRN Reason: Wheezing Last Admin: 08/07/22 05:59 Dose: 3 ml Aspirin (Aspirin Enteric Coated 81 Mg Tablet.) 81 mg PO DAILY [facility] Last Admin: 08/07/22 07:57 Dose: 81 mg Atorvastatin Calcium (Atorvastatin Calcium 40 Mg Tablet) 40 mg PO DAILY [facility] Last Admin: 08/07/22 07:57 Dose: 40 mg Benzonatate (Benzonatate 100 Mg Capsule) 200 mg PO TID PRN PRN Reason: Cough Last Admin: 08/06/22 23:05 Dose: 200 mg Diphenhydramine HCl (Diphenhydramine Hcl 25 Mg Capsule) 25 mg PO BEDTIME PRN PRN Reason: insomnia Enoxaparin Sodium (Enoxaparin Sodium 30 Mg/0.3 Ml Syringe) 30 mg SUBCUT Q24H [facility] Last Admin: 08/08/22 00:10 Dose: 30 mg Glucose (Glucose Gel 15 Gm Gel..Gram.) 15 gm PO Q15M PRN; Protocol PRN Reason: per Hypoglycemia Standing Ord. Guaifenesin (Guaifenesin La 600 Mg Tab.Er.12h) 600 mg PO BID [facility] Last Admin: 08/07/22 20:32 Dose: 600 mg Dextrose (D10) 250 mls @ 750 mls/hr IV Q15M PRN; Protocol PRN Reason: per Hypoglycemia Standing Ord. Ceftriaxone Sodium 1 gm/ (Sodium Chloride) 50 mls @ 100 mls/hr IV Q24H [facility] Last Infusion: 08/07/22 23:44 Dose: Infused Azithromycin 500 mg/ Sodium (Chloride) 250 mls @ 125 mls/hr IV Q24H [facility] Last Admin: 08/08/22 00:43 Dose: 125 mls/hr Diltiazem HCl 125 mg/ Sodium (Chloride) 125 mls @ 0 mls/hr IVCONT .Q0M [facility]; Protocol Last Titration: 08/07/22 23:44 Dose: 15 mg/hr, 15 mls/hr Sodium Bicarbonate 150 meq/ (Dextrose) 1,000 mls @ 100 mls/hr IV .Q10H [facility] Norepinephrine Bitartrate (Levophed) 8 mg in 250 mls @ 0 mls/hr IVCONT .Q0M [facility]; Protocol Propofol (Diprivan) 1,000 mg in 100 mls @ 0 mls/hr IVCONT .Q0M [facility]; Protocol Insulin Human Lispro (Insulin Lispro 100 Unit/Ml 3 Ml Vial) 0 unit SUBCUT QIDACHS [facility]; Protocol Last Admin: 08/07/22 20:36 Dose: Not Given Melatonin (Melatonin 3 Mg Tablet) 6 mg PO BEDTIME PRN PRN Reason: Insomnia Methylprednisolone Sodium Succinate (Methylprednisolone Sod Succ 40 Mg/Ml Vial) 40 mg IVPUSH Q8H [facility] Last Admin: 08/07/22 20:30 Dose: 40 mg Non-Formulary Medication (Mflaoypnylz-Ffzpdsohw-Ueowsiqs [Trelegy Ellipta]) 1 inhalation INHALE BID [facility] Ondansetron HCl (Ondansetron Hcl 4 Mg/2 Ml Vial) 4 mg IVPUSH Q8H PRN PRN Reason: Nausea and Vomiting Oxycodone HCl (Oxycodone Hcl Immed Release 5 Mg Tablet) 5 mg PO Q8H PRN PRN Reason: Pain, Severe Last Admin: 08/07/22 04:19 Dose: 5 mg Pharmacy Consult (Consult Rx Vancomycin Dosing) 1 each MISCELLANE DAILY PRN PRN Reason: Consult order Pharmacy Consult (Consult Rx Perform Med Rec) 1 each MISCELLANE ONCE PRN PRN Reason: Consult order Sodium Bicarbonate (Sodium Bicarbonate 650 Mg Tablet) 650 mg PO BID [facility] Last Admin: 08/07/22 20:33 Dose: 650 mg Sodium Chloride (0.9 % Sodium Chloride Flush 3 Ml Syringe) 3 ml IVFLUSH QSHIFT [facility] Last Admin: 08/07/22 20:28 Dose: 3 ml Tamsulosin HCl (Tamsulosin Hcl 0.4 Mg Capsule) 0.4 mg PO BEDTIME [facility] Last Admin: 08/07/22 20:33 Dose: 0.4 mg Home Medications Medication Instructions Recorded Confirmed Last Taken Type albuterol sulfate 90 mcg/actuation 2 puff PO Q4-6H PRN Shortness Of 03/13/20 08/06/22 Unknown History aerosol inhaler Breath Or Wheezing enalapril maleate 20 mg tablet 20 mg PO BID 03/13/20 08/06/22 Unknown History glyburide 1.25 mg tablet 1.25 mg PO DAILY@0730 03/13/20 08/06/22 08/06/22 History ipratropium 0.5 mg-albuterol 3 mg 3 ml inhalation TID PRN Shortness 03/13/20 08/06/22 Unknown History (2.5 mg base)/3 mL nebulization Of Breath soln metformin 500 mg tablet 1,000 mg PO BIDWM 03/13/20 08/06/22 08/06/22 History simvastatin 80 mg tablet 80 mg PO DAILY 03/13/20 08/06/22 08/06/22 History metoprolol succinate 100 mg 100 mg PO DAILY 06/25/20 08/06/22 08/06/22 History tablet,extended release 24 hr metoprolol succinate 50 mg 50 mg PO BEDTIME 06/25/20 08/06/22 Unknown History tablet,extended release 24 hr nifedipine 90 mg tablet,extended 90 mg PO DAILY 06/25/20 08/06/22 08/06/22 History release diphenhydramine HCl 25 mg capsule 25 mg PO BEDTIME PRN insomnia 06/17/21 08/06/22 Unknown History (Banophen) aspirin 81 mg tablet,delayed 81 mg PO DAILY 12/18/21 08/06/22 08/06/22 History release oxycodone-acetaminophen 5 mg-325 1 tab PO Q8H PRN Pain, Severe 04/13/22 08/06/22 Unknown History mg tablet tadalafil 5 mg tablet 5 mg PO DAILY PRN Sexual Activity 04/13/22 08/06/22 Unknown History fluticasone fur. 200 mcg-umeclid 1 inh inhalation BID 08/06/22 08/06/22 Unknown History 62.5 mcg-vilant 25 mcg inhalat.powder (Trelegy Ellipta) Physical Exam Vital Signs: Vital Signs: Last Vital Signs Temp 98.6 F 08/08/22 00:49 Pulse 142 H 08/08/22 00:49 Resp 20 08/08/22 00:49 BP 124/74 08/08/22 00:49 Pulse Ox 95 08/08/22 00:49 O2 Del Method Nasal Cannula 08/08/22 00:49 O2 Flow Rate 6 08/08/22 00:13 BMI result Body Mass Index 25.0 Focused assesment performed at 0515 ?General: patient intubated ?HEENT:? Head is normocephalic. pupils round and reactive to light. Buccal mucosa is dry, Neck is supple without lymphadenopathy. ?Cardiac:? AFib RVR bus monitor. ?Pulmonary:? lungs were rhonchi throughout. on AC setting 18/400/5/70%. . ?Abdomen:? ?Abdomen soft, distended, with hypotensive bowel sounds. ?Musculoskeletal:? moves extremities randomly. ? Gait not assessed at this point. ?Neurologic:?No focal deficits noted.Motor strength as above.?? ?Skin:? multiple bruises in his chest from CPR. Vascular:? 2+ pulses upper and lower extremities distally.? Results Labs 08/08/22 01:59 08/08/22 01:59 Labs: Short CBC 08/07/22 08/08/22 Range/Units 05:11 01:59 WBC 19.8 H 14.3 H (4.8-10.8) X10*3/uL Hgb 10.2 L 8.9 L (14.0-18.0) g/dl Hct 32.7 L 28.1 L (42.0-52.0) % Plt Count 261 256 (160-400) X10*3/uL BMP 08/07/22 08/07/22 08/08/22 05:11 19:16 01:59 Sodium 135 134 L 145 Potassium 5.3 H 4.9 4.3 Chloride 106 104 101 Carbon Dioxide 12 L 9 L* D 17 L BUN 55 H 72 H 80 H Creatinine 1.85 H 2.08 H 2.47 H Calcium 7.7 L 7.9 L 9.0 D Liver Function 08/08/22 Range/Units 01:59 Total Bilirubin 0.4 (0.0-1.0) mg/dL AST 539 H (5-37) U/L ALT 312 H (0-40) U/L Alkaline Phosphatase 77 (39-117) U/L Albumin 2.8 L (3.5-5.0) g/dL Microbiology Microbiology Results: Microbiology 08/06/22 19:00 Blood - Venous Blood Culture - Preliminary No growth after 24 hours. 08/06/22 18:30 Blood - Venous Blood Culture - Preliminary No growth after 24 hours. Assessment and Plan (1) Cardiopulmonary arrest: Status: Acute (2) Septic shock: Status: Acute (3) Pneumonia: Status: Acute (4) Pulmonary edema: Status: Acute (5) Acute respiratory failure: Status: Acute (6) SOY (acute kidney injury): Status: Acute (7) Transaminitis: Status: Acute Plan Plan: Neuro: No acute issues? Cardiac:?? ?Post cardiac arrest- ??patient? was found to be pulseless by RN, status post cardiac arrest? of approximately 20 minutes.? Earlier during the night he was tr eated for a few RVR, but he was noted to be in metabolic acidosis with pH of 7.27 a bicarb of 9.? Given? 1 amp of bicarb. Post cardiac arrest EKG did not show acute infarct, troponin only elevated to 134. Cardiac arrest source unclear. Will obtain CT chest and CT of abdomen. Start Bicarb drip, levophed and broad spectrum abx? Septic shock- Patient with possible septic shock with unclear source Abdomen vs chest. That was elevated to 4.3,? status post cardiac? arrest.? Patient was on ceftriaxone/azithromycin? will broaden antibiotic coverage.? Unable to do 30 mL/kg due to underlying heart failure.? Will do fluid replacement with albumin.? Pulmonary:?? Acute respiratory failure-? Intubated during cardiac arrest, possible aspiration. On broad spectrum abx. Will wean off vent as tolerated.? Renal:? SOY-? ? due to cardiac? arrest. ? Due to underlying pulmonary? congestion? unable to do? fluids.? Will give albumin. Closely monitor? urine output and renal indices? Endo:? No acute issues.?? GI:?? ?Transaminitis-? likely from cardiac arrest.? Will obtain coag studies.? Heme/Onc:? ?No acute issues ID: ? leukocytosis:? patient was being treated for? pneumonia with ceftriaxone/azithromycin will broaden abx to coverage. Repeat BC send.? Psych:? No acute issues. Miscellaneous:? No acute issues. Prophylaxis: Lovenox. GI: IV push protonix? CODE:? FULL CODE? Case discussed with attending DR Servin? Critical care time: x120 min of critical care time? ? contact family post cardiac arrest, aware of transfer to ICU Time Spent With Patient Time: Total time managing care of this patient today ____ minutes.
[2022-08-08] MEDS: Sodium Bicarbonate 8.4% 150 MEQ in Dextrose 5 % 850 ML 100 MEQ IV ×3 (02:48→20:34)
[2022-08-08] MEDS: propofoL 1,000 MG/100 ML VIAL 12.66 MG IVCONT ×2 (03:00→08:00)
--- NOTE | 2022-08-08 03:18 | W.PM.CCHP ---
Procedures Date of Service Date of Service: 08/08/22 Central Line Placement Right IJ: Central Line Comments: patient status post cardiac arrest, requiring pressors required emergent line. Right internal jugular triple lumen central venous catheter placed in usual sterile conditions under ultrasound guidance for appropriate vascular access without immediate complications. Central line position verified with Chest XRAY. Consent for Procedure: Emergent-no informed consent obtained Time out performed: Yes Sterile Technique Used: Yes Patient placed on monitor/pulse ox: Yes MD prep: mask, gown and gloves Central line prep: Chlorhexidine scrub Local anesthesia used: other anesthetic ( on ventilator sedation) Ultrasound used for placement: Yes Central line lumen inserted: triple Post procedure: sutured in place, good blood return, all ports aspirated, flushed, capped and sterile dressing applied Post procedure x-ray: tip of catheter in good position Patient tolerated procedure: well and no complications Complications: none
[2022-08-08] MEDS: Piperacillin Sodium/Tazobactam 4.5 GM in 0.9 % Sodium Chloride 100 ML IV (03:38)
[2022-08-08] MEDS: Albumin Human 25 % 100 ML 133.33 ML IV ×2 (03:50→04:36)
[2022-08-08] MEDS: dilTIAZem HCL 125 MG in 0.9 % Sodium Chloride 100 ML 10 MG IVCONT (04:00)
[2022-08-08] MEDS: iohexoL 350 MG/ML 100 ML INFUS..BTL 85 ML IV (04:02)
[2022-08-08 04:06] LABS: Reflex Lactate? Lactic Acid Added
[2022-08-08] MEDS: vancomycin HCL 1,000 MG, vancomycin HCL 750 MG in 0.9 % Sodium Chloride 500 ML 267.5 MG IV (04:30)
--- NOTE | 2022-08-08 04:34 | PM.SEPSIS ---
Sepsis Event Note Evaluation Sepsis screening result: No Definite Risk Current stage of sepsis: septic shock Focused Exam Vital signs: Vital Signs Temp Pulse Resp BP Pulse Ox O2 Del Method O2 Flow Rate 08/08/22 02:30 135 H 66/35 L 08/08/22 02:25 124 H 74/42 L 08/08/22 04:00 95.2 F L 143 H 18 106/32 L 96 Mechanical Ventilation 08/08/22 03:26 08/08/22 03:14 95.2 F L 127 H 18 106/31 L 93 Mechanical Ventilation 08/07/22 21:40 160 H 20 132/86 94 Nasal Cannula, Humidified O2 8 08/07/22 21:35 142 H 127/68 94 Nasal Cannula, Humidified O2 8 08/08/22 00:49 98.6 F 142 H 20 124/74 95 Nasal Cannula 08/08/22 00:13 138 H 22 H 113/61 93 Nasal Cannula, Humidified O2 6 08/07/22 23:45 142 H 22 H 106/61 98 Nasal Cannula, Humidified O2 8 08/07/22 19:44 127 H 24 H 08/07/22 19:02 96.9 F 113 H 18 142/60 H 92 Nasal Cannula 9 FiO2 08/08/22 02:30 08/08/22 02:25 08/08/22 04:00 60 08/08/22 03:26 60 08/08/22 03:14 60 08/07/22 21:40 08/07/22 21:35 08/08/22 00:49 08/08/22 00:13 08/07/22 23:45 08/07/22 19:44 08/07/22 19:02 Date exam was performed: 08/08/22 Time exam was performed: 04:34 Problem List (1) Cardiopulmonary arrest: Status: Acute (2) Septic shock: Status: Acute (3) Pneumonia: Status: Acute (4) Pulmonary edema: Status: Acute (5) Acute respiratory failure: Status: Acute (6) SOY (acute kidney injury): Status: Acute (7) Transaminitis: Status: Acute
[2022-08-08 04:43] LABS: Hematocrit 24.4 % (42.0-52.0); Hemoglobin 7.8 g/dl (14.0-18.0); Mean Corpuscular Hemoglobin 27.7 pg (27.0-33.0); Mean Corpuscular Volume 86.5 fL (80.0-98.0); Mean Platelet Volume 12.5 fL (9.4-12.4); NRBC Pct Auto 0.5 /100WBC (0.0-0.2); Platelet Count 217 X10*3/uL (160-400); Red Blood Count 2.82 X10*6/uL (4.60-5.80); Red Cell Distribution Width 15.6 % (11.0-16.0); White Blood Count 17.3 X10*3/uL (4.8-10.8)
[2022-08-08 04:44] LABS: Venous Blood Gas Refer to POC result
[2022-08-08 04:44] LABS: VBG Base Excess -11.3 mmol/L; VBG HCO3 15 mmol/L (22-26); VBG pCO2 36 mmHg; VBG pH 7.22 (7.32-7.43); VBG pO2 60 mmHg
[2022-08-08 04:47] LABS: INTERNATIONAL NORM RATIO 1.1 (0.9-1.1); Prothrombin Time 12.9 SEC (10.0-13.1)
--- NOTE | 2022-08-08 04:48 | PM.SEPBOLA4 ---
Sepsis Bolus Exclusion Sepsis Bolus Exclusion Date of Occurrence: 08/08/22 This patient met severe sepsis criteria due to the following condition(s):: Hypotension, Lactate>=4mmol/L and Documentation of septic shock In my clinical judgement the administration of 30 ml/kg of crystalloid would be detrimental to this patient due to the patient's following conditions:: Concern for fluid overload Replace the 30 mls/kg with (*zero amount not acceptable): *Note: One of the [place] must be documented Colloids amount given in mls:: 200 At a rate of (must be > 125 cchr):: 133
[2022-08-08 04:55] LABS: ~Lactic Acid-LAB USE ONLY 1.5 mmol/L (0.5-2.0)
--- NOTE | 2022-08-08 05:00 | PC.NURSE ---
Approximately around 21:30 on 08/07/22, this RN called a rapid response after the pt's vitals were taking with HR reaching 160s, BP stable, and 94 % O2 on 8L Head, with no chest pain. Rapid response team, MD Howe, and Nursing Men'S Designer arrived at bedside to assess pt. MD Howe ordered EKG, X-ray, labs. Pt was then placed on bus driver/monitor reading tachycardia 140s-150s. POC 167. EKG showed new onset of rapid A-FIB. BNP 915. MD Howe ordered one time dose of diltiazem 20mg IV push and diltiazem 30mg PO. This RN administered the ordered medications to pt. Pt's HR dropped to 130s but still reaching 150s. Transfer ordered placed for pt to go to med/tel. This RN gave report to LEE Calles at 23:00.
[2022-08-08 05:07] LABS: Acanthocytes 1+ (0-2) /OIF; Band Neutrophils Percent 5 % (3-5); Burr Cells 3+ (>5) /OIF; Lymphocytes Absolute Manual 0.3 X10*3/uL (1.2-4.9); Lymphocytes Percent Manual 2 % (20-40); Monocytes Absolute Manual 0.2 X10*3/uL (0.1-1.2); Monocytes Percent Manual 1 % (2-11); Neutrophils Absolute Manual 16.8 X10*3/uL (2.0-8.3); Neutrophils Percent Manual 92 % (45-73); RBC Morphology NOTED
[2022-08-08 05:08] LABS: Large Platelet PRESENT; Ovalocytes 1+ (5-14) /OIF; Platelet Estimate NORMAL (NORMAL); Platelet Morphology Comment NOTED
[2022-08-08 05:10] LABS: Anion Gap 31 (12-20); Blood Urea Nitrogen 84 mg/dL (9-16); Calcium 7.9 mg/dL (8.4-10.2); Carbon Dioxide 14 mmol/L (22-29); Chloride 98 mmol/L (96-108); Creatinine Clr Calc Pharmacy 23.3; Dohle Bodies PRESENT; Estimated Glomerular Filt Rate 25; Glucose Random 336 mg/dL (60-115); Magnesium 3.8 mg/dL (1.6-2.6); Phosphorus 9.4 mg/dL (2.7-4.5); Potassium 4.1 mmol/L (3.3-5.1); Sodium 139 mmol/L (135-145); Troponin-I High Sensitivity 471.8 ng/L (<3.5-35.0)
[2022-08-08] MEDS: Pantoprazole Sodium 40 MG/10 ML VIAL IVPUSH (05:51)
[2022-08-08] MEDS: Norepinephrine Bitartrate/D5W 8 MG/250 ML PLAST..BAG 52.73 MG IV ×3 (06:15→15:49)
--- NOTE | 2022-08-08 06:19 | PC.NURSE ---
Patient arrived to ICU ~0200 post code blue. Rosc achieved (see code flowsheet). Patient intubated/vented AC settings 18/400/5/60%. PO care provided. TLC and OG tube placed. CXR obtained to confirm placements. OG temporarily placed to suction after placement and cxr per PEDIATRIC IMMUNOLOGIST, output brown with some coffee grounds, discussed with provider. Patient was incontinent of mushy light brown stool without blood on arrival to unit. Abdominal assessment otherwise benign (see shift assessment for full details). Patient started on protonix per PEDIATRIC IMMUNOLOGIST. Patient hypotensive, levophed started per PEDIATRIC IMMUNOLOGIST (See EMAR for titrations). CT scan competed. During CT scan, patient became severely hypotensive, one mg of epi given per PEDIATRIC IMMUNOLOGIST with +effect, BP stabilized. Patient continues in AFIB with HR 130's to 150's. Cardizem gtt initiated (see EMAR for titrations). Patient sedated with propofol initiated per protocol. +Weak cough, no gag present. Pupils 2-3+ round reactive. Propofol briefly paused to assess neuro status with patient bucking vent and moving extremities prompting propofol restart per PEDIATRIC IMMUNOLOGIST orders. Diggs inserted with core temp noted 95.0. No targeted temperature management at this time per PEDIATRIC IMMUNOLOGIST, deferred jose hugger for hypothermia. Diggs patent with low urine output, clear odorless yellow urine. PEDIATRIC IMMUNOLOGIST made aware. All critical labs reported to PEDIATRIC IMMUNOLOGIST. Patient on prevalon pad. Restraints initiated, q2h assessments per protocol. Patient repositioned q2h. Safety measures in place.
--- NOTE | 2022-08-08 07:00 | CA_ITS ---
Transthoracic Echocardiogram Patient (Last, First, Middle): Margarito Henderson A Gender: Male Date of : 1950 Age: 72 Procedure Date: 08/08/2022 Procedure Type: Transthoracic Echocardiogram Location: ICU Height: 167.64 cm Weight: 69.4 kg BSA: 1.78 m2 Heart Rate: 129 bpm BP: 126 / 42 mmHg Oven Baker: KATHY Referring MD: Reymundo Howe MD Symptoms: afib with rvr Study Quality: Fair/Contrast ECG Rhythm: Atrial Fibrillation Conclusions: - Normal left ventricular cavity size. There is mildly increased left ventricular wall thickness. The left ventricular systolic function is borderline reduced. The visually estimated ejection fraction is between 45-50%. - The apex and apical septum segments are akinetic. - Normal right ventricular cavity size and systolic function. - The right ventricular systolic pressure is 50 mmHg. Findings Procedure Information Contrast agent, definity, is being given per protocol without apparent complications. Left Ventricle Normal left ventricular cavity size. There is mildly increased left ventricular wall thickness. The left ventricular systolic function is borderline reduced. The visually estimated ejection fraction is between 45 50%. There is evidence of regional wall motion abnormalities. Diastolic function is indeterminate on the basis of available data. Wall Motion Rest Echo Findings The apex and apical septum segments are akinetic. Right Ventricle Normal right ventricular cavity size and systolic function. Atria The left atrium is likely dilated. The right atrium is mildly dilated. Aortic Valve Normal aortic valve structure and function. There is no aortic valve stenosis. There is no aortic valve regurgitation. Mitral Valve Normal mitral valve structure and function. There is mild mitral valve regurgitation. There is no mitral valve stenosis. Pulmonic Valve Normal pulmonic valve structure and function. There is trace pulmonic valve regurgitation. Tricuspid Valve There is mild tricuspid valve regurgitation. The right ventricular systolic pressure is 50 mmHg. Indeterminate right atrial pressure. Moderate pulmonary hypertension is present. Great Vessels All visible segments of the aorta are normal in size. The visualized portions of the pulmonary artery and branches are normal. Venous The inferior vena cava is dilated and does not collapse with inspiration. Pericardium/Pleural There is no evidence of pericardial effusion. Prior Study Comparison Changes noted compared to prior study dated: 12/14/2020. EF 45-50%, apical wall motion, moderate pulmonary hypertension, Measurements 2D Linear Measurements IVSd: 1.11 0.6-0.9/0.6-1.0 cm LVIDd: 4.73 3.9-5.3/4.2-5.9 cm LVIDd Index: 2.66 2.4-3.2/2.2-3.1 cm/m2 LVIDs: 3.37 2.0-3.6 cm LVPWd: 1.24 0.7-1.1 cm LA Diam: 3.30 2.7-3.8/3.0-4.0 cm LAIDs Index: 1.85 1.5-2.3 cm/m2 LV Mass: 259.03 67-162/88-224 g LV Mass Index: 145.52 43-95/49-115 g/m2 LVOT Diam: 1.90 3.0+(-)1.3 cm 2D Systolic Function EF 4C: 44.00 >55% EF 2C: 48.20 >55% EF BiP: 46.40 >55% Mitral Valve MV Pk E: 1.23 MV Decel Time: 146.00 E'Lateral: 10.70 E'Medial: 8.70 E/E' Med: 14.10 E/E' Lat: 11.50 PHT: 42.00 MVA PHT: 5.24 Decel Morrison: 8.69 Aortic Valve AoV Pk Ramsey: 1.67 AoV Mn Ramsey: 1.19 AoV VTI: 0.25 AoV Pk Grad: 11.00 Aov Mn Grad: 7.00 RAMON Cont.VTI: 2.28 LVOT LVOT Pk Ramsey: 1.49 LVOT Mn Ramsey: 1.00 LVOT VTI: 0.20 LVOT Pk Grad: 9.00 LVOT Mn Grad: 5.00 LVOT Diam: 1.90 LVOT Area: 2.84 Diastolic Function MV Pk E: 1.23 E'Medial: 8.70 E/E' Med: 14.10 E' Laterial: 10.70 E/E' Lat: 11.50 Right Ventricle TAPSE (mm): 14.70 TVS' Ramsey: 17.20 Tricuspid Valve TR Pk Ramsey: 2.96 TR Pk Grad: 35.00 RA Press: 15.00 RVSP: 50.00 Great Vessels Aorta Sinus of Valsalva: 3.10 2.0-3.5 cm Ao Asc: 2.90 2.1-3.4 cm Pulmonary Valve PV Pk Ramsey: 1.21 Peak PV Grad: 6.00 Updated in Other Vendor System with Status of Final Frank Crane MD electronically signed on 08/08/2022 8:19:39 PM with status of Final
--- NOTE | 2022-08-08 07:08 | PHA.PROG ---
Admission Date/Time: August 06, 2022 20:06 Indication: SEPSIS Weight in k.5 kg Adjusted body weight in K KG [place] body weight in K.8 KG Obesity Dosing Indication % IBW: Serum Creatinine - Last 168 Hours 08/06/22 08/07/22 08/07/22 19:33 05:11 19:16 Creatinine 2.12 H 1.85 H 2.08 H 08/08/22 08/08/22 01:59 04:28 Creatinine 2.47 H 2.54 H Estimated CrCl and GFR - Last 168 Hours 08/06/22 08/07/22 08/07/22 19:33 05:11 19:16 Estim Creat Clear Calc 28.0 32.0 28.5 Estimated GFR 31 36 31 08/08/22 08/08/22 01:59 04:28 Estim Creat Clear Calc 24.0 23.3 Estimated GFR 26 25 Vancomycin Loading Dose: 1500 MG X 1 ( 1500 MG DOSE ALSO GIVEN ON 08/06 @1946) Current Vancomycin Dosing Regimen: 1000 Q24H Vancomycin Monitoring using AUC goal of 400 - 600 range with trough as surrogate marker: Date and Time for next Vancomycin Level to be drawn : RANDOM 08/08/22 @1600, RANDOM 08/09/22 Pharmacist Comments on Vancomycin Plan: PATIENT CR INCREASING. RANDOM LEVELS ENTERED , PLEASE ADJUST DOSE BASED ON LEVEL Vancomycin dosing will take advantage of [employer] as a clinical decision support tool that uses Bayesian modeling to calculate individual patient's pharmacokinetic parameters and forecast the patient's drug concentration time course with the target goal AUC 24 range of 400 - 600 mg/L/hr.
[2022-08-08 07:20] LABS: Glucose, Whole Blood 369 mg/dL (60-115)
[2022-08-08] MEDS: Chlorhexidine Gluc Oral Rinse 15 ML MOUTHWASH BUCCAL ×3 (07:25→21:00)
[2022-08-08] MEDS: Heparin Sodium,Porcine 5,000 UNIT/ML VIAL 5000 UNIT SUBCUT (08:21)
[2022-08-08] MEDS: Piperacillin Sodium/Tazobactam 3.375 GM in 0.9 % Sodium Chloride 50 ML IV ×3 (08:22→20:31)
[2022-08-08] MEDS: Insulin Lispro 100 UNIT/ML 3 ML VIAL 10 UNIT SUBCUT (08:28)
[2022-08-08] MEDS: Amiodarone/Dextrose 150 MG/100 ML PLAST..BAG 600 MG IV (09:20)
[2022-08-08] MEDS: Amiodarone HCL 900 MG in 0.9 % Sodium Chloride 500 ML 34.53 MG IVCONT (09:30)
[2022-08-08 09:35] LABS: Amphetamine Screen Urine Not Detected (Not Detect); Barbiturates, Urine Not Detected (Not Detect); Benzodiazepines Screen Urine Not Detected (Not Detect); Cannabinoid Screen Urine Not Detected (Not Detect); Cocaine Screen Urine Not Detected (Not Detect); Fentanyl, urine Not Detected (Not Detect); Opiate Screen Urine Not Detected (Not Detect); Phencyclidine Screen Urine Not Detected (Not Detect)
[2022-08-08] MEDS: Digoxin 0.5 MG/2 ML AMPUL 0.25 MG IVPUSH ×3 (11:00→18:03)
--- NOTE | 2022-08-08 11:11 | PM.CNCAR ---
History of Present Illness History of Present Illness Date of Service: 08/08/22 Requesting physician: José Servin Chief complaint: Cardiac arrest, Afib with RVR. Narrative: 72-year-old gentleman with history of diabetes, hypertension, hyperlipidemia and prostate cancer who presented to hospital shortness of breath. He was on the floor where he had cardiac arrest. He was noted to be in Afib with RVR. He has been intubated. History is not possible. Daughters were at bedside and one of the daughters added that he had dyspnea one day before presentation. He is currently on levophed, propofol and amiodarone gtt. Tele is showing Afib with RVR. I performed bedside echo and his EF was 40-45%. Apical akinesis. We will do official echo. Labs and ECGs reviewed. COUNTS INCLUDE 234 BEDS AT THE [facility] Past Medical History Medical History Asthma Cancer of right renal pelvis COPD (chronic obstructive pulmonary disease) Crossed renal ectopia Diabetes mellitus Elevated PSA Erectile dysfunction High cholesterol HTN (hypertension) Multinodular goiter (nontoxic) Prostate cancer Right renal mass Family History Family History Father No problems noted. Mother No problems noted. Surgical History Surgical History History of prostate biopsy Hx of biopsy Social History Social History Household Members: None Housing: Apartment Do you presently have visiting nurse or other home services: No Alcohol intake: former Patient Tobacco Use Status: Former Tobacco user Quit Date: 3-4 years ago e-Cigarette/Vaping Use: Never Used Second Hand Smoke Exposure: No Advance Directives Date on File: 04/14/22 service: No Current occupational status: retired Meds Allergies Allergy/AdvReac Type Severity Reaction Status Date / Time ciprofloxacin [From CIPRO] Allergy Unknown RASH Verified 08/06/22 17:50 Sulfa (Sulfonamide Allergy Unknown rash Verified 08/06/22 17:50 Antibiotics) sulfamethoxazole Allergy Unknown RASH Verified 08/06/22 17:50 [From BACTRIM] trimethoprim [From BACTRIM] Allergy Unknown RASH Verified 08/06/22 17:50 Active Medications: Current Medications Chlorhexidine Gluconate (Chlorhexidine Gluc Oral Rinse 15 Ml Mouthwash) 15 ml BUCCAL TID CHARITO Last Admin: 08/08/22 07:25 Dose: 15 ml Digoxin (Digoxin 0.5 Mg/2 Ml Ampul) 0.25 mg IVPUSH Q4H CHARITO Stop: 08/08/22 18:46 Last Admin: 08/08/22 11:00 Dose: 0.25 mg Heparin Sodium (Porcine) (Heparin Sodium,Porcine 5,000 Unit/Ml Vial) 5,000 unit SUBCUT Q8H CHARITO Last Admin: 08/08/22 08:21 Dose: 5,000 unit Sodium Bicarbonate 150 meq/ (Dextrose) 1,000 mls @ 100 mls/hr IV .Q10H CHARITO Last Admin: 08/08/22 10:37 Dose: 100 mls/hr Norepinephrine Bitartrate (Levophed) 8 mg in 250 mls @ 0 mls/hr IVCONT .Q0M [facility]ITO; Protocol Propofol (Diprivan) 1,000 mg in 100 mls @ 0 mls/hr IVCONT .Q0M [facility]ITO; Protocol Last Titration: 08/08/22 09:45 Dose: 40 mcg/kg/min, 16.87 mls/hr Norepinephrine Bitartrate (Levophed) 8 mg in 250 mls @ 0 mls/hr IV .Q0M CHARITO; Protocol Last Admin: 08/08/22 06:15 Dose: 0.4 mcg/kg/min, 52.73 mls/hr Vancomycin HCl 1,000 mg/ (Sodium Chloride) 270 mls @ 270 mls/hr IV Q24H CHARITO Piperacillin Sod/Tazobactam (Sod 3.375 gm/ Sodium Chloride) 50 mls @ 100 mls/hr IV Q6H [facility] Last Infusion: 08/08/22 09:40 Dose: Infused Amiodarone HCl 900 mg/ Sodium (Chloride) 518 mls @ 34.533 mls/hr IVCONT .Q15H1M [facility]; Protocol Last Admin: 08/08/22 09:30 Dose: 1 mg/min, 34.53 mls/hr Insulin Human Lispro (Insulin Lispro 100 Unit/Ml 3 Ml Vial) 0 unit SUBCUT Q6H CHARITO; Protocol Pantoprazole Sodium (Pantoprazole Sodium 40 Mg/10 Ml Vial) 40 mg IVPUSH DAILY@0630 [facility] Last Admin: 08/08/22 05:51 Dose: 40 mg Pharmacy Consult (Consult Rx Vancomycin Dosing) 1 each MISCELLANE DAILY PRN PRN Reason: Consult order Home Medications Medication Instructions Recorded Confirmed Last Taken Type albuterol sulfate 90 mcg/actuation 2 puff PO Q4-6H PRN Shortness Of 03/13/20 08/06/22 Unknown History aerosol inhaler Breath Or Wheezing enalapril maleate 20 mg tablet 20 mg PO BID 03/13/20 08/06/22 Unknown History glyburide 1.25 mg tablet 1.25 mg PO DAILY@0730 03/13/20 08/06/22 08/06/22 History ipratropium 0.5 mg-albuterol 3 mg 3 ml inhalation TID PRN Shortness 03/13/20 08/06/22 Unknown History (2.5 mg base)/3 mL nebulization Of Breath soln metformin 500 mg tablet 1,000 mg PO BIDWM 03/13/20 08/06/22 08/06/22 History simvastatin 80 mg tablet 80 mg PO DAILY 03/13/20 08/06/22 08/06/22 History metoprolol succinate 100 mg 100 mg PO DAILY 06/25/20 08/06/22 08/06/22 History tablet,extended release 24 hr metoprolol succinate 50 mg 50 mg PO BEDTIME 06/25/20 08/06/22 Unknown History tablet,extended release 24 hr nifedipine 90 mg tablet,extended 90 mg PO DAILY 06/25/20 08/06/22 08/06/22 History release diphenhydramine HCl 25 mg capsule 25 mg PO BEDTIME PRN insomnia 06/17/21 08/06/22 Unknown History (Banophen) aspirin 81 mg tablet,delayed 81 mg PO DAILY 12/18/21 08/06/22 08/06/22 History release oxycodone-acetaminophen 5 mg-325 1 tab PO Q8H PRN Pain, Severe 04/13/22 08/06/22 Unknown History mg tablet tadalafil 5 mg tablet 5 mg PO DAILY PRN Sexual Activity 04/13/22 08/06/22 Unknown History fluticasone fur. 200 mcg-umeclid 1 inh inhalation BID 08/06/22 08/06/22 Unknown History 62.5 mcg-vilant 25 mcg inhalat.powder (Trelegy Ellipta) Physical Exam Vital Signs: Vital Signs: Last Vital Signs Temp 97.2 F 08/08/22 10:00 Pulse 128 H 08/08/22 10:00 Resp 24 H 08/08/22 10:00 BP 124/41 L 08/08/22 10:00 Pulse Ox 98 08/08/22 10:00 O2 Del Method Mechanical Ventil ation 08/08/22 10:00 O2 Flow Rate 6 08/08/22 00:13 FiO2 40 08/08/22 10:00 BMI result Body Mass Index 24.7 GENERAL APPEARANCE: Intubated. on levophed and amiodarone. NECK: no jugular venous distention. SKIN: no suspicious lesions, warm and dry. HEART: no murmurs, ir rate and rhythm. LUNGS: clear to auscultation bilaterally. ABDOMEN: soft, nontender. EXTREMITIES: no edema. PERIPHERAL PULSES: equal. Objective Labs and Meds 08/08/22 04:28 08/08/22 04:28 Lab results: Laboratory Results - last 24 hr 08/07/22 08/07/22 08/07/22 00:26 11:17 15:49 WBC RBC Hgb Hct MCV MCH MCHC RDW Plt Count MPV Immature Gran % (Auto) Neut % (Auto) Lymph % (Auto) [place] % (Auto) Eos % (Auto) Baso % (Auto) Lymph # (Auto) [place] # (Auto) Eos # (Auto) Baso # (Auto) Abs Immat Gran (auto) Absolute Neuts (auto) Absolute Nucleated RBC Nucleated RBC % (auto) Neutrophils % (Manual) Band Neutrophils % Lymphocytes % (Manual) Monocytes % (Manual) Abs Neuts (Manual) Lymphocytes # (Manual) Monocytes # (Manual) Dohle Bodies Platelet Estimate Large Platelets Plt Morphology Comment RBC Morphology Ovalocytes Jadon Cells Acanthocytes (Spur) Smear Tech's Comments PT INR VBG pH VBG pCO2 VBG pO2 VBG HCO3 VBG O2 Saturation VBG Base Excess Sodium Potassium Chloride Carbon Dioxide Anion Gap BUN Creatinine Estim Creat Clear Calc Estimated GFR POC Glucose 182 H 166 H Random Glucose Lactic Acid Lactic Acid F/U @ 2Hr Calcium Phosphorus Magnesium Total Bilirubin AST ALT Alkaline Phosphatase Troponin I High Sens B-Natriuretic Peptide Total Protein Albumin Nasal Screen MRSA (PCR) NEGATIVE Nasal S. aureus Screen NEGATIVE Nasal MRSA/S.aureus Interp SEE NOTE Urine Opiates Screen Urine Fentanyl Screen Ur Barbiturates Screen Ur Phencyclidine Scrn Ur Amphetamines Screen U Benzodiazepines Scrn Urine Cocaine Screen U Marijuana (THC) Screen 08/07/22 08/07/22 08/07/22 19:16 19:55 21:34 WBC RBC Hgb Hct MCV MCH MCHC RDW Plt Count MPV Immature Gran % (Auto) Neut % (Auto) Lymph % (Auto) [place] % (Auto) Eos % (Auto) Baso % (Auto) Lymph # (Auto) [place] # (Auto) Eos # (Auto) Baso # (Auto) Abs Immat Gran (auto) Absolute Neuts (auto) Absolute Nucleated RBC Nucleated RBC % (auto) Neutrophils % (Manual) Band Neutrophils % Lymphocytes % (Manual) Monocytes % (Manual) Abs Neuts (Manual) Lymphocytes # (Manual) Monocytes # (Manual) Dohle Bodies Platelet Estimate Large Platelets Plt Morphology Comment RBC Morphology Ovalocytes [place] Cells Acanthocytes (Spur) Smear Tech's Comments PT INR VBG pH VBG pCO2 VBG pO2 VBG HCO3 VBG O2 Saturation VBG Base Excess Sodium 134 L Potassium 4.9 Chloride 104 Carbon Dioxide 9 L* D Anion Gap 26 H BUN 72 H Creatinine 2.08 H Estim Creat Clear Calc 28.5 Estimated GFR 31 POC Glucose 168 H 167 H Random Glucose 161 H Lactic Acid Lactic Acid F/U @ 2Hr Calcium 7.9 L Phosphorus Magnesium Total Bilirubin AST ALT Alkaline Phosphatase Troponin I High Sens B-Natriuretic Peptide Total Protein Albumin Nasal Screen MRSA (PCR) Nasal S. aureus Screen Nasal MRSA/S.aureus Interp Urine Opiates Screen Urine Fentanyl Screen Ur Barbiturates Screen Ur Phencyclidine Scrn Ur Amphetamines Screen U Benzodiazepines Scrn Urine Cocaine Screen U Marijuana (THC) Screen 08/07/22 08/07/22 08/08/22 21:56 22:02 01:32 WBC RBC Hgb Hct MCV MCH MCHC RDW Plt Count MPV Immature Gran % (Auto) Neut % (Auto) Lymph % (Auto) [place] % (Auto) Eos % (Auto) Baso % (Auto) Lymph # (Auto) [place] # (Auto) Eos # (Auto) Baso # (Auto) Abs Immat Gran (auto) Absolute Neuts (auto) Absolute Nucleated RBC Nucleated RBC % (auto) Neutrophils % (Manual) Band Neutrophils % Lymphocytes % (Manual) Monocytes % (Manual) Abs Neuts (Manual) Lymphocytes # (Manual) Monocytes # (Manual) Dohle Bodies Platelet Estimate Large Platelets Plt Morphology Comment RBC Morphology Ovalocytes [place] Cells Acanthocytes (Spur) Smear Tech's Comments PT INR VBG pH 7.27 L VBG pCO2 20 VBG pO2 214 VBG HCO3 9 L VBG O2 Saturation 100.0 VBG Base Excess -15.2 Sodium Potassium Chloride Carbon Dioxide Anion Gap BUN Creatinine Estim Creat Clear Calc Estimated GFR POC Glucose 187 H Random Glucose Lactic Acid Lactic Acid F/U @ 2Hr Calcium Phosphorus Magnesium Total Bilirubin AST ALT Alkaline Phosphatase Troponin I High Sens B-Natriuretic Peptide 915 H Total Protein Albumin Nasal Screen MRSA (PCR) Nasal S. aureus Screen Nasal MRSA/S.aureus Interp Urine Opiates Screen Urine Fentanyl Screen Ur Barbiturates Screen Ur Phencyclidine Scrn Ur Amphetamines Screen U Benzodiazepines Scrn Urine Cocaine Screen U Marijuana (THC) Screen 08/08/22 08/08/22 08/08/22 01:59 01:59 01:59 WBC 14.3 H RBC 3.23 L Hgb 8.9 L Hct 28.1 L MCV 87.0 MCH 27.6 MCHC 31.7 RDW 15.8 Plt Count 256 MPV 12.1 Immature Gran % (Auto) 1.3 H Neut % (Auto) 89.9 H Lymph % (Auto) 4.9 L [place] % (Auto) 1.8 L Eos % (Auto) 1.5 Baso % (Auto) 0.6 Lymph # (Auto) 0.7 L [place] # (Auto) 0.3 Eos # (Auto) 0.2 Baso # (Auto) 0.1 Abs Immat Gran (auto) 0.19 H Absolute Neuts (auto) 12.8 H Absolute Nucleated RBC 0.090 H Nucleated RBC % (auto) 0.6 H Neutrophils % (Manual) Band Neutrophils % Lymphocytes % (Manual) Monocytes % (Manual) Abs Neuts (Manual) Lymphocytes # (Manual) Monocytes # (Manual) Dohle Bodies Platelet Estimate Large Platelets Plt Morphology Comment RBC Morphology Ovalocytes Jadon Cells Acanthocytes (Spur) Smear Tech's Comments VERIFIED PT INR VBG pH VBG pCO2 VBG pO2 VBG HCO3 VBG O2 Saturation VBG Base Excess Sodium 145 Potassium 4.3 Chloride 101 Carbon Dioxide 17 L Anion Gap 31 H BUN 80 H Creatinine 2.47 H Estim Creat Clear Calc 24.0 Estimated GFR 26 POC Glucose Random Glucose 222 H Lactic Acid 4.3 H* Lactic Acid F/U @ 2Hr Calcium 9.0 D Phosphorus 11.6 H Magnesium 4.7 H* Total Bilirubin 0.4 AST 539 H ALT 312 H Alkaline Phosphatase 77 Troponin I High Sens B-Natriuretic Peptide Total Protein 4.9 L Albumin 2.8 L Nasal Screen MRSA (PCR) Nasal S. aureus Screen Nasal MRSA/S.aureus Interp Urine Opiates Screen Urine Fentanyl Screen Ur Barbiturates Screen Ur Phencyclidine Scrn Ur Amphetamines Screen U Benzodiazepines Scrn Urine Cocaine Screen U Marijuana (THC) Screen 08/08/22 08/08/22 08/08/22 01:59 01:59 02:02 WBC RBC Hgb Hct MCV MCH MCHC RDW Plt Count MPV Immature Gran % (Auto) Neut % (Auto) Lymph % (Auto) [place] % (Auto) Eos % (Auto) Baso % (Auto) Lymph # (Auto) [place] # (Auto) Eos # (Auto) Baso # (Auto) Abs Immat Gran (auto) Absolute Neuts (auto) Absolute Nucleated RBC Nucleated RBC % (auto) Neutrophils % (Manual) Band Neutrophils % Lymphocytes % (Manual) Monocytes % (Manual) Abs Neuts (Manual) Lymphocytes # (Manual) Monocytes # (Manual) Dohle Bodies Platelet Estimate Large Platelets Plt Morphology Comment RBC Morphology Ovalocytes [place] Cells Acanthocytes (Spur) Smear Tech's Comments PT INR VBG pH 7.22 L VBG pCO2 40 VBG pO2 121 VBG HCO3 17 L VBG O2 Saturation 98.0 VBG Base Excess -9.6 Sodium Potassium Chloride Carbon Dioxide Anion Gap BUN Creatinine Estim Creat Clear Calc Estimated GFR POC Glucose Random Glucose Lactic Acid Lactic Acid F/U @ 2Hr Calcium Phosphorus Magnesium Total Bilirubin AST ALT Alkaline Phosphatase Troponin I High Sens 134.1 H* D B-Natriuretic Peptide 446 H Total Protein Albumin Nasal Screen MRSA (PCR) Nasal S. aureus Screen Nasal MRSA/S.aureus Interp Urine Opiates Screen Urine Fentanyl Screen Ur Barbiturates Screen Ur Phencyclidine Scrn Ur Amphetamines Screen U Benzodiazepines Scrn Urine Cocaine Screen U Marijuana (THC) Screen 08/08/22 08/08/22 08/08/22 04:20 04:28 04:28 WBC RBC Hgb Hct MCV MCH MCHC RDW Plt Count MPV Immature Gran % (Auto) Neut % (Auto) Lymph % (Auto) [place] % (Auto) Eos % (Auto) Baso % (Auto) Lymph # (Auto) [place] # (Auto) Eos # (Auto) Baso # (Auto) Abs Immat Gran (auto) Absolute Neuts (auto) Absolute Nucleated RBC Nucleated RBC % (auto) Neutrophils % (Manual) Band Neutrophils % Lymphocytes % (Manual) Monocytes % (Manual) Abs Neuts (Manual) Lymphocytes # (Manual) Monocytes # (Manual) Dohle Bodies Platelet Estimate Large Platelets Plt Morphology Comment RBC Morphology Ovalocytes Jadon Cells Acanthocytes (Spur) Smear Tech's Comments PT INR VBG pH VBG pCO2 VBG pO2 VBG HCO3 VBG O2 Saturation VBG Base Excess Sodium 139 Potassium 4.1 Chloride 98 Carbon Dioxide 14 L Anion Gap 31 H BUN 84 H Creatinine 2.54 H Estim Creat Clear Calc 23.3 Estimated GFR 25 POC Glucose Random Glucose 336 H Lactic Acid Lactic Acid F/U @ 2Hr 1.5 Calcium 7.9 L D Phosphorus 9.4 H Magnesium 3.8 H* Total Bilirubin AST ALT Alkaline Phosphatase Troponin I High Sens 471.8 H* D B-Natriuretic Peptide Total Protein Albumin Nasal Screen MRSA (PCR) Nasal S. aureus Screen Nasal MRSA/S.aureus Interp Urine Opiates Screen Urine Fentanyl Screen Ur Barbiturates Screen Ur Phencyclidine Scrn Ur Amphetamines Screen U Benzodiazepines Scrn Urine Cocaine Screen U Marijuana (THC) Screen 08/08/22 08/08/22 08/08/22 04:28 04:28 04:28 WBC 17.3 H RBC 2.82 L Hgb 7.8 L Hct 24.4 L MCV 86.5 MCH 27.7 MCHC 32.0 RDW 15.6 Plt Count 217 MPV 12.5 H Immature Gran % (Auto) Cancelled Neut % (Auto) Cancelled Lymph % (Auto) Cancelled [place] % (Auto) Cancelled Eos % (Auto) Cancelled Baso % (Auto) Cancelled Lymph # (Auto) Cancelled [place] # (Auto) Cancelled Eos # (Auto) Cancelled Baso # (Auto) Cancelled Abs Immat Gran (auto) Cancelled Absolute Neuts (auto) Cancelled Absolute Nucleated RBC 0.090 H Nucleated RBC % (auto) 0.5 H Neutrophils % (Manual) 92 H Band Neutrophils % 5 Lymphocytes % (Manual) 2 L Monocytes % (Manual) 1 L Abs Neuts (Manual) 16.8 H Lymphocytes # (Manual) 0.3 L Monocytes # (Manual) 0.2 Dohle Bodies PRESENT Platelet Estimate NORMAL Large Platelets PRESENT Plt Morphology Comment NOTED RBC Morphology NOTED Ovalocytes 1+ (5-14) Jadon Cells 3+ (>5) Acanthocytes (Spur) 1+ (0-2) Smear Tech's Comments PT 12.9 INR 1.1 VBG pH VBG pCO2 VBG pO2 VBG HCO3 VBG O2 Saturation VBG Base Excess Sodium Potassium Chloride Carbon Dioxide Anion Gap BUN Creatinine Estim Creat Clear Calc Estimated GFR POC Glucose Random Glucose Lactic Acid Lactic Acid F/U @ 2Hr Calcium Phosphorus Cancelled Magnesium Cancelled Total Bilirubin AST ALT Alkaline Phosphatase Troponin I High Sens B-Natriuretic Peptide Total Protein Albumin Nasal Screen MRSA (PCR) Nasal S. aureus Screen Nasal MRSA/S.aureus Interp Urine Opiates Screen Urine Fentanyl Screen Ur Barbiturates Screen Ur Phencyclidine Scrn Ur Amphetamines Screen U Benzodiazepines Scrn Urine Cocaine Screen U Marijuana (THC) Screen 08/08/22 08/08/22 08/08/22 04:35 07:17 08:59 WBC RBC Hgb Hct MCV MCH MCHC RDW Plt Count MPV Immature Gran % (Auto) Neut % (Auto) Lymph % (Auto) [place] % (Auto) Eos % (Auto) Baso % (Auto) Lymph # (Auto) [place] # (Auto) Eos # (Auto) Baso # (Auto) Abs Immat Gran (auto) Absolute Neuts (auto) Absolute Nucleated RBC Nucleated RBC % (auto) Neutrophils % (Manual) Band Neutrophils % Lymphocytes % (Manual) Monocytes % (Manual) Abs Neuts (Manual) Lymphocytes # (Manual) Monocytes # (Manual) Dohle Bodies Platelet Estimate Large Platelets Plt Morphology Comment RBC Morphology Ovalocytes [place] Cells Acanthocytes (Spur) Smear Tech's Comments PT INR VBG pH 7.22 L VBG pCO2 36 VBG pO2 60 VBG HCO3 15 L VBG O2 Saturation 82.0 VBG Base Excess -11.3 Sodium Potassium Chloride Carbon Dioxide Anion Gap BUN Creatinine Estim Creat Clear Calc Estimated GFR POC Glucose 369 H* Random Glucose Lactic Acid Lactic Acid F/U @ 2Hr Calcium Phosphorus Magnesium Total Bilirubin AST ALT Alkaline Phosphatase Troponin I High Sens B-Natriuretic Peptide Total Protein Albumin Nasal Screen MRSA (PCR) Nasal S. aureus Screen Nasal MRSA/S.aureus Interp Urine Opiates Screen Not Detected Urine Fentanyl Screen Not Detected Ur Barbiturates Screen Not Detected Ur Phencyclidine Scrn Not Detected Ur Amphetamines Screen Not Detected U Benzodiazepines Scrn Not Detected Urine Cocaine Screen Not Detected U Marijuana (THC) Screen Not Detected Imaging Radiologist's impression: Impressions Chest X-Ray 08/07/22 12:36 IMPRESSION: Large right base pneumonia. New small right pleural effusion. Chest X-Ray 08/07/22 22:06 IMPRESSION: Persistent right mid to lower lung opacity with associated pleural effusion. This is similar to prior. Abdomen/Pelvis CT 08/08/22 02:45 IMPRESSION: 1. Dense right lower lobe consolidation with air bronchograms. This could be associated with aspiration. 2. Endotracheal tube terminates 2 cm above the [place]. 3. No acute finding in the abdomen or pelvis. Trace ascites. 4. Right-sided renal cross fused ectopia. Chest CT 08/08/22 02:45 IMPRESSION: 1. Dense right lower lobe consolidation with air bronchograms. This could be associated with aspiration. 2. Endotracheal tube terminates 2 cm above the [place]. 3. No acute finding in the abdomen or pelvis. Trace ascites. 4. Right-sided renal cross fused ectopia. Chest X-Ray 08/08/22 03:19 IMPRESSION: 1. Endotracheal tube terminating 2 cm above the [place]. Right internal jugular central venous catheter terminates near the cavoatrial junction. No pneumothorax. 2. Right lower lung consolidation. Assessment and Plan (1) Septic shock: Status: Acute (2) Cardiopulmonary arrest: Status: Acute (3) Atrial fibrillation with RVR: Status: Acute Plan 72 male with cardiac arrest and Afib with RVR. Bedside echo showed apical akinesis. Mildly elevated troponins. He is anemic and there is concern for GI blood loss/ischemic gut and he cannot get heparin. On amio gtt. Digoxin load. Would not start maintenance dose of digoxin. Etiology likely sepsis. Will review full echo. Thank you for allowing me to participate in the care of your patient. Please feel free to contact me if you have any questions. Time Spent With Patient Time: Total time managing care of this patient today ____ minutes. Procedures Date of Service Date of Service: 08/08/22
[2022-08-08 11:34] LABS: Glucose, Whole Blood 415 mg/dL (60-115)
[2022-08-08 11:54] LABS: VBG Base Excess -11.9 mmol/L; VBG HCO3 12 mmol/L (22-26); VBG pCO2 24 mmHg; VBG pH 7.31 (7.32-7.43); VBG pO2 53 mmHg
[2022-08-08 11:55] LABS: Basophils Absolute Auto 0.1 X10*3/uL (0.0-0.2); Basophils Percent Auto 0.3 % (0-2); Eosinophils Absolute Auto 0.3 X10*3/uL (0.0-0.4); Eosinophils Percent Auto 1.5 % (0-4); Hematocrit 24.3 % (42.0-52.0); Imm Gran Abs Auto 0.09 X10*3/uL (0.00-0.03); Imm Gran Pct Auto 0.5 % (0.0-0.4); Lymphocytes Absolute Auto 0.5 X10*3/uL (1.2-4.9); Lymphocytes Percent Auto 2.8 % (20-40); MANUAL DIFF FLAG SCAN; Mean Corpuscular HGB Conc 32.9 g/dl (31.0-36.0); Mean Corpuscular Hemoglobin 27.9 pg (27.0-33.0); Mean Corpuscular Volume 84.7 fL (80.0-98.0); Mean Platelet Volume 11.9 fL (9.4-12.4); Monocytes Absolute Auto 0.4 X10*3/uL (0.1-1.2); Monocytes Percent Auto 2.1 % (2-11); NRBC Pct Auto 0.4 /100WBC (0.0-0.2); Neutrophils Absolute Auto 16.6 x10*3/uL (2.0-8.3); Neutrophils Percent Auto 92.8 % (45-73); Platelet Count 238 X10*3/uL (160-400); Red Blood Count 2.87 X10*6/uL (4.60-5.80); Red Cell Distribution Width 15.9 % (11.0-16.0); SCAN SMEAR FLAG 1; White Blood Count 17.9 X10*3/uL (4.8-10.8)
[2022-08-08] MEDS: Insulin Lispro 100 UNIT/ML 3 ML VIAL SUBCUT ×2 (12:06→18:03)
[2022-08-08 12:17] LABS: SLIDE REVIEW VERIFIED
[2022-08-08 12:25] LABS: Venous Blood Gas Refer to POC result
[2022-08-08 12:26] LABS: Lactic Acid 1.1 mmol/L (0.5-2.0)
[2022-08-08 12:31] LABS: Alanine Aminotransferase 285 U/L (0-40); Albumin Level 3.3 g/dL (3.5-5.0); Alkaline Phosphatase 68 U/L (39-117); Anion Gap 34 (12-20); Aspartate Amino Transferase 539 U/L (5-37); Blood Urea Nitrogen 88 mg/dL (9-16); Calcium 7.6 mg/dL (8.4-10.2); Carbon Dioxide 11 mmol/L (22-29); Chloride 97 mmol/L (96-108); Creatinine Clr Calc Pharmacy 22.4; Estimated Glomerular Filt Rate 24; Glucose Random 444 mg/dL (60-115); Potassium 3.7 mmol/L (3.3-5.1); Sodium 138 mmol/L (135-145); Total Protein 5.3 g/dL (6.5-8.0)
[2022-08-08] MEDS: Insulin Regular, Human 100 UNIT/ML 3 ML VIAL 10 UNIT IVPUSH (13:18)
[2022-08-08] MEDS: propofoL 1,000 MG/100 ML VIAL 16.87 MG IVCONT ×3 (13:27→23:36)
[2022-08-08 15:22] LABS: Acetaminophen LAB < 17 mcg/mL (<30); Salicylate < 5.0 mg/dL (15-30)
[2022-08-08 15:28] LABS: Glucose, Whole Blood 385 mg/dL (60-115)
[2022-08-08 16:33] LABS: Vancomycin Random 31.7 mcg/mL (15-20)
[2022-08-08] MEDS: Midazolam HCl/PF 2 MG/2 ML VIAL 4 MG IVPUSH ×3 (16:46→22:31)
[2022-08-08 17:59] LABS: Glucose, Whole Blood 361 mg/dL (60-115)
--- NOTE | 2022-08-08 18:35 | PC.NURSE ---
Assumed care of patient 07:00 Patient on cardizem gtt @15. Afib HR 130-150 on tele, occasional PVCs 08:00 POC glucose 369, SSI added by provider, 10 unit lispro SUBQ administered 08:42 Cardizem gtt discontinued per MD. MD notified of patient rate and rhythm. 09:30 loading dose of amiodarone administered IV and amio gtt started @1. 10:30 patient provided bed bath, shampoo cap, hair brushing 12:00 POC glucose 415, critical random glucose 444 reported to MD. 10 units SSI given as ordered and an additional 10 units Regular insulin given IVP per MD. 16:00 patient had small amount of fabiano red inline respiratory secretions. Per MD, Heparin SUBQ dose held. Patient given Digoxin 0.25 mg IVP for 3 doses per Cardiology MD. Amio gtt rate decreased to @0.5 after six hours at 16:30 per protocol. 16:45 patient had sustained muscle spasms of face and upper body after repositioning. MD notified. 4mg Versed IVP given once with positive effect. No signs of GI bleeding this shift, no bowel movement Patient repositioned Q2H, Q2H mouth care provided, provelon system utilized, high fall precautions in place.
[2022-08-08] MEDS: Norepinephrine Bitartrate/D5W 8 MG/250 ML PLAST..BAG 44.82 MG IV (20:35)
[2022-08-08 21:08] LABS: Glucose, Whole Blood 354 mg/dL (60-115)
[2022-08-08] MEDS: Insulin Regular/NS 100 UNIT/100 ML PLAST..BAG IVCONT (21:10)
[2022-08-08 22:01] LABS: Glucose, Whole Blood 363 mg/dL (60-115)
[2022-08-08 23:05] LABS: Glucose, Whole Blood 353 mg/dL (60-115)
[2022-08-09] VITALS (40 sets, daily range): BP systolic 111–141; BP diastolic 43–68; PULSE 101–145; RESP 14–18; TEMP 35–37.3; O2SAT 94–98
[2022-08-09 00:04] LABS: Glucose, Whole Blood 340 mg/dL (60-115)
[2022-08-09] MEDS: Heparin Sodium,Porcine 5,000 UNIT/ML VIAL 5000 UNIT SUBCUT ×2 (00:15→22:47)
[2022-08-09 01:14] LABS: Glucose, Whole Blood 315 mg/dL (60-115)
[2022-08-09 01:29] LABS: Anion Gap 22 (12-20); Blood Urea Nitrogen 89 mg/dL (9-16); Calcium 7.1 mg/dL (8.4-10.2); Carbon Dioxide 26 mmol/L (22-29); Chloride 93 mmol/L (96-108); Creatinine Clr Calc Pharmacy 18.5; Estimated Glomerular Filt Rate 19; Glucose Random 326 mg/dL (60-115); Magnesium 3.2 mg/dL (1.6-2.6); Phosphorus 4.3 mg/dL (2.7-4.5); Potassium 3.2 mmol/L (3.3-5.1); Sodium 138 mmol/L (135-145)
[2022-08-09 02:07] LABS: Glucose, Whole Blood 265 mg/dL (60-115)
[2022-08-09] MEDS: Potassium Chloride/H20 40 MEQ/100 ML PIGGYBACK 50 MEQ IV (02:08)
[2022-08-09] MEDS: propofoL 1,000 MG/100 ML VIAL 16.87 MG IVCONT (03:10)
[2022-08-09] MEDS: Piperacillin Sodium/Tazobactam 3.375 GM in 0.9 % Sodium Chloride 50 ML IV ×2 (03:13→08:09)
[2022-08-09] MEDS: Amiodarone HCL 900 MG in 0.9 % Sodium Chloride 500 ML 17.27 MG IVCONT (03:14)
[2022-08-09 03:15] LABS: Glucose, Whole Blood 224 mg/dL (60-115)
[2022-08-09] MEDS: Norepinephrine Bitartrate/D5W 8 MG/250 ML PLAST..BAG 23.73 MG IV (03:15)
[2022-08-09 04:10] LABS: Glucose, Whole Blood 197 mg/dL (60-115)
[2022-08-09] MEDS: Dextrose 5 % and Lactated Ring 1,000 ML 100 ML IVCONT (04:14)
[2022-08-09 05:16] LABS: Glucose, Whole Blood 180 mg/dL (60-115)
[2022-08-09 05:20] LABS: VBG Base Excess 12.4 mmol/L; VBG HCO3 35 mmol/L (22-26); VBG pCO2 37 mmHg; VBG pH 7.58 (7.32-7.43); VBG pO2 43 mmHg
[2022-08-09] MEDS: Pantoprazole Sodium 40 MG/10 ML VIAL IVPUSH ×2 (06:14→22:08)
[2022-08-09 06:21] LABS: Glucose, Whole Blood 187 mg/dL (60-115)
[2022-08-09 06:23] LABS: Venous Blood Gas Refer to POC result
[2022-08-09 06:27] LABS: Albumin Level 2.9 g/dL (3.5-5.0); Anion Gap 21 (12-20); Blood Urea Nitrogen 89 mg/dL (9-16); Carbon Dioxide 28 mmol/L (22-29); Chloride 94 mmol/L (96-108); Creatinine Clr Calc Pharmacy 18.1; Estimated Glomerular Filt Rate 19; Glucose Random 192 mg/dL (60-115); Magnesium 3.1 mg/dL (1.6-2.6); Phosphorus 3.7 mg/dL (2.7-4.5); Potassium 3.7 mmol/L (3.3-5.1); Sodium 139 mmol/L (135-145)
[2022-08-09 06:29] LABS: Vancomycin Random 27.9 mcg/mL (15-20)
[2022-08-09 06:37] LABS: Basophils Absolute Auto 0.1 X10*3/uL (0.0-0.2); Basophils Percent Auto 0.4 % (0-2); Eosinophils Percent Auto 0.1 % (0-4); Hematocrit 23.7 % (42.0-52.0); Hemoglobin 8.4 g/dl (14.0-18.0); Imm Gran Abs Auto 0.12 X10*3/uL (0.00-0.03); Imm Gran Pct Auto 0.8 % (0.0-0.4); Lymphocytes Absolute Auto 0.5 X10*3/uL (1.2-4.9); Lymphocytes Percent Auto 3.3 % (20-40); MANUAL DIFF FLAG SCAN; Mean Corpuscular HGB Conc 35.4 g/dl (31.0-36.0); Mean Corpuscular Hemoglobin 28.3 pg (27.0-33.0); Mean Corpuscular Volume 79.8 fL (80.0-98.0); Mean Platelet Volume 12.8 fL (9.4-12.4); Monocytes Absolute Auto 0.4 X10*3/uL (0.1-1.2); Monocytes Percent Auto 2.8 % (2-11); NRBC Pct Auto 0.4 /100WBC (0.0-0.2); Neutrophils Absolute Auto 13.1 x10*3/uL (2.0-8.3); Neutrophils Percent Auto 92.6 % (45-73); Platelet Count 198 X10*3/uL (160-400); Red Blood Count 2.97 X10*6/uL (4.60-5.80); Red Cell Distribution Width 14.8 % (11.0-16.0); SCAN SMEAR FLAG 1; White Blood Count 14.1 X10*3/uL (4.8-10.8)
[2022-08-09] MEDS: Albumin Human 25 % 100 ML IV ×3 (07:34→20:16)
[2022-08-09] MEDS: Midazolam HCl/PF 2 MG/2 ML VIAL 4 MG IVPUSH ×2 (07:42→10:11)
[2022-08-09 07:44] LABS: SLIDE REVIEW VERIFIED
[2022-08-09] MEDS: Chlorhexidine Gluc Oral Rinse 15 ML MOUTHWASH BUCCAL ×3 (08:09→22:07)
[2022-08-09 08:18] LABS: Glucose, Whole Blood 157 mg/dL (60-115)
[2022-08-09] MEDS: propofoL 1,000 MG/100 ML VIAL 12.66 MG IVCONT ×3 (08:35→22:06)
[2022-08-09 09:23] LABS: Glucose, Whole Blood 122 mg/dL (60-115)
[2022-08-09] MEDS: Insulin Glargine,Hum.rec.anlog 100 UNIT/ML 10 ML VIAL 40 UNIT SUBCUT (09:36)
--- NOTE | 2022-08-09 10:01 | PM.CCPN ---
Subjective Subjective Date of Service: 08/09/22 Interval History: 72-year-old gentleman with underlying history of asthma diabetes mellitus, hypertension, prostate cancer, renal cancer status post cryotherapy, admitted on 08/06/2022 with dyspnea, deemed to be secondary to a lower lobe pneumonia. Patient treated with azithromycin ceftriaxone. Patient also noted to have profound metabolic acidosis of unclear etiology. Overnight 08/07-08/08 patient with PA cardiac arrest with approximately 20 minutes of coding time before obtaining returned spontaneous circulation, intubated during the CPR and transferred to intensive care unit. In intensive care unit with some improvement in metabolic acidosis, though with hyperglycemia. Started on insulin drip with resolution of acidosis. Patient also with development of intermittent seizure activity requiring p.r.n. Versed now started on Keppra. No events overnight. Critical Care Time (minutes): 45 Physical Exam Vital Signs: Vital Signs: Last Vital Signs Temp 98.4 F 08/09/22 09:00 Pulse 117 H 08/09/22 09:00 Resp 18 08/09/22 09:00 BP 114/59 L 08/09/22 09:00 Pulse Ox 95 08/09/22 09:00 O2 Del Method Mechanical Ventil ation 08/09/22 09:00 O2 Flow Rate 6 08/08/22 00:13 FiO2 30 08/09/22 09:00 BMI result Body Mass Index 24.7 Const: General: no acute distress and other ( Sedated on the vent) Eyes: Sclerae: sclerae normal Pupils: Equal, round and reactive pupils present Neck: Neck: Yes no lymphadenopathy, Yes trachea midline and Yes supple Resp: Auscultation: clear to auscultation bilaterally Cardio: Rate: tachycardic Rhythm: abnormal rhythm irregularly irregular Heart sounds: no gallops, no murmurs and no rubs GI: Palpation (GI): Soft to palpation and Other GI palpation findings present ( Nontender) Auscultation: normal bowel sounds Neuro: Cranial nerves: Yes Equal, round and reactive pupils present Extrem: General: Yes no pedal edema, No clubbing and No cyanosis Objective Data Labs 08/09/22 05:11 08/09/22 05:11 Labs: Laboratory Results - last 24 hr 08/08/22 08/08/22 08/08/22 11:30 11:45 11:48 WBC 17.9 H RBC 2.87 L Hgb 8.0 L Hct 24.3 L MCV 84.7 MCH 27.9 MCHC 32.9 RDW 15.9 Plt Count 238 MPV 11.9 Immature Gran % (Auto) 0.5 H Neut % (Auto) 92.8 H Lymph % (Auto) 2.8 L [place] % (Auto) 2.1 Eos % (Auto) 1.5 Baso % (Auto) 0.3 Lymph # (Auto) 0.5 L [place] # (Auto) 0.4 Eos # (Auto) 0.3 Baso # (Auto) 0.1 Abs Immat Gran (auto) 0.09 H Absolute Neuts (auto) 16.6 H Absolute Nucleated RBC 0.080 H Nucleated RBC % (auto) 0.4 H Smear Tech's Comments VERIFIED VBG pH 7.31 L VBG pCO2 24 VBG pO2 53 VBG HCO3 12 L VBG O2 Saturation 77.0 VBG Base Excess -11.9 Sodium Potassium Chloride Carbon Dioxide Anion Gap BUN Creatinine Estim Creat Clear Calc Estimated GFR POC Glucose 415 H* Random Glucose Lactic Acid Calcium Phosphorus Magnesium Total Bilirubin AST ALT Alkaline Phosphatase Total Protein Albumin Random Vancomycin Salicylates Acetaminophen 08/08/22 08/08/22 08/08/22 11:48 11:48 14:28 WBC RBC Hgb Hct MCV MCH MCHC RDW Plt Count MPV Immature Gran % (Auto) Neut % (Auto) Lymph % (Auto) [place] % (Auto) Eos % (Auto) Baso % (Auto) Lymph # (Auto) [place] # (Auto) Eos # (Auto) Baso # (Auto) Abs Immat Gran (auto) Absolute Neuts (auto) Absolute Nucleated RBC Nucleated RBC % (auto) Smear Tech's Comments VBG pH VBG pCO2 VBG pO2 VBG HCO3 VBG O2 Saturation VBG Base Excess Sodium 138 Potassium 3.7 Chloride 97 Carbon Dioxide 11 L Anion Gap 34 H BUN 88 H Creatinine 2.65 H Estim Creat Clear Calc 22.4 Estimated GFR 24 POC Glucose Random Glucose 444 H* Lactic Acid 1.1 Calcium 7.6 L Phosphorus Magnesium Total Bilirubin 1.0 AST 539 H ALT 285 H Alkaline Phosphatase 68 Total Protein 5.3 L Albumin 3.3 L Random Vancomycin Salicylates < 5.0 L Acetaminophen < 17 08/08/22 08/08/22 08/08/22 15:18 16:02 17:55 WBC RBC Hgb Hct MCV MCH MCHC RDW Plt Count MPV Immature Gran % (Auto) Neut % (Auto) Lymph % (Auto) [place] % (Auto) Eos % (Auto) Baso % (Auto) Lymph # (Auto) [place] # (Auto) Eos # (Auto) Baso # (Auto) Abs Immat Gran (auto) Absolute Neuts (auto) Absolute Nucleated RBC Nucleated RBC % (auto) Smear Tech's Comments VBG pH VBG pCO2 VBG pO2 VBG HCO3 VBG O2 Saturation VBG Base Excess Sodium Potassium Chloride Carbon Dioxide Anion Gap BUN Creatinine Estim Creat Clear Calc Estimated GFR POC Glucose 385 H* 361 H* Random Glucose Lactic Acid Calcium Phosphorus Magnesium Total Bilirubin AST ALT Alkaline Phosphatase Total Protein Albumin Random Vancomycin 31.7 H* Salicylates Acetaminophen 08/08/22 08/08/22 08/08/22 21:05 21:58 23:01 WBC RBC Hgb Hct MCV MCH MCHC RDW Plt Count MPV Immature Gran % (Auto) Neut % (Auto) Lymph % (Auto) [place] % (Auto) Eos % (Auto) Baso % (Auto) Lymph # (Auto) [place] # (Auto) Eos # (Auto) Baso # (Auto) Abs Immat Gran (auto) Absolute Neuts (auto) Absolute Nucleated RBC Nucleated RBC % (auto) Smear Tech's Comments VBG pH VBG pCO2 VBG pO2 VBG HCO3 VBG O2 Saturation VBG Base Excess Sodium Potassium Chloride Carbon Dioxide Anion Gap BUN Creatinine Estim Creat Clear Calc Estimated GFR POC Glucose 354 H* 363 H* 353 H* Random Glucose Lactic Acid Calcium Phosphorus Magnesium Total Bilirubin AST ALT Alkaline Phosphatase Total Protein Albumin Random Vancomycin Salicylates Acetaminophen 08/09/22 08/09/22 08/09/22 00:01 00:47 01:10 WBC RBC Hgb Hct MCV MCH MCHC RDW Plt Count MPV Immature Gran % (Auto) Neut % (Auto) Lymph % (Auto) [place] % (Auto) Eos % (Auto) Baso % (Auto) Lymph # (Auto) [place] # (Auto) Eos # (Auto) Baso # (Auto) Abs Immat Gran (auto) Absolute Neuts (auto) Absolute Nucleated RBC Nucleated RBC % (auto) Smear Tech's Comments VBG pH VBG pCO2 VBG pO2 VBG HCO3 VBG O2 Saturation VBG Base Excess Sodium 138 Potassium 3.2 L Chloride 93 L Carbon Dioxide 26 Anion Gap 22 H BUN 89 H Creatinine 3.20 H Estim Creat Clear Calc 18.5 Estimated GFR 19 POC Glucose 340 H 315 H Random Glucose 326 H Lactic Acid Calcium 7.1 L D Phosphorus 4.3 Magnesium 3.2 H Total Bilirubin AST ALT Alkaline Phosphatase Total Protein Albumin Random Vancomycin Salicylates Acetaminophen 08/09/22 08/09/22 08/09/22 02:03 03:11 04:04 WBC RBC Hgb Hct MCV MCH MCHC RDW Plt Count MPV Immature Gran % (Auto) Neut % (Auto) Lymph % (Auto) [place] % (Auto) Eos % (Auto) Baso % (Auto) Lymph # (Auto) [place] # (Auto) Eos # (Auto) Baso # (Auto) Abs Immat Gran (auto) Absolute Neuts (auto) Absolute Nucleated RBC Nucleated RBC % (auto) Smear Tech's Comments VBG pH VBG pCO2 VBG pO2 VBG HCO3 VBG O2 Saturation VBG Base Excess Sodium Potassium Chloride Carbon Dioxide Anion Gap BUN Creatinine Estim Creat Clear Calc Estimated GFR POC Glucose 265 H 224 H 197 H Random Glucose Lactic Acid Calcium Phosphorus Magnesium Total Bilirubin AST ALT Alkaline Phosphatase Total Protein Albumin Random Vancomycin Salicylates Acetaminophen 08/09/22 08/09/22 08/09/22 05:09 05:10 05:11 WBC RBC Hgb Hct MCV MCH MCHC RDW Plt Count MPV Immature Gran % (Auto) Neut % (Auto) Lymph % (Auto) [place] % (Auto) Eos % (Auto) Baso % (Auto) Lymph # (Auto) [place] # (Auto) Eos # (Auto) Baso # (Auto) Abs Immat Gran (auto) Absolute Neuts (auto) Absolute Nucleated RBC Nucleated RBC % (auto) Smear Tech's Comments VBG pH 7.58 H VBG pCO2 37 VBG pO2 43 VBG HCO3 35 H VBG O2 Saturation 73.0 VBG Base Excess 12.4 Sodium Potassium Chloride Carbon Dioxide Anion Gap BUN Creatinine Estim Creat Clear Calc Estimated GFR POC Glucose 180 H Random Glucose Lactic Acid Calcium Phosphorus Magnesium Total Bilirubin AST ALT Alkaline Phosphatase Total Protein Albumin Random Vancomycin 27.9 H* Salicylates Acetaminophen 08/09/22 08/09/22 08/09/22 05:11 05:11 06:12 WBC 14.1 H RBC 2.97 L Hgb 8.4 L Hct 23.7 L MCV 79.8 L MCH 28.3 MCHC 35.4 RDW 14.8 Plt Count 198 MPV 12.8 H Immature Gran % (Auto) 0.8 H Neut % (Auto) 92.6 H Lymph % (Auto) 3.3 L [place] % (Auto) 2.8 Eos % (Auto) 0.1 Baso % (Auto) 0.4 Lymph # (Auto) 0.5 L [place] # (Auto) 0.4 Eos # (Auto) 0.0 Baso # (Auto) 0.1 Abs Immat Gran (auto) 0.12 H Absolute Neuts (auto) 13.1 H Absolute Nucleated RBC 0.050 H Nucleated RBC % (auto) 0.4 H Smear Tech's Comments VERIFIED VBG pH VBG pCO2 VBG pO2 VBG HCO3 VBG O2 Saturation VBG Base Excess Sodium 139 Potassium 3.7 Chloride 94 L Carbon Dioxide 28 Anion Gap 21 H BUN 89 H Creatinine 3.28 H Estim Creat Clear Calc 18.1 Estimated GFR 19 POC Glucose 187 H Random Glucose 192 H Lactic Acid Calcium 7.0 L Phosphorus 3.7 Magnesium 3.1 H Total Bilirubin AST ALT Alkaline Phosphatase Total Protein Albumin 2.9 L Random Vancomycin Salicylates Acetaminophen 08/09/22 08/09/22 08:15 09:20 WBC RBC Hgb Hct MCV MCH MCHC RDW Plt Count MPV Immature Gran % (Auto) Neut % (Auto) Lymph % (Auto) [place] % (Auto) Eos % (Auto) Baso % (Auto) Lymph # (Auto) [place] # (Auto) Eos # (Auto) Baso # (Auto) Abs Immat Gran (auto) Absolute Neuts (auto) Absolute Nucleated RBC Nucleated RBC % (auto) Smear Tech's Comments VBG pH VBG pCO2 VBG pO2 VBG HCO3 VBG O2 Saturation VBG Base Excess Sodium Potassium Chloride Carbon Dioxide Anion Gap BUN Creatinine Estim Creat Clear Calc Estimated GFR POC Glucose 157 H 122 H Random Glucose Lactic Acid Calcium Phosphorus Magnesium Total Bilirubin AST ALT Alkaline Phosphatase Total Protein Albumin Random Vancomycin Salicylates Acetaminophen Microbiology Microbiology Results: Microbiology 08/08/22 04:29 Blood - Venous Blood Culture - Preliminary No growth after 24 hours. 08/08/22 04:29 Blood - Venous Blood Culture - Preliminary No growth after 24 hours. 08/06/22 19:00 Blood - Venous Blood Culture - Preliminary No growth after 48 hours. 08/06/22 18:30 Blood - Venous Blood Culture - Preliminary No growth after 48 hours. Progress Note: A&P Assessment and plan (1) Atrial fibrillation with RVR: Status: Acute (2) Cardiopulmonary arrest: Status: Acute (3) Acute respiratory failure: Status: Acute (4) SOY (acute kidney injury): Status: Acute (5) Diabetic ketoacidosis: Status: Acute (6) COPD (chronic obstructive pulmonary disease): Status: Acute Plan Assessment: 72-year-old gentleman admitted with dyspnea deemed to be secondary to pneumonia also with metabolic acidosis status post PEA cardiac arrest, 20 minutes to ROSC, intubated during the CPR and transferred to intensive care unit. Plan: Neuro: With development of seizure activity, initially on p.r.n. Versed, now also loaded with Keppra. Poor arousal with sedation vacation. Cardiac: Apical akinesis, EF of approximately 40% on bedside echo. Full echo is pending. Cardiology service care appreciated. AFib with RVR, improved on amiodarone. Continue amiodarone drip. Unable to anticoagulated secondary to acute anemia. Pulmonary: Acute respiratory failure with aspiration either prior or during the CPR, intubated during the CPR. Improving. Continue to titrate off ventilatory support as tolerated. Renal: acute renal failure secondary to cardiopulmonary arrest /ATN. metabolic acidosis resolved. Non oliguric. Continue to monitor renal indices and urine output. Endo: Diabetic ketoacidosis resolved. Transitioned to SC insulin. GI: Likely minor upper GI bleed. Continue IV PPI. ID: Empirically covered with broad-spectrum antibiotics. Heme/Onc: Acute blood loss anemia, likely secondary to GI bleed on the background of cardiac arrest. Hemoglobin stabilized. Continue to monitor hemoglobin level. Psych: No acute issues. Miscellaneous: No acute issues. Prophylaxis: Intermittent pneumatic compression, ppi Diet: nothing by mouth Critical care time spent: 45 minutes Quality Stroke Does the patient have a stroke diagnosis?: No VTE Prior VTE?: No VTE Risk Level:: Medical - moderate - high VTE Device Contraindication: Treatment Not Indicated VTE Drug Contraindication: N/A - Med Ordered
[2022-08-09] MEDS: levETIRAcetam in NaCl (iso-os) 1,000 MG/100 ML PIGGYBACK 400 MG IV ×2 (10:20→22:15)
--- NOTE | 2022-08-09 11:06 | PM.PNCARD ---
Subjective Subjective Date of Service: 08/09/22 Interval history: Seen examined at bedside. Detailed discussion with daughter done. It appears he is off propofol and Levophed currently. He had seizure-like activity and required Versed with improvement. Continues to be in AFib with better rate control. On amiodarone. Physical Exam Vital Signs: Last Vital Signs Temp 98.1 F 08/09/22 10:00 Pulse 101 H 08/09/22 10:00 Resp 18 08/09/22 10:00 BP 128/60 08/09/22 10:00 Pulse Ox 95 08/09/22 10:00 O2 Del Method Mechanical Ventilation 08/09/22 10:00 O2 Flow Rate 6 08/08/22 00:13 FiO2 40 08/09/22 10:00 BMI result Body Mass Index 24.7 GENERAL APPEARANCE: Intubated. on amiodarone GTT. NECK: no jugular venous distention. SKIN: no suspicious lesions, warm and dry. HEART: no murmurs, irregular rate and rhythm. LUNGS: clear to auscultation bilaterally. ABDOMEN: soft, nontender. EXTREMITIES: no edema. PERIPHERAL PULSES: equal. Objective Labs and Meds 08/09/22 05:11 08/09/22 05:11 Lab results: Laboratory Results - last 24 hr 08/08/22 08/08/22 08/08/22 11:30 11:45 11:48 WBC 17.9 H RBC 2.87 L Hgb 8.0 L Hct 24.3 L MCV 84.7 MCH 27.9 MCHC 32.9 RDW 15.9 Plt Count 238 MPV 11.9 Immature Gran % (Auto) 0.5 H Neut % (Auto) 92.8 H Lymph % (Auto) 2.8 L [place] % (Auto) 2.1 Eos % (Auto) 1.5 Baso % (Auto) 0.3 Lymph # (Auto) 0.5 L [place] # (Auto) 0.4 Eos # (Auto) 0.3 Baso # (Auto) 0.1 Abs Immat Gran (auto) 0.09 H Absolute Neuts (auto) 16.6 H Absolute Nucleated RBC 0.080 H Nucleated RBC % (auto) 0.4 H Smear Tech's Comments VERIFIED VBG pH 7.31 L VBG pCO2 24 VBG pO2 53 VBG HCO3 12 L VBG O2 Saturation 77.0 VBG Base Excess -11.9 Sodium Potassium Chloride Carbon Dioxide Anion Gap BUN Creatinine Estim Creat Clear Calc Estimated GFR POC Glucose 415 H* Random Glucose Lactic Acid Calcium Phosphorus Magnesium Total Bilirubin AST ALT Alkaline Phosphatase Total Protein Albumin Random Vancomycin Salicylates Acetaminophen 08/08/22 08/08/22 08/08/22 11:48 11:48 14:28 WBC RBC Hgb Hct MCV MCH MCHC RDW Plt Count MPV Immature Gran % (Auto) Neut % (Auto) Lymph % (Auto) [place] % (Auto) Eos % (Auto) Baso % (Auto) Lymph # (Auto) [place] # (Auto) Eos # (Auto) Baso # (Auto) Abs Immat Gran (auto) Absolute Neuts (auto) Absolute Nucleated RBC Nucleated RBC % (auto) Smear Tech's Comments VBG pH VBG pCO2 VBG pO2 VBG HCO3 VBG O2 Saturation VBG Base Excess Sodium 138 Potassium 3.7 Chloride 97 Carbon Dioxide 11 L Anion Gap 34 H BUN 88 H Creatinine 2.65 H Estim Creat Clear Calc 22.4 Estimated GFR 24 POC Glucose Random Glucose 444 H* Lactic Acid 1.1 Calcium 7.6 L Phosphorus Magnesium Total Bilirubin 1.0 AST 539 H ALT 285 H Alkaline Phosphatase 68 Total Protein 5.3 L Albumin 3.3 L Random Vancomycin Salicylates < 5.0 L Acetaminophen < 17 08/08/22 08/08/22 08/08/22 15:18 16:02 17:55 WBC RBC Hgb Hct MCV MCH MCHC RDW Plt Count MPV Immature Gran % (Auto) Neut % (Auto) Lymph % (Auto) [place] % (Auto) Eos % (Auto) Baso % (Auto) Lymph # (Auto) [place] # (Auto) Eos # (Auto) Baso # (Auto) Abs Immat Gran (auto) Absolute Neuts (auto) Absolute Nucleated RBC Nucleated RBC % (auto) Smear Tech's Comments VBG pH VBG pCO2 VBG pO2 VBG HCO3 VBG O2 Saturation VBG Base Excess Sodium Potassium Chloride Carbon Dioxide Anion Gap BUN Creatinine Estim Creat Clear Calc Estimated GFR POC Glucose 385 H* 361 H* Random Glucose Lactic Acid Calcium Phosphorus Magnesium Total Bilirubin AST ALT Alkaline Phosphatase Total Protein Albumin Random Vancomycin 31.7 H* Salicylates Acetaminophen 08/08/22 08/08/22 08/08/22 21:05 21:58 23:01 WBC RBC Hgb Hct MCV MCH MCHC RDW Plt Count MPV Immature Gran % (Auto) Neut % (Auto) Lymph % (Auto) [place] % (Auto) Eos % (Auto) Baso % (Auto) Lymph # (Auto) [place] # (Auto) Eos # (Auto) Baso # (Auto) Abs Immat Gran (auto) Absolute Neuts (auto) Absolute Nucleated RBC Nucleated RBC % (auto) Smear Tech's Comments VBG pH VBG pCO2 VBG pO2 VBG HCO3 VBG O2 Saturation VBG Base Excess Sodium Potassium Chloride Carbon Dioxide Anion Gap BUN Creatinine Estim Creat Clear Calc Estimated GFR POC Glucose 354 H* 363 H* 353 H* Random Glucose Lactic Acid Calcium Phosphorus Magnesium Total Bilirubin AST ALT Alkaline Phosphatase Total Protein Albumin Random Vancomycin Salicylates Acetaminophen 08/09/22 08/09/22 08/09/22 00:01 00:47 01:10 WBC RBC Hgb Hct MCV MCH MCHC RDW Plt Count MPV Immature Gran % (Auto) Neut % (Auto) Lymph % (Auto) [place] % (Auto) Eos % (Auto) Baso % (Auto) Lymph # (Auto) [place] # (Auto) Eos # (Auto) Baso # (Auto) Abs Immat Gran (auto) Absolute Neuts (auto) Absolute Nucleated RBC Nucleated RBC % (auto) Smear Tech's Comments VBG pH VBG pCO2 VBG pO2 VBG HCO3 VBG O2 Saturation VBG Base Excess Sodium 138 Potassium 3.2 L Chloride 93 L Carbon Dioxide 26 Anion Gap 22 H BUN 89 H Creatinine 3.20 H Estim Creat Clear Calc 18.5 Estimated GFR 19 POC Glucose 340 H 315 H Random Glucose 326 H Lactic Acid Calcium 7.1 L D Phosphorus 4.3 Magnesium 3.2 H Total Bilirubin AST ALT Alkaline Phosphatase Total Protein Albumin Random Vancomycin Salicylates Acetaminophen 08/09/22 08/09/22 08/09/22 02:03 03:11 04:04 WBC RBC Hgb Hct MCV MCH MCHC RDW Plt Count MPV Immature Gran % (Auto) Neut % (Auto) Lymph % (Auto) [place] % (Auto) Eos % (Auto) Baso % (Auto) Lymph # (Auto) [place] # (Auto) Eos # (Auto) Baso # (Auto) Abs Immat Gran (auto) Absolute Neuts (auto) Absolute Nucleated RBC Nucleated RBC % (auto) Smear Tech's Comments VBG pH VBG pCO2 VBG pO2 VBG HCO3 VBG O2 Saturation VBG Base Excess Sodium Potassium Chloride Carbon Dioxide Anion Gap BUN Creatinine Estim Creat Clear Calc Estimated GFR POC Glucose 265 H 224 H 197 H Random Glucose Lactic Acid Calcium Phosphorus Magnesium Total Bilirubin AST ALT Alkaline Phosphatase Total Protein Albumin Random Vancomycin Salicylates Acetaminophen 08/09/22 08/09/22 08/09/22 05:09 05:10 05:11 WBC RBC Hgb Hct MCV MCH MCHC RDW Plt Count MPV Immature Gran % (Auto) Neut % (Auto) Lymph % (Auto) [place] % (Auto) Eos % (Auto) Baso % (Auto) Lymph # (Auto) [place] # (Auto) Eos # (Auto) Baso # (Auto) Abs Immat Gran (auto) Absolute Neuts (auto) Absolute Nucleated RBC Nucleated RBC % (auto) Smear Tech's Comments VBG pH 7.58 H VBG pCO2 37 VBG pO2 43 VBG HCO3 35 H VBG O2 Saturation 73.0 VBG Base Excess 12.4 Sodium Potassium Chloride Carbon Dioxide Anion Gap BUN Creatinine Estim Creat Clear Calc Estimated GFR POC Glucose 180 H Random Glucose Lactic Acid Calcium Phosphorus Magnesium Total Bilirubin AST ALT Alkaline Phosphatase Total Protein Albumin Random Vancomycin 27.9 H* Salicylates Acetaminophen 08/09/22 08/09/22 08/09/22 05:11 05:11 06:12 WBC 14.1 H RBC 2.97 L Hgb 8.4 L Hct 23.7 L MCV 79.8 L MCH 28.3 MCHC 35.4 RDW 14.8 Plt Count 198 MPV 12.8 H Immature Gran % (Auto) 0.8 H Neut % (Auto) 92.6 H Lymph % (Auto) 3.3 L [place] % (Auto) 2.8 Eos % (Auto) 0.1 Baso % (Auto) 0.4 Lymph # (Auto) 0.5 L [place] # (Auto) 0.4 Eos # (Auto) 0.0 Baso # (Auto) 0.1 Abs Immat Gran (auto) 0.12 H Absolute Neuts (auto) 13.1 H Absolute Nucleated RBC 0.050 H Nucleated RBC % (auto) 0.4 H Smear Tech's Comments VERIFIED VBG pH VBG pCO2 VBG pO2 VBG HCO3 VBG O2 Saturation VBG Base Excess Sodium 139 Potassium 3.7 Chloride 94 L Carbon Dioxide 28 Anion Gap 21 H BUN 89 H Creatinine 3.28 H Estim Creat Clear Calc 18.1 Estimated GFR 19 POC Glucose 187 H Random Glucose 192 H Lactic Acid Calcium 7.0 L Phosphorus 3.7 Magnesium 3.1 H Total Bilirubin AST ALT Alkaline Phosphatase Total Protein Albumin 2.9 L Random Vancomycin Salicylates Acetaminophen 08/09/22 08/09/22 08:15 09:20 WBC RBC Hgb Hct MCV MCH MCHC RDW Plt Count MPV Immature Gran % (Auto) Neut % (Auto) Lymph % (Auto) [place] % (Auto) Eos % (Auto) Baso % (Auto) Lymph # (Auto) [place] # (Auto) Eos # (Auto) Baso # (Auto) Abs Immat Gran (auto) Absolute Neuts (auto) Absolute Nucleated RBC Nucleated RBC % (auto) Smear Tech's Comments VBG pH VBG pCO2 VBG pO2 VBG HCO3 VBG O2 Saturation VBG Base Excess Sodium Potassium Chloride Carbon Dioxide Anion Gap BUN Creatinine Estim Creat Clear Calc Estimated GFR POC Glucose 157 H 122 H Random Glucose Lactic Acid Calcium Phosphorus Magnesium Total Bilirubin AST ALT Alkaline Phosphatase Total Protein Albumin Random Vancomycin Salicylates Acetaminophen Progress Note: A&P Assessment and plan (1) Atrial fibrillation with RVR: Status: Acute (2) Cardiopulmonary arrest: Status: Acute Plan 72-year-old gentleman with cardiac arrest and 20 minutes of CPR with return of spontaneous circulation. Echocardiography has shown EF 45-50% with apical akinesis. Has been on AFib with RVR. On amiodarone with improvement in heart rate. Overall hemodynamically improving but the daley question is neurological status and recovery. He is off propofol. He is having some seizure-like activity and requiring med as well and. No change in management currently. Continue amiodarone. Due to GI and blood loss, he is currently not on heparin. Thank you for allowing me to participate in the care of your patient. Please feel free to contact me if you have any questions. Time Spent With Patient Time: Total time managing care of this patient today ____ minutes. Progress Note: Quality Stroke Does the patient have a stroke diagnosis?: No Procedures Date of Service Date of Service: 08/09/22
[2022-08-09 12:14] LABS: Glucose, Whole Blood 130 mg/dL (60-115)
[2022-08-09] MEDS: Piperacillin Sodium/Tazobactam 2.25 GM in 0.9 % Sodium Chloride 50 ML IV ×2 (14:19→22:11)
--- NOTE | 2022-08-09 16:46 | PC.NURSE ---
Assumed care at 0700 - intubated and sedated on Propofol gtt. Positive cough, absent gag and pain response; flaccid, unable to follow commands; RASS -4 - prop gtt titrated per EMAR; pupils 2mm sluggish. Minimal facial tremors with tactile stimuli - Versed 4mg IVP administered with good effect. Failed sedation vacation - worsening facial and extremity tremors - Versed 4mg IVP administered w/ complete resolution of tremors - Keppra 1g IV administered and patient resedated per MD order. Afib 110's - continued on Amio gtt - cardio at bedside. Pressors titrated off, MAPs maintaining >65. Albumin 2.9 - Albumin 25g IV x4 ordered and 2/4 administered this shift. +1 pitting edema bilateral hands and lower extremities. R IJ TLC and #22 PRN angio patent with good blood return. LS dim on left, exp rhonchi right. Scant amount of rust inline secretions - heparin held per MD. #8 ETT, 24cm @ lip, bite block in place - mild tongue swelling noted. Audible cuff leak - RT notified and at bedside. Tolerating AC 18/400/5, fio2 decreased from 40% to 30%, sating > 92%. Continued on Zosyn q6. Abdomen soft, positive bowel sounds, no BM - last BM 6/10, positive flatus. Continued NPO - no output through OGT - continued clamped. Transitioned from Insulin gtt to Lantus 40 & sliding scale, 1200 POC 130; D5LR discontinued. Diggs patent draining pink tinged urine - heparin held. Urine output 10-80cc/hr. No skin integrity concerns, scattered bruising. Patient bathed, repo q2hr, barrier cream applied, air loss pump and prevlon system in place, heel boots in place. Family updated multiple times throughout shift by this RN and MD via phone and at bedside.
[2022-08-09 17:43] LABS: Glucose, Whole Blood 161 mg/dL (60-115)
[2022-08-09] MEDS: Insulin Lispro 100 UNIT/ML 3 ML VIAL SUBCUT (18:20)
[2022-08-09 23:47] LABS: Glucose, Whole Blood 151 mg/dL (60-115)
[2022-08-10] VITALS (30 sets, daily range): BP systolic 120–147; BP diastolic 60–78; PULSE 101–128; RESP 18; TEMP 35–38.7; O2SAT 91–96; BMI 28.1
[2022-08-10] MEDS: Albumin Human 25 % 100 ML IV (02:12)
[2022-08-10] MEDS: Piperacillin Sodium/Tazobactam 2.25 GM in 0.9 % Sodium Chloride 50 ML IV ×4 (03:22→20:12)
[2022-08-10] MEDS: Midazolam HCl/PF 2 MG/2 ML VIAL 4 MG IVPUSH (04:01)
[2022-08-10 05:17] LABS: Basophils Percent Auto 0.1 % (0-2); Hematocrit 21.6 % (42.0-52.0); Hemoglobin 7.4 g/dl (14.0-18.0); Imm Gran Abs Auto 0.14 X10*3/uL (0.00-0.03); Imm Gran Pct Auto 1.7 % (0.0-0.4); Lymphocytes Absolute Auto 0.6 X10*3/uL (1.2-4.9); Lymphocytes Percent Auto 7.2 % (20-40); MANUAL DIFF FLAG SCAN; Mean Corpuscular HGB Conc 34.3 g/dl (31.0-36.0); Mean Corpuscular Hemoglobin 27.6 pg (27.0-33.0); Mean Corpuscular Volume 80.6 fL (80.0-98.0); Mean Platelet Volume 12.7 fL (9.4-12.4); Monocytes Absolute Auto 0.3 X10*3/uL (0.1-1.2); NRBC Pct Auto 0.5 /100WBC (0.0-0.2); Neutrophils Absolute Auto 7.2 x10*3/uL (2.0-8.3); Platelet Count 134 X10*3/uL (160-400); Red Blood Count 2.68 X10*6/uL (4.60-5.80); Red Cell Distribution Width 15.2 % (11.0-16.0); SCAN SMEAR FLAG 1; White Blood Count 8.2 X10*3/uL (4.8-10.8)
[2022-08-10 05:19] LABS: VBG Base Excess 10.2 mmol/L; VBG HCO3 32 mmol/L (22-26); VBG pCO2 35 mmHg; VBG pH 7.57 (7.32-7.43); VBG pO2 45 mmHg
[2022-08-10 05:22] LABS: Venous Blood Gas Refer to POC result
[2022-08-10] MEDS: propofoL 1,000 MG/100 ML VIAL 12.66 MG IVCONT (05:35)
[2022-08-10 05:37] LABS: SLIDE REVIEW VERIFIED
[2022-08-10 05:42] LABS: Alanine Aminotransferase 134 U/L (0-40); Alkaline Phosphatase 115 U/L (39-117); Anion Gap 23 (12-20); Aspartate Amino Transferase 157 U/L (5-37); Bilirubin Total 1.6 mg/dL (0.0-1.0); Blood Urea Nitrogen 94 mg/dL (9-16); Calcium 7.6 mg/dL (8.4-10.2); Carbon Dioxide 25 mmol/L (22-29); Chloride 99 mmol/L (96-108); Creatinine Clr Calc Pharmacy 15.3; Estimated Glomerular Filt Rate 15; Glucose Random 148 mg/dL (60-115); Magnesium 3.2 mg/dL (1.6-2.6); Phosphorus 4.6 mg/dL (2.7-4.5); Potassium 3.9 mmol/L (3.3-5.1); Sodium 143 mmol/L (135-145); Total Protein 5.8 g/dL (6.5-8.0)
[2022-08-10] MEDS: Amiodarone HCL 900 MG in 0.9 % Sodium Chloride 500 ML 17.27 MG IVCONT (07:31)
[2022-08-10] MEDS: Pantoprazole Sodium 40 MG/10 ML VIAL IVPUSH ×2 (07:34→20:13)
[2022-08-10] MEDS: Insulin Glargine,Hum.rec.anlog 100 UNIT/ML 10 ML VIAL 40 UNIT SUBCUT (07:34)
[2022-08-10] MEDS: Chlorhexidine Gluc Oral Rinse 15 ML MOUTHWASH BUCCAL ×3 (07:35→20:12)
[2022-08-10] MEDS: levETIRAcetam in NaCl (iso-os) 1,000 MG/100 ML PIGGYBACK 400 MG IV ×2 (09:46→22:22)
--- NOTE | 2022-08-10 10:21 | PM.CCPN ---
Subjective Subjective Date of Service: 08/10/22 Interval History: 72-year-old gentleman with underlying history of asthma diabetes mellitus, hypertension, prostate cancer, renal cancer status post cryotherapy, admitted on 08/06/2022 with dyspnea, deemed to be secondary to a lower lobe pneumonia. Patient treated with azithromycin ceftriaxone. Patient also noted to have profound metabolic acidosis of unclear etiology. Overnight 08/07-08/08 patient with PA cardiac arrest with approximately 20 minutes of coding time before obtaining returned spontaneous circulation, intubated during the CPR and transferred to intensive care unit. In intensive care unit with some improvement in metabolic acidosis, though with hyperglycemia. Started on insulin drip with resolution of acidosis. Patient also with development of intermittent seizure activity initially requiring p.r.n. Versed, now on Keppra. No events overnight Critical Care Time (minutes): 45 Physical Exam Vital Signs: Vital Signs: Last Vital Signs Temp 99.0 F 08/10/22 10:00 Pulse 121 H 08/10/22 10:00 Resp 18 08/10/22 10:00 BP 138/61 08/10/22 10:00 Pulse Ox 95 08/10/22 10:00 O2 Del Method Mechanical Ventil ation 08/10/22 10:00 O2 Flow Rate 6 08/08/22 00:13 FiO2 30 08/10/22 10:00 BMI result Body Mass Index 28.1 Const: General: no acute distress and other (Sedated on the vent, poor arousal with sedation vacation.) Eyes: Sclerae: sclerae normal Neck: Neck: Yes no lymphadenopathy, Yes trachea midline and Yes supple Resp: Auscultation: clear to auscultation bilaterally Cardio: Rate: tachycardic Rhythm: abnormal rhythm irregularly irregular Heart sounds: no gallops, no murmurs and no rubs GI: Palpation (GI): Soft to palpation and Other GI palpation findings present ( Nontender) Auscultation: normal bowel sounds Extrem: General: No clubbing, No cyanosis and Yes edema (Trace bilateral) Objective Data Labs 08/10/22 05:08 08/10/22 05:08 Labs: Laboratory Results - last 24 hr 08/09/22 08/09/22 08/09/22 12:10 17:39 23:44 WBC RBC Hgb Hct MCV MCH MCHC RDW Plt Count MPV Immature Gran % (Auto) Neut % (Auto) Lymph % (Auto) [place] % (Auto) Eos % (Auto) Baso % (Auto) Lymph # (Auto) [place] # (Auto) Eos # (Auto) Baso # (Auto) Abs Immat Gran (auto) Absolute Neuts (auto) Absolute Nucleated RBC Nucleated RBC % (auto) Smear Tech's Comments VBG pH VBG pCO2 VBG pO2 VBG HCO3 VBG O2 Saturation VBG Base Excess Sodium Potassium Chloride Carbon Dioxide Anion Gap BUN Creatinine Estim Creat Clear Calc Estimated GFR POC Glucose 130 H 161 H 151 H Random Glucose Calcium Phosphorus Magnesium Total Bilirubin AST ALT Alkaline Phosphatase Total Protein Albumin 08/10/22 08/10/22 08/10/22 05:08 05:08 05:10 WBC 8.2 RBC 2.68 L Hgb 7.4 L Hct 21.6 L MCV 80.6 MCH 27.6 MCHC 34.3 RDW 15.2 Plt Count 134 L D MPV 12.7 H Immature Gran % (Auto) 1.7 H Neut % (Auto) 88.0 H Lymph % (Auto) 7.2 L [place] % (Auto) 3.0 Eos % (Auto) 0.0 Baso % (Auto) 0.1 Lymph # (Auto) 0.6 L [place] # (Auto) 0.3 Eos # (Auto) 0.0 Baso # (Auto) 0.0 Abs Immat Gran (auto) 0.14 H Absolute Neuts (auto) 7.2 Absolute Nucleated RBC 0.040 H Nucleated RBC % (auto) 0.5 H Smear Tech's Comments VERIFIED VBG pH 7.57 H VBG pCO2 35 VBG pO2 45 VBG HCO3 32 H VBG O2 Saturation 75.0 VBG Base Excess 10.2 Sodium 143 Potassium 3.9 Chloride 99 Carbon Dioxide 25 Anion Gap 23 H BUN 94 H Creatinine 3.86 H Estim Creat Clear Calc 15.3 Estimated GFR 15 POC Glucose Random Glucose 148 H Calcium 7.6 L D Phosphorus 4.6 H Magnesium 3.2 H Total Bilirubin 1.6 H AST 157 H ALT 134 H Alkaline Phosphatase 115 Total Protein 5.8 L Albumin 4.0 Microbiology Microbiology Results: Microbiology 08/08/22 04:29 Blood - Venous Blood Culture - Preliminary No growth after 48 hours. 08/08/22 04:29 Blood - Venous Blood Culture - Preliminary No growth after 48 hours. 08/06/22 19:00 Blood - Venous Blood Culture - Preliminary No growth after 48 hours. 08/06/22 18:30 Blood - Venous Blood Culture - Preliminary No growth after 48 hours. Progress Note: A&P Assessment and plan (1) Diabetic ketoacidosis: Status: Acute (2) Atrial fibrillation with RVR: Status: Acute (3) SOY (acute kidney injury): Status: Acute (4) Acute respiratory failure: Status: Acute (5) Cardiopulmonary arrest: Status: Acute (6) COPD (chronic obstructive pulmonary disease): Status: Acute (7) Seizures: Status: Acute Plan Assessment: 72-year-old gentleman admitted with dyspnea deemed to be secondary to pneumonia also with metabolic acidosis status post PEA cardiac arrest, 20 minutes to ROSC, intubated during the CPR and transferred to intensive care unit. Plan: Neuro: With development of seizure activity, initially on p.r.n. Versed, now on Keppra. Poor arousal with sedation vacation. Cardiac: 2D echocardiogram with LVEF of 45% Cardiology service care appreciated. AFib with RVR, improved on amiodarone. Continue amiodarone drip. Pulmonary: Acute respiratory failure with aspiration either prior or during the CPR, intubated during the CPR. Improving. Continue to titrate off ventilatory support as tolerated. Renal: acute renal failure secondary to cardiopulmonary arrest /ATN. metabolic acidosis resolved. Non oliguric. Continue to monitor renal indices and urine output. Endo: Diabetic ketoacidosis resolved. Transitioned to SC insulin. GI: Likely minor upper GI bleed. Continue IV PPI. No rebleeding. ID: Empirically covered with broad-spectrum antibiotics. Heme/Onc: Acute blood loss anemia, likely secondary to GI bleed on the background of cardiac arrest. Hemoglobin stabilized. Continue to monitor hemoglobin level. Psych: No acute issues. Miscellaneous: No acute issues. Prophylaxis: Intermittent pneumatic compression, ppi Diet: Tube feeds Critical care time spent: 45 minutes Quality Stroke Does the patient have a stroke diagnosis?: No VTE Prior VTE?: No VTE Risk Level:: Medical - moderate - high VTE Device Contraindication: Treatment Not Indicated VTE Drug Contraindication: N/A - Med Ordered
--- NOTE | 2022-08-10 10:23 | MHC.CM.PN ---
Pt transferred to ICU over the weekend after cardiac arrest: total down time approximately 20 minutes: presently on vent with unknown neurological status. Pt initially planned to return to home w/family support however, this may not occur: CM to follow for finalization of d/c needs
--- NOTE | 2022-08-10 11:49 | MHC.CLN ---
PT IS INTUBATED AND SEDATED DISCUSSED AT ROUNDS WITH MD-CAN START TF PER MD RECOMMEND GLUCERNA AT MAX GOAL RATE 55ML/HR TO PROVIDE 1320KCLAS (1654KCALS WITH SEDATION;24KCALS/KG), 55G PROTEIN, 1126ML FREE WATER FROM FORMULA MONITOR TOLERANCE, RESIDUALS AND LYTES SEE ALSO FULL CLINICAL NUTRITION ASSESSMENT
[2022-08-10 12:10] LABS: Glucose, Whole Blood 110 mg/dL (60-115)
[2022-08-10 14:18] LABS: Acetone 35 mg/dL (NONE DETECTED); Analysis performed on: WHOLE BLOOD; Ethyl Alcohol g/dL (%) NONE DETECTED g/dL(%) (NONE DETECTED); Ethyl Alcohol mg/dL NONE DETECTED (NONE DETECTED); Isopropanol NONE DETECTED (NONE DETECTED)
[2022-08-10] MEDS: propofoL 1,000 MG/100 ML VIAL 4.22 MG IVCONT (16:17)
[2022-08-10 17:55] LABS: Glucose, Whole Blood 84 mg/dL (60-115)
[2022-08-11] VITALS (32 sets, daily range): BP systolic 110–172; BP diastolic 39–91; PULSE 59–118; RESP 14–18; TEMP 35–38.6; O2SAT 89–100; BMI 27.8
[2022-08-11 00:12] LABS: Glucose, Whole Blood 99 mg/dL (60-115)
[2022-08-11] MEDS: Midazolam HCl/PF 2 MG/2 ML VIAL 4 MG IVPUSH (02:28)
--- NOTE | 2022-08-11 02:48 | PC.NURSE ---
Addendum entered by Miguel Amezcua RN 08/11/22 04:11: FIO2 WEANED TO 30%...SAO2 93-94%...Ve 7.4 l/m...TYLENOL 650MG LIQUIED VIA OG-TUBE FOR TEMP 101.5 Original Note: APPROX 02:25....VENT ALARMING HIGH PEAK PRESSURES/DECREASED TV....SUCTIONED MINIMAL SECRETIONS....BAGGED/LAVAGED FOR SMALL AMOUNT THICK WHITE SECRETIONS VIA ETT W/O EFFECT...FOCAL FACIAL TWITHCHING PRESENT...MEDICATED WITH VERSED 4MG IV WITH CESSATION OF FACIAL TWITCHING BUT REMAINED ELEVATED PEAK PRESSURES AND DECREASED SAO2...RT/ICU PA PRESENT....VENT CHANGED TO PCV MODE (RATE 18/IP 28/FIO2 50%/PEEP 5)...IMPROVED SAO2 TO 95-96%...TV 430/Ve 7.8...STAT CXR DONE AND REVIEWED BY PA...OG-TUBE FEEDS HELD AT PRESENT....ETT REMAINS AT 24CM.....
[2022-08-11] MEDS: Piperacillin Sodium/Tazobactam 2.25 GM in 0.9 % Sodium Chloride 50 ML IV ×4 (03:52→21:08)
[2022-08-11] MEDS: Acetaminophen Oral Liquid 650 MG/20.3 ML SOLUTION PO ×2 (04:06→16:39)
[2022-08-11 05:24] LABS: VBG Base Excess 7.9 mmol/L; VBG HCO3 30 mmol/L (22-26); VBG pCO2 35 mmHg; VBG pH 7.54 (7.32-7.43); VBG pO2 47 mmHg
[2022-08-11] MEDS: Albuterol/Iprat 2.5/0.5MG 3 ML AMPUL.NEB INHALE (05:25)
[2022-08-11 05:29] LABS: Venous Blood Gas Refer to POC result
[2022-08-11 05:32] LABS: Hematocrit 23.1 % (42.0-52.0); Hemoglobin 7.6 g/dl (14.0-18.0); Mean Corpuscular HGB Conc 32.9 g/dl (31.0-36.0); Mean Corpuscular Volume 82.2 fL (80.0-98.0); Mean Platelet Volume 11.6 fL (9.4-12.4); NRBC Pct Auto 0.3 /100WBC (0.0-0.2); Platelet Count 161 X10*3/uL (160-400); Red Blood Count 2.81 X10*6/uL (4.60-5.80); Red Cell Distribution Width 15.5 % (11.0-16.0); White Blood Count 11.6 X10*3/uL (4.8-10.8)
[2022-08-11 06:11] LABS: Albumin Level 3.4 g/dL (3.5-5.0); Anion Gap 19 (12-20); Blood Urea Nitrogen 96 mg/dL (9-16); Calcium 7.6 mg/dL (8.4-10.2); Carbon Dioxide 26 mmol/L (22-29); Chloride 105 mmol/L (96-108); Creatinine Clr Calc Pharmacy 17.1; Estimated Glomerular Filt Rate 16; Glucose Random 136 mg/dL (60-115); Magnesium 2.9 mg/dL (1.6-2.6); Phosphorus 4.5 mg/dL (2.7-4.5); Potassium 3.9 mmol/L (3.3-5.1); Sodium 146 mmol/L (135-145)
[2022-08-11 06:14] LABS: Band Neutrophils Percent 2 % (3-5); Lymphocytes Absolute Manual 0.5 X10*3/uL (1.2-4.9); Lymphocytes Percent Manual 4 % (20-40); Metamyelocytes Absolute 0.2 X10*3/uL; Metamyelocytes Percent 2 %; Monocytes Absolute Manual 0.3 X10*3/uL (0.1-1.2); Monocytes Percent Manual 3 % (2-11); Neutrophils Absolute Manual 10.6 X10*3/uL (2.0-8.3); Neutrophils Percent Manual 89 % (45-73); RBC Morphology NOTED
[2022-08-11 06:15] LABS: Hypochromasia 1+ (5-14) /OIF; Ovalocytes 1+ (5-14) /OIF; Platelet Estimate NORMAL (NORMAL); Platelet Morphology Comment NORMAL; Schistocytes 1+ (0-2) /OIF; Target Cells 1+ (5-14) /OIF
[2022-08-11] MEDS: propofoL 1,000 MG/100 ML VIAL 4.22 MG IVCONT ×2 (06:48→16:46)
[2022-08-11] MEDS: Rocuronium Bromide 50 MG/5 ML VIAL 30 MG IVPUSH (06:53)
[2022-08-11] MEDS: Chlorhexidine Gluc Oral Rinse 15 ML MOUTHWASH BUCCAL ×3 (08:27→21:12)
[2022-08-11] MEDS: Insulin Glargine,Hum.rec.anlog 100 UNIT/ML 10 ML VIAL 40 UNIT SUBCUT (08:29)
[2022-08-11] MEDS: Pantoprazole Sodium 40 MG/10 ML VIAL IVPUSH ×2 (08:29→21:12)
[2022-08-11] MEDS: Amiodarone HCL 900 MG in 0.9 % Sodium Chloride 500 ML 17.27 MG IVCONT (08:35)
--- NOTE | 2022-08-11 09:58 | P.PNCA_ITS ---
Subjective Subjective Date of Service: 08/11/22 Principal diagnosis: Cardiac arrest, atrial fibrillation. Interval history: Patient remains intubated and sedated and paralyzed. Converted to sinus rhythm overnight. Blood pressure is elevated. Kidney functions are still abnormal with elevated creatinine consistent with acute renal failure. Patient has hypoxemia with take secretions. No flash pulmonary edema noted. No obvious significant fever. Review of Systems Review of Systems Yes unobtainable due to endotracheal tube and Unobtainable due to mental status Physical Exam Vital Signs: Last Vital Signs Temp 98.1 F 08/11/22 09:00 Pulse 74 08/11/22 09:00 Resp 14 08/11/22 09:00 BP 157/91 H 08/11/22 09:00 Pulse Ox 98 08/11/22 09:00 O2 Del Method Mechanical Ventilation 08/11/22 09:00 O2 Flow Rate 6 08/08/22 00:13 FiO2 40 08/11/22 09:00 BMI result Body Mass Index 27.8 Const General: other (Intubated and sedated) Neck Neck: Yes trachea midline, Yes supple and Yes no JVD Resp Auscultation: no rales and bronchovesicular breath sounds Cardio Jugular venous distension: no JVD Rate: regular rate Rhythm: regular rhythm Heart sounds: S1 normal heart sound present, S2 normal heart sound present, no click, no gallops and no murmurs GI Auscultation: normal bowel sounds Skin General skin exam: ecchymosis Objective Labs and Meds 08/11/22 05:17 08/11/22 05:17 Lab results: Laboratory Results - last 24 hr 08/08/22 08/10/22 08/10/22 14:28 12:07 17:12 WBC RBC Hgb Hct MCV MCH MCHC RDW Plt Count MPV Immature Gran % (Auto) Neut % (Auto) Lymph % (Auto) [place] % (Auto) Eos % (Auto) Baso % (Auto) Lymph # (Auto) [place] # (Auto) Eos # (Auto) Baso # (Auto) Abs Immat Gran (auto) Absolute Neuts (auto) Absolute Nucleated RBC Nucleated RBC % (auto) Neutrophils % (Manual) Band Neutrophils % Lymphocytes % (Manual) Monocytes % (Manual) Metamyelocytes % Abs Neuts (Manual) Lymphocytes # (Manual) Monocytes # (Manual) Metamyelocytes # Platelet Estimate Plt Morphology Comment RBC Morphology Hypochromasia Target Cells Ovalocytes Schistocytes VBG pH VBG pCO2 VBG pO2 VBG HCO3 VBG O2 Saturation VBG Base Excess Sodium Potassium Chloride Carbon Dioxide Anion Gap BUN Creatinine Estim Creat Clear Calc Estimated GFR POC Glucose 110 84 Random Glucose Calcium Phosphorus Magnesium Albumin Volat Analys Perform On WHOLE BLOOD Ethyl Alcohol mg/dL NONE DETECTED Ethyl Alcohol g/dL NONE DETECTED Isopropyl Alc, Quant NONE DETECTED Acetone Level 35 H 08/11/22 08/11/22 08/11/22 00:06 05:15 05:17 WBC RBC Hgb Hct MCV MCH MCHC RDW Plt Count MPV Immature Gran % (Auto) Neut % (Auto) Lymph % (Auto) [place] % (Auto) Eos % (Auto) Baso % (Auto) Lymph # (Auto) [place] # (Auto) Eos # (Auto) Baso # (Auto) Abs Immat Gran (auto) Absolute Neuts (auto) Absolute Nucleated RBC Nucleated RBC % (auto) Neutrophils % (Manual) Band Neutrophils % Lymphocytes % (Manual) Monocytes % (Manual) Metamyelocytes % Abs Neuts (Manual) Lymphocytes # (Manual) Monocytes # (Manual) Metamyelocytes # Platelet Estimate Plt Morphology Comment RBC Morphology Hypochromasia Target Cells Ovalocytes Schistocytes VBG pH 7.54 H VBG pCO2 35 VBG pO2 47 VBG HCO3 30 H VBG O2 Saturation 78.0 VBG Base Excess 7.9 Sodium 146 H Potassium 3.9 Chloride 105 Carbon Dioxide 26 Anion Gap 19 BUN 96 H Creatinine 3.76 H Estim Creat Clear Calc 17.1 Estimated GFR 16 POC Glucose 99 Random Glucose 136 H Calcium 7.6 L Phosphorus 4.5 Magnesium 2.9 H Albumin 3.4 L Volat Analys Perform On Ethyl Alcohol mg/dL Ethyl Alcohol g/dL Isopropyl Alc, Quant Acetone Level 08/11/22 05:17 WBC 11.6 H RBC 2.81 L Hgb 7.6 L Hct 23.1 L MCV 82.2 MCH 27.0 MCHC 32.9 RDW 15.5 Plt Count 161 MPV 11.6 Immature Gran % (Auto) Cancelled Neut % (Auto) Cancelled Lymph % (Auto) Cancelled [place] % (Auto) Cancelled Eos % (Auto) Cancelled Baso % (Auto) Cancelled Lymph # (Auto) Cancelled [place] # (Auto) Cancelled Eos # (Auto) Cancelled Baso # (Auto) Cancelled Abs Immat Gran (auto) Cancelled Absolute Neuts (auto) Cancelled Absolute Nucleated RBC 0.040 H Nucleated RBC % (auto) 0.3 H Neutrophils % (Manual) 89 H Band Neutrophils % 2 L Lymphocytes % (Manual) 4 L Monocytes % (Manual) 3 Metamyelocytes % 2 Abs Neuts (Manual) 10.6 H Lymphocytes # (Manual) 0.5 L Monocytes # (Manual) 0.3 Metamyelocytes # 0.2 Platelet Estimate NORMAL Plt Morphology Comment NORMAL RBC Morphology NOTED Hypochromasia 1+ (5-14) Target Cells 1+ (5-14) Ovalocytes 1+ (5-14) Schistocytes 1+ (0-2) VBG pH VBG pCO2 VBG pO2 VBG HCO3 VBG O2 Saturation VBG Base Excess Sodium Potassium Chloride Carbon Dioxide Anion Gap BUN Creatinine Estim Creat Clear Calc Estimated GFR POC Glucose Random Glucose Calcium Phosphorus Magnesium Albumin Volat Analys Perform On Ethyl Alcohol mg/dL Ethyl Alcohol g/dL Isopropyl Alc, Quant Acetone Level Imaging Radiologist's impression: Impressions Chest X-Ray 08/11/22 02:35 IMPRESSION: * Endotracheal tube terminates 1 cm above the [place]. * Slightly improved aeration of the right lower lung. * Small bilateral pleural effusions and accompanying atelectasis. Progress Note: A&P Assessment and plan (1) Cardiopulmonary arrest: Status: Acute Assessment and Plan: Patient status post cardiac and pulmonary arrest. Has apical akinesis on the echocardiogram. Likely that he could have ischemic cause for his cardiac arrest. This is unclear at this point time. However currently neurologic status is unclear. Once he shows signs of improved neurologic status should undergo ischemic workup. Meanwhile can continue amiodarone to suppress ventricular arrhythmia. Continue supportive care. Overall prognosis is guarded. Please re-consult us once neurologic status has improved (2) Atrial fibrillation with RVR: Status: Acute Assessment and Plan: Atrial fibrillation converted back to sinus rhythm. Most likely due to acute medical illness. Can switch to amiodarone 400 mg b.i.d. for 2 weeks loading. Not on oral anticoagulation due to significant anemia and GI as well as you blood loss. Continue control blood pressure can consider adding hydralazine to his regimen. Will sign of the case at this point time and follow as need be. Thank you for allowing us to partake in his care Time Spent With Patient Time: Total time managing care of this patient today ____ minutes. Progress Note: Quality Stroke Does the patient have a stroke diagnosis?: No Procedures Date of Service Date of Service: 08/11/22
--- NOTE | 2022-08-11 10:04 | PM.CCPN ---
Subjective Subjective Date of Service: 08/11/22 Interval History: 72-year-old gentleman with underlying history of asthma diabetes mellitus, hypertension, prostate cancer, renal cancer status post cryotherapy, admitted on 08/06/2022 with dyspnea, deemed to be secondary to a lower lobe pneumonia. Patient treated with azithromycin ceftriaxone. Patient also noted to have profound metabolic acidosis of unclear etiology. Overnight 08/07-08/08 patient with PA cardiac arrest with approximately 20 minutes of coding time before obtaining returned spontaneous circulation, intubated during the CPR and transferred to intensive care unit. In intensive care unit with some improvement in metabolic acidosis, though with hyperglycemia. Started on insulin drip with resolution of acidosis. Patient also with development of intermittent seizure activity initially requiring p.r.n. Versed, now on Keppra. No events overnight. Poor arousal with sedation vacation. Critical Care Time (minutes): 90 Physical Exam Vital Signs: Vital Signs: Last Vital Signs Temp 98.1 F 08/11/22 09:00 Pulse 74 08/11/22 09:00 Resp 14 08/11/22 09:00 BP 157/91 H 08/11/22 09:00 Pulse Ox 98 08/11/22 09:00 O2 Del Method Mechanical Ventil ation 08/11/22 09:00 O2 Flow Rate 6 08/08/22 00:13 FiO2 40 08/11/22 09:00 BMI result Body Mass Index 27.8 Const: General: no acute distress and other ( sedated on the vent) Eyes: Sclerae: sclerae normal Neck: Neck: Yes no lymphadenopathy, Yes trachea midline and Yes supple Resp: Auscultation: crackles ( diffuse bilateral) Cardio: Rate: regular rate Rhythm: regular rhythm Heart sounds: no gallops, no murmurs and no rubs GI: Palpation (GI): Soft to palpation and Other GI palpation findings present ( Nontender) Auscultation: normal bowel sounds Extrem: General: No clubbing, No cyanosis and Yes edema (1+ bilateral) Objective Data Labs 08/11/22 05:17 08/11/22 05:17 Labs: Laboratory Results - last 24 hr 08/08/22 08/10/22 08/10/22 14:28 12:07 17:12 WBC RBC Hgb Hct MCV MCH MCHC RDW Plt Count MPV Immature Gran % (Auto) Neut % (Auto) Lymph % (Auto) [place] % (Auto) Eos % (Auto) Baso % (Auto) Lymph # (Auto) [place] # (Auto) Eos # (Auto) Baso # (Auto) Abs Immat Gran (auto) Absolute Neuts (auto) Absolute Nucleated RBC Nucleated RBC % (auto) Neutrophils % (Manual) Band Neutrophils % Lymphocytes % (Manual) Monocytes % (Manual) Metamyelocytes % Abs Neuts (Manual) Lymphocytes # (Manual) Monocytes # (Manual) Metamyelocytes # Platelet Estimate Plt Morphology Comment RBC Morphology Hypochromasia Target Cells Ovalocytes Schistocytes VBG pH VBG pCO2 VBG pO2 VBG HCO3 VBG O2 Saturation VBG Base Excess Sodium Potassium Chloride Carbon Dioxide Anion Gap BUN Creatinine Estim Creat Clear Calc Estimated GFR POC Glucose 110 84 Random Glucose Calcium Phosphorus Magnesium Albumin Volat Analys Perform On WHOLE BLOOD Ethyl Alcohol mg/dL NONE DETECTED Ethyl Alcohol g/dL NONE DETECTED Isopropyl Alc, Quant NONE DETECTED Acetone Level 35 H 08/11/22 08/11/22 08/11/22 00:06 05:15 05:17 WBC RBC Hgb Hct MCV MCH MCHC RDW Plt Count MPV Immature Gran % (Auto) Neut % (Auto) Lymph % (Auto) [place] % (Auto) Eos % (Auto) Baso % (Auto) Lymph # (Auto) [place] # (Auto) Eos # (Auto) Baso # (Auto) Abs Immat Gran (auto) Absolute Neuts (auto) Absolute Nucleated RBC Nucleated RBC % (auto) Neutrophils % (Manual) Band Neutrophils % Lymphocytes % (Manual) Monocytes % (Manual) Metamyelocytes % Abs Neuts (Manual) Lymphocytes # (Manual) Monocytes # (Manual) Metamyelocytes # Platelet Estimate Plt Morphology Comment RBC Morphology Hypochromasia Target Cells Ovalocytes Schistocytes VBG pH 7.54 H VBG pCO2 35 VBG pO2 47 VBG HCO3 30 H VBG O2 Saturation 78.0 VBG Base Excess 7.9 Sodium 146 H Potassium 3.9 Chloride 105 Carbon Dioxide 26 Anion Gap 19 BUN 96 H Creatinine 3.76 H Estim Creat Clear Calc 17.1 Estimated GFR 16 POC Glucose 99 Random Glucose 136 H Calcium 7.6 L Phosphorus 4.5 Magnesium 2.9 H Albumin 3.4 L Volat Analys Perform On Ethyl Alcohol mg/dL Ethyl Alcohol g/dL Isopropyl Alc, Quant Acetone Level 08/11/22 05:17 WBC 11.6 H RBC 2.81 L Hgb 7.6 L Hct 23.1 L MCV 82.2 MCH 27.0 MCHC 32.9 RDW 15.5 Plt Count 161 MPV 11.6 Immature Gran % (Auto) Cancelled Neut % (Auto) Cancelled Lymph % (Auto) Cancelled [place] % (Auto) Cancelled Eos % (Auto) Cancelled Baso % (Auto) Cancelled Lymph # (Auto) Cancelled [place] # (Auto) Cancelled Eos # (Auto) Cancelled Baso # (Auto) Cancelled Abs Immat Gran (auto) Cancelled Absolute Neuts (auto) Cancelled Absolute Nucleated RBC 0.040 H Nucleated RBC % (auto) 0.3 H Neutrophils % (Manual) 89 H Band Neutrophils % 2 L Lymphocytes % (Manual) 4 L Monocytes % (Manual) 3 Metamyelocytes % 2 Abs Neuts (Manual) 10.6 H Lymphocytes # (Manual) 0.5 L Monocytes # (Manual) 0.3 Metamyelocytes # 0.2 Platelet Estimate NORMAL Plt Morphology Comment NORMAL RBC Morphology NOTED Hypochromasia 1+ (5-14) Target Cells 1+ (5-14) Ovalocytes 1+ (5-14) Schistocytes 1+ (0-2) VBG pH VBG pCO2 VBG pO2 VBG HCO3 VBG O2 Saturation VBG Base Excess Sodium Potassium Chloride Carbon Dioxide Anion Gap BUN Creatinine Estim Creat Clear Calc Estimated GFR POC Glucose Random Glucose Calcium Phosphorus Magnesium Albumin Volat Analys Perform On Ethyl Alcohol mg/dL Ethyl Alcohol g/dL Isopropyl Alc, Quant Acetone Level Microbiology Microbiology Results: Microbiology 08/08/22 04:29 Blood - Venous Blood Culture - Preliminary No growth after 48 hours. 08/08/22 04:29 Blood - Venous Blood Culture - Preliminary No growth after 48 hours. 08/06/22 19:00 Blood - Venous Blood Culture - Preliminary No growth after 48 hours. 08/06/22 18:30 Blood - Venous Blood Culture - Preliminary No growth after 48 hours. Progress Note: A&P Assessment and plan (1) Seizures: Status: Acute (2) SOY (acute kidney injury): Status: Acute (3) Acute respiratory failure: Status: Acute (4) Cardiopulmonary arrest: Status: Acute (5) COPD (chronic obstructive pulmonary disease): Status: Acute (6) Diabetes mellitus: Status: Acute Plan Assessment: 72-year-old gentleman admitted with dyspnea deemed to be secondary to pneumonia also with metabolic acidosis status post PEA cardiac arrest, 20 minutes to ROSC, intubated during the CPR and transferred to intensive care unit. Plan: Neuro: With development of seizure activity, initially on p.r.n. Versed, now on Keppra. Poor arousal with sedation vacation. Cardiac: 2D echocardiogram with LVEF of 45% Cardiology service care appreciated. AFib with RVR, improved on amiodarone. Continue amiodarone drip. Pulmonary: Acute respiratory failure with aspiration either prior or during the CPR, intubated during the CPR. this a.m. with several hypoxic episodes refractory to ventilatory support requiring manual bagging. ET tube lavaged several times with with clearance of thick mucus plugs. Tube exchange over bougie at attempted, however unable to advanced the tube over the bougie. To placed with glide scope guidance. Patient continued with hypoxic episodes. Bedside bronchoscopy performed with clearance of left-sided mucus plugs with improvement in oxygenation. Renal: acute renal failure secondary to cardiopulmonary arrest /ATN. metabolic acidosis resolved. Non oliguric. Continue to monitor renal indices and urine output. Endo: Diabetic ketoacidosis resolved. Transitioned to SC insulin. GI: Likely minor upper GI bleed. Continue IV PPI. No rebleeding. ID: Empirically covered with broad-spectrum antibiotics. Heme/Onc: Acute blood loss anemia, likely secondary to GI bleed on the background of cardiac arrest. Hemoglobin stabilized. Continue to monitor hemoglobin level. Psych: No acute issues. Miscellaneous: No acute issues. Prophylaxis: Intermittent pneumatic compression, ppi Diet: Tube feeds Critical care time spent: 90 minutes Quality Stroke Does the patient have a stroke diagnosis?: No VTE Prior VTE?: No VTE Risk Level:: Medical - moderate - high VTE Device Contraindication: Treatment Not Indicated VTE Drug Contraindication: N/A - Med Ordered
--- NOTE | 2022-08-11 10:31 | MHC.CLN ---
F/U PT REMAINS INTUBATED AND SEDATED DISCUSSED AT ROUNDS WITH PT RECEIVING GLUCERNA AT MAX GOAL RATE 55ML/HR TO PROVIDE 1320KCALS (1542KCALS WITH SEDATION;22KCALS/KG), 55G PROTEIN, 1126ML FREE WATER FROM FORMULA RECOMMEND ADDING 240ML FREE WATER FLUSHES Q 6 HRS TO PROVIDE 2086ML TOTAL WATER FROM FORMULA AND FLUSHES (30ML/KG) MONITOR TOLERANCE, RESIDUALS AND LYTES
[2022-08-11 11:55] LABS: Glucose, Whole Blood 92 mg/dL (60-115)
[2022-08-11] MEDS: levETIRAcetam in NaCl (iso-os) 1,000 MG/100 ML PIGGYBACK 400 MG IV (11:59)
[2022-08-11 18:41] LABS: Glucose, Whole Blood 90 mg/dL (60-115)
--- NOTE | 2022-08-11 20:48 | PC.NURSE ---
Assumed care at 07:00. Patient was initially having minimal responsiveness, on propofol gtt. Sedation vacation at 1150 per MD with no response to command or eye opening, pupils remained sluggish, PERRL, 2 mm, no cough, no gag improved slightly to weak gag, weak cough. Patient with minimal response to deep pain as a subtle grimace. No seizure activity. breathes over mandated ventilator breaths. Patient with some moving of mouth slightly in reponse to family talking to him, and some minimal eyelid fluttering, otherwise flaccid extremities. Patient was restarted on propofol at 50% original dose at 1440 per MD, as his blood pressure mira to 177/71. 2 episodes of oxygen desaturation today down to 70% spontaneously, first episode resolved with lavage and suction of thick rust colored secretions by RT, and second resolved with patient bronch by MD. Continues on ventilator, AC/PC settings, titrated by RT and MD. #8 ETT was changed out by MD today, tube placed to 21 cm by MD, and patient was bronched for some thick rust colored secretions from left side of lungs. Patient sinus rhythm with prolonged QTc on telemetry. Continues on amiodarone gtt. Patient with 2+ edema to hips. UOP 90-30 cc/hour pale yellow. Patient with two large darkbrown-greenish BMs today. Skin intact, umbilicus appears mildly protruding and purple, abdomen with bruising.
[2022-08-12] VITALS (30 sets, daily range): BP systolic 132–162; BP diastolic 43–66; PULSE 59–88; RESP 14–15; TEMP 34.8–38.4; O2SAT 93–99; BMI 27.4
[2022-08-12 00:28] LABS: Glucose, Whole Blood 52 mg/dL (60-115)
[2022-08-12 00:28] LABS: Glucose, Whole Blood 331 mg/dL (60-115)
[2022-08-12 00:29] LABS: Glucose, Whole Blood 57 mg/dL (60-115)
[2022-08-12] MEDS: levETIRAcetam in NaCl (iso-os) 1,000 MG/100 ML PIGGYBACK 400 MG IV ×3 (00:40→22:16)
[2022-08-12] MEDS: Dextrose 10 % 250 ML 750 ML IV ×2 (00:40→17:49)
[2022-08-12 01:05] LABS: Glucose, Whole Blood 160 mg/dL (60-115)
[2022-08-12] MEDS: propofoL 1,000 MG/100 ML VIAL 4.22 MG IVCONT ×2 (03:23→12:19)
[2022-08-12] MEDS: Piperacillin Sodium/Tazobactam 2.25 GM in 0.9 % Sodium Chloride 50 ML IV ×2 (03:28→08:42)
[2022-08-12 05:21] LABS: VBG Base Excess 7.4 mmol/L; VBG HCO3 31 mmol/L (22-26); VBG pCO2 39 mmHg; VBG pO2 39 mmHg
[2022-08-12 05:28] LABS: Hematocrit 23.9 % (42.0-52.0); Hemoglobin 7.8 g/dl (14.0-18.0); Mean Corpuscular HGB Conc 32.6 g/dl (31.0-36.0); Mean Corpuscular Hemoglobin 27.7 pg (27.0-33.0); Mean Corpuscular Volume 84.8 fL (80.0-98.0); Mean Platelet Volume 11.7 fL (9.4-12.4); Platelet Count 187 X10*3/uL (160-400); Red Blood Count 2.82 X10*6/uL (4.60-5.80); Red Cell Distribution Width 15.8 % (11.0-16.0); White Blood Count 15.7 X10*3/uL (4.8-10.8)
[2022-08-12 05:35] LABS: Glucose, Whole Blood 105 mg/dL (60-115)
[2022-08-12 05:46] LABS: Albumin Level 3.2 g/dL (3.5-5.0); Anion Gap 17 (12-20); Blood Urea Nitrogen 85 mg/dL (9-16); Calcium 8.3 mg/dL (8.4-10.2); Carbon Dioxide 24 mmol/L (22-29); Chloride 110 mmol/L (96-108); Creatinine Clr Calc Pharmacy 20.9; Estimated Glomerular Filt Rate 20; Glucose Random 112 mg/dL (60-115); Magnesium 2.6 mg/dL (1.6-2.6); Potassium 3.6 mmol/L (3.3-5.1); Sodium 147 mmol/L (135-145)
--- NOTE | 2022-08-12 05:47 | PC.NURSE ---
ASSUMED CARE OF PT AT 1900. PT ON AC VENT SETTINGS. NO RESP DIFFICULTIES. PT LIGHTLY SEDATED ON PROPOFOL 50 MCG/KG/MIN AND FENTANYL 200 MCG/HR. PT WOULD OPEN EYES BUT NOT TRACK OR FOLLOW. VITAL SIGNS STABLE. PRESSORS REMAIN OFF. SBP 110'S-120'S. NEW ESOPHAGEAL TEMP PROBE PLACED AND TEMP OF 101.8 NOTED. PROVIDER AWARE AND TYLENOL GIVEN WITH GOOD EFFECT. URINE OUTPUT SLOWED DOWN NIGHT WENT ON AND HAMM IRRIGATED WITH DIFFICULTY. BALLOON DEFLATED AND ATTEMPTED REPOS OF HAMM AND THEN IRRIGATED AGAIN WITH RESISTANCE BUT MOD AMT OF COAGULATED BLOOD RETURNED. THIS WAS VERY UNCOMFORTABLE FOR PT. DR HO CONSULTED AND CAME IN TO SEE PT. DR HO REMOVED THE CATH AND ATTEMTED TO INSERT NEW CATH WITH NO SUCCESS. PROCEDURE WAS STARTED AT 0430. PT RECEIVED ETOMIDATE 50 MGIVP WITH GOOD EFFECT AT THE START OF THE PROCEDURE. PROCEDURE PAUSED AT THIS TIME DR HO LEFT TO GO TO OR FOR A NEW CYSTOSCOPE. AM LABS DRAWN INCLUDING A TYPE AND SCREEN.
[2022-08-12 06:12] LABS: Atypical Lymph Absolute Manual 0.2 x10*3/uL; Atypical Lymphs Percent Manual 1 % (0-6); Band Neutrophils Percent 2 % (3-5); Eosinophils Absolute Manual 0.2 X10*3/uL (0.0-0.4); Eosinophils Percent Manual 1 % (0-4); Lymphocytes Absolute Manual 1.6 X10*3/uL (1.2-4.9); Lymphocytes Percent Manual 10 % (20-40); Monocytes Absolute Manual 0.3 X10*3/uL (0.1-1.2); Monocytes Percent Manual 2 % (2-11); Neutrophils Absolute Manual 13.5 X10*3/uL (2.0-8.3); Neutrophils Percent Manual 84 % (45-73)
[2022-08-12 06:14] LABS: Burr Cells 1+ (0-2) /OIF; Ovalocytes 1+ (5-14) /OIF; Platelet Estimate NORMAL (NORMAL); Platelet Morphology Comment NORMAL; RBC Morphology NOTED; Target Cells 1+ (5-14) /OIF
[2022-08-12 07:20] LABS: Venous Blood Gas Refer to POC result
[2022-08-12] MEDS: Acetaminophen Oral Liquid 650 MG/20.3 ML SOLUTION PO (08:41)
[2022-08-12] MEDS: Insulin Glargine,Hum.rec.anlog 100 UNIT/ML 10 ML VIAL 40 UNIT SUBCUT (08:42)
[2022-08-12] MEDS: Pantoprazole Sodium 40 MG/10 ML VIAL IVPUSH (08:42)
[2022-08-12] MEDS: Chlorhexidine Gluc Oral Rinse 15 ML MOUTHWASH BUCCAL ×3 (08:43→22:16)
[2022-08-12 08:51] LABS: Glucose, Whole Blood 119 mg/dL (60-115)
[2022-08-12] MEDS: Midazolam HCl/PF 2 MG/2 ML VIAL 4 MG IVPUSH (09:11)
--- NOTE | 2022-08-12 10:52 | MHC.CLN ---
F/U PT REMAINS INTUBATED AND SEDATED REVIEWED LABS PT RECEIVING GLUCERNA AT MAX GOAL RATE 55ML/HR WITH 240ML FREE WATER FLUSHES Q 6 HRS PROVIDES 1320KCALS (1431KCALS WITH SEDATION;20KCALS/KG), 55G PROTEIN, 2086ML FREE WATER FROM FORMULA (30ML/KG) RECOMMEND INCREASING TF GLUCERNA TO MAX GOAL RATE 65ML/HR AND 30ML PROSOURCE Q DAY WITH 240ML FWF Q 6 HRS TO PROVIDE 1620KCALS (1731KCALS WITH SEDATION; 25KCALS/KG), 80G TOTAL PROTEIN (1.1G/KG), 2291ML TOTAL WATER FROM FORMULA AND FLUSHES (33ML/KG) MONITOR TOLERANCE, RESIDUALS AND LYTES
--- NOTE | 2022-08-12 10:57 | PM.CCPN ---
Subjective Subjective Date of Service: 08/12/22 Interval History: 72-year-old gentleman with underlying history of asthma diabetes mellitus, hypertension, prostate cancer, renal cancer status post cryotherapy, admitted on 08/06/2022 with dyspnea, deemed to be secondary to a lower lobe pneumonia. Patient treated with azithromycin ceftriaxone. Patient also noted to have profound metabolic acidosis of unclear etiology. Overnight 08/07-08/08 patient with PA cardiac arrest with approximately 20 minutes of coding time before obtaining returned spontaneous circulation, intubated during the CPR and transferred to intensive care unit. In intensive care unit with some improvement in metabolic acidosis, though with hyperglycemia. Started on insulin drip with resolution of acidosis. Patient also with development of intermittent seizure activity initially requiring p.r.n. Versed, now on Keppra. No events overnight. Critical Care Time (minutes): 45 Physical Exam Vital Signs: Vital Signs: Last Vital Signs Temp 99.9 F 08/12/22 10:15 Pulse 59 08/12/22 10:00 Resp 14 08/12/22 10:00 BP 134/54 L 08/12/22 10:00 Pulse Ox 95 08/12/22 10:00 O2 Del Method Mechanical Ventil ation 08/12/22 10:00 O2 Flow Rate 6 08/08/22 00:13 FiO2 30 08/12/22 10:00 BMI result Body Mass Index 27.4 Const: General: no acute distress and other ( sedated on the vent, no arousal with sedation vacation) Eyes: Sclerae: sclerae normal Neck: Neck: Yes no lymphadenopathy, Yes trachea midline and Yes supple Resp: Effort & Inspection: normal respiratory effort and no respiratory distress Auscultation: clear to auscultation bilaterally Cardio: Rate: regular rate Rhythm: regular rhythm Heart sounds: no gallops, no murmurs and no rubs GI: Palpation (GI): Soft to palpation and Other GI palpation findings present ( Nontender) Auscultation: normal bowel sounds Extrem: General: Yes no pedal edema, No clubbing and No cyanosis Objective Data Labs 08/12/22 05:15 08/12/22 05:15 Labs: Laboratory Results - last 24 hr 08/11/22 08/11/22 08/11/22 11:52 18:33 23:57 WBC RBC Hgb Hct MCV MCH MCHC RDW Plt Count MPV Immature Gran % (Auto) Neut % (Auto) Lymph % (Auto) [place] % (Auto) Eos % (Auto) Baso % (Auto) Lymph # (Auto) [place] # (Auto) Eos # (Auto) Baso # (Auto) Abs Immat Gran (auto) Absolute Neuts (auto) Absolute Nucleated RBC Nucleated RBC % (auto) Neutrophils % (Manual) Band Neutrophils % Lymphocytes % (Manual) Atypical Lymphs % (Man) Monocytes % (Manual) Eosinophils % (Manual) Abs Neuts (Manual) Lymphocytes # (Manual) Atyp Lymphs # (Manual) Monocytes # (Manual) Eosinophils # (Manual) Platelet Estimate Plt Morphology Comment RBC Morphology Target Cells Ovalocytes [place] Cells VBG pH VBG pCO2 VBG pO2 VBG HCO3 VBG O2 Saturation VBG Base Excess Sodium Potassium Chloride Carbon Dioxide Anion Gap BUN Creatinine Estim Creat Clear Calc Estimated GFR POC Glucose 92 90 331 H Random Glucose Calcium Phosphorus Magnesium Albumin 08/12/22 08/12/22 08/12/22 00:11 00:18 01:01 WBC RBC Hgb Hct MCV MCH MCHC RDW Plt Count MPV Immature Gran % (Auto) Neut % (Auto) Lymph % (Auto) [place] % (Auto) Eos % (Auto) Baso % (Auto) Lymph # (Auto) [place] # (Auto) Eos # (Auto) Baso # (Auto) Abs Immat Gran (auto) Absolute Neuts (auto) Absolute Nucleated RBC Nucleated RBC % (auto) Neutrophils % (Manual) Band Neutrophils % Lymphocytes % (Manual) Atypical Lymphs % (Man) Monocytes % (Manual) Eosinophils % (Manual) Abs Neuts (Manual) Lymphocytes # (Manual) Atyp Lymphs # (Manual) Monocytes # (Manual) Eosinophils # (Manual) Platelet Estimate Plt Morphology Comment RBC Morphology Target Cells Ovalocytes [place] Cells VBG pH VBG pCO2 VBG pO2 VBG HCO3 VBG O2 Saturation VBG Base Excess Sodium Potassium Chloride Carbon Dioxide Anion Gap BUN Creatinine Estim Creat Clear Calc Estimated GFR POC Glucose 52 L* 57 L* 160 H Random Glucose Calcium Phosphorus Magnesium Albumin 08/12/22 08/12/22 08/12/22 05:12 05:15 05:15 WBC 15.7 H RBC 2.82 L Hgb 7.8 L Hct 23.9 L MCV 84.8 MCH 27.7 MCHC 32.6 RDW 15.8 Plt Count 187 MPV 11.7 Immature Gran % (Auto) Cancelled Neut % (Auto) Cancelled Lymph % (Auto) Cancelled [place] % (Auto) Cancelled Eos % (Auto) Cancelled Baso % (Auto) Cancelled Lymph # (Auto) Cancelled [place] # (Auto) Cancelled Eos # (Auto) Cancelled Baso # (Auto) Cancelled Abs Immat Gran (auto) Cancelled Absolute Neuts (auto) Cancelled Absolute Nucleated RBC 0.000 Nucleated RBC % (auto) 0.0 Neutrophils % (Manual) 84 H Band Neutrophils % 2 L Lymphocytes % (Manual) 10 L Atypical Lymphs % (Man) 1 Monocytes % (Manual) 2 Eosinophils % (Manual) 1 Abs Neuts (Manual) 13.5 H Lymphocytes # (Manual) 1.6 Atyp Lymphs # (Manual) 0.2 Monocytes # (Manual) 0.3 Eosinophils # (Manual) 0.2 Platelet Estimate NORMAL Plt Morphology Comment NORMAL RBC Morphology NOTED Target Cells 1+ (5-14) Ovalocytes 1+ (5-14) Jadon Cells 1+ (0-2) VBG pH 7.50 H VBG pCO2 39 VBG pO2 39 VBG HCO3 31 H VBG O2 Saturation 65.0 VBG Base Excess 7.4 Sodium 147 H Potassium 3.6 Chloride 110 H Carbon Dioxide 24 Anion Gap 17 BUN 85 H Creatinine 3.08 H Estim Creat Clear Calc 20.9 Estimated GFR 20 POC Glucose Random Glucose 112 Calcium 8.3 L D Phosphorus 5.0 H Magnesium 2.6 Albumin 3.2 L 08/12/22 08/12/22 05:30 08:47 WBC RBC Hgb Hct MCV MCH MCHC RDW Plt Count MPV Immature Gran % (Auto) Neut % (Auto) Lymph % (Auto) [place] % (Auto) Eos % (Auto) Baso % (Auto) Lymph # (Auto) [place] # (Auto) Eos # (Auto) Baso # (Auto) Abs Immat Gran (auto) Absolute Neuts (auto) Absolute Nucleated RBC Nucleated RBC % (auto) Neutrophils % (Manual) Band Neutrophils % Lymphocytes % (Manual) Atypical Lymphs % (Man) Monocytes % (Manual) Eosinophils % (Manual) Abs Neuts (Manual) Lymphocytes # (Manual) Atyp Lymphs # (Manual) Monocytes # (Manual) Eosinophils # (Manual) Platelet Estimate Plt Morphology Comment RBC Morphology Target Cells Ovalocytes [place] Cells VBG pH VBG pCO2 VBG pO2 VBG HCO3 VBG O2 Saturation VBG Base Excess Sodium Potassium Chloride Carbon Dioxide Anion Gap BUN Creatinine Estim Creat Clear Calc Estimated GFR POC Glucose 105 119 H Random Glucose Calcium Phosphorus Magnesium Albumin Microbiology Microbiology Results: Microbiology 08/06/22 19:00 Blood - Venous Blood Culture - Final No growth after 5 days. 08/06/22 18:30 Blood - Venous Blood Culture - Final No growth after 5 days. 08/08/22 04:29 Blood - Venous Blood Culture - Preliminary No growth after 48 hours. 08/08/22 04:29 Blood - Venous Blood Culture - Preliminary No growth after 48 hours. Progress Note: A&P Assessment and plan (1) Diabetes mellitus: Status: Acute (2) Seizures: Status: Acute (3) SOY (acute kidney injury): Status: Acute (4) Acute respiratory failure: Status: Acute (5) Cardiopulmonary arrest: Status: Acute Plan Assessment: 72-year-old gentleman admitted with dyspnea deemed to be secondary to pneumonia also with metabolic acidosis status post PEA cardiac arrest, 20 minutes to ROSC, intubated during the CPR and transferred to intensive care unit. Plan: Neuro: With development of seizure activity, initially on p.r.n. Versed, now on Keppra. Poor arousal with sedation vacation. MRI brain today. Cardiac: 2D echocardiogram with LVEF of 45% Cardiology service care appreciated. Pulmonary: Acute respiratory failure with aspiration either prior or during the CPR, intubated during the CPR. Renal: acute renal failure secondary to cardiopulmonary arrest /ATN. metabolic acidosis resolved. Non oliguric. Continue to monitor renal indices and urine output. Endo: Diabetic ketoacidosis resolved. Transitioned to SC insulin. GI: No acute issues. ID: No acute issues. Heme/Onc: No acute issues. Psych: No acute issues. Miscellaneous: No acute issues. Prophylaxis: Intermittent pneumatic compression, ppi Diet: Tube feeds Critical care time spent: 45 minutes Quality Stroke Does the patient have a stroke diagnosis?: No VTE Prior VTE?: No VTE Risk Level:: Medical - moderate - high VTE Device Contraindication: Treatment Not Indicated VTE Drug Contraindication: N/A - Med Ordered
[2022-08-12 11:26] LABS: Glucose, Whole Blood 141 mg/dL (60-115)
--- NOTE | 2022-08-12 11:51 | P.CDIM_ITS ---
PROVIDER RESPONSE TEXT: To clarify, the appropriate diagnosis supported by the clinical indicators: Hypernatremia QUERY TEXT: PHYSICIAN'S DOCUMENTATION REQUEST Date of Query: 08/12/2022 11:34 AM EDT Patient Name: Margarito Henderson Admit Date: 08/07/2022 Dear José Servin, A review of the medical record indicates additional documentation may be needed. Please review below and update the documentation accordingly. Clinical Indicators: LAB FINDINGS: sodium 147 H Based on the above, is there a diagnosis that correlates with these lab findings: Hypernatremia Labs indicate a diagnosis of (please specify) Other Other (explain)Clinically unable to determine (explain)Thank you, Selena Crawford, CCS, CDIS Use of terms such as suspected, likely, concern for, or probable (associated with a specific diagnosi s that is being evaluated, monitored, or treated as if it exists) are acceptable and can be coded in the inpatient se tting, when documented at the time of discharge. Please use your independent medical judgment in providing your response. THIS QUERY IS PART OF THE PERMANENT MEDICAL RECORD
--- NOTE | 2022-08-12 15:55 | MHC.CM.PN ---
PT REMAINS IN ICU ON VENTILATORY SUPPORT. CM WILL CONTINUE TO FOLLOW FOR DC NEEDS/PLAN.
[2022-08-12] MEDS: propofoL 1,000 MG/100 ML VIAL 8.44 MG IVCONT (17:21)
[2022-08-12 17:47] LABS: Glucose, Whole Blood 65 mg/dL (60-115)
[2022-08-12 18:16] LABS: Glucose, Whole Blood 125 mg/dL (60-115)
--- NOTE | 2022-08-12 19:40 | PC.NURSE ---
Addendum entered by Rodolfo Bazan RN 08/12/22 19:52: According to patient's daughter, Garrison, her sister, Alfredo, would not like to be updated about neurological prognostication or updates regarding neurologic status. Original Note: Assumed care at 07:00. Patient sedated on propofol 10, was given sedation vacation briefly at 08:53, this lasted until 0910, when patient had some apparent involuntary movement of bilateral legs internally rotating repeatedly at hips. Patient was restarted on 10 propofol gtt, and given 4 mg IV versed, MD aware and at bedside to assess. Spastic movements appear to be coinciding with coughing fits. Patient with flaccid extremities throughout, no commands followed. Pupils sluggish at 2 mm, Postive cough, weak gag. Patient continues on ventilator, #8 ETT at 21 cm. Patient has Rt 14; Pi 20; 30% FiO2, Peep 5. Te around 6.4, TV around 340-430, occasionally lower volumes especially with repositioning. Occasionally desats to 70's, Patient responded well to suctioning, lavage and suctioning, an giving 2 minutes of 100% FiO2, both as prevenatative and during desaturation. Added bite block this morning to rule out out biting tube. Blood tinged rust colored inline secretions less than yesterday. Patient with inspiratory wheezing throughout anterior right lung [place] and posterior to auscultation, MD aware. BP elevated, 160's systolic, as high as 180's appearing positional, titrated propofol up with good effect, and position change, MD aware. Patient with tongue noted to be swollen, which is ongoing and improving slightly. MD aware. Patient with left lower incisor loose, as of about 1800 today, notified PA in evening. Patient tolerated TF well and increased to 55/hour, but held dose in daytime related to MRI. evening POC was 65, PRN D10% was administered and recheck was 125 g/dl afterwards. Due to hypoglycemia over last night, MD lowered Lantus from 40 to 30 U in the morning. Patient with luevano catheter putting out clear yellow urine about 60-100 cc/hour. Skin is intact, bruising around abdomen and right dorsal hand, redness under old TLC dressing seems to be resolving. Temperature with Tmax 101.1 this morning, given tylenol 0841 with good effect, Afebrile afterwards. Zosyn was completed today. Renal indices improved on morning labs.
[2022-08-12 23:52] LABS: Glucose, Whole Blood 104 mg/dL (60-115)
[2022-08-13] VITALS (29 sets, daily range): BP systolic 108–169; BP diastolic 37–80; PULSE 14–74; RESP 14–15; TEMP 35–38.5; O2SAT 94–99; BMI 27.5
--- NOTE | 2022-08-13 | EEG_ITS ---
PROCEDURE: This is a 16-channel portable EEG. Patient is intubated and propofol was stopped during the tracing. Background EEG rhythm is negligible almost flat with every second or few second disturbed by generalized sharp wave type of activity. No definite focalities noted. Cardiac lead did not reveal any significant abnormality. Photic stimulation and hyperventilation were not performed. IMPRESSION: Severely abnormal EEG revealing pattern suggestive of burst suppression, which usually was seen with anoxic encephalopathy. MD FELICITAS Aviles/GABINO / [id number]
[2022-08-13 05:07] LABS: VBG Base Excess 5.7 mmol/L; VBG HCO3 28 mmol/L (22-26); VBG pCO2 36 mmHg; VBG pO2 47 mmHg
[2022-08-13 05:08] LABS: Venous Blood Gas Refer to POC result
[2022-08-13] MEDS: propofoL 1,000 MG/100 ML VIAL 8.44 MG IVCONT ×3 (05:09→22:31)
[2022-08-13] MEDS: Midazolam HCl/PF 2 MG/2 ML VIAL 4 MG IVPUSH ×2 (05:15→14:44)
[2022-08-13 05:41] LABS: MANUAL DIFF FLAG NO
[2022-08-13 05:45] LABS: Basophils Percent Auto 0.2 % (0-2); Eosinophils Absolute Auto 0.3 X10*3/uL (0.0-0.4); Hematocrit 23.6 % (42.0-52.0); Hemoglobin 7.6 g/dl (14.0-18.0); Imm Gran Abs Auto 0.51 X10*3/uL (0.00-0.03); Lymphocytes Absolute Auto 1.1 X10*3/uL (1.2-4.9); Lymphocytes Percent Auto 6.3 % (20-40); Mean Corpuscular HGB Conc 32.2 g/dl (31.0-36.0); Mean Corpuscular Hemoglobin 27.4 pg (27.0-33.0); Mean Corpuscular Volume 85.2 fL (80.0-98.0); Mean Platelet Volume 12.9 fL (9.4-12.4); Monocytes Absolute Auto 0.5 X10*3/uL (0.1-1.2); Neutrophils Absolute Auto 14.8 x10*3/uL (2.0-8.3); Neutrophils Percent Auto 85.5 % (45-73); Platelet Count 244 X10*3/uL (160-400); Red Blood Count 2.77 X10*6/uL (4.60-5.80); Red Cell Distribution Width 16.1 % (11.0-16.0); White Blood Count 17.2 X10*3/uL (4.8-10.8)
[2022-08-13 06:01] LABS: Anion Gap 16 (12-20); Blood Urea Nitrogen 72 mg/dL (9-16); Calcium 8.2 mg/dL (8.4-10.2); Carbon Dioxide 22 mmol/L (22-29); Chloride 111 mmol/L (96-108); Creatinine Clr Calc Pharmacy 27.5; Estimated Glomerular Filt Rate 27; Glucose Random 133 mg/dL (60-115); Magnesium 2.3 mg/dL (1.6-2.6); Phosphorus 3.8 mg/dL (2.7-4.5); Potassium 3.5 mmol/L (3.3-5.1); Sodium 145 mmol/L (135-145)
[2022-08-13 08:09] LABS: Legionella Ag Urine Not Detected (Not Detected)
[2022-08-13] MEDS: Albumin Human 25 % 100 ML IV ×3 (08:18→19:27)
[2022-08-13] MEDS: Chlorhexidine Gluc Oral Rinse 15 ML MOUTHWASH BUCCAL ×3 (08:19→19:27)
[2022-08-13] MEDS: Insulin Glargine,Hum.rec.anlog 100 UNIT/ML 10 ML VIAL 30 UNIT SUBCUT (08:19)
[2022-08-13] MEDS: Pantoprazole Sodium 40 MG/10 ML VIAL IVPUSH (08:19)
--- NOTE | 2022-08-13 09:39 | PM.CCPN ---
Subjective Subjective Date of Service: 08/13/22 Interval History: 72-year-old gentleman with underlying history of asthma diabetes mellitus, hypertension, prostate cancer, renal cancer status post cryotherapy, admitted on 08/06/2022 with dyspnea, deemed to be secondary to a lower lobe pneumonia. Patient treated with azithromycin ceftriaxone. Patient also noted to have profound metabolic acidosis of unclear etiology. Overnight 08/07-08/08 patient with PA cardiac arrest with approximately 20 minutes of coding time before obtaining returned spontaneous circulation, intubated during the CPR and transferred to intensive care unit. In intensive care unit with some improvement in metabolic acidosis, though with hyperglycemia. Started on insulin drip with resolution of acidosis. Patient also with development of intermittent seizure activity initially requiring p.r.n. Versed, now on Keppra. MRI on 08/12/2022 with evidence of bilateral anoxic injury. Neurology input requested. No events overnight. Critical Care Time (minutes): 45 Physical Exam Vital Signs: Vital Signs: Last Vital Signs Temp 100.4 F 08/13/22 08:00 Pulse 67 08/13/22 09:00 Resp 14 08/13/22 09:00 BP 155/50 H 08/13/22 09:00 Pulse Ox 97 08/13/22 09:00 O2 Del Method Mechanical Ventil ation 08/13/22 09:00 O2 Flow Rate 6 08/08/22 00:13 FiO2 30 08/13/22 09:00 BMI result Body Mass Index 27.5 Const: General: no acute distress and other ( No arousal with sedation vacation) Eyes: Sclerae: sclerae normal Neck: Neck: Yes no lymphadenopathy, Yes trachea midline and Yes supple Resp: Auscultation: clear to auscultation bilaterally Cardio: Rate: regular rate Rhythm: regular rhythm Heart sounds: no gallops, no murmurs and no rubs GI: Palpation (GI): Soft to palpation and Other GI palpation findings present ( Nontender) Auscultation: normal bowel sounds Extrem: General: No clubbing, No cyanosis and Yes edema ( 1+ bilateral) Objective Data Labs 08/13/22 05:00 08/13/22 05:00 Labs: Laboratory Results - last 24 hr 08/06/22 08/12/22 08/12/22 12:18 11:23 17:44 WBC RBC Hgb Hct MCV MCH MCHC RDW Plt Count MPV Immature Gran % (Auto) Neut % (Auto) Lymph % (Auto) [place] % (Auto) Eos % (Auto) Baso % (Auto) Lymph # (Auto) [place] # (Auto) Eos # (Auto) Baso # (Auto) Abs Immat Gran (auto) Absolute Neuts (auto) Absolute Nucleated RBC Nucleated RBC % (auto) VBG pH VBG pCO2 VBG pO2 VBG HCO3 VBG O2 Saturation VBG Base Excess Sodium Potassium Chloride Carbon Dioxide Anion Gap BUN Creatinine Estim Creat Clear Calc Estimated GFR POC Glucose 141 H 65 Random Glucose Calcium Phosphorus Magnesium Albumin Ur L.pneumophila Ag Not Detected 08/12/22 08/12/22 08/13/22 18:12 23:48 04:58 WBC RBC Hgb Hct MCV MCH MCHC RDW Plt Count MPV Immature Gran % (Auto) Neut % (Auto) Lymph % (Auto) [place] % (Auto) Eos % (Auto) Baso % (Auto) Lymph # (Auto) [place] # (Auto) Eos # (Auto) Baso # (Auto) Abs Immat Gran (auto) Absolute Neuts (auto) Absolute Nucleated RBC Nucleated RBC % (auto) VBG pH 7.50 H VBG pCO2 36 VBG pO2 47 VBG HCO3 28 H VBG O2 Saturation 78.0 VBG Base Excess 5.7 Sodium Potassium Chloride Carbon Dioxide Anion Gap BUN Creatinine Estim Creat Clear Calc Estimated GFR POC Glucose 125 H 104 Random Glucose Calcium Phosphorus Magnesium Albumin Ur L.pneumophila Ag 08/13/22 08/13/22 05:00 05:00 WBC 17.2 H RBC 2.77 L Hgb 7.6 L Hct 23.6 L MCV 85.2 MCH 27.4 MCHC 32.2 RDW 16.1 H Plt Count 244 D MPV 12.9 H Immature Gran % (Auto) 3.0 H Neut % (Auto) 85.5 H Lymph % (Auto) 6.3 L [place] % (Auto) 3.0 Eos % (Auto) 2.0 Baso % (Auto) 0.2 Lymph # (Auto) 1.1 L [place] # (Auto) 0.5 Eos # (Auto) 0.3 Baso # (Auto) 0.0 Abs Immat Gran (auto) 0.51 H Absolute Neuts (auto) 14.8 H Absolute Nucleated RBC 0.000 Nucleated RBC % (auto) 0.0 VBG pH VBG pCO2 VBG pO2 VBG HCO3 VBG O2 Saturation VBG Base Excess Sodium 145 Potassium 3.5 Chloride 111 H Carbon Dioxide 22 Anion Gap 16 BUN 72 H Creatinine 2.34 H Estim Creat Clear Calc 27.5 Estimated GFR 27 POC Glucose Random Glucose 133 H Calcium 8.2 L Phosphorus 3.8 Magnesium 2.3 Albumin 3.0 L Ur L.pneumophila Ag Microbiology Microbiology Results: Microbiology 08/08/22 04:29 Blood - Venous Blood Culture - Final No growth after 5 days. 08/06/22 19:00 Blood - Venous Blood Culture - Final No growth after 5 days. 08/06/22 18:30 Blood - Venous Blood Culture - Final No growth after 5 days. 08/08/22 04:29 Blood - Venous Blood Culture - Preliminary No growth after 48 hours. Progress Note: A&P Assessment and plan (1) Diabetes mellitus: Status: Acute (2) Seizures: Status: Acute (3) SOY (acute kidney injury): Status: Acute (4) Acute respiratory failure: Status: Acute (5) Cardiopulmonary arrest: Status: Acute (6) COPD (chronic obstructive pulmonary disease): Status: Acute Plan Assessment: 72-year-old gentleman admitted with dyspnea deemed to be secondary to pneumonia also with metabolic acidosis status post PEA cardiac arrest, 20 minutes to ROSC, intubated during the CPR and transferred to intensive care unit. Plan: Neuro: With development of seizure activity, initially on p.r.n. Versed, now on Keppra. Poor arousal with sedation vacation. MRI with evidence of anoxic injury. Neurology input requested. Cardiac: 2D echocardiogram with LVEF of 45% Cardiology service care appreciated. Pulmonary: Acute respiratory failure with aspiration either prior or during the CPR, intubated during the CPR. Renal: acute renal failure secondary to cardiopulmonary arrest /ATN. metabolic acidosis resolved. Non oliguric. Continue to monitor renal indices and urine output. Endo: Diabetic ketoacidosis resolved. Transitioned to SC insulin. GI: No acute issues. ID: No acute issues. Heme/Onc: No acute issues. Psych: No acute issues. Miscellaneous: No acute issues. Prophylaxis: Intermittent pneumatic compression, ppi Diet: Tube feeds Critical care time spent: 45 minutes Quality Stroke Does the patient have a stroke diagnosis?: No VTE Prior VTE?: No VTE Risk Level:: Medical - moderate - high VTE Device Contraindication: Treatment Not Indicated VTE Drug Contraindication: N/A - Med Ordered
[2022-08-13] MEDS: levETIRAcetam in NaCl (iso-os) 1,000 MG/100 ML PIGGYBACK 400 MG IV ×2 (09:43→21:43)
--- NOTE | 2022-08-13 09:56 | P.CNNE_ITS ---
History of Present Illness Data of Consult Service Date: 08/13/22 Primary Care Provider: Ayaz Stinson MD HPI Reason for consult: Encephalopathy 72 years old man who was initially admitted for breathing difficulties. While in hospital, rapid response team was called and he was noted to be in atrial f ibrillation. A little bit later, he decompensated and code blue was called when he was noted to be unresponsive and pulseless. ACLS protocol was started multiple protocols were finished ultimately he was intubated and transferred to ICU. Since then he has not been cortical E responsive while intubated and sedated. For this examination, his propofol sedation was stop. Review of Systems Review of Systems: Could not be done with [facility] Past Medical History Medical History (Updated 08/13/22 @ 10:00 by Christin Coreas MD) Asthma Cancer of right renal pelvis COPD (chronic obstructive pulmonary disease) Crossed renal ectopia Diabetes mellitus Elevated PSA Erectile dysfunction High cholesterol HTN (hypertension) Multinodular goiter (nontoxic) Prostate cancer Right renal mass Family History Family History Father No problems noted. Mother No problems noted. Surgical History Surgical History History of prostate biopsy Hx of biopsy Social History Social History Household Members: None Housing: Apartment Do you presently have visiting nurse or other home services: No Alcohol intake: former Patient Tobacco Use Status: Former Tobacco user Quit Date: 3-4 years ago e-Cigarette/Vaping Use: Never Used Second Hand Smoke Exposure: No Advance Directives Date on File: 04/14/22 service: No Current occupational status: retired Meds Allergies Allergy/AdvReac Type Severity Reaction Status Date / Time ciprofloxacin [From CIPRO] Allergy Unknown RASH Verified 08/06/22 17:50 Sulfa (Sulfonamide Allergy Unknown rash Verified 08/06/22 17:50 Antibiotics) sulfamethoxazole Allergy Unknown RASH Verified 08/06/22 17:50 [From BACTRIM] trimethoprim [From BACTRIM] Allergy Unknown RASH Verified 08/06/22 17:50 Active Medications: Current Medications Acetaminophen (Acetaminophen Oral Liquid 650 Mg/20.3 Ml Solution) 650 mg PO Q6H PRN PRN Reason: Fever Last Admin: 08/12/22 08:41 Dose: 650 mg Chlorhexidine Gluconate (Chlorhexidine Gluc Oral Rinse 15 Ml Mouthwash) 15 ml BUCCAL TID CHARITO Last Admin: 08/13/22 08:19 Dose: 15 ml Propofol (Diprivan) 1,000 mg in 100 mls @ 0 mls/hr IVCONT .Q0M CHARITO; Protocol Last Titration: 08/13/22 09:46 Dose: 0 mcg/kg/min, 0 mls/hr Norepinephrine Bitartrate (Levophed) 8 mg in 250 mls @ 0 mls/hr IV .Q0M CHARITO; Protocol Last Titration: 08/09/22 08:20 Dose: 0 mcg/kg/min, 0 mls/hr Dextrose (D10) 250 mls @ 750 mls/hr IV Q30M PRN PRN Reason: BG < 70 Last Infusion: 08/12/22 19:53 Dose: Infused Levetiracetam (Keppra) 1,000 mg in 100 mls @ 400 mls/hr IV Q12H CHARITO Last Admin: 08/13/22 09:43 Dose: 400 mls/hr Albumin Human (Kedbumin 25 %) 100 mls @ 100 mls/hr IV Q6H [facility] Stop: 08/14/22 03:14 Last Infusion: 08/13/22 09:20 Dose: Infused Insulin Glargine (Insulin Glargine,Hum.Rec.Anlog 100 Unit/Ml 10 Ml Vial) 30 unit SUBCUT DAILY [facility] Last Admin: 08/13/22 08:19 Dose: 30 unit Insulin Human Lispro (Insulin Lispro 100 Unit/Ml 3 Ml Vial) 0 unit SUBCUT Q6H [facility]; Protocol Last Admin: 08/13/22 06:08 Dose: Not Given Midazolam HCl (Midazolam Hcl/Pf 2 Mg/2 Ml Vial) 4 mg IVPUSH Q15M PRN PRN Reason: seizure Last Admin: 08/13/22 05:15 Dose: 4 mg Pantoprazole Sodium (Pantoprazole Sodium 40 Mg/10 Ml Vial) 40 mg IVPUSH DAILY [facility] Last Admin: 08/13/22 08:19 Dose: 40 mg Home Medications Medication Instructions Recorded Confirmed Last Taken Type albuterol sulfate 90 mcg/actuation 2 puff PO Q4-6H PRN Shortness Of 03/13/20 08/06/22 Unknown History aerosol inhaler Breath Or Wheezing enalapril maleate 20 mg tablet 20 mg PO BID 03/13/20 08/06/22 Unknown History glyburide 1.25 mg tablet 1.25 mg PO DAILY@0730 03/13/20 08/06/22 08/06/22 History ipratropium 0.5 mg-albuterol 3 mg 3 ml inhalation TID PRN Shortness 03/13/20 Unknown History (2.5 mg base)/3 mL nebulization Of Breath soln metformin 500 mg tablet 1,000 mg PO BIDWM 03/13/20 08/06/22 08/06/22 History simvastatin 80 mg tablet 80 mg PO DAILY 03/13/20 08/06/22 08/06/22 History metoprolol succinate 100 mg 100 mg PO DAILY 06/25/20 08/06/22 08/06/22 History tablet,extended release 24 hr metoprolol succinate 50 mg 50 mg PO BEDTIME 06/25/20 08/06/22 Unknown History tablet,extended release 24 hr nifedipine 90 mg tablet,extended 90 mg PO DAILY 06/25/20 08/06/22 08/06/22 History release diphenhydramine HCl 25 mg capsule 25 mg PO BEDTIME PRN insomnia 06/17/21 08/06/22 Unknown History (Banophen) aspirin 81 mg tablet,delayed 81 mg PO DAILY 12/18/21 08/06/22 08/06/22 History release oxycodone-acetaminophen 5 mg-325 1 tab PO Q8H PRN Pain, Severe 04/13/22 08/06/22 Unknown History mg tablet tadalafil 5 mg tablet 5 mg PO DAILY PRN Sexual Activity 04/13/22 08/06/22 Unknown History fluticasone fur. 200 mcg-umeclid 1 inh inhalation BID 08/06/22 08/06/22 Unknown History 62.5 mcg-vilant 25 mcg inhalat.powder (Trelegy Ellipta) Physical Exam Vital Signs: Vital Signs: Last Vital Signs Temp 100.4 F 08/13/22 08:00 Pulse 67 08/13/22 09:00 Resp 14 08/13/22 09:00 BP 155/50 H 08/13/22 09:00 Pulse Ox 97 08/13/22 09:00 O2 Del Method Mechanical Ventil ation 08/13/22 09:00 O2 Flow Rate 6 08/08/22 00:13 FiO2 30 08/13/22 09:00 BMI result Body Mass Index 27.5 Neuro: Other: He is unresponsive to verbal and painful stimuli. Intermittently he seems to have decerebrate type of movements. Pupils are about 3 mm round and reactive. I was able to move his eyes with oculocephalic maneuver. Corneal reflexes could not be determined. Gag reflex was present. Deep tendon reflexes were absent with flexor plantars. Results Labs 08/13/22 05:00 08/13/22 05:00 Labs: Short CBC 08/13/22 Range/Units 05:00 WBC 17.2 H (4.8-10.8) X10*3/uL Hgb 7.6 L (14.0-18.0) g/dl Hct 23.6 L (42.0-52.0) % Plt Count 244 D (160-400) X10*3/uL BMP 08/13/22 05:00 Sodium 145 Potassium 3.5 Chloride 111 H Carbon Dioxide 22 BUN 72 H Creatinine 2.34 H Calcium 8.2 L Liver Function 08/13/22 Range/Units 05:00 Albumin 3.0 L (3.5-5.0) g/dL MRI of brain was suggestive of anoxic brain injury with underlying moderate cerebral atrophy and mild microvascular ischemic changes. Microbiology Microbiology Results: Microbiology 08/08/22 04:29 Blood - Venous Blood Culture - Final No growth after 5 days. 08/06/22 19:00 Blood - Venous Blood Culture - Final No growth after 5 days. 08/06/22 18:30 Blood - Venous Blood Culture - Final No growth after 5 days. 08/08/22 04:29 Blood - Venous Blood Culture - Preliminary No growth after 48 hours. Assessment and Plan (1) Encephalopathy: Status: Acute 72 years old man with multifactorial encephalopathy but primarily anoxic type. His examination reveals relatively intact brainstem function while no cortical function could be obtained. At this time my recommendation is to obtain an EEG to rule out any possibility of nonconvulsive epileptic status. The nature of anoxic type of injury and its typical clinical history and evidence from MRI of brain suggested significant brain injury, though not fatal. If survived, it would likely result in significant reduction in neuro cognitive functioning from baseline. Most of such patients require lifelong assistants or mcfp placement. Time Spent With Patient Time: Total time managing care of this patient today ____ minutes. Procedures Date of Service Date of Service: 08/13/22
[2022-08-13 11:41] LABS: Glucose, Whole Blood 133 mg/dL (60-115)
--- NOTE | 2022-08-13 15:58 | MHC.CM.PN ---
Pt w/anoxic brain injury confirmed by MRI : neuro eval supported severity of cortical impairment. MD to discuss findings with family for goals of care discussion and d/c planning needs. Pt does not have placement referrals at this time d/t the uncertain post acute care needs. If family opts for continued care, pt may need peg/trach/LTACH. CM to follow.
[2022-08-13 17:51] LABS: Glucose, Whole Blood 149 mg/dL (60-115)
[2022-08-13] MEDS: Acetaminophen Oral Liquid 650 MG/20.3 ML SOLUTION PO (20:07)
[2022-08-13 23:51] LABS: Glucose, Whole Blood 195 mg/dL (60-115)
[2022-08-14] VITALS (33 sets, daily range): BP systolic 127–163; BP diastolic 46–64; PULSE 69–91; RESP 14–22; TEMP 34.5–39; O2SAT 92–100; BMI 27.9
[2022-08-14] MEDS: Insulin Lispro 100 UNIT/ML 3 ML VIAL SUBCUT ×4 (00:28→17:38)
[2022-08-14] MEDS: Albumin Human 25 % 100 ML IV (01:28)
[2022-08-14] MEDS: propofoL 1,000 MG/100 ML VIAL 12.66 MG IVCONT ×2 (05:14→11:55)
[2022-08-14 05:30] LABS: VBG HCO3 27 mmol/L (22-26); VBG pCO2 46 mmHg; VBG pH 7.37 (7.32-7.43); VBG pO2 74 mmHg
[2022-08-14 05:31] LABS: Venous Blood Gas Refer to POC result
[2022-08-14 05:42] LABS: MANUAL DIFF FLAG NO
[2022-08-14 05:44] LABS: Basophils Percent Auto 0.1 % (0-2); Eosinophils Absolute Auto 0.3 X10*3/uL (0.0-0.4); Eosinophils Percent Auto 1.8 % (0-4); Hematocrit 22.3 % (42.0-52.0); Imm Gran Abs Auto 0.35 X10*3/uL (0.00-0.03); Imm Gran Pct Auto 2.3 % (0.0-0.4); Lymphocytes Absolute Auto 0.9 X10*3/uL (1.2-4.9); Mean Corpuscular HGB Conc 30.9 g/dl (31.0-36.0); Mean Corpuscular Hemoglobin 26.6 pg (27.0-33.0); Mean Corpuscular Volume 86.1 fL (80.0-98.0); Mean Platelet Volume 12.9 fL (9.4-12.4); Monocytes Absolute Auto 0.3 X10*3/uL (0.1-1.2); Monocytes Percent Auto 2.2 % (2-11); Neutrophils Absolute Auto 13.5 x10*3/uL (2.0-8.3); Neutrophils Percent Auto 87.6 % (45-73); Platelet Count 285 X10*3/uL (160-400); Red Blood Count 2.59 X10*6/uL (4.60-5.80); Red Cell Distribution Width 16.5 % (11.0-16.0); White Blood Count 15.4 X10*3/uL (4.8-10.8)
[2022-08-14 05:53] LABS: Hemoglobin 6.9 g/dl (14.0-18.0)
[2022-08-14 06:04] LABS: Anion Gap 16 (12-20); Blood Urea Nitrogen 68 mg/dL (9-16); Carbon Dioxide 20 mmol/L (22-29); Chloride 109 mmol/L (96-108); Creatinine Clr Calc Pharmacy 31.6; Estimated Glomerular Filt Rate 32; Glucose Random 163 mg/dL (60-115); Magnesium 2.2 mg/dL (1.6-2.6); Phosphorus 3.7 mg/dL (2.7-4.5); Potassium 4.1 mmol/L (3.3-5.1); Sodium 141 mmol/L (135-145)
[2022-08-14 06:25] LABS: OBS Int Ctl Valid YES; OBS1 NEGATIVE (NEGATIVE)
[2022-08-14] MEDS: Acetaminophen Oral Liquid 650 MG/20.3 ML SOLUTION PO ×2 (07:36→16:27)
[2022-08-14] MEDS: Chlorhexidine Gluc Oral Rinse 15 ML MOUTHWASH BUCCAL ×3 (08:18→20:47)
[2022-08-14] MEDS: Pantoprazole Sodium 40 MG/10 ML VIAL IVPUSH (08:18)
[2022-08-14] MEDS: Insulin Glargine,Hum.rec.anlog 100 UNIT/ML 10 ML VIAL 30 UNIT SUBCUT (08:18)
--- NOTE | 2022-08-14 11:02 | MHC.CLN ---
F/U PT REMAINS INTUBATED AND SEDATED REVIEWED LABS PT RECEIVING TF GLUCERNA TO MAX GOAL RATE 65ML/HR AND 30ML PROSOURCE Q DAY WITH 240ML FWF Q 6 HRS PROVIDES 1620KCALS (1731KCALS WITH SEDATION; 25KCALS/KG), 80G TOTAL PROTEIN (1.1G/KG), 2291ML TOTAL WATER FROM FORMULA AND FLUSHES (33ML/KG) MONITOR TOLERANCE, RESIDUALS AND LYTES FAMILY MEETING TO DISCUSS GOAL OF CARE PENDING FOLLOWING WITH TEAM
[2022-08-14 11:11] LABS: Glucose, Whole Blood 156 mg/dL (60-115)
[2022-08-14] MEDS: levETIRAcetam in NaCl (iso-os) 1,000 MG/100 ML PIGGYBACK 400 MG IV ×2 (11:15→21:45)
[2022-08-14] MEDS: Phenytoin Oral Susp 100 MG/4 ML ORAL.SUSP 300 MG PO (15:30)
[2022-08-14 15:42] LABS: Strep Pneumo Ag urine Detected
--- NOTE | 2022-08-14 16:23 | P.PNCC_ITS ---
Subjective Subjective Date of Service: 08/14/22 Interval History: 72-year-old male type 2 diabetic with history of paroxysmal atrial fibrillation presented with increasing dyspnea and acute hypoxemic respiratory failure with extensive predominantly right lower lobe infiltrate and consolidation which in retrospect this to strep pneumonia urinary antigen was positive and the rest of the respiratory pathogen screen was negative and apparently a about a week ago developed a new onset of rapid atrial fibrillation and then within several hours cardiopulmonary arrest ensued with a 20 minute resuscitation time before spontaneous circulation and he has been comatose ever since with evidence in all probability of both convulsive and nonconvulsive status epilepticus who which upon recognition was started on Keppra and then because of continued status activity we added a loading dose on the of Dilantin and of starting a maintenance dose of Dilantin as well but still coming off of the propofol sedation continue to go back into active status but to date he has only received about 6 days of antibiotic therapy so clearly knowing that this is strep I think just putting him on Zosyn should be s ufficient he also developed acute renal insufficiency which is slowly seeming to resolve but brainstem activity on my assessment seems to be fine but of but apparently he has got manifestations of severe anoxic encephalopathy my bedside echo indicated preserved LV function with no primary valve or pericardial disease and preserved RV function Critical Care Time (minutes): 60 Physical Exam Vital Signs: Vital Signs: Last Vital Signs Temp 102.2 F H 08/14/22 16:00 Pulse 77 08/14/22 16:00 Resp 20 08/14/22 16:00 BP 147/57 H 08/14/22 16:00 Pulse Ox 96 08/14/22 16:00 O2 Del Method Mechanical Ventil ation 08/14/22 16:00 O2 Flow Rate 6 08/08/22 00:13 FiO2 30 08/14/22 16:00 BMI result Body Mass Index 27.9 does not spontaneously move any of his extremities and is completely flaccid but brainstem reflexes all preserved starting with a pupillary response to light and corneal reflex cough gag spontaneous respirations etc. and even ocul ovestibular is seems to be intact but not cortical function surely we are currently awaiting the EEG results abdomen soft with no organomegaly skin without edema and no acrocyanosis Objective Data Labs 08/14/22 05:11 08/14/22 05:11 Labs: Laboratory Results - last 24 hr 08/06/22 08/13/22 08/13/22 12:18 17:47 23:47 WBC RBC Hgb Hct MCV MCH MCHC RDW Plt Count MPV Immature Gran % (Auto) Neut % (Auto) Lymph % (Auto) [place] % (Auto) Eos % (Auto) Baso % (Auto) Lymph # (Auto) [place] # (Auto) Eos # (Auto) Baso # (Auto) Abs Immat Gran (auto) Absolute Neuts (auto) Absolute Nucleated RBC Nucleated RBC % (auto) VBG pH VBG pCO2 VBG pO2 VBG HCO3 VBG O2 Saturation VBG Base Excess Sodium Potassium Chloride Carbon Dioxide Anion Gap BUN Creatinine Estim Creat Clear Calc Estimated GFR POC Glucose 149 H 195 H Random Glucose Calcium Phosphorus Magnesium Albumin Stool Occult Blood Ur Strep pneumoniae Ag Detected Blood Type Antibody Screen Crossmatch 08/14/22 08/14/22 08/14/22 05:11 05:11 05:21 WBC 15.4 H RBC 2.59 L Hgb 6.9 L* Hct 22.3 L MCV 86.1 MCH 26.6 L MCHC 30.9 L RDW 16.5 H Plt Count 285 MPV 12.9 H Immature Gran % (Auto) 2.3 H Neut % (Auto) 87.6 H Lymph % (Auto) 6.0 L [place] % (Auto) 2.2 Eos % (Auto) 1.8 Baso % (Auto) 0.1 Lymph # (Auto) 0.9 L [place] # (Auto) 0.3 Eos # (Auto) 0.3 Baso # (Auto) 0.0 Abs Immat Gran (auto) 0.35 H Absolute Neuts (auto) 13.5 H Absolute Nucleated RBC 0.000 Nucleated RBC % (auto) 0.0 VBG pH 7.37 VBG pCO2 46 VBG pO2 74 VBG HCO3 27 H VBG O2 Saturation 93.0 VBG Base Excess TNP Sodium 141 Potassium 4.1 Chloride 109 H Carbon Dioxide 20 L Anion Gap 16 BUN 68 H Creatinine 2.05 H Estim Creat Clear Calc 31.6 Estimated GFR 32 POC Glucose Random Glucose 163 H Calcium 9.0 D Phosphorus 3.7 Magnesium 2.2 Albumin 4.0 Stool Occult Blood Ur Strep pneumoniae Ag Blood Type Antibody Screen Crossmatch 08/14/22 08/14/22 08/14/22 06:16 06:19 11:08 WBC RBC Hgb Hct MCV MCH MCHC RDW Plt Count MPV Immature Gran % (Auto) Neut % (Auto) Lymph % (Auto) [place] % (Auto) Eos % (Auto) Baso % (Auto) Lymph # (Auto) [place] # (Auto) Eos # (Auto) Baso # (Auto) Abs Immat Gran (auto) Absolute Neuts (auto) Absolute Nucleated RBC Nucleated RBC % (auto) VBG pH VBG pCO2 VBG pO2 VBG HCO3 VBG O2 Saturation VBG Base Excess Sodium Potassium Chloride Carbon Dioxide Anion Gap BUN Creatinine Estim Creat Clear Calc Estimated GFR POC Glucose 156 H Random Glucose Calcium Phosphorus Magnesium Albumin Stool Occult Blood NEGATIVE Ur Strep pneumoniae Ag Blood Type AB Positive Antibody Screen NEGATIVE Crossmatch See Detail Microbiology Microbiology Results: Microbiology 08/08/22 04:29 Blood - Venous Blood Culture - Final No growth after 5 days. 08/08/22 04:29 Blood - Venous Blood Culture - Final No growth after 5 days. 08/06/22 19:00 Blood - Venous Blood Culture - Final No growth after 5 days. 08/06/22 18:30 Blood - Venous Blood Culture - Final No growth after 5 days. Progress Note: A&P Assessment and plan (1) Encephalopathy: Status: Acute (2) Diabetes mellitus: Status: Acute (3) Seizures: Status: Acute (4) Status epilepticus: Status: Acute (5) Anoxic encephalopathy: Status: Acute (6) Septic shock: Status: Acute (7) Atrial fibrillation with RVR: Status: Acute (8) Diabetic ketoacidosis: Status: Acute (9) Transaminitis: Status: Acute (10) SOY (acute kidney injury): Status: Acute (11) Acute respiratory failure: Status: Acute (12) Pulmonary edema: Status: Acute (13) Cardiopulmonary arrest: Status: Acute (14) Acute exacerbation of chronic obstructive airways disease: Status: Acute (15) Pneumonia: Status: Acute (16) Dyspnea on exertion: Status: Acute (17) COPD (chronic obstructive pulmonary disease): Status: Acute Plan so the plan is to restore Zosyn to treat what appears to be pneumococcal pneumonia complicated by sepsis acute renal insufficiency transaminitis new onset rapid atrial fibrillation and eventually cardiopulmonary arrest again in the morning will stop the propofol and if we dealing with just occasional seizures will treat that on a p.r.n. basis but I would rather keep him off sedation if he restore status again then I think I will probably start valproic acid loading and maintenance but give him a chance to see if he spontaneously awakens and in addition check on the GE results which will hopefully be ready Quality Stroke Does the patient have a stroke diagnosis?: No VTE Prior VTE?: No VTE Risk Level:: Medical - moderate - high VTE Device Contraindication: Treatment Not Indicated VTE Drug Contraindication: N/A - Med Ordered
[2022-08-14] MEDS: Piperacillin Sodium/Tazobactam 2.25 GM in 0.9 % Sodium Chloride 50 ML IV ×2 (17:38→23:11)
[2022-08-14 17:42] LABS: Glucose, Whole Blood 165 mg/dL (60-115)
[2022-08-14] MEDS: Midazolam HCl/PF 2 MG/2 ML VIAL 4 MG IVPUSH ×3 (20:45→22:56)
[2022-08-14] MEDS: propofoL 1,000 MG/100 ML VIAL 8.44 MG IVCONT (23:08)
[2022-08-14 23:40] LABS: VBG Base Excess 2.2 mmol/L; VBG HCO3 25 mmol/L (22-26); VBG pCO2 36 mmHg; VBG pH 7.45 (7.32-7.43); VBG pO2 45 mmHg
[2022-08-14 23:47] LABS: MANUAL DIFF FLAG NO
[2022-08-14 23:49] LABS: Glucose, Whole Blood 95 mg/dL (60-115)
[2022-08-14 23:52] LABS: Basophils Percent Auto 0.2 % (0-2); Eosinophils Absolute Auto 0.2 X10*3/uL (0.0-0.4); Eosinophils Percent Auto 1.5 % (0-4); Hematocrit 25.3 % (42.0-52.0); Hemoglobin 8.3 g/dl (14.0-18.0); Imm Gran Abs Auto 0.21 X10*3/uL (0.00-0.03); Imm Gran Pct Auto 1.4 % (0.0-0.4); Lymphocytes Absolute Auto 0.8 X10*3/uL (1.2-4.9); Lymphocytes Percent Auto 4.8 % (20-40); Mean Corpuscular HGB Conc 32.8 g/dl (31.0-36.0); Mean Corpuscular Hemoglobin 28.4 pg (27.0-33.0); Mean Corpuscular Volume 86.6 fL (80.0-98.0); Mean Platelet Volume 12.5 fL (9.4-12.4); Monocytes Absolute Auto 0.6 X10*3/uL (0.1-1.2); Monocytes Percent Auto 3.5 % (2-11); Neutrophils Absolute Auto 13.7 x10*3/uL (2.0-8.3); Neutrophils Percent Auto 88.6 % (45-73); Platelet Count 319 X10*3/uL (160-400); Red Blood Count 2.92 X10*6/uL (4.60-5.80); White Blood Count 15.5 X10*3/uL (4.8-10.8)
[2022-08-14 23:53] LABS: Venous Blood Gas Refer to POC result
[2022-08-15] VITALS (35 sets, daily range): BP systolic 109–167; BP diastolic 40–68; PULSE 70–98; RESP 14–20; TEMP 34.5–38.7; O2SAT 88–97; BMI 28.5
[2022-08-15 00:04] LABS: Alanine Aminotransferase 90 U/L (0-40); Albumin Level 3.4 g/dL (3.5-5.0); Alkaline Phosphatase 214 U/L (39-117); Anion Gap 15 (12-20); Aspartate Amino Transferase 74 U/L (5-37); Bilirubin Total 1.1 mg/dL (0.0-1.0); Blood Urea Nitrogen 56 mg/dL (9-16); Calcium 8.7 mg/dL (8.4-10.2); Carbon Dioxide 20 mmol/L (22-29); Chloride 110 mmol/L (96-108); Creatinine Clr Calc Pharmacy 38.3; Estimated Glomerular Filt Rate 40; Glucose Random 84 mg/dL (60-115); Potassium 3.7 mmol/L (3.3-5.1); Sodium 141 mmol/L (135-145); Total Protein 6.3 g/dL (6.5-8.0)
[2022-08-15] MEDS: Acetaminophen Oral Liquid 650 MG/20.3 ML SOLUTION PO ×3 (03:33→23:43)
[2022-08-15] MEDS: propofoL 1,000 MG/100 ML VIAL 12.66 MG IVCONT ×2 (04:27→23:30)
[2022-08-15] MEDS: Piperacillin Sodium/Tazobactam 2.25 GM in 0.9 % Sodium Chloride 50 ML IV ×4 (04:33→23:38)
[2022-08-15] MEDS: Albuterol/Iprat 2.5/0.5MG 3 ML AMPUL.NEB INHALE ×4 (05:09→23:36)
[2022-08-15 05:27] LABS: VBG Base Excess 0.2 mmol/L; VBG HCO3 24 mmol/L (22-26); VBG pCO2 36 mmHg; VBG pH 7.43 (7.32-7.43); VBG pO2 52 mmHg
[2022-08-15 05:30] LABS: MANUAL DIFF FLAG NO
[2022-08-15 05:35] LABS: Basophils Percent Auto 0.1 % (0-2); Eosinophils Absolute Auto 0.3 X10*3/uL (0.0-0.4); Eosinophils Percent Auto 1.8 % (0-4); Hematocrit 24.9 % (42.0-52.0); Hemoglobin 8.1 g/dl (14.0-18.0); Imm Gran Abs Auto 0.24 X10*3/uL (0.00-0.03); Imm Gran Pct Auto 1.6 % (0.0-0.4); Lymphocytes Absolute Auto 0.9 X10*3/uL (1.2-4.9); Lymphocytes Percent Auto 5.9 % (20-40); Mean Corpuscular HGB Conc 32.5 g/dl (31.0-36.0); Mean Corpuscular Hemoglobin 28.2 pg (27.0-33.0); Mean Corpuscular Volume 86.8 fL (80.0-98.0); Mean Platelet Volume 12.4 fL (9.4-12.4); Monocytes Absolute Auto 0.6 X10*3/uL (0.1-1.2); Neutrophils Absolute Auto 13.3 x10*3/uL (2.0-8.3); Neutrophils Percent Auto 86.6 % (45-73); Platelet Count 313 X10*3/uL (160-400); Red Blood Count 2.87 X10*6/uL (4.60-5.80); Red Cell Distribution Width 16.2 % (11.0-16.0); White Blood Count 15.4 X10*3/uL (4.8-10.8)
[2022-08-15 05:36] LABS: Venous Blood Gas Refer to POC result
[2022-08-15 05:51] LABS: Alanine Aminotransferase 74 U/L (0-40); Albumin Level 3.3 g/dL (3.5-5.0); Alkaline Phosphatase 190 U/L (39-117); Anion Gap 16 (12-20); Aspartate Amino Transferase 60 U/L (5-37); Blood Urea Nitrogen 55 mg/dL (9-16); Calcium 8.4 mg/dL (8.4-10.2); Carbon Dioxide 17 mmol/L (22-29); Chloride 111 mmol/L (96-108); Estimated Glomerular Filt Rate 38; Glucose Random 159 mg/dL (60-115); Potassium 3.7 mmol/L (3.3-5.1); Sodium 140 mmol/L (135-145)
[2022-08-15 05:51] LABS: Glucose, Whole Blood 160 mg/dL (60-115)
[2022-08-15] MEDS: Insulin Lispro 100 UNIT/ML 3 ML VIAL SUBCUT ×2 (05:57→12:18)
[2022-08-15] MEDS: Midazolam HCl/PF 2 MG/2 ML VIAL 4 MG IVPUSH ×15 (08:44→23:21)
[2022-08-15] MEDS: Chlorhexidine Gluc Oral Rinse 15 ML MOUTHWASH BUCCAL ×3 (09:10→20:27)
[2022-08-15] MEDS: Pantoprazole Sodium 40 MG/10 ML VIAL IVPUSH (09:10)
[2022-08-15] MEDS: Insulin Glargine,Hum.rec.anlog 100 UNIT/ML 10 ML VIAL 30 UNIT SUBCUT (09:11)
[2022-08-15] MEDS: Phenytoin Oral Susp 100 MG/4 ML ORAL.SUSP 300 MG PO (09:11)
[2022-08-15] MEDS: levETIRAcetam in NaCl (iso-os) 1,000 MG/100 ML PIGGYBACK 400 MG IV ×2 (10:00→21:49)
--- NOTE | 2022-08-15 11:51 | PM.CCPN ---
Subjective Subjective Date of Service: 08/15/22 Interval History: 72-year-old male presented with acute hypoxemic respiratory failure related to pneumococcal pneumonia and this was complicated by a new onset rapid atrial fibrillation and then probable septic shock along with cardiopulmonary arrest about a week before resulting in a 20 minute resuscitation to restore spontaneous circulation and now he has got a persistently comatose state as a result of an anoxic encephalopathy further complicated in severity by probable status epilepticus both convulsive and nonconvulsive today he has had 1 burst of seizure activity requiring 4 mg of Versed when he was off the propofol sedation so based on this some micro to initiate a 3rd medication just yet and we will continue to keep him off the propofol to be able to assess mental status but EEG indicates severe anoxic encephalopathy so I think prognosis is rather grave Critical Care Time (minutes): 45 Physical Exam Vital Signs: Vital Signs: Last Vital Signs Temp 100.4 F 08/15/22 11:00 Pulse 71 08/15/22 11:00 Resp 17 08/15/22 11:00 BP 125/48 L 08/15/22 11:00 Pulse Ox 95 08/15/22 11:00 O2 Del Method Mechanical Ventil ation 08/15/22 11:00 O2 Flow Rate 6 08/08/22 00:13 FiO2 30 08/15/22 11:00 BMI result Body Mass Index 28.5 remains comatose unresponsive 4 extremity flaccid he did spike a temperature but we did replace him after 2 days of no antibiotics now on Zosyn again slowly resolving acute renal insufficiency which will watch now that he is back on the Zosyn off propofol and if there is any recurrent evidence of status epilepticus adjust frequently recurring seizure activity will probabl y initiate valproic acid skin remains intact and metabolically on lab testing he has intact bedside echo with preserved LV and RV function Objective Data Labs 08/15/22 05:11 08/15/22 05:11 Labs: Laboratory Results - last 24 hr 08/06/22 08/14/22 08/14/22 12:18 17:18 23:25 WBC 15.5 H RBC 2.92 L Hgb 8.3 L D Hct 25.3 L MCV 86.6 MCH 28.4 MCHC 32.8 RDW 16.0 Plt Count 319 MPV 12.5 H Immature Gran % (Auto) 1.4 H Neut % (Auto) 88.6 H Lymph % (Auto) 4.8 L [place] % (Auto) 3.5 Eos % (Auto) 1.5 Baso % (Auto) 0.2 Lymph # (Auto) 0.8 L [place] # (Auto) 0.6 Eos # (Auto) 0.2 Baso # (Auto) 0.0 Abs Immat Gran (auto) 0.21 H Absolute Neuts (auto) 13.7 H Absolute Nucleated RBC 0.000 Nucleated RBC % (auto) 0.0 VBG pH VBG pCO2 VBG pO2 VBG HCO3 VBG O2 Saturation VBG Base Excess Sodium Potassium Chloride Carbon Dioxide Anion Gap BUN Creatinine Estim Creat Clear Calc Estimated GFR POC Glucose 165 H Random Glucose Calcium Total Bilirubin AST ALT Alkaline Phosphatase Total Protein Albumin Ur Strep pneumoniae Ag Detected 08/14/22 08/14/22 08/14/22 23:25 23:29 23:46 WBC RBC Hgb Hct MCV MCH MCHC RDW Plt Count MPV Immature Gran % (Auto) Neut % (Auto) Lymph % (Auto) [place] % (Auto) Eos % (Auto) Baso % (Auto) Lymph # (Auto) [place] # (Auto) Eos # (Auto) Baso # (Auto) Abs Immat Gran (auto) Absolute Neuts (auto) Absolute Nucleated RBC Nucleated RBC % (auto) VBG pH 7.45 H VBG pCO2 36 VBG pO2 45 VBG HCO3 25 VBG O2 Saturation 77.0 VBG Base Excess 2.2 Sodium 141 Potassium 3.7 Chloride 110 H Carbon Dioxide 20 L Anion Gap 15 BUN 56 H Creatinine 1.69 H Estim Creat Clear Calc 38.3 Estimated GFR 40 POC Glucose 95 Random Glucose 84 Calcium 8.7 Total Bilirubin 1.1 H AST 74 H ALT 90 H Alkaline Phosphatase 214 H Total Protein 6.3 L Albumin 3.4 L Ur Strep pneumoniae Ag 08/15/22 08/15/22 08/15/22 05:11 05:11 05:11 WBC 15.4 H RBC 2.87 L Hgb 8.1 L Hct 24.9 L MCV 86.8 MCH 28.2 MCHC 32.5 RDW 16.2 H Plt Count 313 MPV 12.4 Immature Gran % (Auto) 1.6 H Neut % (Auto) 86.6 H Lymph % (Auto) 5.9 L [place] % (Auto) 4.0 Eos % (Auto) 1.8 Baso % (Auto) 0.1 Lymph # (Auto) 0.9 L [place] # (Auto) 0.6 Eos # (Auto) 0.3 Baso # (Auto) 0.0 Abs Immat Gran (auto) 0.24 H Absolute Neuts (auto) 13.3 H Absolute Nucleated RBC 0.000 Nucleated RBC % (auto) 0.0 VBG pH VBG pCO2 VBG pO2 VBG HCO3 VBG O2 Saturation VBG Base Excess Sodium 140 Potassium 3.7 Chloride 111 H Carbon Dioxide 17 L Anion Gap 16 BUN 55 H Creatinine Cancelled 1.75 H Estim Creat Clear Calc Cancelled 37.0 Estimated GFR Cancelled 38 POC Glucose Random Glucose 159 H Calcium 8.4 Total Bilirubin 1.0 AST 60 H ALT 74 H Alkaline Phosphatase 190 H Total Protein 6.0 L Albumin 3.3 L Ur Strep pneumoniae Ag 08/15/22 08/15/22 05:18 05:46 WBC RBC Hgb Hct MCV MCH MCHC RDW Plt Count MPV Immature Gran % (Auto) Neut % (Auto) Lymph % (Auto) [place] % (Auto) Eos % (Auto) Baso % (Auto) Lymph # (Auto) [place] # (Auto) Eos # (Auto) Baso # (Auto) Abs Immat Gran (auto) Absolute Neuts (auto) Absolute Nucleated RBC Nucleated RBC % (auto) VBG pH 7.43 VBG pCO2 36 VBG pO2 52 VBG HCO3 24 VBG O2 Saturation 84.0 VBG Base Excess 0.2 Sodium Potassium Chloride Carbon Dioxide Anion Gap BUN Creatinine Estim Creat Clear Calc Estimated GFR POC Glucose 160 H Random Glucose Calcium Total Bilirubin AST ALT Alkaline Phosphatase Total Protein Albumin Ur Strep pneumoniae Ag Microbiology Microbiology Results: Microbiology 08/08/22 04:29 Blood - Venous Blood Culture - Final No growth after 5 days. 08/08/22 04:29 Blood - Venous Blood Culture - Final No growth after 5 days. 08/06/22 19:00 Blood - Venous Blood Culture - Final No growth after 5 days. 08/06/22 18:30 Blood - Venous Blood Culture - Final No growth after 5 days. Progress Note: A&P Assessment and plan (1) Anoxic encephalopathy: Status: Acute (2) Status epilepticus: Status: Acute (3) Encephalopathy: Status: Acute (4) Diabetes mellitus: Status: Acute (5) Seizures: Status: Acute (6) Diabetic ketoacidosis: Status: Acute (7) Atrial fibrillation with RVR: Status: Acute (8) Septic shock: Status: Acute (9) Transaminitis: Status: Acute (10) SOY (acute kidney injury): Status: Acute (11) Acute respiratory failure: Status: Acute (12) Pulmonary edema: Status: Acute (13) Cardiopulmonary arrest: Status: Acute (14) Acute exacerbation of chronic obstructive airways disease: Status: Acute (15) Pneumonia: Status: Acute (16) Erectile dysfunction associated with type 2 diabetes mellitus: Status: Acute (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: Status: Acute (18) Nocturia more than twice per night: Status: Acute (19) Prostate cancer: Status: Acute (20) COPD (chronic obstructive pulmonary disease): Status: Acute (21) Dyspnea on exertion: Status: Acute Plan so we will maintain Zosyn for now unless renal function dictates otherwise and will consider the possibility of valproic acid if he does not do well off of the propofol but were going to keep him off any sedating drugs to help generate prognosis because he is in that meza zone where he has preserved brainstem activity but severe EEG abnormality Quality Stroke Does the patient have a stroke diagnosis?: No VTE Prior VTE?: No VTE Risk Level:: Medical - moderate - high VTE Device Contraindication: Treatment Not Indicated VTE Drug Contraindication: N/A - Med Ordered
[2022-08-15 12:14] LABS: Glucose, Whole Blood 172 mg/dL (60-115)
[2022-08-15] MEDS: Sodium Bicarbonate 650 MG TABLET PO ×3 (12:18→20:28)
[2022-08-15] MEDS: Valproic Acid (as Sodium Salt) 1,500 MG in 0.9 % Sodium Chloride 100 ML 100 MG IV (13:20)
--- NOTE | 2022-08-15 14:04 | MHC.CM.PN ---
Pt continues care in ICU: on ventilatory support w/goals of no sedating medications to access for seizure activity: MRI and EEG support dx of severe anoxic injury but preserved brainstem functioning. MD has been updating family on status: no decisions regarding goals of care. CM to follow
[2022-08-15 17:43] LABS: Glucose, Whole Blood 142 mg/dL (60-115)
[2022-08-15] MEDS: VALPROIC ACID IV (20:54)
[2022-08-15] MEDS: DEXTROSE 5% IV (20:54)
[2022-08-15 23:52] LABS: Glucose, Whole Blood 94 mg/dL (60-115)
[2022-08-16] VITALS (32 sets, daily range): BP systolic 96–155; BP diastolic 38–69; PULSE 68–112; RESP 14–22; TEMP 35–38.5; O2SAT 87–100; BMI 28.8
--- NOTE | 2022-08-16 01:21 | W.MHC.ACPN ---
Advanced Care Planning Note Advanced Care Planning Note Discussed with: other (HCP Alfredo Easley and her sister Garrison) Time spent (in minutes): 30 Narrative: At around 12:30 to the 08/16/2022, T-wave inversions were noted on the monitor, a 12 lead rhythm strip was printed and there seems to be T-wave inversions throughout inferior leads (2 3 and AVF) completely new in comparison to prior EKGs.? Otherwise disease sinus rhythm ventricular rate of 90 beats per minute.? There is no ST elevations, no ST depressions. In addition, the patient has continued to seize, despite of valproic acid low leads at 20 milligrams/kilograms x2 IV given earlier on, the patient has continued to have seizure activity almost every half an hour require and recurrent doses of Versed.? Given the continues seizure activity, we were obligated to place him back on propofol drip. At this time, I also reached the patient's 2 daughters including the healthcare proxy Alfredo and her sister Garrison, with whom I had a prolonged discussion about the patient's current clinical scenario, likely poor outcome and current EKG changes. ?As me to perform on lab work and try to find out if disease certainly some sort of ischemic event therefore labs including a troponin were obtained.? They are also aware that in this case we may treat with blood thinners however the patient has already been anemic and required transfusion a couple days ago. Status was addressed again as the patient is currently full code, if he was to continue to deteriorate and had a cardiac arrest, the chances of survival are extremely low.? I advocated for at least DNR at this point and they are considering it, they will call me back with a final answer, they did explain that they are waiting for the EEG but as explained to them, the likelihood of having a good or ?normal study? is low given the ongoing seizure activity and prior MRI findings showing significant anoxic brain injury. At 01:25 the daughter called back, they had a discussion among themselves and have made the decision to make the patient DNR, is still would like to continue with medical treatment and find out what the EEG has to show before making any further decisions. The patient's nurse Freddy was a witness to it. A single dose of aspirin will be given and will await for the troponin results. Total Critical Care time spend with family over the phone, assessing the patient, diagnostics and plan of care 45 minutes Case discussed with Dr London. Problems Discussed (1) Anoxic encephalopathy: (2) Status epilepticus: (3) Encephalopathy: (4) Diabetes mellitus: (5) Seizures: (6) Diabetic ketoacidosis: (7) Atrial fibrillation with RVR: (8) Septic shock: (9) Transaminitis: (10) SOY (acute kidney injury): (11) Acute respiratory failure: (12) Pulmonary edema: (13) Cardiopulmonary arrest: (14) Acute exacerbation of chronic obstructive airways disease: (15) Pneumonia: (16) Erectile dysfunction associated with type 2 diabetes mellitus: (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: (18) Nocturia more than twice per night: (19) Prostate cancer: (20) COPD (chronic obstructive pulmonary disease): (21) Dyspnea on exertion:
[2022-08-16 01:53] LABS: MANUAL DIFF FLAG NO
[2022-08-16 01:55] LABS: Basophils Percent Auto 0.2 % (0-2); Eosinophils Absolute Auto 0.2 X10*3/uL (0.0-0.4); Hematocrit 22.9 % (42.0-52.0); Hemoglobin 7.5 g/dl (14.0-18.0); Imm Gran Abs Auto 0.17 X10*3/uL (0.00-0.03); Imm Gran Pct Auto 1.4 % (0.0-0.4); Lymphocytes Absolute Auto 0.9 X10*3/uL (1.2-4.9); Lymphocytes Percent Auto 7.7 % (20-40); Mean Corpuscular HGB Conc 32.8 g/dl (31.0-36.0); Mean Corpuscular Hemoglobin 28.6 pg (27.0-33.0); Mean Corpuscular Volume 87.4 fL (80.0-98.0); Monocytes Absolute Auto 0.7 X10*3/uL (0.1-1.2); Monocytes Percent Auto 5.8 % (2-11); Neutrophils Absolute Auto 9.9 x10*3/uL (2.0-8.3); Neutrophils Percent Auto 82.9 % (45-73); Platelet Count 339 X10*3/uL (160-400); Red Blood Count 2.62 X10*6/uL (4.60-5.80); Red Cell Distribution Width 16.4 % (11.0-16.0)
[2022-08-16] MEDS: Aspirin 325 MG TABLET PO (02:08)
[2022-08-16 02:17] LABS: Alanine Aminotransferase 60 U/L (0-40); Alkaline Phosphatase 159 U/L (39-117); Anion Gap 17 (12-20); Aspartate Amino Transferase 49 U/L (5-37); Bilirubin Total 0.7 mg/dL (0.0-1.0); Blood Urea Nitrogen 50 mg/dL (9-16); Calcium 8.2 mg/dL (8.4-10.2); Carbon Dioxide 18 mmol/L (22-29); Chloride 110 mmol/L (96-108); Creatinine Clr Calc Pharmacy 41.9; Estimated Glomerular Filt Rate 44; Glucose Random 93 mg/dL (60-115); Potassium 4.2 mmol/L (3.3-5.1); Sodium 141 mmol/L (135-145); Total Protein 5.8 g/dL (6.5-8.0)
[2022-08-16 02:20] LABS: Troponin-I High Sensitivity 40.6 ng/L (<3.5-35.0)
[2022-08-16] MEDS: Albuterol/Iprat 2.5/0.5MG 3 ML AMPUL.NEB INHALE ×4 (04:41→23:21)
[2022-08-16] MEDS: Midazolam HCl/PF 2 MG/2 ML VIAL 4 MG IVPUSH ×15 (05:15→23:40)
[2022-08-16 05:39] LABS: VBG Base Excess 0.4 mmol/L; VBG HCO3 25 mmol/L (22-26); VBG pCO2 39 mmHg; VBG pO2 58 mmHg
[2022-08-16 05:40] LABS: Venous Blood Gas Refer to POC result
[2022-08-16 05:46] LABS: MANUAL DIFF FLAG NO
[2022-08-16] MEDS: Piperacillin Sodium/Tazobactam 2.25 GM in 0.9 % Sodium Chloride 50 ML IV ×4 (05:49→23:32)
[2022-08-16] MEDS: propofoL 1,000 MG/100 ML VIAL 8.44 MG IVCONT (05:49)
[2022-08-16 05:51] LABS: Basophils Percent Auto 0.2 % (0-2); Eosinophils Absolute Auto 0.3 X10*3/uL (0.0-0.4); Hematocrit 24.3 % (42.0-52.0); Hemoglobin 7.9 g/dl (14.0-18.0); Imm Gran Abs Auto 0.18 X10*3/uL (0.00-0.03); Imm Gran Pct Auto 1.4 % (0.0-0.4); Lymphocytes Absolute Auto 1.1 X10*3/uL (1.2-4.9); Mean Corpuscular HGB Conc 32.5 g/dl (31.0-36.0); Mean Corpuscular Hemoglobin 28.3 pg (27.0-33.0); Mean Corpuscular Volume 87.1 fL (80.0-98.0); Monocytes Absolute Auto 0.7 X10*3/uL (0.1-1.2); Monocytes Percent Auto 5.6 % (2-11); Neutrophils Absolute Auto 10.4 x10*3/uL (2.0-8.3); Neutrophils Percent Auto 81.8 % (45-73); Platelet Count 373 X10*3/uL (160-400); Red Blood Count 2.79 X10*6/uL (4.60-5.80); Red Cell Distribution Width 16.4 % (11.0-16.0); White Blood Count 12.7 X10*3/uL (4.8-10.8)
[2022-08-16 06:09] LABS: Alanine Aminotransferase 61 U/L (0-40); Albumin Level 3.2 g/dL (3.5-5.0); Alkaline Phosphatase 156 U/L (39-117); Anion Gap 14 (12-20); Aspartate Amino Transferase 52 U/L (5-37); Bilirubin Total 0.6 mg/dL (0.0-1.0); Blood Urea Nitrogen 49 mg/dL (9-16); Calcium 8.3 mg/dL (8.4-10.2); Carbon Dioxide 20 mmol/L (22-29); Chloride 110 mmol/L (96-108); Creatinine Clr Calc Pharmacy 43.8; Estimated Glomerular Filt Rate 46; Glucose Random 108 mg/dL (60-115); Potassium 4.1 mmol/L (3.3-5.1); Sodium 140 mmol/L (135-145); Total Protein 6.2 g/dL (6.5-8.0)
[2022-08-16 06:16] LABS: Troponin-I High Sensitivity 34.7 ng/L (<3.5-35.0)
[2022-08-16] MEDS: Sodium Bicarbonate 650 MG TABLET PO ×4 (07:56→20:03)
[2022-08-16] MEDS: Chlorhexidine Gluc Oral Rinse 15 ML MOUTHWASH BUCCAL ×3 (07:56→20:03)
[2022-08-16] MEDS: Pantoprazole Sodium 40 MG/10 ML VIAL IVPUSH (07:56)
[2022-08-16] MEDS: PHENobarbitaL sodium 130 MG/ML VIAL IVPUSH ×2 (08:40→11:42)
[2022-08-16] MEDS: levETIRAcetam in NaCl (iso-os) 1,000 MG/100 ML PIGGYBACK 400 MG IV ×2 (09:32→21:05)
[2022-08-16] MEDS: PHENobarbitaL sodium 65 MG/ML VIAL IVPUSH ×2 (09:48→12:20)
[2022-08-16 11:48] LABS: Methyl Alcohol NONE DETECTED
[2022-08-16 11:56] LABS: Glucose, Whole Blood 112 mg/dL (60-115)
[2022-08-16] MEDS: PHENobarbitaL 30 MG TABLET 90 MG PO ×3 (13:09→23:32)
--- NOTE | 2022-08-16 13:43 | P.PNCC_ITS ---
Subjective Subjective Date of Service: 08/16/22 Interval History: 72-year-old male who presented with acute hypoxic respiratory failure with extensive community-acquired probably pneumococcal pneumonia and sepsis this was complicated by new onset of rapid atrial fibrillation followed very shortly thereafter by a cardio respiratory arrest and 20 minute resuscitation to spontaneous circulation with apparent anoxic encephalopathy and persistent coma but also apparent convulsive and nonconvulsive status epilepticus now on 4 medications to include Keppra Dilantin valproic acid and phenobarbital in the hopes of being able to get him off of all other sedating medicines most importantly propofol and benzodiazepines to give him a chance at potentially waking up but I explained to the family we have an EEG indicating very poor prognosis and we also have a deteriorating examination in that previously he had all brainstem reflexes present now he no longer has corneals oculovestibular nor pupil reactivity nor a gag he he does have a slight cough and spontaneous respiration so for all intents and purposes potentially just medullary involvement with bilateral pinpoint nonreactive pupils and all 4 extremities are completely flaccid he has a slowly resolving acute on chronic renal insufficiency picture current creatinine is down to 1.5 and BUN down to 49 no electrolyte or other metabolic disturbance Critical Care Time (minutes): 45 Physical Exam Vital Signs: Vital Signs: Last Vital Signs Temp 99.9 F 08/16/22 13:00 Pulse 101 H 08/16/22 13:00 Resp 19 08/16/22 13:00 BP 152/63 H 08/16/22 13:00 Pulse Ox 95 08/16/22 13:00 O2 Del Method Mechanical Ventil ation 08/16/22 13:00 O2 Flow Rate 6 08/08/22 00:13 FiO2 30 08/16/22 13:00 BMI result Body Mass Index 28.8 vital signs are stable all 4 extremities flaccid and but intermittently with seizure activity you could see that there is some motion of the right upper extremity bedside echo still showing preserved LV function no particular right ventricular abnormality no primary valve or pericardial disease lungs with some right lower lobe rales no other adventitious sounds abdomen is soft no organomegaly and you can not see he is tolerating his tube feedings Objective Data Labs 08/16/22 05:21 08/16/22 05:21 Labs: Laboratory Results - last 24 hr 08/08/22 08/15/22 08/15/22 14:28 17:37 23:49 WBC RBC Hgb Hct MCV MCH MCHC RDW Plt Count MPV Immature Gran % (Auto) Neut % (Auto) Lymph % (Auto) [place] % (Auto) Eos % (Auto) Baso % (Auto) Lymph # (Auto) [place] # (Auto) Eos # (Auto) Baso # (Auto) Abs Immat Gran (auto) Absolute Neuts (auto) Absolute Nucleated RBC Nucleated RBC % (auto) VBG pH VBG pCO2 VBG pO2 VBG HCO3 VBG O2 Saturation VBG Base Excess Sodium Potassium Chloride Carbon Dioxide Anion Gap BUN Creatinine Estim Creat Clear Calc Estimated GFR POC Glucose 142 H 94 Random Glucose Calcium Total Bilirubin AST ALT Alkaline Phosphatase Troponin I High Sens Total Protein Albumin Methyl Alcohol Level NONE DETECTED 08/16/22 08/16/22 08/16/22 01:35 01:35 01:35 WBC 12.0 H RBC 2.62 L Hgb 7.5 L Hct 22.9 L MCV 87.4 MCH 28.6 MCHC 32.8 RDW 16.4 H Plt Count 339 MPV 12.0 Immature Gran % (Auto) 1.4 H Neut % (Auto) 82.9 H Lymph % (Auto) 7.7 L [place] % (Auto) 5.8 Eos % (Auto) 2.0 Baso % (Auto) 0.2 Lymph # (Auto) 0.9 L [place] # (Auto) 0.7 Eos # (Auto) 0.2 Baso # (Auto) 0.0 Abs Immat Gran (auto) 0.17 H Absolute Neuts (auto) 9.9 H Absolute Nucleated RBC 0.000 Nucleated RBC % (auto) 0.0 VBG pH VBG pCO2 VBG pO2 VBG HCO3 VBG O2 Saturation VBG Base Excess Sodium 141 Potassium 4.2 Chloride 110 H Carbon Dioxide 18 L Anion Gap 17 BUN 50 H Creatinine 1.56 H Estim Creat Clear Calc 41.9 Estimated GFR 44 POC Glucose Random Glucose 93 Calcium 8.2 L Total Bilirubin 0.7 AST 49 H ALT 60 H Alkaline Phosphatase 159 H Troponin I High Sens 40.6 H D Total Protein 5.8 L Albumin 3.0 L Methyl Alcohol Level 08/16/22 08/16/22 08/16/22 05:21 05:21 05:21 WBC 12.7 H RBC 2.79 L Hgb 7.9 L Hct 24.3 L MCV 87.1 MCH 28.3 MCHC 32.5 RDW 16.4 H Plt Count 373 MPV 12.0 Immature Gran % (Auto) 1.4 H Neut % (Auto) 81.8 H Lymph % (Auto) 9.0 L [place] % (Auto) 5.6 Eos % (Auto) 2.0 Baso % (Auto) 0.2 Lymph # (Auto) 1.1 L [place] # (Auto) 0.7 Eos # (Auto) 0.3 Baso # (Auto) 0.0 Abs Immat Gran (auto) 0.18 H Absolute Neuts (auto) 10.4 H Absolute Nucleated RBC 0.000 Nucleated RBC % (auto) 0.0 VBG pH VBG pCO2 VBG pO2 VBG HCO3 VBG O2 Saturation VBG Base Excess Sodium 140 Potassium 4.1 Chloride 110 H Carbon Dioxide 20 L Anion Gap 14 BUN 49 H Creatinine 1.50 H Cancelled Estim Creat Clear Calc 43.8 Cancelled Estimated GFR 46 Cancelled POC Glucose Random Glucose 108 Calcium 8.3 L Total Bilirubin 0.6 AST 52 H ALT 61 H Alkaline Phosphatase 156 H Troponin I High Sens Total Protein 6.2 L Albumin 3.2 L Methyl Alcohol Level 08/16/22 08/16/22 08/16/22 05:21 05:31 11:50 WBC RBC Hgb Hct MCV MCH MCHC RDW Plt Count MPV Immature Gran % (Auto) Neut % (Auto) Lymph % (Auto) [place] % (Auto) Eos % (Auto) Baso % (Auto) Lymph # (Auto) [place] # (Auto) Eos # (Auto) Baso # (Auto) Abs Immat Gran (auto) Absolute Neuts (auto) Absolute Nucleated RBC Nucleated RBC % (auto) VBG pH 7.40 VBG pCO2 39 VBG pO2 58 VBG HCO3 25 VBG O2 Saturation 88.0 VBG Base Excess 0.4 Sodium Potassium Chloride Carbon Dioxide Anion Gap BUN Creatinine Estim Creat Clear Calc Estimated GFR POC Glucose 112 Random Glucose Calcium Total Bilirubin AST ALT Alkaline Phosphatase Troponin I High Sens 34.7 Total Protein Albumin Methyl Alcohol Level Microbiology Microbiology Results: Microbiology 08/08/22 04:29 Blood - Venous Blood Culture - Final No growth after 5 days. 08/08/22 04:29 Blood - Venous Blood Culture - Final No growth after 5 days. 08/06/22 19:00 Blood - Venous Blood Culture - Final No growth after 5 days. 08/06/22 18:30 Blood - Venous Blood Culture - Final No growth after 5 days. Progress Note: A&P Assessment and plan (1) Anoxic encephalopathy: Status: Acute (2) Status epilepticus: Status: Acute (3) Encephalopathy: Status: Acute (4) Diabetes mellitus: Status: Acute (5) Seizures: Status: Acute (6) Diabetic ketoacidosis: Status: Acute (7) Atrial fibrillation with RVR: Status: Acute (8) Septic shock: Status: Acute (9) Transaminitis: Status: Acute (10) SOY (acute kidney injury): Status: Acute (11) Acute respiratory failure: Status: Acute (12) Pulmonary edema: Status: Acute (13) Cardiopulmonary arrest: Status: Acute (14) Acute exacerbation of chronic obstructive airways disease: Status: Acute (15) Pneumonia: Status: Acute (16) Erectile dysfunction associated with type 2 diabetes mellitus: Status: Acute (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: Status: Acute (18) Nocturia more than twice per night: Status: Acute (19) Prostate cancer: Status: Acute (20) Pulmonary nodules: Status: Acute (21) Dyspnea on exertion: Status: Acute (22) COPD (chronic obstructive pulmonary disease): Status: Acute Plan and the plan again is the use of these 4 anti seizure drugs as we continue to watch for clinical seizure activity and will probably repeat another EEG to help the family prognosticate but at this juncture I said the prognosis for central nervous system recovery is poor certainly highly improbable for meaningful return of cognitive function but we will also continue with the Funmi right now for his presumed pneumococcal pneumonia will follow his chest x-rays and will follow his EEG Quality Stroke Does the patient have a stroke diagnosis?: No VTE Prior VTE?: No VTE Risk Level:: Medical - moderate - high VTE Device Contraindication: Treatment Not Indicated VTE Drug Contraindication: N/A - Med Ordered
[2022-08-16] MEDS: Valproic Acid (as Sodium Salt) 500 MG in Dextrose 5 % 50 ML 55 MG IV ×2 (14:17→18:45)
[2022-08-16 23:15] LABS: Glucose, Whole Blood 99 mg/dL (60-115)
[2022-08-16 23:15] LABS: Glucose, Whole Blood 115 mg/dL (60-115)
[2022-08-17] VITALS (32 sets, daily range): BP systolic 125–169; BP diastolic 46–62; PULSE 73–96; RESP 14–26; TEMP 34.8–38.6; O2SAT 91–97; BMI 29.0
--- NOTE | 2022-08-17 | EEG_ITS ---
This is a 16-channel portable EEG. The patient is reported unresponsive. Background EEG rhythm is very low amplitude with periodic low amplitude mild sharp waves. In comparison to previous EEG, there has been significant reduction of amplitudes. Cardiac lead did not reveal any significant abnormality. No definite asymmetry, sharp waves, or spikes are noted. IMPRESSION: Severe abnormality revealing evidence of bilateral hemispheric dysfunction, probably from anoxic encephalopathy. MD FELICITAS Aviles/GABINO / [id number]
[2022-08-17] MEDS: Midazolam HCl/PF 2 MG/2 ML VIAL 4 MG IVPUSH ×6 (01:25→19:23)
[2022-08-17] MEDS: Valproic Acid (as Sodium Salt) 500 MG in Dextrose 5 % 50 ML 55 MG IV ×3 (01:26→13:22)
[2022-08-17 05:01] LABS: VBG Base Excess 0.8 mmol/L; VBG HCO3 25 mmol/L (22-26); VBG pCO2 40 mmHg; VBG pO2 58 mmHg
[2022-08-17 05:02] LABS: MANUAL DIFF FLAG NO
[2022-08-17] MEDS: Albuterol/Iprat 2.5/0.5MG 3 ML AMPUL.NEB INHALE ×4 (05:02→23:34)
[2022-08-17 05:03] LABS: Venous Blood Gas Refer to POC result
[2022-08-17 05:07] LABS: Basophils Percent Auto 0.2 % (0-2); Eosinophils Absolute Auto 0.3 X10*3/uL (0.0-0.4); Eosinophils Percent Auto 2.9 % (0-4); Hematocrit 24.4 % (42.0-52.0); Imm Gran Abs Auto 0.12 X10*3/uL (0.00-0.03); Imm Gran Pct Auto 1.2 % (0.0-0.4); Lymphocytes Absolute Auto 0.9 X10*3/uL (1.2-4.9); Lymphocytes Percent Auto 8.8 % (20-40); Mean Corpuscular HGB Conc 32.8 g/dl (31.0-36.0); Mean Corpuscular Hemoglobin 28.5 pg (27.0-33.0); Mean Corpuscular Volume 86.8 fL (80.0-98.0); Mean Platelet Volume 11.6 fL (9.4-12.4); Monocytes Absolute Auto 0.7 X10*3/uL (0.1-1.2); Monocytes Percent Auto 7.1 % (2-11); Neutrophils Absolute Auto 7.8 x10*3/uL (2.0-8.3); Neutrophils Percent Auto 79.8 % (45-73); Platelet Count 469 X10*3/uL (160-400); Red Blood Count 2.81 X10*6/uL (4.60-5.80); Red Cell Distribution Width 16.5 % (11.0-16.0); White Blood Count 9.8 X10*3/uL (4.8-10.8)
[2022-08-17] MEDS: Piperacillin Sodium/Tazobactam 2.25 GM in 0.9 % Sodium Chloride 50 ML IV ×4 (05:17→22:31)
[2022-08-17 05:24] LABS: Creatinine Clr Calc Pharmacy 48.4; Estimated Glomerular Filt Rate 51
[2022-08-17 05:54] LABS: Anion Gap 17 (12-20)
[2022-08-17 05:57] LABS: Blood Urea Nitrogen 42 mg/dL (9-16); Calcium 8.6 mg/dL (8.4-10.2); Carbon Dioxide 18 mmol/L (22-29); Chloride 109 mmol/L (96-108); Glucose Random 113 mg/dL (60-115); Potassium 4.7 mmol/L (3.3-5.1); Sodium 139 mmol/L (135-145)
[2022-08-17] MEDS: Insulin Glargine,Hum.rec.anlog 100 UNIT/ML 10 ML VIAL 30 UNIT SUBCUT (08:27)
[2022-08-17] MEDS: Phenytoin Oral Susp 100 MG/4 ML ORAL.SUSP 300 MG PO (08:30)
[2022-08-17] MEDS: PHENobarbitaL 30 MG TABLET 90 MG PO ×2 (08:30→16:04)
[2022-08-17] MEDS: Chlorhexidine Gluc Oral Rinse 15 ML MOUTHWASH BUCCAL ×3 (08:31→20:01)
[2022-08-17] MEDS: Sodium Bicarbonate 650 MG TABLET PO ×4 (08:31→20:01)
[2022-08-17] MEDS: levETIRAcetam in NaCl (iso-os) 1,000 MG/100 ML PIGGYBACK 400 MG IV ×2 (08:36→22:05)
[2022-08-17 10:19] LABS: Phenytoin Dilantin 2.9 ug/mL (10.0-20.0)
[2022-08-17] MEDS: Phenytoin Sodium 100 MG/2 ML VIAL IVPUSH (11:04)
[2022-08-17 11:29] LABS: Valproate 43.7 mcg/mL (50.0-100.0)
[2022-08-17 11:53] LABS: Glucose, Whole Blood 157 mg/dL (60-115)
[2022-08-17] MEDS: Insulin Lispro 100 UNIT/ML 3 ML VIAL SUBCUT (12:10)
--- NOTE | 2022-08-17 15:42 | PM.CCPN ---
Subjective Subjective Date of Service: 08/17/22 Interval History: 72-year-old male who presented with acute hypoxemic respiratory failure from a complicated severe pneumococcal pneumonia with sepsis developed rapid atrial fibrillation and then a cardiovascular arrest and requiring 20 minutes of resuscitation and currently has severe anoxic encephalopathy and remains comatose unresponsive to pain and has even lost a lot of his brainstem reflexes outside of spontaneous respiration on at least today's current examination and also developed intractable nonconvulsive status epilepticus and currently on 4 drugs including valproic acid the level of which was low so I just raise that dose and Dilantin also the low level in the dose raised but the background of Keppra and phenobarbital and off sedation but did require a few p.r.n. doses of Versed and underwent a repeat EEG again today to be sure were we have [place] the nonconvulsive status 1. And to prognosticate about background electrical activity to help family make decisions about what otherwise appears to be a very poor prognosis for any form of meaningful cognitive recovery Critical Care Time (minutes): 45 Physical Exam Vital Signs: Vital Signs: Last Vital Signs Temp 98.2 F 08/17/22 14:00 Pulse 78 08/17/22 15:00 Resp 15 08/17/22 15:00 BP 152/58 H 08/17/22 15:00 Pulse Ox 95 08/17/22 15:00 O2 Del Method Mechanical Ventil ation 08/17/22 15:00 O2 Flow Rate 30 08/16/22 23:00 FiO2 30 08/17/22 15:00 BMI result Body Mass Index 29.0 exam is I described the only brainstem reflex release spontaneous respiration all 4 extremities flaccid with no response to pain bedside cardiac exam normal LV RV function by echo lungs clearly the predominant right lower lobe infiltrate is clearing clinically on antibiotics abdomen tolerating tube feedings soft nontender no organomegaly Objective Data Labs 08/17/22 04:55 08/17/22 04:55 Labs: Laboratory Results - last 24 hr 08/16/22 08/16/22 08/17/22 17:31 23:11 04:52 WBC RBC Hgb Hct MCV MCH MCHC RDW Plt Count MPV Immature Gran % (Auto) Neut % (Auto) Lymph % (Auto) [place] % (Auto) Eos % (Auto) Baso % (Auto) Lymph # (Auto) [place] # (Auto) Eos # (Auto) Baso # (Auto) Abs Immat Gran (auto) Absolute Neuts (auto) Absolute Nucleated RBC Nucleated RBC % (auto) VBG pH 7.40 VBG pCO2 40 VBG pO2 58 VBG HCO3 25 VBG O2 Saturation 88.0 VBG Base Excess 0.8 Sodium Potassium Chloride Carbon Dioxide Anion Gap BUN Creatinine Estim Creat Clear Calc Estimated GFR POC Glucose 115 99 Random Glucose Calcium Phenytoin Valproic Acid 08/17/22 08/17/22 08/17/22 04:55 04:55 08:49 WBC 9.8 RBC 2.81 L Hgb 8.0 L Hct 24.4 L MCV 86.8 MCH 28.5 MCHC 32.8 RDW 16.5 H Plt Count 469 H D MPV 11.6 Immature Gran % (Auto) 1.2 H Neut % (Auto) 79.8 H Lymph % (Auto) 8.8 L [place] % (Auto) 7.1 Eos % (Auto) 2.9 Baso % (Auto) 0.2 Lymph # (Auto) 0.9 L [place] # (Auto) 0.7 Eos # (Auto) 0.3 Baso # (Auto) 0.0 Abs Immat Gran (auto) 0.12 H Absolute Neuts (auto) 7.8 Absolute Nucleated RBC 0.000 Nucleated RBC % (auto) 0.0 VBG pH VBG pCO2 VBG pO2 VBG HCO3 VBG O2 Saturation VBG Base Excess Sodium 139 Potassium 4.7 Chloride 109 H Carbon Dioxide 18 L Anion Gap 17 BUN 42 H Creatinine 1.36 Estim Creat Clear Calc 48.4 Estimated GFR 51 POC Glucose Random Glucose 113 Calcium 8.6 Phenytoin 2.9 L* Valproic Acid 08/17/22 08/17/22 10:48 11:50 WBC RBC Hgb Hct MCV MCH MCHC RDW Plt Count MPV Immature Gran % (Auto) Neut % (Auto) Lymph % (Auto) [place] % (Auto) Eos % (Auto) Baso % (Auto) Lymph # (Auto) [place] # (Auto) Eos # (Auto) Baso # (Auto) Abs Immat Gran (auto) Absolute Neuts (auto) Absolute Nucleated RBC Nucleated RBC % (auto) VBG pH VBG pCO2 VBG pO2 VBG HCO3 VBG O2 Saturation VBG Base Excess Sodium Potassium Chloride Carbon Dioxide Anion Gap BUN Creatinine Estim Creat Clear Calc Estimated GFR POC Glucose 157 H Random Glucose Calcium Phenytoin Valproic Acid 43.7 L Microbiology Microbiology Results: Microbiology 08/08/22 04:29 Blood - Venous Blood Culture - Final No growth after 5 days. 08/08/22 04:29 Blood - Venous Blood Culture - Final No growth after 5 days. 08/06/22 19:00 Blood - Venous Blood Culture - Final No growth after 5 days. 08/06/22 18:30 Blood - Venous Blood Culture - Final No growth after 5 days. Progress Note: A&P Assessment and plan (1) Anoxic encephalopathy: Status: Acute (2) Status epilepticus: Status: Acute (3) Encephalopathy: Status: Acute (4) Diabetes mellitus: Status: Acute (5) Seizures: Status: Acute (6) Diabetic ketoacidosis: Status: Acute (7) Atrial fibrillation with RVR: Status: Acute (8) Septic shock: Status: Acute (9) Transaminitis: Status: Acute (10) SOY (acute kidney injury): Status: Acute (11) Acute respiratory failure: Status: Acute (12) Pulmonary edema: Status: Acute (13) Cardiopulmonary arrest: Status: Acute (14) Acute exacerbation of chronic obstructive airways disease: Status: Acute (15) Pneumonia: Status: Acute (16) Erectile dysfunction associated with type 2 diabetes mellitus: Status: Acute (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: Status: Acute (18) Nocturia more than twice per night: Status: Acute (19) Prostate cancer: Status: Acute (20) Pulmonary nodules: Status: Acute (21) Dyspnea on exertion: Status: Acute (22) COPD (chronic obstructive pulmonary disease): Status: Acute Plan so the plan is to raise the 24 hour dose of both Dilantin and valproic acid and then hopefully assess the EEG in light of his clinical neurological deterioration Quality Stroke Does the patient have a stroke diagnosis?: No VTE Prior VTE?: No VTE Risk Level:: Medical - moderate - high VTE Device Contraindication: Treatment Not Indicated VTE Drug Contraindication: N/A - Med Ordered
--- NOTE | 2022-08-17 15:49 | MHC.CM.PN ---
EMR REVIEWED. PT REMAINS IN ICU ON VENTILATORY SUPPORT. REPEAT EEG MAY BE DONE. CM WILL FOLLOW FOR CHANGES IN DC NEEDS/PLAN.
--- NOTE | 2022-08-17 15:49 | HO.WOUNDCONS ---
History of Present Illness Data of Consult Service Date: 08/17/22 Requesting physician: Seamus Darnell Primary Care Provider: Ayaz Stinson MD [facility] Reason for consult: DTI dylonyx [id number]: 72-year-old male admitted to [facility] on August 06 with shortness of breath and hypoxia. Unclear if he has asthma, COPD or both. RLL pneumonia seen and admitted with COPD exacerbation/pneumonia. Cardiac arrest occurred on August 08. He was transferred to the intensive care unit. Was intubated for respiratory failure and remains intubated. His prognosis is reported as poor. He is having an EEG right now so I will not be able to see the wound. He has SOY and history of diabetes. Mobility picture is unclear and the patient cannot answer questions. He is now DNR. Review of Systems Review of Systems: Yes Unobtainable due to mental condition [facility] Medical History (Updated 08/17/22 @ 16:08 by MACK Limon) Asthma Cancer of right renal pelvis COPD (chronic obstructive pulmonary disease) Crossed renal ectopia Diabetes mellitus Elevated PSA Erectile dysfunction High cholesterol HTN (hypertension) Multinodular goiter (nontoxic) Prostate cancer Right renal mass Family History Father No problems noted. Mother No problems noted. Surgical History History of prostate biopsy Hx of biopsy Social History Household Members: None Housing: Apartment Do you presently have visiting nurse or other home services: No Alcohol intake: former Patient Tobacco Use Status: Former Tobacco user Quit Date: 3-4 years ago e-Cigarette/Vaping Use: Never Used Second Hand Smoke Exposure: No Advance Directives Date on File: 04/14/22 service: No Current occupational status: retired Meds Allergies Allergy/AdvReac Type Severity Reaction Status Date / Time ciprofloxacin [From CIPRO] Allergy Unknown RASH Verified 08/06/22 17:50 Sulfa (Sulfonamide Allergy Unknown rash Verified 08/06/22 17:50 Antibiotics) sulfamethoxazole Allergy Unknown RASH Verified 08/06/22 17:50 [From BACTRIM] trimethoprim [From BACTRIM] Allergy Unknown RASH Verified 08/06/22 17:50 Active Medications: Current Medications Acetaminophen (Acetaminophen Oral Liquid 650 Mg/20.3 Ml Solution) 650 mg PO Q6H PRN PRN Reason: Fever Last Admin: 08/15/22 23:43 Dose: 650 mg Albuterol Sulfate (Albuterol Sulfate (0.083%) 2.5 Mg/3 Ml Vial.Neb) 2.5 mg INHALE Q3H PRN PRN Reason: Wheezing Albuterol/Ipratropium (Albuterol/Iprat 2.5/0.5mg 3 Ml Ampul.Neb) 3 ml INHALE Q6H CHARITO Last Admin: 08/17/22 08:41 Dose: 3 ml Chlorhexidine Gluconate (Chlorhexidine Gluc Oral Rinse 15 Ml Mouthwash) 15 ml BUCCAL TID [facility] Last Admin: 08/17/22 08:31 Dose: 15 ml Propofol (Diprivan) 1,000 mg in 100 mls @ 0 mls/hr IVCONT .Q0M [facility]; Protocol Last Titration: 08/16/22 12:00 Dose: Infused Dextrose (D10) 250 mls @ 750 mls/hr IV Q30M PRN PRN Reason: BG < 70 Last Infusion: 08/12/22 19:53 Dose: Infused Levetiracetam (Keppra) 1,000 mg in 100 mls @ 400 mls/hr IV Q12H [facility] Last Infusion: 08/17/22 10:21 Dose: Infused Piperacillin Sod/Tazobactam (Sod 2.25 gm/ Sodium Chloride) 50 mls @ 100 mls/hr IV Q6H [facility] Last Infusion: 08/17/22 11:23 Dose: Infused Valproic Acid 1,000 mg/ (Dextrose) 60 mls @ 60 mls/hr IV Q8H [facility] Insulin Glargine (Insulin Glargine,Hum.Rec.Anlog 100 Unit/Ml 10 Ml Vial) 30 unit SUBCUT DAILY [facility] Last Admin: 08/17/22 08:27 Dose: 30 unit Insulin Human Lispro (Insulin Lispro 100 Unit/Ml 3 Ml Vial) 0 unit SUBCUT Q6H [facility]; Protocol Last Admin: 08/17/22 12:10 Dose: 2 unit Midazolam HCl (Midazolam Hcl/Pf 2 Mg/2 Ml Vial) 4 mg IVPUSH Q15M PRN PRN Reason: seizure Last Admin: 08/17/22 13:25 Dose: 4 mg Phenobarbital (Phenobarbital 30 Mg Tablet) 90 mg PO Q8H [facility] Last Admin: 08/17/22 08:30 Dose: 90 mg Phenytoin (Phenytoin Oral Susp 100 Mg/4 Ml Oral.Susp) 400 mg PO DAILY [facility] Sodium Bicarbonate (Sodium Bicarbonate 650 Mg Tablet) 650 mg PO QID [facility] Last Admin: 08/17/22 12:10 Dose: 650 mg Home Medications Medication Instructions Recorded Confirmed Last Taken Type albuterol sulfate 90 mcg/actuation 2 puff PO Q4-6H PRN Shortness Of 03/13/20 08/06/22 Unknown History aerosol inhaler Breath Or Wheezing enalapril maleate 20 mg tablet 20 mg PO BID 03/13/20 08/06/22 Unknown History glyburide 1.25 mg tablet 1.25 mg PO DAILY@0730 03/13/20 08/06/22 08/06/22 History ipratropium 0.5 mg-albuterol 3 mg 3 ml inhalation TID PRN Shortness 03/13/20 08/06/22 Unknown History (2.5 mg base)/3 mL nebulization Of Breath soln metformin 500 mg tablet 1,000 mg PO BIDWM 03/13/20 08/06/22 08/06/22 History simvastatin 80 mg tablet 80 mg PO DAILY 03/13/20 08/06/22 08/06/22 History metoprolol succinate 100 mg 100 mg PO DAILY 06/25/20 08/06/22 08/06/22 History tablet,extended release 24 hr metoprolol succinate 50 mg 50 mg PO BEDTIME 06/25/20 08/06/22 Unknown History tablet,extended release 24 hr nifedipine 90 mg tablet,extended 90 mg PO DAILY 06/25/20 08/06/22 08/06/22 History release diphenhydramine HCl 25 mg capsule 25 mg PO BEDTIME PRN insomnia 06/17/21 08/06/22 Unknown History (Banophen) aspirin 81 mg tablet,delayed 81 mg PO DAILY 12/18/21 08/06/22 08/06/22 History release oxycodone-acetaminophen 5 mg-325 1 tab PO Q8H PRN Pain, Severe 04/13/22 08/06/22 Unknown History mg tablet tadalafil 5 mg tablet 5 mg PO DAILY PRN Sexual Activity 04/13/22 08/06/22 Unknown History fluticasone fur. 200 mcg-umeclid 1 inh inhalation BID 08/06/22 08/06/22 Unknown History 62.5 mcg-vilant 25 mcg inhalat.powder (Trelegy Ellipta) Physical Exam Vital Signs and Narrative: Vital Signs: Last Vital Signs Temp 98.2 F 08/17/22 14:00 Pulse 78 08/17/22 15:00 Resp 15 08/17/22 15:00 BP 152/58 H 08/17/22 15:00 Pulse Ox 95 08/17/22 15:00 O2 Del Method Mechanical Ventil ation 08/17/22 15:00 O2 Flow Rate 30 08/16/22 23:00 FiO2 30 08/17/22 15:00 BMI result Body Mass Index 29.0 Photograph reviewed in the bedside chart shows intact dermis and some discoloration at the deepest aspect of the coccyx. The nurse was kind enough to take a 2nd photograph today after cleaning up the patient and there is not significant progression of this deep soft tissue injury. It does not look ulcerated. There does not appear to be maceration or redness. The other possibility could be the beginnings of dependent lividity in the setting of poor prognosis. Results Labs 08/17/22 04:55 08/17/22 04:55 Labs: Laboratory Results - last 24 hr 08/16/22 08/16/22 08/17/22 17:31 23:11 04:52 MCV MCH MCHC RDW Plt Count MPV Immature Gran % (Auto) Neut % (Auto) Lymph % (Auto) [place] % (Auto) Eos % (Auto) Baso % (Auto) Lymph # (Auto) [place] # (Auto) Eos # (Auto) Baso # (Auto) Abs Immat Gran (auto) Absolute Neuts (auto) Absolute Nucleated RBC Nucleated RBC % (auto) VBG pH 7.40 VBG pCO2 40 VBG pO2 58 VBG HCO3 25 VBG O2 Saturation 88.0 VBG Base Excess 0.8 Anion Gap Estim Creat Clear Calc Estimated GFR POC Glucose 115 99 Random Glucose Calcium Phenytoin Valproic Acid 08/17/22 08/17/22 08/17/22 04:55 04:55 08:49 MCV 86.8 MCH 28.5 MCHC 32.8 RDW 16.5 H Plt Count 469 H D MPV 11.6 Immature Gran % (Auto) 1.2 H Neut % (Auto) 79.8 H Lymph % (Auto) 8.8 L [place] % (Auto) 7.1 Eos % (Auto) 2.9 Baso % (Auto) 0.2 Lymph # (Auto) 0.9 L [place] # (Auto) 0.7 Eos # (Auto) 0.3 Baso # (Auto) 0.0 Abs Immat Gran (auto) 0.12 H Absolute Neuts (auto) 7.8 Absolute Nucleated RBC 0.000 Nucleated RBC % (auto) 0.0 VBG pH VBG pCO2 VBG pO2 VBG HCO3 VBG O2 Saturation VBG Base Excess Anion Gap 17 Estim Creat Clear Calc 48.4 Estimated GFR 51 POC Glucose Random Glucose 113 Calcium 8.6 Phenytoin 2.9 L* Valproic Acid 08/17/22 08/17/22 10:48 11:50 MCV MCH MCHC RDW Plt Count MPV Immature Gran % (Auto) Neut % (Auto) Lymph % (Auto) [place] % (Auto) Eos % (Auto) Baso % (Auto) Lymph # (Auto) [place] # (Auto) Eos # (Auto) Baso # (Auto) Abs Immat Gran (auto) Absolute Neuts (auto) Absolute Nucleated RBC Nucleated RBC % (auto) VBG pH VBG pCO2 VBG pO2 VBG HCO3 VBG O2 Saturation VBG Base Excess Anion Gap Estim Creat Clear Calc Estimated GFR POC Glucose 157 H Random Glucose Calcium Phenytoin Valproic Acid 43.7 L Assessment and Plan (1) Deep tissue injury: Status: Acute Plan Agree with foam border for protection. No indication for alginate because the wound is closed and not seeming to drain. Zinc oxide can sometimes be helpful for periwound protection but can be harmful under protective foam border dressings. No inclination to change orders or add anything for DTI as the patient's chances of meaningful survival for Margarito are documented as poor. Time Spent With Patient Time: Total time managing care of this patient today ____ minutes.
[2022-08-17 17:42] LABS: Glucose, Whole Blood 119 mg/dL (60-115)
[2022-08-17] MEDS: Valproic Acid (as Sodium Salt) 1,000 MG in Dextrose 5 % 50 ML 60 MG IV (19:27)
[2022-08-17 23:35] LABS: Glucose, Whole Blood 115 mg/dL (60-115)
[2022-08-18] VITALS (30 sets, daily range): BP systolic 116–167; BP diastolic 42–70; PULSE 69–90; RESP 14–19; TEMP 34.8–37.4; O2SAT 92–97; BMI 29.4
[2022-08-18] MEDS: PHENobarbitaL 30 MG TABLET 90 MG PO ×3 (00:25→16:08)
[2022-08-18] MEDS: Albuterol/Iprat 2.5/0.5MG 3 ML AMPUL.NEB INHALE ×4 (02:57→23:56)
[2022-08-18] MEDS: Valproic Acid (as Sodium Salt) 1,000 MG in Dextrose 5 % 50 ML 60 MG IV ×3 (02:57→20:16)
[2022-08-18 04:33] LABS: MANUAL DIFF FLAG NO
[2022-08-18 04:36] LABS: VBG Base Excess -3.1 mmol/L; VBG HCO3 21 mmol/L (22-26); VBG pCO2 34 mmHg; VBG pH 7.39 (7.32-7.43); VBG pO2 48 mmHg
[2022-08-18 04:37] LABS: Basophils Percent Auto 0.3 % (0-2); Eosinophils Absolute Auto 0.2 X10*3/uL (0.0-0.4); Eosinophils Percent Auto 2.5 % (0-4); Hematocrit 24.9 % (42.0-52.0); Hemoglobin 7.9 g/dl (14.0-18.0); Imm Gran Pct Auto 1.3 % (0.0-0.4); Lymphocytes Absolute Auto 0.8 X10*3/uL (1.2-4.9); Lymphocytes Percent Auto 9.7 % (20-40); Mean Corpuscular HGB Conc 31.7 g/dl (31.0-36.0); Mean Corpuscular Volume 88.3 fL (80.0-98.0); Mean Platelet Volume 11.1 fL (9.4-12.4); Monocytes Absolute Auto 0.5 X10*3/uL (0.1-1.2); Monocytes Percent Auto 6.6 % (2-11); Neutrophils Absolute Auto 6.3 x10*3/uL (2.0-8.3); Neutrophils Percent Auto 79.6 % (45-73); Platelet Count 510 X10*3/uL (160-400); Red Blood Count 2.82 X10*6/uL (4.60-5.80); Red Cell Distribution Width 16.3 % (11.0-16.0); White Blood Count 7.9 X10*3/uL (4.8-10.8)
[2022-08-18 04:42] LABS: Venous Blood Gas Refer to POC result
[2022-08-18 04:53] LABS: Alanine Aminotransferase 49 U/L (0-40); Albumin Level 2.8 g/dL (3.5-5.0); Alkaline Phosphatase 144 U/L (39-117); Anion Gap 16 (12-20); Aspartate Amino Transferase 56 U/L (5-37); Bilirubin Total 0.4 mg/dL (0.0-1.0); Blood Urea Nitrogen 37 mg/dL (9-16); Calcium 8.6 mg/dL (8.4-10.2); Carbon Dioxide 19 mmol/L (22-29); Chloride 107 mmol/L (96-108); Estimated Glomerular Filt Rate > 60; Glucose Random 136 mg/dL (60-115); Magnesium 1.8 mg/dL (1.6-2.6); Phosphorus 3.7 mg/dL (2.7-4.5); Potassium 4.3 mmol/L (3.3-5.1); Sodium 138 mmol/L (135-145)
[2022-08-18] MEDS: Piperacillin Sodium/Tazobactam 2.25 GM in 0.9 % Sodium Chloride 50 ML IV ×4 (05:08→22:22)
[2022-08-18] MEDS: Sodium Bicarbonate 650 MG TABLET PO ×4 (08:14→20:17)
[2022-08-18] MEDS: Chlorhexidine Gluc Oral Rinse 15 ML MOUTHWASH BUCCAL ×3 (08:14→20:16)
[2022-08-18] MEDS: Phenytoin Oral Susp 100 MG/4 ML ORAL.SUSP 400 MG PO (08:15)
[2022-08-18] MEDS: Insulin Glargine,Hum.rec.anlog 100 UNIT/ML 10 ML VIAL 30 UNIT SUBCUT (08:15)
[2022-08-18] MEDS: levETIRAcetam in NaCl (iso-os) 1,000 MG/100 ML PIGGYBACK 400 MG IV ×2 (09:58→21:27)
[2022-08-18 11:43] LABS: Glucose, Whole Blood 155 mg/dL (60-115)
[2022-08-18] MEDS: Insulin Lispro 100 UNIT/ML 3 ML VIAL SUBCUT (12:05)
--- NOTE | 2022-08-18 13:30 | MHC.CM.PN ---
Pt continues care in ICU following cardiac arrest: Vented and with poor prognosis per MD a/e/b lack of pt improvement and clinical data. Pt to have a repeat EEG today to assess for neurological fx. Family is considering HISTOLOGY ASSISTANT but would like to ensure pt has no hope for meaningful recovery or improvement. MD to discuss findings of EEG w/family. CM to follow.
--- NOTE | 2022-08-18 15:10 | P.PNCC_ITS ---
Subjective Subjective Date of Service: 08/18/22 Interval History: 72-year-old male type 2 diabetic and moderately obese remains on the ventilator after suffering a cardio respiratory arrest requiring a 20 minute resuscitation to spontaneous circulation and has remained with just minimal brainstem reflexes including now some pupillary reactivity but no distinct corneal reflex still has and negative doll's eyes and and no awaiting the repeat EEG but he no longer has clinical convulsive or nonconvulsive status epilepticus and were looking for eeg corroboration along with some indication of the degree of background encephalopathy and he remains on these 4 medications but he has had repair of all organs so he has had repair of his acute kidney insufficiency cardiac dysfunction etc. remains in normal sinus rhythm with stable vital signs a tolerating his tube feedings yet has no response to pain and his predominant brainstem activity consists of is spontaneous respiration he has no gag reflex but he does have some cough Critical Care Time (minutes): 45 Physical Exam Vital Signs: Vital Signs: Last Vital Signs Temp 97.5 F 08/18/22 14:00 Pulse 80 08/18/22 14:00 Resp 14 08/18/22 14:00 BP 158/58 H 08/18/22 14:00 Pulse Ox 96 08/18/22 14:00 O2 Del Method Mechanical Ventil ation 08/18/22 14:00 O2 Flow Rate 30 08/16/22 23:00 FiO2 30 08/18/22 14:00 BMI result Body Mass Index 29.4 stable vital signs and he remains without any movement of all 4 extremities and flaccid bedside cardiac exam by echo with globally normal systolic wall motion lungs clear bilaterally no adventitious sounds abdomen soft with no organomegaly Objective Data Labs 08/18/22 04:28 08/18/22 04:28 Labs: Laboratory Results - last 24 hr 08/17/22 08/17/22 08/18/22 17:35 23:32 04:27 WBC RBC Hgb Hct MCV MCH MCHC RDW Plt Count MPV Immature Gran % (Auto) Neut % (Auto) Lymph % (Auto) [place] % (Auto) Eos % (Auto) Baso % (Auto) Lymph # (Auto) [place] # (Auto) Eos # (Auto) Baso # (Auto) Abs Immat Gran (auto) Absolute Neuts (auto) Absolute Nucleated RBC Nucleated RBC % (auto) VBG pH 7.39 VBG pCO2 34 VBG pO2 48 VBG HCO3 21 L VBG O2 Saturation 73.0 VBG Base Excess -3.1 Sodium Potassium Chloride Carbon Dioxide Anion Gap BUN Creatinine Estim Creat Clear Calc Estimated GFR POC Glucose 119 H 115 Random Glucose Calcium Phosphorus Magnesium Total Bilirubin AST ALT Alkaline Phosphatase Total Protein Albumin 08/18/22 08/18/22 08/18/22 04:28 04:28 04:28 WBC 7.9 RBC 2.82 L Hgb 7.9 L Hct 24.9 L MCV 88.3 MCH 28.0 MCHC 31.7 RDW 16.3 H Plt Count 510 H MPV 11.1 Immature Gran % (Auto) 1.3 H Neut % (Auto) 79.6 H Lymph % (Auto) 9.7 L [place] % (Auto) 6.6 Eos % (Auto) 2.5 Baso % (Auto) 0.3 Lymph # (Auto) 0.8 L [place] # (Auto) 0.5 Eos # (Auto) 0.2 Baso # (Auto) 0.0 Abs Immat Gran (auto) 0.10 H Absolute Neuts (auto) 6.3 Absolute Nucleated RBC 0.000 Nucleated RBC % (auto) 0.0 VBG pH VBG pCO2 VBG pO2 VBG HCO3 VBG O2 Saturation VBG Base Excess Sodium 138 Potassium 4.3 Chloride 107 Carbon Dioxide 19 L Anion Gap 16 BUN 37 H Creatinine 1.03 Cancelled Estim Creat Clear Calc 64.0 Cancelled Estimated GFR > 60 Cancelled POC Glucose Random Glucose 136 H Calcium 8.6 Phosphorus 3.7 Magnesium 1.8 Total Bilirubin 0.4 AST 56 H ALT 49 H Alkaline Phosphatase 144 H Total Protein 6.0 L Albumin 2.8 L 08/18/22 11:37 WBC RBC Hgb Hct MCV MCH MCHC RDW Plt Count MPV Immature Gran % (Auto) Neut % (Auto) Lymph % (Auto) [place] % (Auto) Eos % (Auto) Baso % (Auto) Lymph # (Auto) [place] # (Auto) Eos # (Auto) Baso # (Auto) Abs Immat Gran (auto) Absolute Neuts (auto) Absolute Nucleated RBC Nucleated RBC % (auto) VBG pH VBG pCO2 VBG pO2 VBG HCO3 VBG O2 Saturation VBG Base Excess Sodium Potassium Chloride Carbon Dioxide Anion Gap BUN Creatinine Estim Creat Clear Calc Estimated GFR POC Glucose 155 H Random Glucose Calcium Phosphorus Magnesium Total Bilirubin AST ALT Alkaline Phosphatase Total Protein Albumin Microbiology Microbiology Results: Microbiology 08/08/22 04:29 Blood - Venous Blood Culture - Final No growth after 5 days. 08/08/22 04:29 Blood - Venous Blood Culture - Final No growth after 5 days. 08/06/22 19:00 Blood - Venous Blood Culture - Final No growth after 5 days. 08/06/22 18:30 Blood - Venous Blood Culture - Final No growth after 5 days. Progress Note: A&P Assessment and plan (1) Deep tissue injury: Status: Acute (2) Anoxic encephalopathy: Status: Acute (3) Status epilepticus: Status: Acute (4) Encephalopathy: Status: Acute (5) Diabetes mellitus: Status: Acute (6) Seizures: Status: Acute (7) Diabetic ketoacidosis: Status: Acute (8) Atrial fibrillation with RVR: Status: Acute (9) Septic shock: Status: Acute (10) Transaminitis: Status: Acute (11) SOY (acute kidney injury): Status: Acute (12) Acute respiratory failure: Status: Acute (13) Pulmonary edema: Status: Acute (14) Cardiopulmonary arrest: Status: Acute (15) Acute exacerbation of chronic obstructive airways disease: Status: Acute (16) Pneumonia: Status: Acute (17) Erectile dysfunction associated with type 2 diabetes mellitus: Status: Acute (18) Cancer of right renal pelvis: Status: Acute (19) Nocturia more than twice per night: Status: Acute (20) Prostate cancer: Status: Acute (21) Pulmonary nodules: Status: Acute (22) Dyspnea on exertion: Status: Acute (23) COPD (chronic obstructive pulmonary disease): Status: Acute Plan the plan is to maintain support as above he has had repair of all organ systems except for cognitive function and if repeat EEG confirms that and another day goes by with nothing but some lower brainstem function need to discuss the approach with the family possible recommendation of comfort measure only because it it is apparent that it is extremely improbable that they will be a meaningful recovery outside of just persistent vegetative state Quality Stroke Does the patient have a stroke diagnosis?: No VTE Prior VTE?: No VTE Risk Level:: Medical - moderate - high VTE Device Contraindication: Treatment Not Indicated VTE Drug Contraindication: N/A - Med Ordered
[2022-08-18 17:24] LABS: Glucose, Whole Blood 118 mg/dL (60-115)
[2022-08-19] VITALS (29 sets, daily range): BP systolic 106–178; BP diastolic 46–75; PULSE 69–91; RESP 14–18; TEMP 34.7–37.3; O2SAT 92–98; BMI 29.3
[2022-08-19 00:33] LABS: Glucose, Whole Blood 107 mg/dL (60-115)
[2022-08-19] MEDS: PHENobarbitaL 30 MG TABLET 90 MG PO ×4 (00:55→23:30)
[2022-08-19] MEDS: Midazolam HCl/PF 2 MG/2 ML VIAL 4 MG IVPUSH (03:10)
[2022-08-19] MEDS: Valproic Acid (as Sodium Salt) 1,000 MG in Dextrose 5 % 50 ML 60 MG IV ×3 (03:36→20:11)
[2022-08-19] MEDS: Piperacillin Sodium/Tazobactam 2.25 GM in 0.9 % Sodium Chloride 50 ML IV ×4 (05:00→22:22)
[2022-08-19 05:17] LABS: VBG Base Excess -2.7 mmol/L; VBG HCO3 21 mmol/L (22-26); VBG pCO2 32 mmHg; VBG pH 7.42 (7.32-7.43); VBG pO2 81 mmHg
[2022-08-19 05:22] LABS: MANUAL DIFF FLAG NO
[2022-08-19 05:28] LABS: Basophils Percent Auto 0.2 % (0-2); Eosinophils Absolute Auto 0.2 X10*3/uL (0.0-0.4); Eosinophils Percent Auto 2.7 % (0-4); Hematocrit 25.5 % (42.0-52.0); Hemoglobin 8.1 g/dl (14.0-18.0); Imm Gran Pct Auto 1.6 % (0.0-0.4); Lymphocytes Absolute Auto 0.7 X10*3/uL (1.2-4.9); Lymphocytes Percent Auto 11.2 % (20-40); Mean Corpuscular HGB Conc 31.8 g/dl (31.0-36.0); Mean Corpuscular Hemoglobin 27.7 pg (27.0-33.0); Mean Corpuscular Volume 87.3 fL (80.0-98.0); Mean Platelet Volume 11.1 fL (9.4-12.4); Monocytes Absolute Auto 0.4 X10*3/uL (0.1-1.2); Monocytes Percent Auto 6.7 % (2-11); Neutrophils Percent Auto 77.6 % (45-73); Platelet Count 602 X10*3/uL (160-400); Red Blood Count 2.92 X10*6/uL (4.60-5.80); Red Cell Distribution Width 16.4 % (11.0-16.0); Venous Blood Gas Refer to POC result; White Blood Count 6.4 X10*3/uL (4.8-10.8)
[2022-08-19] MEDS: Albuterol/Iprat 2.5/0.5MG 3 ML AMPUL.NEB INHALE ×3 (05:36→15:29)
[2022-08-19 05:52] LABS: Alanine Aminotransferase 49 U/L (0-40); Albumin Level 2.7 g/dL (3.5-5.0); Alkaline Phosphatase 139 U/L (39-117); Anion Gap 15 (12-20); Aspartate Amino Transferase 54 U/L (5-37); Bilirubin Total 0.3 mg/dL (0.0-1.0); Blood Urea Nitrogen 31 mg/dL (9-16); Calcium 8.6 mg/dL (8.4-10.2); Carbon Dioxide 20 mmol/L (22-29); Chloride 109 mmol/L (96-108); Creatinine Clr Calc Pharmacy 69.1; Estimated Glomerular Filt Rate > 60; Glucose Random 129 mg/dL (60-115); Magnesium 1.8 mg/dL (1.6-2.6); Phosphorus 3.6 mg/dL (2.7-4.5); Potassium 4.3 mmol/L (3.3-5.1); Sodium 140 mmol/L (135-145)
[2022-08-19] MEDS: Insulin Glargine,Hum.rec.anlog 100 UNIT/ML 10 ML VIAL 30 UNIT SUBCUT (08:29)
[2022-08-19] MEDS: Phenytoin Oral Susp 100 MG/4 ML ORAL.SUSP 400 MG PO (08:29)
[2022-08-19] MEDS: Chlorhexidine Gluc Oral Rinse 15 ML MOUTHWASH BUCCAL ×3 (08:29→20:11)
[2022-08-19] MEDS: levETIRAcetam in NaCl (iso-os) 1,000 MG/100 ML PIGGYBACK 400 MG IV ×2 (10:09→22:08)
[2022-08-19 11:09] LABS: Glucose, Whole Blood 94 mg/dL (60-115)
--- NOTE | 2022-08-19 11:48 | P.PNCC_ITS ---
Subjective Subjective Date of Service: 08/19/22 Interval History: 72-year-old type 2 diabetic male with hypoxemic respiratory failure from pneumococcal pneumonia and sepsis went into rapid atrial fibrillation on the floor shortly thereafter was incomplete arrest with a 20 minute resuscitation since that time and has been comatose and unresponsive to deep pain clearly has suffered a severe anoxic encephalopathy all all other organ systems at seem to have recovered so there was no residual metabolic issue he had longstanding nonconvulsive status epilepticus which probably contributed to ongoing damage his exam remains unchanged purely vegetative issues just from the lower brainstem namely spontaneous respiration and cough and the EEG confirmed severe encephalopathic result with very very poor prognosis for any meaningful cognitive function confucianism but the nonconvulsive status seems to have been eradicated on 4 for drugs including valproic acid and Dilantin and phenobarbital and Keppra and the message was conveyed to the daughter who is the healthcare proxy and he is already a DNR but we had discussed the possibility of comfort measures and removing the ventilator and stopping tube feedings and we await that decision by the family verses a decision to potentially provide more time but they took the conversation under advisement Critical Care Time (minutes): 45 Physical Exam Vital Signs: Vital Signs: Last Vital Signs Temp 98.8 F 08/19/22 11:00 Pulse 77 08/19/22 11:00 Resp 17 08/19/22 11:00 BP 124/51 L 08/19/22 11:00 Pulse Ox 94 08/19/22 11:00 O2 Del Method Mechanical Ventil ation 08/19/22 11:00 O2 Flow Rate 30 08/16/22 23:00 FiO2 30 08/19/22 11:42 BMI result Body Mass Index 29.3 unresponsive to deep pain with 4 extremity flaccid no tone bedside echo with preserved LV function 55% ejection fraction diminished bilateral breath sounds but no adventitious sounds abdomen soft with no organomegaly tolerating tube feedings all lab work demonstrating normal metabolic so off sedation for 4 days Objective Data Labs 08/19/22 05:02 08/19/22 05:02 Labs: Laboratory Results - last 24 hr 08/18/22 08/19/22 08/19/22 17:04 00:30 05:02 WBC 6.4 RBC 2.92 L Hgb 8.1 L Hct 25.5 L MCV 87.3 MCH 27.7 MCHC 31.8 RDW 16.4 H Plt Count 602 H MPV 11.1 Immature Gran % (Auto) 1.6 H Neut % (Auto) 77.6 H Lymph % (Auto) 11.2 L [place] % (Auto) 6.7 Eos % (Auto) 2.7 Baso % (Auto) 0.2 Lymph # (Auto) 0.7 L [place] # (Auto) 0.4 Eos # (Auto) 0.2 Baso # (Auto) 0.0 Abs Immat Gran (auto) 0.10 H Absolute Neuts (auto) 5.0 Absolute Nucleated RBC 0.000 Nucleated RBC % (auto) 0.0 VBG pH VBG pCO2 VBG pO2 VBG HCO3 VBG O2 Saturation VBG Base Excess Sodium Potassium Chloride Carbon Dioxide Anion Gap BUN Creatinine Estim Creat Clear Calc Estimated GFR POC Glucose 118 H 107 Random Glucose Calcium Phosphorus Magnesium Total Bilirubin AST ALT Alkaline Phosphatase Total Protein Albumin 08/19/22 08/19/22 08/19/22 05:02 05:10 11:05 WBC RBC Hgb Hct MCV MCH MCHC RDW Plt Count MPV Immature Gran % (Auto) Neut % (Auto) Lymph % (Auto) [place] % (Auto) Eos % (Auto) Baso % (Auto) Lymph # (Auto) [place] # (Auto) Eos # (Auto) Baso # (Auto) Abs Immat Gran (auto) Absolute Neuts (auto) Absolute Nucleated RBC Nucleated RBC % (auto) VBG pH 7.42 VBG pCO2 32 VBG pO2 81 VBG HCO3 21 L VBG O2 Saturation 96.0 VBG Base Excess -2.7 Sodium 140 Potassium 4.3 Chloride 109 H Carbon Dioxide 20 L Anion Gap 15 BUN 31 H Creatinine 0.96 Estim Creat Clear Calc 69.1 Estimated GFR > 60 POC Glucose 94 Random Glucose 129 H Calcium 8.6 Phosphorus 3.6 Magnesium 1.8 Total Bilirubin 0.3 AST 54 H ALT 49 H Alkaline Phosphatase 139 H Total Protein 6.0 L Albumin 2.7 L Microbiology Microbiology Results: Microbiology 08/08/22 04:29 Blood - Venous Blood Culture - Final No growth after 5 days. 08/08/22 04:29 Blood - Venous Blood Culture - Final No growth after 5 days. 08/06/22 19:00 Blood - Venous Blood Culture - Final No growth after 5 days. 08/06/22 18:30 Blood - Venous Blood Culture - Final No growth after 5 days. Progress Note: A&P Assessment and plan (1) Deep tissue injury: Status: Acute (2) Anoxic encephalopathy: Status: Acute (3) Status epilepticus: Status: Acute (4) Encephalopathy: Status: Acute (5) Diabetes mellitus: Status: Acute (6) Seizures: Status: Acute (7) Diabetic ketoacidosis: Status: Acute (8) Atrial fibrillation with RVR: Status: Acute (9) Septic shock: Status: Acute (10) Transaminitis: Status: Acute (11) SOY (acute kidney injury): Status: Acute (12) Acute respiratory failure: Status: Acute (13) Pulmonary edema: Status: Acute (14) Cardiopulmonary arrest: Status: Acute (15) Acute exacerbation of chronic obstructive airways disease: Status: Acute (16) Pneumonia: Status: Acute (17) Erectile dysfunction associated with type 2 diabetes mellitus: Status: Acute (18) Cancer of right renal pelvis: Status: Acute (19) Nocturia more than twice per night: Status: Acute (20) Prostate cancer: Status: Acute (21) Pulmonary nodules: Status: Acute (22) Dyspnea on exertion: Status: Acute (23) COPD (chronic obstructive pulmonary disease): Status: Acute Plan so we have severe anoxic encephalopathy very very poor prognosis likely persistent vegetative state and as stands now ventilator dependent and overall prognosis discussed with the family and as I described to them that we are no longer suffering from the burden of ongoing nonconvulsive status epilepticus to account for his lack of cognitive function nor do we have any Modic metabolic disarray or sedation etc. so at this point it is just purely the result of anoxic damage and they are going to decide about comfort measures Quality Stroke Does the patient have a stroke diagnosis?: No VTE Prior VTE?: No VTE Risk Level:: Medical - moderate - high VTE Device Contraindication: Treatment Not Indicated VTE Drug Contraindication: N/A - Med Ordered
--- NOTE | 2022-08-19 13:00 | MHC.CLN ---
F/U PT REMAINS INTUBATED REVIEWED LABS PT RECEIVING TF GLUCERNA TO MAX GOAL RATE 65ML/HR AND 30ML PROSOURCE Q DAY WITH 240ML FWF Q 6 HRS PROVIDES 1620KCALS, 80G TOTAL PROTEIN (1.1G/KG), 2291ML TOTAL WATER FROM FORMULA AND FLUSHES (33ML/KG) MONITOR TOLERANCE, RESIDUALS AND LYTES FAMILY MEETING TO DISCUSS GOAL OF CARE PENDING FOLLOWING WITH TEAM
[2022-08-19 17:10] LABS: Glucose, Whole Blood 98 mg/dL (60-115)
[2022-08-20] VITALS (31 sets, daily range): BP systolic 127–185; BP diastolic 43–79; PULSE 77–97; RESP 14–18; TEMP 34.8–37.1; O2SAT 92–100; BMI 29.3
[2022-08-20 00:05] LABS: Glucose, Whole Blood 102 mg/dL (60-115)
[2022-08-20] MEDS: Albuterol/Iprat 2.5/0.5MG 3 ML AMPUL.NEB INHALE ×4 (00:27→15:33)
[2022-08-20] MEDS: Valproic Acid (as Sodium Salt) 1,000 MG in Dextrose 5 % 50 ML 60 MG IV ×3 (03:08→20:27)
[2022-08-20] MEDS: Piperacillin Sodium/Tazobactam 2.25 GM in 0.9 % Sodium Chloride 50 ML IV (04:23)
[2022-08-20 05:02] LABS: VBG Base Excess -2.1 mmol/L; VBG HCO3 21 mmol/L (22-26); VBG pCO2 31 mmHg; VBG pH 7.43 (7.32-7.43); VBG pO2 57 mmHg
[2022-08-20 05:09] LABS: Venous Blood Gas Refer to POC result
[2022-08-20 05:26] LABS: MANUAL DIFF FLAG NO
[2022-08-20 05:31] LABS: Basophils Percent Auto 0.6 % (0-2); Eosinophils Absolute Auto 0.2 X10*3/uL (0.0-0.4); Eosinophils Percent Auto 2.6 % (0-4); Hematocrit 26.8 % (42.0-52.0); Hemoglobin 8.6 g/dl (14.0-18.0); Imm Gran Abs Auto 0.14 X10*3/uL (0.00-0.03); Lymphocytes Percent Auto 15.2 % (20-40); Mean Corpuscular HGB Conc 32.1 g/dl (31.0-36.0); Mean Corpuscular Hemoglobin 28.1 pg (27.0-33.0); Mean Corpuscular Volume 87.6 fL (80.0-98.0); Monocytes Absolute Auto 0.5 X10*3/uL (0.1-1.2); Monocytes Percent Auto 6.9 % (2-11); Neutrophils Percent Auto 72.7 % (45-73); Platelet Count 692 X10*3/uL (160-400); Red Blood Count 3.06 X10*6/uL (4.60-5.80); Red Cell Distribution Width 16.4 % (11.0-16.0); White Blood Count 6.8 X10*3/uL (4.8-10.8)
[2022-08-20] MEDS: Midazolam HCl/PF 2 MG/2 ML VIAL 4 MG IVPUSH (05:34)
[2022-08-20] MEDS: Pantoprazole Sodium 40 MG/10 ML VIAL IVPUSH (05:34)
[2022-08-20 05:53] LABS: Albumin Level 2.7 g/dL (3.5-5.0); Anion Gap 14 (12-20); Blood Urea Nitrogen 27 mg/dL (9-16); Calcium 8.9 mg/dL (8.4-10.2); Carbon Dioxide 21 mmol/L (22-29); Chloride 109 mmol/L (96-108); Creatinine Clr Calc Pharmacy 71.2; Estimated Glomerular Filt Rate > 60; Glucose Random 119 mg/dL (60-115); Magnesium 1.7 mg/dL (1.6-2.6); Phosphorus 3.5 mg/dL (2.7-4.5); Potassium 4.1 mmol/L (3.3-5.1); Sodium 140 mmol/L (135-145)
[2022-08-20] MEDS: Phenytoin Oral Susp 100 MG/4 ML ORAL.SUSP 400 MG PO (07:37)
[2022-08-20] MEDS: Chlorhexidine Gluc Oral Rinse 15 ML MOUTHWASH BUCCAL ×3 (07:37→20:27)
[2022-08-20] MEDS: Insulin Glargine,Hum.rec.anlog 100 UNIT/ML 10 ML VIAL 30 UNIT SUBCUT (07:37)
[2022-08-20] MEDS: PHENobarbitaL 30 MG TABLET 90 MG PO ×2 (07:37→15:22)
--- NOTE | 2022-08-20 08:44 | PM.CCPN ---
Subjective Subjective Date of Service: 08/20/22 Interval History: 72-year-old obese male type 2 diabetic came in with acute hypoxemic respiratory failure from pneumococcal pneumonia/sepsis then complicated by new onset rapid atrial fibrillation and then followed quickly by cardio respiratory arrest with 20 minute resuscitation to spontaneous circulation and he has remained comatose no response even to deep pain anything [place] any form of tactile and or loud noise etc. and again remains purely vegetative all 4 extremities remain flaccid no withdrawal response whatsoever and and he had the ongoing feature of not just convulsive but nonconvulsive status epilepticus for quite some time which I am sure be no added to neuronal damage but and currently on 4 medications he remained seizure-free clinically and by EEG prove and despite 5 days off of all sedation and without any status epilepticus still remains unresponsive so without any additional metabolic burden this is purely the result of an extensive anoxic encephalopathy prognosis is poor by virtue of his physical exam for this many days and the EG corroboration and Neurology concurs Critical Care Time (minutes): 35 Physical Exam Vital Signs: Vital Signs: Last Vital Signs Temp 98.5 F 08/20/22 08:00 Pulse 87 08/20/22 08:00 Resp 15 08/20/22 08:00 BP 160/58 H 08/20/22 08:00 Pulse Ox 98 08/20/22 08:00 O2 Del Method Mechanical Ventil ation 08/20/22 08:00 O2 Flow Rate 30 08/16/22 23:00 FiO2 30 08/20/22 08:26 BMI result Body Mass Index 29.3 Vital signs are stable Cardiovascular function is stable and clear Kidney function fully restored Abdomen soft with no organomegaly Lung sounds clear to auscultation and even by Chantal chest x-ray Objective Data Labs 08/20/22 04:46 08/20/22 04:46 Labs: Laboratory Results - last 24 hr 08/19/22 08/19/22 08/19/22 11:05 17:06 23:59 WBC RBC Hgb Hct MCV MCH MCHC RDW Plt Count MPV Immature Gran % (Auto) Neut % (Auto) Lymph % (Auto) [place] % (Auto) Eos % (Auto) Baso % (Auto) Lymph # (Auto) [place] # (Auto) Eos # (Auto) Baso # (Auto) Abs Immat Gran (auto) Absolute Neuts (auto) Absolute Nucleated RBC Nucleated RBC % (auto) VBG pH VBG pCO2 VBG pO2 VBG HCO3 VBG O2 Saturation VBG Base Excess Sodium Potassium Chloride Carbon Dioxide Anion Gap BUN Creatinine Estim Creat Clear Calc Estimated GFR POC Glucose 94 98 102 Random Glucose Calcium Phosphorus Magnesium Albumin 08/20/22 08/20/22 08/20/22 04:46 04:46 04:53 WBC 6.8 RBC 3.06 L Hgb 8.6 L Hct 26.8 L MCV 87.6 MCH 28.1 MCHC 32.1 RDW 16.4 H Plt Count 692 H MPV 11.0 Immature Gran % (Auto) 2.0 H Neut % (Auto) 72.7 Lymph % (Auto) 15.2 L [place] % (Auto) 6.9 Eos % (Auto) 2.6 Baso % (Auto) 0.6 Lymph # (Auto) 1.0 L [place] # (Auto) 0.5 Eos # (Auto) 0.2 Baso # (Auto) 0.0 Abs Immat Gran (auto) 0.14 H Absolute Neuts (auto) 5.0 Absolute Nucleated RBC 0.000 Nucleated RBC % (auto) 0.0 VBG pH 7.43 VBG pCO2 31 VBG pO2 57 VBG HCO3 21 L VBG O2 Saturation 86.0 VBG Base Excess -2.1 Sodium 140 Potassium 4.1 Chloride 109 H Carbon Dioxide 21 L Anion Gap 14 BUN 27 H Creatinine 0.93 Estim Creat Clear Calc 71.2 Estimated GFR > 60 POC Glucose Random Glucose 119 H Calcium 8.9 Phosphorus 3.5 Magnesium 1.7 Albumin 2.7 L Microbiology Microbiology Results: Microbiology 08/08/22 04:29 Blood - Venous Blood Culture - Final No growth after 5 days. 08/08/22 04:29 Blood - Venous Blood Culture - Final No growth after 5 days. 08/06/22 19:00 Blood - Venous Blood Culture - Final No growth after 5 days. 08/06/22 18:30 Blood - Venous Blood Culture - Final No growth after 5 days. Progress Note: A&P Assessment and plan (1) Deep tissue injury: Status: Acute (2) Anoxic encephalopathy: Status: Acute (3) Status epilepticus: Status: Acute (4) Encephalopathy: Status: Acute (5) Diabetes mellitus: Status: Acute (6) Seizures: Status: Acute (7) Diabetic ketoacidosis: Status: Acute (8) Atrial fibrillation with RVR: Status: Acute (9) Septic shock: Status: Acute (10) Transaminitis: Status: Acute (11) SOY (acute kidney injury): Status: Acute (12) Acute respiratory failure: Status: Acute (13) Pulmonary edema: Status: Acute (14) Cardiopulmonary arrest: Status: Acute (15) Acute exacerbation of chronic obstructive airways disease: Status: Acute (16) Pneumonia: Status: Acute (17) Erectile dysfunction associated with type 2 diabetes mellitus: Status: Acute (18) Cancer of right renal pelvis: Status: Acute (19) Nocturia more than twice per night: Status: Acute (20) Prostate cancer: Status: Acute (21) Pulmonary nodules: Status: Acute (22) Dyspnea on exertion: Status: Acute (23) COPD (chronic obstructive pulmonary disease): Status: Acute Plan At this point I think with 10 days of treatment we can stop antibiotics continue to keep him on the antiseizure medication and continue the ventilator family has been spoken to and we said that the return to a meaningful degree of cognitive function is highly highly improbable in all likelihood at best will remain in a vegetative state persistent vegetative state they are thinking about comfort measures Quality Stroke Does the patient have a stroke diagnosis?: No VTE Prior VTE?: No VTE Risk Level:: Medical - moderate - high VTE Device Contraindication: Treatment Not Indicated VTE Drug Contraindication: N/A - Med Ordered
[2022-08-20] MEDS: levETIRAcetam in NaCl (iso-os) 1,000 MG/100 ML PIGGYBACK 400 MG IV ×2 (09:05→21:40)
[2022-08-20 11:34] LABS: Glucose, Whole Blood 134 mg/dL (60-115)
[2022-08-20 17:30] LABS: Glucose, Whole Blood 118 mg/dL (60-115)
[2022-08-21] VITALS (35 sets, daily range): BP systolic 100–190; BP diastolic 43–87; PULSE 69–100; RESP 14–22; TEMP 35–37.3; O2SAT 91–96; BMI 29.6
[2022-08-21 00:02] LABS: Glucose, Whole Blood 106 mg/dL (60-115)
[2022-08-21] MEDS: Albuterol/Iprat 2.5/0.5MG 3 ML AMPUL.NEB INHALE ×5 (00:25→23:35)
[2022-08-21] MEDS: Midazolam HCl/PF 2 MG/2 ML VIAL 4 MG IVPUSH ×4 (00:26→23:40)
[2022-08-21] MEDS: PHENobarbitaL 30 MG TABLET 90 MG PO ×4 (00:28→23:42)
--- NOTE | 2022-08-21 02:45 | PC.NURSE ---
Assumed care at 19:00. Patient remains on ventilator and AC settings. No sedation in use. Patient is mostly unreactive, but turned head towards RN when his left hand is held, also withdraws to pain in RUE and RLE. Left upper and lower extremities with no response to pain. No gag, positive cough. PERRL 3 mm reactive pupils. Breathes over ventilator. No seizure activity noted this shift. Some hypertension, PILL PACKER aware. Patient with sinus rhythm with prolonged QTc of 490 ms. No BM. Diggs with UOP 75 - 150 cc/hour. Buttocks with DTI and foam intact.
[2022-08-21] MEDS: Valproic Acid (as Sodium Salt) 1,000 MG in Dextrose 5 % 50 ML 60 MG IV ×3 (02:48→19:34)
[2022-08-21 05:07] LABS: VBG Base Excess 0.6 mmol/L; VBG HCO3 23 mmol/L (22-26); VBG pCO2 31 mmHg; VBG pH 7.48 (7.32-7.43); VBG pO2 47 mmHg
[2022-08-21 05:12] LABS: MANUAL DIFF FLAG NO
[2022-08-21 05:17] LABS: Basophils Percent Auto 0.5 % (0-2); Eosinophils Absolute Auto 0.2 X10*3/uL (0.0-0.4); Eosinophils Percent Auto 2.9 % (0-4); Hematocrit 25.3 % (42.0-52.0); Hemoglobin 8.2 g/dl (14.0-18.0); Imm Gran Abs Auto 0.09 X10*3/uL (0.00-0.03); Imm Gran Pct Auto 1.6 % (0.0-0.4); Lymphocytes Absolute Auto 0.9 X10*3/uL (1.2-4.9); Mean Corpuscular HGB Conc 32.4 g/dl (31.0-36.0); Mean Corpuscular Hemoglobin 28.4 pg (27.0-33.0); Mean Corpuscular Volume 87.5 fL (80.0-98.0); Mean Platelet Volume 10.3 fL (9.4-12.4); Monocytes Absolute Auto 0.5 X10*3/uL (0.1-1.2); Monocytes Percent Auto 8.1 % (2-11); Neutrophils Absolute Auto 3.9 x10*3/uL (2.0-8.3); Neutrophils Percent Auto 70.9 % (45-73); Platelet Count 635 X10*3/uL (160-400); Red Blood Count 2.89 X10*6/uL (4.60-5.80); Red Cell Distribution Width 16.5 % (11.0-16.0); White Blood Count 5.6 X10*3/uL (4.8-10.8)
[2022-08-21] MEDS: Pantoprazole Sodium 40 MG/10 ML VIAL IVPUSH (05:23)
[2022-08-21 05:34] LABS: Albumin Level 2.6 g/dL (3.5-5.0); Anion Gap 12 (12-20); Blood Urea Nitrogen 24 mg/dL (9-16); Calcium 8.6 mg/dL (8.4-10.2); Carbon Dioxide 22 mmol/L (22-29); Chloride 108 mmol/L (96-108); Creatinine Clr Calc Pharmacy 79.2; Estimated Glomerular Filt Rate > 60; Glucose Random 111 mg/dL (60-115); Magnesium 1.7 mg/dL (1.6-2.6); Phosphorus 3.6 mg/dL (2.7-4.5); Potassium 4.1 mmol/L (3.3-5.1); Sodium 138 mmol/L (135-145)
[2022-08-21 06:43] LABS: Venous Blood Gas Refer to POC result
[2022-08-21] MEDS: Insulin Glargine,Hum.rec.anlog 100 UNIT/ML 10 ML VIAL 30 UNIT SUBCUT (08:43)
[2022-08-21] MEDS: Phenytoin Oral Susp 100 MG/4 ML ORAL.SUSP 400 MG PO (08:43)
[2022-08-21] MEDS: Chlorhexidine Gluc Oral Rinse 15 ML MOUTHWASH BUCCAL ×3 (08:43→19:34)
--- NOTE | 2022-08-21 09:26 | MHC.CLN ---
F/U PT REMAINS INTUBATED REVIEWED LABS PT RECEIVING TF GLUCERNA TO MAX GOAL RATE 65ML/HR AND 30ML PROSOURCE Q DAY WITH 240ML FWF Q 6 HRS PROVIDES 1620KCALS, 80G TOTAL PROTEIN (1.1G/KG), 2291ML TOTAL WATER FROM FORMULA AND FLUSHES (33ML/KG) MONITOR TOLERANCE, RESIDUALS AND LYTES AWAITING DECISION FROM FAMILY MEETING ON GOALS OF CARE FOLLOWING WITH TEAM
[2022-08-21] MEDS: levETIRAcetam in NaCl (iso-os) 1,000 MG/100 ML PIGGYBACK 400 MG IV ×2 (11:14→22:05)
[2022-08-21 11:58] LABS: Glucose, Whole Blood 149 mg/dL (60-115)
--- NOTE | 2022-08-21 15:56 | MHC.CM.PN ---
EMR REVIEWED. PT REMAINS IN ICU ON VENTILATORY SUPPORT. PROGNOSIS IS POOR. 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 CM WILL CONTINUE TO FOLLOW FOR PLAN.
--- NOTE | 2022-08-21 17:13 | PM.CCPN ---
Subjective Subjective Date of Service: 08/21/22 Interval History: 72-year-old male type 2 diabetic presented with hypoxemic respiratory failure from pneumococcal pneumonia and sepsis complicated by new onset rapid atrial fibrillation and then followed shortly thereafter with full cardio respiratory arrest and 20 minute resuscitation and has since remained unresponsive to deep pain with all 4 extremities being flaccid and only has cough and spontaneous respiration as the only brainstem function and has severe background encephalopathic pattern on the EEG x2 and for most of this week has been free of the status epilepticus even the nonconvulsive on 4 medications as I have noted before and been off all sedation for well over an additional week clearly has a grave prognosis will probably be in a persistent vegetative state and is was discussed with the family and they are going to come back in next 24 hours with a decision about comfort measures understanding the gravity of his prognosis Critical Care Time (minutes): 25 Physical Exam Vital Signs: Vital Signs: Last Vital Signs Temp 98.4 F 08/21/22 16:00 Pulse 94 08/21/22 16:00 Resp 18 08/21/22 16:00 BP 147/62 H 08/21/22 16:00 Pulse Ox 93 08/21/22 16:00 O2 Del Method Mechanical Ventil ation 08/21/22 16:00 O2 Flow Rate 30 08/16/22 23:00 FiO2 21 08/21/22 16:00 BMI result Body Mass Index 29.6 Unchanged remains deeply comatose and unresponsive to deep pain with with 4 extremity flaccid and this Cardiovascular stable by bedside echo Lungs clear Abdomen soft with no organomegaly Objective Data Labs 08/21/22 04:58 08/21/22 04:58 Labs: Laboratory Results - last 24 hr 08/20/22 08/20/22 08/21/22 17:16 23:58 04:58 WBC 5.6 RBC 2.89 L Hgb 8.2 L Hct 25.3 L MCV 87.5 MCH 28.4 MCHC 32.4 RDW 16.5 H Plt Count 635 H MPV 10.3 Immature Gran % (Auto) 1.6 H Neut % (Auto) 70.9 Lymph % (Auto) 16.0 L Jenkins % (Auto) 8.1 Eos % (Auto) 2.9 Baso % (Auto) 0.5 Lymph # (Auto) 0.9 L Jenkins # (Auto) 0.5 Eos # (Auto) 0.2 Baso # (Auto) 0.0 Abs Immat Gran (auto) 0.09 H Absolute Neuts (auto) 3.9 Absolute Nucleated RBC 0.000 Nucleated RBC % (auto) 0.0 VBG pH VBG pCO2 VBG pO2 VBG HCO3 VBG O2 Saturation VBG Base Excess Sodium Potassium Chloride Carbon Dioxide Anion Gap BUN Creatinine Estim Creat Clear Calc Estimated GFR POC Glucose 118 H 106 Random Glucose Calcium Phosphorus Magnesium Albumin 08/21/22 08/21/22 08/21/22 04:58 04:58 11:54 WBC RBC Hgb Hct MCV MCH MCHC RDW Plt Count MPV Immature Gran % (Auto) Neut % (Auto) Lymph % (Auto) Jenkins % (Auto) Eos % (Auto) Baso % (Auto) Lymph # (Auto) Jenkins # (Auto) Eos # (Auto) Baso # (Auto) Abs Immat Gran (auto) Absolute Neuts (auto) Absolute Nucleated RBC Nucleated RBC % (auto) VBG pH 7.48 H VBG pCO2 31 VBG pO2 47 VBG HCO3 23 VBG O2 Saturation 76.0 VBG Base Excess 0.6 Sodium 138 Potassium 4.1 Chloride 108 Carbon Dioxide 22 Anion Gap 12 BUN 24 H Creatinine 0.84 Estim Creat Clear Calc 79.2 Estimated GFR > 60 POC Glucose 149 H Random Glucose 111 Calcium 8.6 Phosphorus 3.6 Magnesium 1.7 Albumin 2.6 L Microbiology Microbiology Results: Microbiology 08/08/22 04:29 Blood - Venous Blood Culture - Final No growth after 5 days. 08/08/22 04:29 Blood - Venous Blood Culture - Final No growth after 5 days. 08/06/22 19:00 Blood - Venous Blood Culture - Final No growth after 5 days. 08/06/22 18:30 Blood - Venous Blood Culture - Final No growth after 5 days. Progress Note: A&P Assessment and plan (1) Deep tissue injury: Status: Acute (2) Anoxic encephalopathy: Status: Acute (3) Status epilepticus: Status: Acute (4) Encephalopathy: Status: Acute (5) Diabetes mellitus: Status: Acute (6) Seizures: Status: Acute (7) Diabetic ketoacidosis: Status: Acute (8) Atrial fibrillation with RVR: Status: Acute (9) Septic shock: Status: Acute (10) Transaminitis: Status: Acute (11) SOY (acute kidney injury): Status: Acute (12) Acute respiratory failure: Status: Acute (13) Pulmonary edema: Status: Acute (14) Cardiopulmonary arrest: Status: Acute (15) Acute exacerbation of chronic obstructive airways disease: Status: Acute (16) Pneumonia: Status: Acute (17) Erectile dysfunction associated with type 2 diabetes mellitus: Status: Acute (18) Cancer of right renal pelvis: Status: Acute (19) Nocturia more than twice per night: Status: Acute (20) Prostate cancer: Status: Acute (21) Pulmonary nodules: Status: Acute (22) Dyspnea on exertion: Status: Acute (23) COPD (chronic obstructive pulmonary disease): Status: Acute Plan Severe anoxic encephalopathy persistent the lack of cognitive function making it highly improbable for any meaningful recovery with unchanged examination and severe and encephalopathic pattern on EEG Quality Stroke Does the patient have a stroke diagnosis?: No VTE Prior VTE?: No VTE Risk Level:: Medical - moderate - high VTE Device Contraindication: Treatment Not Indicated VTE Drug Contraindication: N/A - Med Ordered
[2022-08-21 17:49] LABS: Glucose, Whole Blood 123 mg/dL (60-115)
[2022-08-21] MEDS: Albumin Human 25 % 100 ML IV ×2 (19:34→20:32)
[2022-08-21 23:44] LABS: Glucose, Whole Blood 116 mg/dL (60-115)
[2022-08-22] VITALS (19 sets, daily range): BP systolic 118–175; BP diastolic 49–91; PULSE 78–99; RESP 14–21; TEMP 35–37.3; O2SAT 90–95; BMI 29.5
[2022-08-22] MEDS: Midazolam HCl/PF 2 MG/2 ML VIAL 4 MG IVPUSH ×3 (01:20→04:36)
[2022-08-22] MEDS: Albuterol/Iprat 2.5/0.5MG 3 ML AMPUL.NEB INHALE (03:09)
[2022-08-22] MEDS: Valproic Acid (as Sodium Salt) 1,000 MG in Dextrose 5 % 50 ML 60 MG IV ×2 (03:24→10:59)
[2022-08-22] MEDS: Pantoprazole Sodium 40 MG/10 ML VIAL IVPUSH (05:12)
[2022-08-22 05:32] LABS: VBG Base Excess 1.9 mmol/L; VBG HCO3 24 mmol/L (22-26); VBG pCO2 31 mmHg; VBG pO2 49 mmHg
[2022-08-22 05:35] LABS: Venous Blood Gas Refer to POC result
[2022-08-22 05:49] LABS: MANUAL DIFF FLAG NO
[2022-08-22 05:51] LABS: Basophils Percent Auto 0.6 % (0-2); Eosinophils Absolute Auto 0.2 X10*3/uL (0.0-0.4); Eosinophils Percent Auto 2.4 % (0-4); Hematocrit 24.8 % (42.0-52.0); Imm Gran Abs Auto 0.12 X10*3/uL (0.00-0.03); Imm Gran Pct Auto 1.9 % (0.0-0.4); Lymphocytes Absolute Auto 0.9 X10*3/uL (1.2-4.9); Lymphocytes Percent Auto 13.8 % (20-40); Mean Corpuscular HGB Conc 32.3 g/dl (31.0-36.0); Mean Corpuscular Hemoglobin 28.2 pg (27.0-33.0); Mean Corpuscular Volume 87.3 fL (80.0-98.0); Monocytes Absolute Auto 0.5 X10*3/uL (0.1-1.2); Monocytes Percent Auto 7.7 % (2-11); Neutrophils Absolute Auto 4.7 x10*3/uL (2.0-8.3); Neutrophils Percent Auto 73.6 % (45-73); Platelet Count 565 X10*3/uL (160-400); Red Blood Count 2.84 X10*6/uL (4.60-5.80); White Blood Count 6.4 X10*3/uL (4.8-10.8)
[2022-08-22 06:05] LABS: Glucose, Whole Blood 111 mg/dL (60-115)
[2022-08-22 06:05] LABS: Albumin Level 3.3 g/dL (3.5-5.0); Anion Gap 14 (12-20); Blood Urea Nitrogen 22 mg/dL (9-16); Calcium 8.8 mg/dL (8.4-10.2); Carbon Dioxide 22 mmol/L (22-29); Chloride 109 mmol/L (96-108); Estimated Glomerular Filt Rate > 60; Glucose Random 108 mg/dL (60-115); Magnesium 1.8 mg/dL (1.6-2.6); Phosphorus 3.3 mg/dL (2.7-4.5); Sodium 141 mmol/L (135-145)
[2022-08-22] MEDS: PHENobarbitaL 30 MG TABLET 90 MG PO (09:01)
[2022-08-22] MEDS: Insulin Glargine,Hum.rec.anlog 100 UNIT/ML 10 ML VIAL 30 UNIT SUBCUT (09:01)
[2022-08-22] MEDS: Chlorhexidine Gluc Oral Rinse 15 ML MOUTHWASH BUCCAL ×2 (09:02→15:15)
[2022-08-22] MEDS: Phenytoin Oral Susp 100 MG/4 ML ORAL.SUSP 400 MG PO (09:10)
[2022-08-22] MEDS: levETIRAcetam in NaCl (iso-os) 1,000 MG/100 ML PIGGYBACK 400 MG IV (10:57)
[2022-08-22 12:09] LABS: Glucose, Whole Blood 132 mg/dL (60-115)
[2022-08-22] MEDS: Morphine Sulfate/NS 100 MG/100 ML PLAST..BAG IVCONT (15:47)
--- NOTE | 2022-08-22 16:26 | PM.DS ---
DS: Providers Provider Date of Service: 08/22/22 Date of admission: 08/06/22 20:06 Primary care physician: Ayaz Stinson MD Consults: 08/07/22 21:44 Consult to Cardiology Routine Consulting Provider: [facility] Reason for consultation: afib with rvr Has provider been notified: Yes 08/12/22 15:58 Consult to Neurology Routine Consulting Provider: [facility] Reason for consultation: persistent encephalopathy after cardiac arrest Has provider been notified: No 08/15/22 00:52 Consult to Wound Care Routine Consulting Provider: Ema Sanders Reason for consultation: DTI to coccyx DS: Diagnosis Discharge Diagnosis (1) Deep tissue injury: Status: Acute (2) Anoxic encephalopathy: Status: Acute (3) Status epilepticus: Status: Acute (4) Encephalopathy: Status: Acute (5) Diabetes mellitus: Status: Acute (6) Seizures: Status: Acute (7) Diabetic ketoacidosis: Status: Acute (8) Atrial fibrillation with RVR: Status: Acute (9) Septic shock: Status: Acute (10) Transaminitis: Status: Acute (11) SOY (acute kidney injury): Status: Acute (12) Acute respiratory failure: Status: Acute (13) Pulmonary edema: Status: Acute (14) Cardiopulmonary arrest: Status: Acute (15) Acute exacerbation of chronic obstructive airways disease: Status: Acute (16) Pneumonia: Status: Acute (17) Erectile dysfunction associated with type 2 diabetes mellitus: Status: Acute (18) Cancer of right renal pelvis: Status: Acute (19) Nocturia more than twice per night: Status: Acute (20) Prostate cancer: Status: Acute (21) Pulmonary nodules: Status: Acute (22) Dyspnea on exertion: Status: Acute (23) COPD (chronic obstructive pulmonary disease): Status: Acute DS: Summary Hospital Course Hospital Course: Admitted with hypoxic respiratory failure found to be due to pneumococcal pneumonia and sepsis resulting in acute hepatic injury as well as acute kidney injury new onset of rapid atrial fibrillation from which he then suffered a cardio respiratory arrest requiring CPR times 20 minutes from which she he never did awaken and he has remained unresponsive to deep pain and all we had was some residual brainstem function mostly consisting of cough and spontaneous respiration otherwise and everything was consistently absent and there was continuous dysfunctional examination but initially he was on continuous propofol for control of seizure activity but he clearly had persistent treatment refractory nonconvulsive status epilepticus which we finally [place] clinically on 4 medications including Keppra Dilantin phenobarbital and valproic acid enabling us a week ago to take him off of benzodiazepines as well as propofol so there was no confusion as to his persistent comatose state and he has remained severely dysfunctional and per discussion with the family with their understanding that he was probably going to be at the at best in a persistent vegetative state they ultimately in in a family consensus ask for comfort measures and that took place today we extubated him and very shortly thereafter he started to become immediately bradycardic clearly was not sustaining his respirations and and and then became asystolic no no spontaneous breathing and that was at 16:15 hours and was pronounced at that time Time Spent with Patient Time attestation: Total time managing care of this patient today ____ minutes. Discharge coordination time: Greater than 30 minutes Quality: Safe Use of Opioids Does Pt have an Active Cancer Diagnosis on the Problem List?: No Quality: Stroke Does the patient have a stroke diagnosis?: No Physical Exam Vital Signs: Vital Signs: Last Vital Signs Temp 99.1 F 08/22/22 15:00 Pulse 80 08/22/22 15:00 Resp 14 08/22/22 15:00 BP 132/56 L 08/22/22 15:00 Pulse Ox 92 08/22/22 15:00 O2 Del Method Mechanical Ventil ation 08/22/22 15:00 O2 Flow Rate 30 08/16/22 23:00 FiO2 21 08/22/22 15:00 BMI result Body Mass Index 29.5 Apneic and asystolic bedside echo without cardiovascular motion pronounced at 16:15 hours DS: Data Data Completed and Pending Labs on day of discharge: Laboratory Results - last 24 hr 08/21/22 08/21/22 08/22/22 17:45 23:37 05:23 WBC RBC Hgb Hct MCV MCH MCHC RDW Plt Count MPV Immature Gran % (Auto) Neut % (Auto) Lymph % (Auto) Chambers % (Auto) Eos % (Auto) Baso % (Auto) Lymph # (Auto) Chambers # (Auto) Eos # (Auto) Baso # (Auto) Abs Immat Gran (auto) Absolute Neuts (auto) Absolute Nucleated RBC Nucleated RBC % (auto) VBG pH 7.50 H VBG pCO2 31 VBG pO2 49 VBG HCO3 24 VBG O2 Saturation 80.0 VBG Base Excess 1.9 Sodium Potassium Chloride Carbon Dioxide Anion Gap BUN Creatinine Estim Creat Clear Calc Estimated GFR POC Glucose 123 H 116 H Random Glucose Calcium Phosphorus Magnesium Albumin 08/22/22 08/22/22 08/22/22 05:27 05:27 06:01 WBC 6.4 RBC 2.84 L Hgb 8.0 L Hct 24.8 L MCV 87.3 MCH 28.2 MCHC 32.3 RDW 17.0 H Plt Count 565 H MPV 10.0 Immature Gran % (Auto) 1.9 H Neut % (Auto) 73.6 H Lymph % (Auto) 13.8 L Chambers % (Auto) 7.7 Eos % (Auto) 2.4 Baso % (Auto) 0.6 Lymph # (Auto) 0.9 L Chambers # (Auto) 0.5 Eos # (Auto) 0.2 Baso # (Auto) 0.0 Abs Immat Gran (auto) 0.12 H Absolute Neuts (auto) 4.7 Absolute Nucleated RBC 0.000 Nucleated RBC % (auto) 0.0 VBG pH VBG pCO2 VBG pO2 VBG HCO3 VBG O2 Saturation VBG Base Excess Sodium 141 Potassium 4.0 Chloride 109 H Carbon Dioxide 22 Anion Gap 14 BUN 22 H Creatinine 0.83 Estim Creat Clear Calc 80.0 Estimated GFR > 60 POC Glucose 111 Random Glucose 108 Calcium 8.8 Phosphorus 3.3 Magnesium 1.8 Albumin 3.3 L 08/22/22 12:06 WBC RBC Hgb Hct MCV MCH MCHC RDW Plt Count MPV Immature Gran % (Auto) Neut % (Auto) Lymph % (Auto) Chambers % (Auto) Eos % (Auto) Baso % (Auto) Lymph # (Auto) Chambers # (Auto) Eos # (Auto) Baso # (Auto) Abs Immat Gran (auto) Absolute Neuts (auto) Absolute Nucleated RBC Nucleated RBC % (auto) VBG pH VBG pCO2 VBG pO2 VBG HCO3 VBG O2 Saturation VBG Base Excess Sodium Potassium Chloride Carbon Dioxide Anion Gap BUN Creatinine Estim Creat Clear Calc Estimated GFR POC Glucose 132 H Random Glucose Calcium Phosphorus Magnesium Albumin Discharge Plan Discharge Anticipated Discharge Date/Time: 08/22/22 16:23 Patient Disposition: Discharge Diagnosis: Status post cardio respiratory arrest Anoxic encephalopathy Status epilepticus Pneumococcal pneumonia Pneumococcal sepsis Paroxysmal rapid atrial fibrillation Type 2 diabetes mellitus Referrals: Ayaz Stinson MD [Primary Care Provider] - 1 Week Discharge Medications: No Action tamsulosin 0.4 mg capsule 0.4 mg PO BEDTIME 30 Days Qty: 30 12RF oxycodone-acetaminophen 5-325 mg tablet 1 tab PO Q8H PRN (Reason: Pain, Severe) tadalafil 5 mg tablet 5 mg PO DAILY PRN (Reason: Sexual Activity) Trelegy Ellipta 200-62.5-25 mcg blister with device 1 inh inhalation BID glyburide 1.25 mg tablet 1.25 mg PO DAILY@0730 simvastatin 80 mg tablet 80 mg PO DAILY albuterol sulfate 90 mcg/actuation HFA aerosol inhaler 2 puff PO Q4-6H PRN (Reason: Shortness Of Breath Or Wheezing) enalapril maleate 20 mg tablet 20 mg PO BID ipratropium-albuterol 0.5 mg-3 mg(2.5 mg base)/3 mL solution for nebulization 3 ml inhalation TID PRN (Reason: Shortness Of Breath) metformin 500 mg tablet 1,000 mg PO BIDWM nifedipine 90 mg tablet extended release 90 mg PO DAILY metoprolol succinate 100 mg tablet extended release 24 hr 100 mg PO DAILY metoprolol succinate 50 mg tablet extended release 24 hr 50 mg PO BEDTIME diphenhydramine HCl [Banophen] 25 mg capsule 25 mg PO BEDTIME PRN (Reason: insomnia) aspirin 81 mg tablet,delayed release (DR/EC) 81 mg PO DAILY
--- NOTE | 2022-08-22 18:02 | PC.RT ---
Pt status changed to [employer]. RT extubated pt @ 1557 per MD, family at bedside. RN present.
== END 2022-08-22 18:10 | disposition expired | DRG 720 ==
LOC: HO.ED 19:59 → HO.EDOVER 20:18 → HO.S3 21:13 → HO.IMC 08-07 22:26 → HO.ICU 08-08 01:54
PROVIDERS: Internal Medicine Cardiovascular Disease; Nurse Practitioner Family; Physician Assistant; Physician Assistant Medical; Registered Nurse Community Health; Admitting Provider Student in an Organized Health Care Education/Training Program; Emergency Provider Student in an Organized Health Care Education/Training Program; PCP Internal Medicine; Visit Provider Internal Medicine Pulmonary Disease
DX: A41.9 Sepsis, unspecified organism (principal); J96.01 Acute respiratory failure with hypoxia; N17.0 Acute kidney failure with tubular necrosis; R40.20 Unspecified coma; R65.21 Severe sepsis with septic shock; E11.10 Type 2 diabetes mellitus with ketoacidosis without coma; G40.801 Other epilepsy, not intractable, with status epilepticus; J13 Pneumonia due to Streptococcus pneumoniae; J44.0 Chronic obstructive pulmonary disease with (acute) lower respiratory infection; I48.91 Unspecified atrial fibrillation; J45.901 Unspecified asthma with (acute) exacerbation; G93.1 Anoxic brain damage, not elsewhere classified; J44.1 Chronic obstructive pulmonary disease with (acute) exacerbation; E78.2 Mixed hyperlipidemia; N40.1 Benign prostatic hyperplasia with lower urinary tract symptoms; E87.0 Hyperosmolality and hypernatremia; N39.498 Other specified urinary incontinence; Z66 Do not resuscitate; Z68.29 Body mass index [BMI] 29.0-29.9, adult; E66.9 Obesity, unspecified; R35.1 Nocturia; I46.9 Cardiac arrest, cause unspecified; Z20.822 Contact with and (suspected) exposure to COVID-19; Z85.46 Personal history of malignant neoplasm of prostate; Z85.528 Personal history of other malignant neoplasm of kidney; Z87.891 Personal history of nicotine dependence; Z88.1 Allergy status to other antibiotic agents; Z88.2 Allergy status to sulfonamides; Z79.82 Long term (current) use of aspirin; Z79.84 Long term (current) use of oral hypoglycemic drugs; Z79.899 Other long term (current) drug therapy
CPT/HCPCS: 36415; 70551; 71045; 71046; 71250; 74177; 80048; 80053; 80143; 80164; 80179; 80185; 80202; 80307; 80320; 82040; 82272; 82803; 82947; 83605; 83690; 83735; 83880; 84100; 84484; 85007; 85025; 85027; 85610; 85730; 86850; 86900; 86901; 86923; 87040; 87449; 87633; 87635; 87640; 87641; 87899; 92950; 93005; 93306; 94002; 94003; 94640; 94799; 95816; 99285; C1758; J0171; J0282; J0283; J0456; J0696; J1160; J1643; J1650; J1940; J1953; J2250; J2270; J2543; J2560; J2920; J2930; J3370; J3371; J3475; P9016; P9047; Q9967